=== PATIENT | female | born 1985 | race Caucasian/White ===

== ENCOUNTER 2017-04-20 18:28 | Inpatient (IN) ==
--- OUTSIDE RECORDS SUMMARY | 2017-04-20 19:12 | External Medical Summary | Referral Summary ---
:1985 Author Organization [facility] Address [address] [place] [address] Care Team Providers Name Role Phone Randell Mi Primary Care Physician Encounter [facility] [phone] Date(s): 05/23/16 - 05/25/16 [facility] [address] [place] [address] Discharge Disposition: 01-Home or Self Care Attending Physician: Mariluz Gonzalez MD Admitting Physician: Mariluz Gonzalez MD Vital Signs Most recent to oldest [Reference Range]: 1 Temperature Oral [35.8-37.3 degC] 36.4 degC (05/25/16 12:19 PM) Temperature Temporal Artery [36.3-37.8 degC] 37 degC (05/24/16 4:00 PM) Peripheral Pulse Rate [60-100 bpm] 102 bpm *HI* (05/25/16 12:19 PM) Heart Rate Monitored [60-100 bpm] 111 bpm *HI* (05/24/16 6:00 PM) Respiratory Rate [14-20 br/min] 16 br/min (05/25/16 12:19 PM) Blood Pressure [90-140/60-90 mmHg] 130/98 mmHg (05/25/16 12:19 PM) Mean Arterial Pressure, Cuff 82 mmHg (05/24/16 6:00 PM) SpO2 98 % (05/25/16 12:19 PM) Remote Telemetry Ongoing (05/24/16 4:00 AM) Problem List Condition Effective Dates Status Health Status Informant Acute pain(Confirmed) Active Allergic rhinitis Resolved (disorder)(Confirmed) Alteration in nutrition(Confirmed)1 Active Anemia (disorder)(Confirmed) Resolved Anxiety(Confirmed)2 Active At risk for falls(Confirmed)3 Resolved At risk for infection(Confirmed)4 Active At risk for injury(Confirmed)5, 6 Active At risk for unstable blood glucose Active level(Confirmed)7, 8, 9 At risk of pressure sore(Confirmed) Active At risk of venous 02/05/15 Active thromboembolus(Confirmed)10 Bipolar 1 disorder(Confirmed) Active patient Essential hypertension Resolved (disorder)(Confirmed) Fluid imbalance(Confirmed)11, 12, 13 Active Impaired gas exchange(Confirmed)14 Active Impaired skin integrity(Confirmed)15 Resolved Impaired spontaneous Active ventilation(Confirmed)16 Ineffective airway Active clearance(Confirmed)17 DKA, type 1(Confirmed) Active Knowledge deficit(Confirmed)18, 19 Active Migraine (disorder)(Confirmed) Resolved PTSD (post-traumatic stress Active patient disorder)(Confirmed) Tissue perfusion Active alteration(Confirmed)20, 21 Tobacco user(Confirmed) Active patient 1Problem added automatically by system based on initiation of Alteration in Nutrition Plan of [id number] added automatically by system based on initiation of Anxiety Plan of [id number] problem was added by Discern Expert.4Problem added automatically by system based on initiation of At Risk for Infection in Nutrition Planof [id number] updated automatically by system based on initiation of Risk for Injury Plan of Xyuk7Bcgdfge added automatically by system based on initiation of Risk for Injury Plan of Fscx1Povntal updated automatically by system based on initiation of At Risk for Unstable Blood Glucose Plan of [id number] updated automatically by system based on initiation of At Risk for Unstable Blood Glucose Plan of Ihyj7Nwxldsq added automatically by system based on initiation of At Risk for Unstable Blood Glucose Planof Cujz43Awokfap added by Discern Hjkghr25Rfnmqar updated automatically by system based on initiation of Fluid Volume Imbalance Plan of [id number] updated automatically by system based on initiation of Fluid Volume Imbalance Plan of [id number] added automatically by system based on initiation of Fluid Volume Imbalance Plan of Ormu29Vmgrexm added automatically by system based on initiation of Impaired Gas Exchange Plan of Dtja14Tmndwkk added automatically by system based on initiation of Impaired Skin Integrity Plan of Rzpp65Xquholk added automatically by system based on initiation of Impaired Spontaneous Ventilation Plan of Vedg72Vqmilij added automatically by system based on initiation of Ineffective Airway Clearance Plan of Uuxj89Vepvbtc updated automatically by system based on initiation of Knowledge Deficit Plan of Fvxj89Nuzkxmf added automatically by system based on initiation of Knowledge Deficit Plan of Ieqi63Rqrtxhc updated automatically by system based on initiation of Tissue Perfusion Cerebral Plan of Pwhi19Jgbzcsw added automatically by system based on initiation of Tissue Perfusion Cerebral Plan of Care Allergies, Adverse Reactions, Alerts Substance Reaction Severity Status amoxicillin Unknown Unknown Active Hives Apple Adverse Reaction Active ibuprofen Active Macrobid1 mineral oil/phenylephrine/shark liver Mild Active oil morphine unknown Active penicillin Medium Active simvastatin Adverse Reaction Active sulfa drugs Active sulfamethoxazole-trimethoprim Anaphylaxis Active 1pt states liver problems Medications albuterol 2.5 mg/3 mL (0.083%) inhalation solution 2.5 mg 3 mL, NEB, q4hr, Shortness of Breath/Wheezing, # 540 mL, 0 Refill(s), Pharmacy: [facility] [id number], 3 mL NEB q4hr,PRN:Shortness of Breath/ Wheezing Start Date: 06/25/15 Status: OrderedAmbien 5 mg, Oral, Bedtime (once a day), as needed for sleep, 0 Refill(s) Start Date: 11/07/15 Status: Ordereddiazepam 2 mg, Oral, TID, 0 Refill(s) Start Date: 03/01/16 Status: Ordereddoxycycline hyclate 100 mg oral capsule 100 mg 1 caps, Oral, BID, X 5 days, # 10 caps, 0 Refill(s) Start Date: 05/22/16 Stop Date: 05/27/16 Status: Orderedfolic acid 1 mg oral tablet 1 mg, Oral, Daily, # 30 tabs, 0 Refill(s), Pharmacy: [facility] [id number] , 1 mg Oral Daily Start Date: 06/25/15 Status: OrderedLevemir 100 units/mL subcutaneous solution 30 units, SubCutaneous, Bedtime (once a day), 0 Refill(s) Start Date: 03/10/16 Status: Orderedlisinopril 5 mg oral tablet 5 mg 1 tabs, Oral, Daily, # 30 tabs, 1 Refill(s), Pharmacy: [facility] [id number], 1 tabs Oral Daily Start Date: 06/25/15 Status: OrderedMultiple Vitamins oral capsule 1 caps, Oral, Daily, # 30 caps, 0 Refill(s), Pharmacy: [facility] [id number] Start Date: 06/25/15 Status: OrderedNovoLOG 13 units, SubCutaneous, With Breakfast, 0 Refill(s) Start Date: 03/01/16 Status: OrderedNovoLOG 10 units, SubCutaneous, With Lunch and Dinner, 0 Refill(s) Start Date: 03/01/16 Status: OrderedProAir HFA 90 mcg/inh inhalation aerosol 2 puffs, Inhalation, q4hr, as needed for wheezing, 0 Refill(s) Start Date: 03/01/16 Status: OrderedPromethazine with Codeine 6.25 mg-10 mg/5 mL oral syrup 5 mL, Oral, q6hr, as needed for cough, X 7 days, # 100 mL, 0 Refill(s) Start Date: 05/22/16 Stop Date: 05/29/16 Status: Orderedsertraline 100 mg oral tablet 200 mg 2 tabs, Oral, qAM, 0 Refill(s) Start Date: 03/01/16 Status: OrderedVitamin B Complex oral capsule 1 caps, Oral, Daily, # 30 caps, 0 Refill(s), Pharmacy: [facility] [id number] Start Date: 06/25/15 Status: Ordered Results Blood Gases Most recent to oldest [Reference Range]: 1 pH [7.35-7.45] 7.31 *LOW* (05/23/16 9:09 PM) pCO2 Art [35-45 mmHg] 23 mmHg *LOW* (05/23/16 9:09 PM) Bicarbonate [22-26 mEq/L] 11 mEq/L *LOW* (05/23/16 9:09 PM) Base Excess Art [0-2] -13 *LOW* (05/23/16 9:09 PM) O2 Sat Art [90.0-97.0 %] 97.2 % *HI* (05/23/16 9:09 PM) pO2 Art [80-100 mmHg] 107 mmHg *HI* (05/23/16 9:09 PM) O2 Panel RA (05/23/16 9:09 PM) Spec Site A. radialis r. (05/23/16 9:09 PM) Hematology Most recent to oldest [Reference Range]: 1 WBC [4.8-10.8 10*3/uL] 15.8 10*3/uL *HI* (05/24/16 4:01 AM) RBC [4.00-5.20] 3.65 *LOW* (05/24/16 4:01 AM) Hgb [12.0-16.0 gm/dL] 10.7 gm/dL *LOW* (05/24/16 4:01 AM) Hct [37.0-47.0 %] 31.5 % *LOW* (05/24/16 4:01 AM) MCV [82.0-99.0 fL] 86.3 fL (05/24/16 4:01 AM) MCH [27.0-32.0 pg] 29.3 pg (05/24/16 4:01 AM) MCHC [32.0-36.0 gm/dL] 34.0 gm/dL (05/24/16 4:01 AM) RDW [11.5-14.5 %] 12.1 % (05/24/16 4:01 AM) Platelet [150-400 10*3/uL] 347 10*3/uL (05/24/16 4:01 AM) MPV [9.4-12.4 fL] 9.7 fL (05/24/16 4:01 AM) Immature Granulocytes [0.0-1.0 %] 0.3 % (05/23/16 11:19 PM) Neutrophils [51-75 %] 71 % (05/24/16 4:01 AM) Band Man [0-8 %] 4 % (05/24/16 4:01 AM) Lymphocytes [20-46 %] 15 % *LOW* (05/24/16 4:01 AM) Monocytes [4-11 %] 9 % (05/24/16 4:01 AM) Eosinophils [0-4 %] 1 % (05/24/16 4:01 AM) Basophils [0-2 %] 1 % (05/24/16 4:01 AM) Neutro Absolute [1.90-7.00 10*3] 11.85 10*3 *HI* (05/24/16 4:01 AM) Lymph Absolute [0.80-3.30 10*3] 2.37 10*3 (05/24/16 4:01 AM) Christian Absolute [0.30-1.00 10*3] 1.42 10*3 *HI* (05/24/16 4:01 AM) Eos Absolute [0.00-0.50 10*3] 0.16 10*3 (05/24/16 4:01 AM) Baso Absolute [0.00-0.20 10*3] 0.16 10*3 (05/24/16 4:01 AM) Nucleated RBC Automated [0 /100 WBC] 0.0 /100 WBC (05/24/16 4:01 AM) Differential Reviewed (05/24/16 4:01 AM) Chemistry Most recent to oldest [Reference Range]: 1 Sodium Lvl [136-144 mEq/L] 138 mEq/L (05/25/16 5:24 AM) Potassium Lvl [3.6-5.1 mEq/L] 3.5 mEq/L *LOW* (05/25/16 5:24 AM) Chloride [99-109 mEq/L] 107 mEq/L (05/25/16 5:24 AM) CO2 [22-32 mEq/L] 26 mEq/L (05/25/16 5:24 AM) AGAP [3-20] 5 (05/25/16 5:24 AM) BUN [4-20 mg/dL] 13 mg/dL (05/25/16 5:24 AM) Glucose Lvl [70-100 mg/dL] 67 mg/dL *LOW* (05/25/16 5:24 AM) Creatinine Lvl [0.44-1.03 mg/dL] 0.52 mg/dL (05/25/16 5:24 AM) eGFR [>60] >60 1 (05/25/16 5:24 AM) Calcium Lvl [8.6-10.0 mg/dL] 8.2 mg/dL *LOW* (05/25/16 5:24 AM) Albumin Lvl [3.5-4.8 gm/dL] 2.1 gm/dL *LOW* (05/25/16 5:24 AM) Total Protein [6.1-7.9 gm/dL] 6.9 gm/dL (05/23/16 8:51 PM) Globulin [1.9-4.3 gm/dL] 3.5 gm/dL (05/23/16 8:51 PM) ALT [14-54 U/L] 18 U/L (05/23/16 8:51 PM) AST [15-41 U/L] 18 U/L (05/23/16 8:51 PM) Alk Phos [26-104 U/L] 83 U/L (05/23/16 8:51 PM) Bili Total [0.2-1.2 mg/dL] 1.8 mg/dL 2 *HI* (05/23/16 8:51 PM) Magnesium Lvl [1.8-2.5 mg/dL] 2.0 mg/dL (05/24/16 4:01 AM) Phosphorus [2.4-4.7 mg/dL] 2.6 mg/dL 3 (05/25/16 5:24 AM) Lactic Acid Lvl [0.5-2.2 mEq/L] 0.8 mEq/L (05/24/16 4:01 AM) Prealbumin [18-38 mg/dL] 28 mg/dL (05/23/16 11:19 PM) Sodium Venous [136-144 mEq/L] 118 mEq/L *LOW* (05/23/16 8:48 PM) Potassium Venous [3.6-5.1 mEq/L] 5.6 mEq/L 4 *HI* (05/23/16 8:48 PM) Calcium Ionized Venous [1.19-1.41 mmol/L] 1.13 mmol/L *LOW* (05/23/16 8:48 PM) Total CO2 Venous [25-29 mEq/L] 13 mEq/L *LOW* (05/23/16 8:48 PM) HGB Venous NPT [12.0-16.0 gm/dL] 15.0 gm/dL (05/23/16 8:48 PM) HCT Venous [37.0-47.0 %] 44.0 % (05/23/16 8:48 PM) Glucose Venous [70-100 mg/dL] >700 mg/dL *HHI* (05/23/16 8:48 PM) BUN Venous [4-20] 25 *HI* (05/23/16 8:48 PM) Creatinine Venous [0.4-1.0 mg/dL] 0.6 mg/dL (05/23/16 8:48 PM) Venous CL [99-109 mEq/L] 89 mEq/L *LOW* (05/23/16 8:48 PM) Anion Gap, Heriberto [3-20] 16 (05/23/16 8:48 PM) Blood Glucose, Capillary [70-100 mg/dL] 118 mg/dL *HI* (05/25/16 10:59 AM) TSH with Reflex Free T4 [0.35-5.50] 1.33 (05/23/16 11:19 PM) Kjdv-Skyrdoejgm-Jgmq [<0.4 mmol/L] 9.3 mmol/L 5 *HI* (05/23/16 11:19 PM) 1Result Comment: Multiply eGFR results by 1.21 for race.2Result Comment: Naproxen, specifically the metabolite O-desmethylnaproxen, may cause spurious elevation in Total Bilirubin levels.3Result Comment: High dosages of liposomal Amphotericin B (AmBisome) therapy or other drug preparations that use a liposomal envelope to facilitate drug delivery may cause falsely elevated results for phosphorus.4Result Comment: This test was performed on a whole blood specimen. The presence or absence of hemolysis cannot be assessed. Hemolysis can falsely elevate potassium levels. Normals are for venous specimens only.5Result Comment: Test Performed by : [facility] [place] [address] [employer]: Rico Persaud II, M.D., Ph.D.Toxicology Most recent to oldest [Reference Range]: 1 U Amphetamine Scrn Negative (05/23/16 8:51 PM) U Cocaine Scrn Negative (05/23/16 8:51 PM) U Cannab Scrn Negative (05/23/16 8:51 PM) U Opiate Scrn Negative (05/23/16 8:51 PM) U PCP Scrn Negative (05/23/16 8:51 PM) U Benzodiazepine Scrn Negative (05/23/16 8:51 PM) U Barbiturate Scrn Negative (05/23/16 8:51 PM) Methadone Lvl Negative (05/23/16 8:51 PM) Tricyclics Not Detected 1 (05/23/16 8:51 PM) 1Result Comment: Cut-off concentrations: Amphetamines: 1000 ng/mL Cocaine: 300 ng/mL Cannabinoid: 50 ng/mL Opiate: 300 ng/mL Phencyclidine (PCP): 25 ng/mL Benzodiazepine: 200 ng/mL Barbiturate: 200 ng/mL Methadone: 300 ng/mL Tricyclic: 300 ng/mL The urine drug screen assays are qualitative screens. A more specific GC/MS method must be performed to obtain a confirmed analytical result. Unconfirmed screening results must not be used for non-medical purposes(e.g. employment or legal testing)Urinalysis Most recent to oldest [Reference Range]: 1 UA Color Colorless (05/23/16 8:51 PM) UA Appear Clear (05/23/16 8:51 PM) UA pH [5.0-8.0] 5.0 (05/23/16 8:51 PM) UA Leuk Est [Negative] Negative (05/23/16 8:51 PM) UA Nitrite [Negative] Negative (05/23/16 8:51 PM) UA Protein [Negative] Pos 1+ *ABN* (05/23/16 8:51 PM) UA Glucose [Negative] Pos 3+ *ABN* (05/23/16 8:51 PM) UA Ketones [Negative] Pos 2+ *ABN* (05/23/16 8:51 PM) UA Urobilinogen [<1.0] Negative (05/23/16 8:51 PM) UA Bili [Negative] Negative (05/23/16 8:51 PM) UA Blood [Negative] Pos 1+ *ABN* (05/23/16 8:51 PM) UA Spec Grav [1.003-1.030] 1.020 (05/23/16 8:51 PM) Type Clean Catch (05/23/16 8:51 PM) UA WBC [0-4] 5-10 *ABN* (05/23/16 8:51 PM) UA RBC [0-2] 0-2 (05/23/16 8:51 PM) Epithelial Cells 0-2 (05/23/16 8:51 PM) UA Bacteria Rare (05/23/16 8:51 PM) Microbiology Reports TEST:Respiratory Virus Panel - PCR STATUS:Auth (Verified) BODY SITE: SOURCE:Nasopharyngeal Swab COLLECTED DATE/TIME:05/24/16 2:34 AMRespiratory Virus Panel - PCRNegative for all strains tested. . Specimen tested for the following FDA approved viral targets: Influenza A, Influenza A subtype H1, Influenza A subtype H3, Influenza A 2009 H1N1, Influenza B, Respiratory Syncytial Virus subtype A, Respiratory Syncytial Virus subtype B, Adenovirus B/E, Adenovirus C, Rhinovirus, Parainfluenza virus 1, Parainfluenza virus 2, Parainfluenza virus 3, and Human Metapneumovirus. . The following viral targets were also tested. Although not FDA approved, these targets have been validated by our laboratory for clinical diagnosis: Parainfluenza virus 4, Coronavirus 229E, Coronavirus NL63, Coronavirus HKU1, and Coronavirus OC43. Immunizations Vaccine Date Refusal Reason hepatitis B adult vaccine 12/10/00 hepatitis B adult vaccine 10/13/00 measles/mumps/rubella virus vaccine 08/06/08 pneumococcal 23-polyvalent vaccine 03/29/04 Procedures Procedure Date Related Diagnosis Body Site Insertion of peripherally inserted central venous 05/24/16 catheter (PICC), without subcutaneous port or pump; age 5 years or older.. Arterial puncture, withdrawal of blood for 05/23/16 diagnosis Adenoidectomy Cervical cautery section Sinusotomy Tonsillectomy Tubal ligation Social History Social History Type Response Smoking Status Smoker, current status unknown Assessment and Plan No data available for this section
--- OUTSIDE RECORDS SUMMARY | 2017-04-20 19:12 | External Medical Summary | Referral Summary ---
:1985 Author Organization [facility] (Formerly [facility])[3] Address [address] [place] [address] Care Team Providers Name Role Phone Laura Hall Primary Care Physician Encounter [facility] [id number] Date(s): 12/30/14 - 12/31/14 [facility] ([facility]3] [address] [place] [address] [phone] Final: Diabetes mellitus with ketoacidosis, type I [juvenile type], uncontrolled Final: Systemic inflammatory response syndrome due to noninfectious process without acute organ dysfunction Final: HYPOCALCEMIA Final: AMPHETAMINE OR RELATED ACTING SYMPATHOMIMETIC ABUSE, UNSPECIFIED USE Final: Dehydration Final: DISORDERS OF PHOSPHORUS METABOLISM Final: DISORDERS OF MAGNESIUM METABOLISM Final: GASTROPARESIS Final: TOBACCO USE DISORDER Final: Extrinsic asthma, unspecified Discharge Disposition: 01-Home or Self Care Attending Physician: Horace Barcenas MD Admitting Physician: Horace Barcenas MD Vital Signs Most recent to oldest [Reference Range]: 1 Temperature Temporal Artery [36.3-37.8 degC] 37.2 degC (12/31/14 4:00 AM) Peripheral Pulse Rate [60-100 bpm] 81 bpm (12/30/14 2:20 AM) Heart Rate Monitored [60-100 bpm] 115 bpm *HI* (12/31/14 5:00 PM) Respiratory Rate [14-20 br/min] 22 br/min *HI* (12/31/14 5:00 PM) Blood Pressure [90-140/60-90 mmHg] 139/92 mmHg (12/31/14 3:00 PM) Mean Arterial Pressure, Cuff 106 mmHg (12/31/14 3:00 PM) SpO2 97 % (12/31/14 4:30 PM) Problem List Condition Effective Dates Status Health Status Informant Acute pain(Confirmed) Active Allergic rhinitis Resolved (disorder)(Confirmed) Alteration in nutrition(Confirmed)1 Active Anemia (disorder)(Confirmed) Resolved Anxiety(Confirmed)2 Active At risk for falls(Confirmed)3 Resolved At risk for injury(Confirmed)4, 5 Active At risk for unstable blood glucose Active level(Confirmed)6, 7, 8 At risk of pressure sore(Confirmed) Active At risk of venous 02/05/15 Active thromboembolus(Confirmed)9 Bipolar 1 disorder(Confirmed) Active patient Essential hypertension Resolved (disorder)(Confirmed) Fluid imbalance(Confirmed)10, 11, 12 Active Impaired gas exchange(Confirmed)13 Active Impaired skin integrity(Confirmed)14 Resolved Impaired spontaneous Active ventilation(Confirmed)15 Ineffective airway Active clearance(Confirmed)16 DKA, type 1(Confirmed) Active Knowledge deficit(Confirmed)17, 18 Active Migraine (disorder)(Confirmed) Resolved PTSD (post-traumatic stress Active patient disorder)(Confirmed) Tissue perfusion Active alteration(Confirmed)19, 20 Tobacco user(Confirmed) Active patient 1Problem added automatically by system based on initiation of Alteration in Nutrition Plan of Dkql0Kptcmpk added automatically by system based on initiation of Anxiety Plan of Xxhj3Wihe problem was added by Discern Expert.4Problem updated automatically by system based on initiation of Risk for Injury Plan of Qpxg8Slsahzf added automatically by system based on initiation of Risk for Injury Plan of Tlwv4Jiwsbiz updated automatically by system based on initiation of At Risk for Unstable Blood Glucose Plan of Osns9Tzabcji updated automatically by system based on initiation of At Risk for Unstable Blood Glucose Plan of Preb2Lwvkqrx added automatically by system based on initiation of At Risk for Unstable Blood Glucose Planof Giiz6Osordys added by Discern Vepnaz11Rtwqbqm updated automatically by system based on initiation of Fluid Volume Imbalance Plan of Jzgv11Kkiholr updated automatically by system based on initiation of Fluid Volume Imbalance Plan of Lwxi38Bkfignk added automatically by system based on initiation of Fluid Volume Imbalance Plan of Dkru03Zepjeut added automatically by system based on initiation of Impaired Gas Exchange Plan of Yuiz80Gjkrbak added automatically by system based on initiation of Impaired Skin Integrity Plan of Wjiq94Dfpwkqy added automatically by system based on initiation of Impaired Spontaneous Ventilation Plan of Jzqg61Ukapazu added automatically by system based on initiation of Ineffective Airway Clearance Plan of Ecyx76Bktjrvo updated automatically by system based on initiation of Knowledge Deficit Plan of Dktf33Jaltubu added automatically by system based on initiation of Knowledge Deficit Plan of Xbbg22Dowagiq updated automatically by system based on initiation of Tissue Perfusion Cerebral Plan of Ihym94Becofgt added automatically by system based on initiation of Tissue Perfusion Cerebral Plan of Care Allergies, Adverse Reactions, Alerts Substance Reaction Severity Status amoxicillin Unknown Unknown Active Hives Apple Adverse Reaction Active ibuprofen Active Macrobid1 mineral oil/phenylephrine/shark liver Mild Active oil morphine unknown Active simvastatin Adverse Reaction Active sulfa drugs Active sulfamethoxazole-trimethoprim Anaphylaxis Active 1pt states liver problems Medications albuterol 2.5 mg/3 mL (0.083%) inhalation solution 2.5 mg 3 mL, NEB, q4hr, Shortness of Breath/Wheezing, # 540 mL, 0 Refill(s), Pharmacy: [facility] [id number], 3 mL NEB q4hr,PRN:Shortness of Breath/ Wheezing Start Date: 06/25/15 Status: Orderedalbuterol 5 mg/mL (0.5%) inhalation solution 2.5 mg 0.5 mL, NEB, TID, # 45 mL, 0 Refill(s), Pharmacy: [facility] [id number], 0.5 mL NEB TID Start Date: 06/25/15 Status: Orderedfolic acid 1 mg oral tablet 1 mg, Oral, Daily, # 30 tabs, 0 Refill(s), Pharmacy: [facility] [id number] , 1 mg Oral Daily Start Date: 06/25/15 Status: OrderedLevemir 100 units/mL subcutaneous solution 15 units, SubCutaneous, BID, # 15 mL, 0 Refill(s), Pharmacy: [facility] [id number], 15 units SubCutaneous BID Start Date: 06/25/15 Status: Orderedlisinopril 5 mg oral tablet 5 mg 1 tabs, Oral, Daily, # 30 tabs, 1 Refill(s), Pharmacy: [facility] [id number], 1 tabs Oral Daily Start Date: 06/25/15 Status: Orderedmetoclopramide 10 mg oral tablet 10 mg, Oral, QIDACHS, X 30 days, # 120 tabs, 0 Refill(s), Pharmacy: [facility] [id number], 10 mg Oral QIDACHS,x30 days Start Date: 06/25/15 Stop Date: 07/25/15 Status: OrderedMiraLax oral powder for reconstitution 17 g, Oral, Daily, dissolve in water before taking, # 255 g, 3 Refill(s), Pharmacy: [facility] [id number] Start Date: 06/25/15 Stop Date: 07/14/15 Status: OrderedMultiple Vitamins oral capsule 1 caps, Oral, Daily, # 30 caps, 0 Refill(s), Pharmacy: [facility] [id number] Start Date: 06/25/15 Status: OrderedNovoLOG 100 units/mL subcutaneous solution 10 units, SubCutaneous, TIDAC, # 30 mL, 0 Refill(s), Pharmacy: [facility] [id number], 10 units SubCutaneous TIDAC Start Date: 06/25/15 Status: Orderedsertraline 100 mg oral tablet 100 mg 1 tabs, Oral, Daily, # 30 tabs, 0 Refill(s), Pharmacy: [facility] [id number], 1 tabs Oral Daily Start Date: 06/25/15 Status: OrderedVitamin B Complex oral capsule 1 caps, Oral, Daily, # 30 caps, 0 Refill(s), Pharmacy: [facility] [id number] Start Date: 06/25/15 Status: Ordered Results Blood Gases Most recent to oldest [Reference Range]: 1 2 pH [7.35-7.45] 7.08 *LLOW* (12/30/14 3:38 AM) pCO2 Art [35-45 mmHg] 7 mmHg *LLOW* (12/30/14 3:38 AM) Bicarbonate [22-26 mEq/L] 2 mEq/L *LOW* (12/30/14 3:38 AM) Base Excess Art [0-2] -25 *LOW* (12/30/14 3:38 AM) O2 Sat Art [90.0-97.0 %] 90.8 % (12/30/14 3:38 AM) pO2 Art [80-100 mmHg] 93 mmHg (12/30/14 3:38 AM) O2 Panel Room Air (12/30/14 3:38 AM) Spec Site Brachial-R (12/30/14 3:38 AM) Hematology Most recent to oldest [Reference Range]: 1 2 WBC [4.8-10.8 10*3/uL] 13.4 10*3/uL *HI* (12/31/14 4:47 AM) RBC [4.00-5.20 10*6/uL] 3.48 10*6/uL *LOW* (12/31/14 4:47 AM) Hgb [12.0-16.0 gm/dL] 10.5 gm/dL *LOW* (12/31/14 4:47 AM) Hct [37.0-47.0 %] 30.4 % *LOW* (12/31/14 4:47 AM) MCV [82.0-99.0 fL] 87.4 fL (12/31/14 4:47 AM) MCH [27.0-32.0 pg] 30.2 pg (12/31/14 4:47 AM) MCHC [32.0-36.0 gm/dL] 34.5 gm/dL (12/31/14 4:47 AM) RDW [11.5-14.5 %] 13.8 % (12/31/14 4:47 AM) Platelet [150-400 10*3/uL] 290 10*3/uL (12/31/14 4:47 AM) MPV [9.4-12.4 fL] 9.2 fL *LOW* (12/31/14 4:47 AM) Neutrophils [51-75 %] 78 % *HI* (12/30/14 6:31 AM) Band Man [0-8 %] 11 % *HI* (12/30/14 6:31 AM) Lymphocytes [20-46 %] 5 % *LOW* (12/30/14 6:31 AM) Monocytes [4-11 %] 5 % (12/30/14 6:31 AM) Eosinophils [0-4 %] 1 % (12/30/14 6:31 AM) Basophils [0-2 %] 0 % (12/30/14 6:31 AM) Neutro Absolute [1.90-7.00 10*3] 25.54 10*3 *HI* (12/30/14 6:31 AM) Lymph Absolute [0.80-3.30 10*3] 1.44 10*3 (12/30/14 6:31 AM) Barton Absolute [0.30-1.00 10*3] 1.44 10*3 *HI* (12/30/14 6:31 AM) Eos Absolute [0.00-0.50 10*3] 0.29 10*3 (12/30/14 6:31 AM) Baso Absolute [0.00-0.20 10*3] 0.00 10*3 (12/30/14 6:31 AM) Nucleated RBC Automated [0 /100 WBC] 0.0 /100 WBC (12/30/14 6:31 AM) Differential Manual *ABN* (12/30/14 6:31 AM) Chemistry Most recent to oldest [Reference Range]: 1 2 Sodium Lvl [136-144 mEq/L] 133 mEq/L *LOW* (12/31/14 4:47 AM) Potassium Lvl [3.6-5.1 mEq/L] 4.3 mEq/L (12/31/14 4:47 AM) Chloride [99-109 mEq/L] 111 mEq/L *HI* (12/31/14 4:47 AM) CO2 [22-32 mEq/L] 16 mEq/L *LOW* (12/31/14 4:47 AM) AGAP [3-20] 6 (12/31/14 4:47 AM) BUN [4-20 mg/dL] 17 mg/dL (12/31/14 4:47 AM) Glucose Lvl [70-100 mg/dL] 129 mg/dL *HI* (12/31/14 4:47 AM) Creatinine Lvl [0.44-1.03 mg/dL] 0.58 mg/dL (12/31/14 4:47 AM) eGFR [>60] >60 1 (12/31/14 4:47 AM) Calcium Lvl [8.6-10.0 mg/dL] 7.7 mg/dL *LOW* (12/31/14 4:47 AM) Albumin Lvl [3.5-4.8 gm/dL] 2.6 gm/dL *LOW* (12/31/14 4:47 AM) Total Protein [6.1-7.9 gm/dL] 5.2 gm/dL *LOW* (12/31/14 4:47 AM) Globulin [1.9-4.3 gm/dL] 2.6 gm/dL (12/31/14 4:47 AM) ALT [14-54 U/L] 14 U/L (12/31/14 4:47 AM) AST [15-41 U/L] 10 U/L *LOW* (12/31/14 4:47 AM) Alk Phos [26-104 U/L] 69 U/L (12/31/14 4:47 AM) Bili Total [0.2-1.2 mg/dL] 0.5 mg/dL 2 (12/31/14 4:47 AM) Magnesium Lvl [1.8-2.5 mg/dL] 2.5 mg/dL (12/31/14 4:47 AM) Phosphorus [2.4-4.7 mg/dL] 3.7 mg/dL 3 (12/31/14 4:47 AM) Total CK [38-234 U/L] 138 U/L 4 (12/30/14 3:19 AM) Lipase Lvl [8-48 U/L] 17 U/L (12/30/14 9:23 AM) Amylase Lvl [28-100 U/L] 175 U/L *HI* (12/30/14 9:23 AM) Lactic Acid Lvl [0.5-2.2 mEq/L] 1.6 mEq/L 1.6 mEq/L (12/30/14 3:20 AM) (12/30/14 3:20 AM) Osmolality [275-300 mOsm/kg] 306 mOsm/kg *HI* (12/30/14 4:05 PM) Sodium Venous [136-144 mEq/L] 131 mEq/L *LOW* (12/30/14 3:15 AM) Potassium Venous [3.6-5.1 mEq/L] 6.0 mEq/L 5 *HI* (12/30/14 3:15 AM) Calcium Ionized Venous [1.19-1.41 mmol/L] 1.16 mmol/L *LOW* (12/30/14 3:15 AM) Total CO2 Venous [25-29 mEq/L] <5 mEq/L *LOW* (12/30/14 3:15 AM) HGB Venous NPT [12.0-16.0 gm/dL] 16.0 gm/dL (12/30/14 3:15 AM) HCT Venous [37.0-47.0 %] 47.0 % (12/30/14 3:15 AM) Glucose Venous [70-100 mg/dL] 670 mg/dL *HHI* (12/30/14 3:15 AM) BUN Venous [4-20] 35 *HI* (12/30/14 3:15 AM) Creatinine Venous [0.4-1.0 mg/dL] 0.6 mg/dL (12/30/14 3:15 AM) Venous CL [99-109 mEq/L] 107 mEq/L (12/30/14 3:15 AM) Anion Gap, Heriberto [3-20] 19 (12/30/14 3:15 AM) Blood Glucose, Capillary [74-106 mg/dL] 265 mg/dL 265 mg/dL *HI* *HI* (12/31/14 5:03 PM) (12/31/14 5:03 PM) Blood Glucose, Capillary Out of Range High (12/31/14 12:00 AM) U Beta hCG Ql [Negative] Negative (12/30/14 6:38 AM) 1Result Comment: Multiply eGFR results by 1.21 for race.2Result Comment: Naproxen, specifically the metabolite O-desmethylnaproxen, may cause spurious elevation in Total Bilirubin levels.3Result Comment: High dosages of liposomal Amphotericin B (AmBisome) therapy or other drug preparations that use a liposomal envelope to facilitate drug delivery may cause falsely elevated results for phosphorus.4Result Comment: Specimen is grossly hemolyzed. All results should be interpreted with caution.5Result Comment: This test was performed on a whole blood specimen. The presence or absence of hemolysis cannot be assessed. Hemolysis can falsely elevate potassium levels. Normals are for venous specimens only.Toxicology Most recent to oldest [Reference Range]: 1 2 U Amphetamine Scrn Positive *ABN* (12/30/14 6:38 AM) U Cocaine Scrn Negative (12/30/14 6:38 AM) U Cannab Scrn Negative (12/30/14 6:38 AM) U Opiate Scrn Negative (12/30/14 6:38 AM) U PCP Scrn Negative (12/30/14 6:38 AM) U Benzodiazepine Scrn Negative (12/30/14 6:38 AM) U Barbiturate Scrn Negative (12/30/14 6:38 AM) Methadone Lvl Negative (12/30/14 6:38 AM) Tricyclics Not Detected 1 (12/30/14 6:38 AM) 1Result Comment: Cut-off concentrations: Amphetamines: 1000 ng/mL [...] Most recent to oldest [Reference Range]: 1 2 UA Color Lt Yellow (12/30/14 6:38 AM) UA Appear Clear (12/30/14 6:38 AM) UA pH [5.0-8.0] 5.0 (12/30/14 6:38 AM) UA Leuk Est [Negative] Negative (12/30/14 6:38 AM) UA Nitrite [Negative] Negative (12/30/14 6:38 AM) UA Protein [Negative] Trace *ABN* (12/30/14 6:38 AM) UA Glucose [Negative] Pos 3+ *ABN* (12/30/14 6:38 AM) UA Ketones [Negative] Pos 3+ *ABN* (12/30/14 6:38 AM) UA Urobilinogen [<1.0] Negative (12/30/14 6:38 AM) UA Bili [Negative] Negative (12/30/14 6:38 AM) UA Blood [Negative] Trace *ABN* (12/30/14 6:38 AM) UA Spec Grav [1.003-1.030] 1.023 (12/30/14 6:38 AM) Type Clean Catch (12/30/14 6:38 AM) UA WBC [0-4] 0-2 (12/30/14 6:38 AM) UA RBC [0-2] 0-2 (12/30/14 6:38 AM) Epithelial Cells 0-2 (12/30/14 6:38 AM) UA Bacteria Occasional *ABN* (12/30/14 6:38 AM) UA Yeast Present *ABN* (12/30/14 6:38 AM) UA Mucous Present (12/30/14 6:38 AM) Microbiology Reports TEST:Blood Culture STATUS:Auth (Verified) BODY SITE: SOURCE:Blood COLLECTED DATE/TIME:12/30/14 6:31 AMBlood CultureNo growth after 5 days of incubation.TEST:Blood Culture STATUS:Auth (Verified) BODY SITE: SOURCE:Blood COLLECTED DATE/TIME:12/30/14 3:59 AMBlood CultureNo growth after 5 days of incubation. Immunizations Vaccine Date Refusal Reason hepatitis B adult vaccine 12/10/00 hepatitis B adult vaccine 10/13/00 measles/mumps/rubella virus vaccine 08/06/08 pneumococcal 23-polyvalent vaccine 03/29/04 Procedures Procedure Date Related Diagnosis Body Site Repair of tunneled or non-tunneled central venous 12/31/14 access catheter, without subcutaneous port or pump, central or peripheral insertion site Replacement, complete, of a peripherally inserted 12/31/14 central venous catheter (PICC), without subcutaneous port or pump, through same venous access Arterial puncture, withdrawal of blood for 12/30/14 diagnosis Adenoidectomy Cervical cautery section Sinusotomy Tonsillectomy Tubal ligation Social History Social History Type Response Smoking Status Current every day smoker; Type: Cigarettes; Tobacco use per day : Pack; Number of years: 14 Assessment and Plan No data available for this section
--- OUTSIDE RECORDS SUMMARY | 2017-04-20 19:12 | External Medical Summary ---
:1985 Author Organization [facility] [address] Address [address] [place] [address] Care Team Providers Name Role Phone Randell Mi Unavailable Unavailable PROBLEMS Type Condition ICD9-CM Code [id number] Code Onset Condition SNOMED Code Dates Status Problem Anxiety associated F41.8 Active 255994299 with depression Problem Gastritis K29.70 Active 9662813 Problem Asthma J45.909 Active 933634015 Problem 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 3723727 to secondary diabetes Problem Tobacco use Z72.0 Active 238959655 Problem Bipolar 1 disorder F31.9 Active 664920172 Problem Diabetes type 1, E10.65 Active 540254660 uncontrolled Problem Cataract H26.9 Active 144423414 Problem Seasonal allergies J30.2 Active 042279179 Problem Mitral valve I34.1 Active 023792230 prolapse Problem Normocytic anemia D64.9 Active 447915018 Problem Tinea versicolor B36.0 Inactive 17572259 Problem Pubic ramus S32.509A Active 46668205 fracture ALLERGIES Unknown Allergies SOCIAL HISTORY No smoking Hx information available PLAN OF CARE VITAL SIGNS MEDICATIONS Unknown Medications RESULTS No Results PROCEDURES No Known procedures IMMUNIZATIONS No Known Immunizations
--- OUTSIDE RECORDS SUMMARY | 2017-04-20 19:12 | External Medical Summary | Referral Summary ---
:1985 Author Organization [facility] Address [address] [place] [address] Care Team Providers Name Role Phone Randell Mi Primary Care Physician Encounter VC Date(s): 03/01/16 - 03/04/16 [facility] [address] [place] [address] [phone] Discharge Diagnosis: Substance abuse Discharge Disposition: 01-Home or Self Care Attending Physician: Carmina Matos MD Admitting Physician: Carmina Matos MD Vital Signs Most recent to oldest [Reference Range]: 1 Temperature Oral [35.8-37.3 degC] 37.3 degC (03/04/16 11:07 AM) Peripheral Pulse Rate [60-100 bpm] 95 bpm (03/04/16 11:07 AM) Heart Rate Monitored [60-100 bpm] 102 bpm *HI* (03/04/16 4:06 AM) Respiratory Rate [14-20 br/min] 16 br/min (03/04/16 11:07 AM) Blood Pressure [90-140/60-90 mmHg] 134/90 mmHg (03/04/16 11:07 AM) Mean Arterial Pressure, Cuff 98 mmHg (03/01/16 12:10 PM) SpO2 95 % (03/04/16 12:14 PM) Remote Telemetry Ongoing (03/01/16 8:00 AM) Problem List Condition Effective Dates Status [...] initiation of Alteration in Nutrition Plan of Iokf0Kvnzpyf added automatically by system based on initiation of Anxiety Plan of Cujh4Hubo problem was added by Discern Expert.4Problem updated automatically by system based on initiation of Risk for Injury Plan of Tncy9Vlboymv added automatically by system based on initiation of Risk for Injury Plan of Trkj5Ziwxuec updated automatically by system based on initiation of At Risk for Unstable Blood Glucose Plan of Gevr3Tkpnqot updated automatically by system based on initiation of At Risk for Unstable Blood Glucose Plan of Guif8Qgxtbar added automatically by system based on initiation of At Risk for Unstable Blood Glucose Planof Iuew6Vmxdixg added by Discern Drrwbs37Ddpouhs updated automatically by system based on initiation of Fluid Volume Imbalance Plan of Jnxn98Mwqcjxf updated automatically by system based on initiation of Fluid Volume Imbalance Plan of Tefp43Xegfxlk added automatically by system based on initiation of Fluid Volume Imbalance Plan of Reap43Eqxauvv added automatically by system based on initiation of Impaired Gas Exchange Plan of Lyhb49Rfaogkz added automatically by system based on initiation of Impaired Skin Integrity Plan of Uhio44Bcaplct added automatically by system based on initiation of Impaired Spontaneous Ventilation Plan of Fhdn58Iznqkas added automatically by system based on initiation of Ineffective Airway Clearance Plan of Mpqs65Rtttvnv updated automatically by system based on initiation of Knowledge Deficit Plan of Pplm35Mhpzfhr added automatically by system based on initiation of Knowledge Deficit Plan of Xsee88Mtdobjw updated automatically by system based on initiation of Tissue Perfusion Cerebral Plan of Jtfd43Mkvrowo added automatically by system based on initiation [...] Breath/Wheezing, # 540 mL, 0 Refill(s), Pharmacy: [facility] [place] [id number], 3 mL NEB q4hr,PRN:Shortness of Breath/ Wheezing Start Date: 06/25/15 Status: OrderedAmbien 5 mg, Oral, Bedtime (once a day), as needed for sleep, 0 Refill(s) Start Date: 11/07/15 Status: Ordereddiazepam 2 mg, Oral, TID, as needed for anxiety, 0 Refill(s) Start Date: 03/01/16 Status: Orderedfolic acid 1 mg oral tablet 1 mg, Oral, Daily, # 30 tabs, 0 Refill(s), Pharmacy: [facility] [place] [id number] , 1 mg Oral Daily Start Date: 06/25/15 Status: OrderedLevemir 35 units, SubCutaneous, Bedtime (once a day), 0 Refill(s) Start Date: 03/01/16 Status: Orderedlisinopril 5 mg oral tablet 5 mg 1 tabs, Oral, Daily, # 30 tabs, 1 Refill(s), Pharmacy: [facility] [place] [id number], 1 tabs Oral Daily Start Date: 06/25/15 Status: OrderedMultiple Vitamins oral capsule 1 caps, Oral, Daily, # 30 caps, 0 Refill(s), [facility] [id number] Start Date: 06/25/15 Status: OrderedNovoLOG 13 units, SubCutaneous, With Breakfast, 0 Refill(s) Start Date: 03/01/16 Status: OrderedNovoLOG 10 units, SubCutaneous, With Lunch and Dinner, 0 Refill(s) Start Date: 03/01/16 Status: OrderedProAir HFA 90 mcg/inh inhalation aerosol 2 puffs, Inhalation, q4hr, as needed for wheezing, 0 Refill(s) Start Date: 03/01/16 Status: Orderedsertraline 100 mg oral tablet 200 mg 2 tabs, Oral, qAM, 0 Refill(s) Start Date: 03/01/16 Status: OrderedVitamin B Complex oral capsule 1 caps, Oral, Daily, # 30 caps, 0 Refill(s), Pharmacy: [facility] [id number] Start Date: 06/25/15 Status: Ordered Results Hematology Most recent to oldest [Reference Range]: 1 WBC [4.8-10.8 10*3/uL] 6.5 10*3/uL (03/04/16 5:53 AM) RBC [4.00-5.20] 4.06 (03/04/16 5:53 AM) Hgb [12.0-16.0 gm/dL] 12.6 gm/dL (03/04/16 5:53 AM) Hct [37.0-47.0 %] 36.0 % *LOW* (03/04/16 5:53 AM) MCV [82.0-99.0 fL] 88.7 fL (03/04/16 5:53 AM) MCH [27.0-32.0 pg] 31.0 pg (03/04/16 5:53 AM) MCHC [32.0-36.0 gm/dL] 35.0 gm/dL (03/04/16 5:53 AM) RDW [11.5-14.5 %] 11.6 % (03/04/16 5:53 AM) Platelet [150-400 10*3/uL] 259 10*3/uL (03/04/16 5:53 AM) MPV [9.4-12.4 fL] 9.6 fL (03/04/16 5:53 AM) Immature Granulocytes [0.0-1.0 %] 0.3 % (03/02/16 4:03 AM) Neutrophils [51-75 %] 67 % (03/02/16 4:03 AM) Band Man [0-8 %] 7 % (03/01/16 7:42 AM) Lymphocytes [20-46 %] 25 % (03/02/16 4:03 AM) Monocytes [4-11 %] 5 % (03/02/16 4:03 AM) Eosinophils [0-4 %] 3 % (03/02/16 4:03 AM) Basophils [0-2 %] 1 % (03/02/16 4:03 AM) Neutro Absolute [1.90-7.00 10*3] 8.70 10*3 *HI* (03/02/16 4:03 AM) Lymph Absolute [0.80-3.30 10*3] 3.20 10*3 (03/02/16 4:03 AM) Woodruff Absolute [0.30-1.00 10*3] 0.63 10*3 (03/02/16 4:03 AM) Eos Absolute [0.00-0.50 10*3] 0.42 10*3 (03/02/16 4:03 AM) Baso Absolute [0.00-0.20 10*3] 0.06 10*3 (03/02/16 4:03 AM) Nucleated RBC Automated [0 /100 WBC] 0.0 /100 WBC (03/02/16 4:03 AM) Differential Manual *ABN* (03/01/16 7:42 AM) Chemistry Most recent to oldest [Reference Range]: 1 Sodium Lvl [136-144 mEq/L] 136 mEq/L (03/04/16 5:53 AM) Potassium Lvl [3.6-5.1 mEq/L] 3.9 mEq/L (03/04/16 5:53 AM) Chloride [99-109 mEq/L] 106 mEq/L (03/04/16 5:53 AM) CO2 [22-32 mEq/L] 24 mEq/L (03/04/16 5:53 AM) AGAP [3-20] 6 (03/04/16 5:53 AM) BUN [4-20 mg/dL] 14 mg/dL (03/04/16 5:53 AM) Glucose Lvl [70-100 mg/dL] 122 mg/dL *HI* (03/04/16 5:53 AM) Creatinine Lvl [0.44-1.03 mg/dL] 0.40 mg/dL *LOW* (03/04/16 5:53 AM) eGFR [>60] >60 1 (03/04/16 5:53 AM) Calcium Lvl [8.6-10.0 mg/dL] 8.8 mg/dL (03/04/16 5:53 AM) Albumin Lvl [3.5-4.8 gm/dL] 2.2 gm/dL *LOW* (03/04/16 5:53 AM) Magnesium Lvl [1.8-2.5 mg/dL] 1.9 mg/dL (03/02/16 4:03 AM) Phosphorus [2.4-4.7 mg/dL] 2.5 mg/dL 2 (03/04/16 5:53 AM) Total CK [38-234 U/L] 38 U/L (03/01/16 7:42 AM) Troponin [<0.06 ng/mL] <0.05 ng/mL (03/02/16 4:03 AM) Screen, Urine NPT Negative (03/01/16 8:11 AM) Blood Glucose, Capillary [74-106 mg/dL] 138 mg/dL *HI* (03/04/16 11:42 AM) Hgb A1c [4.1-5.6 %] 11.4 % *HI* (03/01/16 7:42 AM) eAvg Glucose 280.5 mg/dL (03/01/16 7:42 AM) 1Result Comment: Multiply eGFR results by 1.21 for race.2Result Comment: High dosages of liposomal Amphotericin B (AmBisome) therapy or other drug preparations that use a liposomal envelope to facilitate drug delivery may cause falsely elevated results for phosphorus.Toxicology Most recent to oldest [Reference Range]: 1 U Amphetamine Scrn Positive *ABN* (03/01/16 8:02 AM) U Cocaine Scrn Negative (03/01/16 8:02 AM) U Cannab Scrn Negative (03/01/16 8:02 AM) U Opiate Scrn Positive *ABN* (03/01/16 8:02 AM) U PCP Scrn Negative (03/01/16 8:02 AM) U Benzodiazepine Scrn Positive *ABN* (03/01/16 8:02 AM) U Barbiturate Scrn Negative (03/01/16 8:02 AM) Methadone Lvl Negative (03/01/16 8:02 AM) Tricyclics Not Detected 1 (03/01/16 8:02 AM) 1Result Comment: Cut-off concentrations: Amphetamines: 1000 [...] to oldest [Reference Range]: 1 UA Color Yellow (03/04/16 11:46 AM) UA Appear Sl Cloudy (03/04/16 11:46 AM) UA pH [5.0-8.0] 5.0 (03/04/16 11:46 AM) UA Leuk Est [Negative] Negative (03/04/16 11:46 AM) UA Nitrite [Negative] Negative (03/04/16 11:46 AM) UA Protein [Negative] Pos 3+ *ABN* (03/04/16 11:46 AM) UA Glucose [Negative] Pos 3+ *ABN* (03/04/16 11:46 AM) UA Ketones [Negative] Pos 1+ *ABN* (03/04/16 11:46 AM) UA Urobilinogen [<1.0] Negative (03/04/16 11:46 AM) UA Bili [Negative] Negative (03/04/16 11:46 AM) UA Blood [Negative] Pos 3+ *ABN* (03/04/16 11:46 AM) UA Spec Grav [1.003-1.030] 1.030 (03/04/16 11:46 AM) Type Clean Catch (03/04/16 11:46 AM) UA WBC [0-4] 5-10 *ABN* (03/04/16 11:46 AM) UA RBC [0-2] 10-20 *ABN* (03/04/16 11:46 AM) Epithelial Cells 2-5 (03/04/16 11:46 AM) UA Bacteria Occasional *ABN* (03/04/16 11:46 AM) UA Hyal Cast [0-3] 1-3 (03/01/16 8:02 AM) UA Mucous Present (03/04/16 11:46 AM) Microbiology Reports TEST:Blood Culture1 STATUS:Order in Progress BODY SITE: SOURCE:Blood COLLECTED DATE/TIME:03/02/16 4:14 AMBlood CultureNo growth after 12 hours incubation. Nursing unit will be called if growth is detected. -TEST:Blood Culture2 STATUS:Order in Progress BODY SITE: SOURCE:Blood COLLECTED DATE/TIME:03/02/16 4:03 AMBlood CultureNo growth after 12 hours incubation. Nursing unit will be called if growth is detected. -TEST:Urine Culture STATUS:Auth (Verified) BODY SITE: SOURCE:Urine COLLECTED DATE/TIME:03/01/16 8:02 AMUrine CultureNormal urogenital/skin kimber[place] presentINTERPRETIVE DATA1Pediatric bottle ONLY [id number] bottle ONLY received Immunizations Vaccine Date Refusal Reason hepatitis B adult vaccine 12/10/00 hepatitis B adult vaccine 10/13/00 measles/mumps/rubella virus vaccine 08/06/08 pneumococcal 23-polyvalent vaccine 03/29/04 Procedures Procedure Date Related Diagnosis Body Site Adenoidectomy Cervical cautery section Sinusotomy Tonsillectomy Tubal ligation Social History Social History Type Response Smoking Status Smoker, current status unknown Assessment and Plan No data available for this section
--- OUTSIDE RECORDS SUMMARY | 2017-04-20 19:12 | External Medical Summary ---
:1985 Author Organization [employer] Care Team Providers Name Role Phone Laura Hall Provider Role Unavailable Allergies No Known Allergies Problems Problem Type Condition ICD-9 Code Onset Dates Condition Status Problem Anxiety and depression 300.4 Active Problem Gastritis 535.50 Active Problem Diabetes type 1, uncontrolled 250.03 Active Problem Asthma 493.90 Active Medications No Known Medications Results No Known Results Summary Purpose [employer] Submission
--- OUTSIDE RECORDS SUMMARY | 2017-04-20 19:12 | External Medical Summary ---
:1985 Author Organization [employer] Care Team Providers Name Role Phone Randell Mi Provider Role Unavailable Allergies, Adverse Reactions, Alerts Substance Reaction Event Type Sulfacet-R Info Not Available Drug Allergy Ibuprofen *analgesics Antiinflammatory* Info Not Available Non Drug Allergy Morphine Sulfate *analgesics Opioid* Info Not Available Non Drug Allergy Amoxicillin *penicillins* Info Not Available Non Drug Allergy Macrobid *urinary Antiinfectives* Info Not Available Non Drug Allergy Problems Problem Type Condition Code Onset Dates Condition Status Problem Diabetes type 1, uncontrolled E10.65 Active Problem Asthma J45.909 Active Problem Anxiety associated with depression F41.8 Active Problem Seasonal allergies J30.2 Active Problem Tinea versicolor B36.0 Inactive Problem Cataract H26.9 Active Problem Normocytic anemia D64.9 Active Problem Gastritis K29.70 Active Problem Pubic ramus fracture S32.509A Active Problem Mitral valve prolapse I34.1 Active Assessment Seasonal allergies J30.2 Active Assessment Gastritis K29.70 Active Assessment Chronic cough R05 Active Assessment Eustachian tube dysfunction H69.80 Active Assessment Tinea versicolor B36.0 Active Problem Gastroparesis due to secondary E13.43 Active diabetes Assessment Diabetes type 1, uncontrolled E10.65 Active Problem Tobacco use Z72.0 Active Assessment Gastroparesis due to secondary E13.43 Active diabetes Problem Bipolar 1 disorder F31.9 Active Medications Medication Code Code Instructions Start End Status Dosage [place] [address]-1 5 MG Orally 1 tablet 266-01 Once a day Multi Vitamin NDC 11173-4 Orally Once a 1 tablet Daily 4301 [place] [address]-8 10 MG Orally 1 203-01 qid Flonase NDC 64707-6 50 MCG/ACT December 27 spray in 453-01 Nasally Once a 2015 [place] [address]-3 40 MG Orally December 27 tablet Sodium 607-01 Once a day 2015 [place] [address]-7 100 MG Orally 1 tablet 580-05 Once a day Zoloft NDC 30569-5 100 MG Orally 1 tablet 910-30 Once a day Valium NDC 74189-4 5 MG Orally 1 tablet as 005-01 Three times needed daily Benzoyl Peroxide NDC 48680-8 10 % Externally Aug 03, application 126-01 Once a day 2015 to affected area at bedtime Fluconazole NDC 20139-7 150 MG Orally December 27 tablet 412-11 once weekly 2015 Levemir Flexpen NDC 0 100 UNIT/ML 28 Subcutaneous bedtime NovoLog Flexpen NDC 50207-3 100 UNIT/ML 28/03/10 339-10 Subcutaneous Three times daily with meals Folic Acid NDC 29678-1 1 MG Orally 1 tablet 507-19 [place] [address]-6 Orally not defined [address] [place] [address]-8 108 (90 Base) 2 puffs as HFA 132-01 MCG/ACT needed Inhalation every 4 hrs Procedures Procedure Coding System Code Date Billed by outside source CPT-4 NOBLL December 28, 2015 Office Visit, Est Pt., Level 4 CPT-4 20712 December 28, 2015 Vital Signs Date/Time: December 28, 2015 Temperature 98.1 F Weight 133 lbs Height 64 in Respiratory Rate 14 /min Cardiac Monitoring Heart Rate 92 /min Blood Pressure Diastolic 88 mm Hg Blood Pressure Systolic 132 mm Hg BMI 22.83 Index Results Name Result Date Reference Range Unit Abnormality Flag Rapid Plasma Reagin (RPR), Qualitative Test 30648 ----RPR Non Reactive [id number] Non Reactive Summary Purpose [employer]ClinicalWorks Submission
--- OUTSIDE RECORDS SUMMARY | 2017-04-20 19:12 | External Medical Summary ---
:1985 Author Organization [employer] Care Team Providers Name Role Phone Bruce Dominguez Provider Role Unavailable Allergies, Adverse Reactions, Alerts [...] Problem Mitral valve prolapse I34.1 Active Assessment Eustachian tube dysfunction, H69.83 Active bilateral Assessment Diabetes type 1, uncontrolled E10.65 Active Problem Gastroparesis due to secondary E13.43 Active diabetes Assessment Gastroparesis due to secondary E13.43 Active diabetes Problem Tobacco use Z72.0 Active Assessment Gastritis K29.70 Active Problem Bipolar 1 disorder F31.9 Active Medications Medication Code Code Instructions Start End Status Dosage System Date Date Valium [facility] 02371-15 5 MG Orally 1 tablet 05-01 Three times as needed daily Folic Acid [facility] 92421-15 1 MG Orally Once 1 tablet 07- a day Albuterol Sulfate [facility] 07028-74 108 (90 Base) 2 puffs as HFA 32-01 MCG/ACT needed Inhalation every 4 hrs Vitamin B Complex [facility] 11538-89 Orally not 540 defined Metoclopramide HCl [facility] 73450-48 10 MG Orally qid 1 - Pantoprazole [facility] 84050-84 40 MG Orally December 27 tablet Sodium - Once a day 2015 Zoloft [facility] 94198-19 100 MG Orally 2 10-30 Once a day NovoLog Flexpen [facility] 49480-79 100 UNIT/ML 28/03/10 39-10 Subcutaneous Three times daily with meals Lisinopril NDC 10362-53 5 MG Orally Once 1 tablet a day Multi Vitamin NDC 46009-41 Orally Once a 1 tablet Daily day Levemir Flexpen NDC 0 100 UNIT/ML 30 Subcutaneous bedtime Flonase NDC 09060-05 50 MCG/ACT December 27 spray in Nasally Once a 2015 each day nostril Procedures Procedure Coding System Code Date [facility] 7 CPT-4 83278 Mar 14, 2016 GLYCATED HEMOGLOBIN TEST CPT-4 47554 Mar 14, 2016 Vital Signs Date/Time: Mar 14, 2016 Temperature 98.3 F Weight 140 lbs Height 64 in Respiratory Rate 14 /min Cardiac Monitoring Heart Rate 80 /min Blood Pressure Diastolic 70 mm Hg Blood Pressure Systolic 110 mm Hg BMI 24.03 Index Results Name Result Date Reference Range Unit Abnormality Flag Hemoglobin A1c (HbA1c) ----Hemoglobin A1c 11.5 [id number] Summary Purpose [employer]ClinicalWorks Submission
--- OUTSIDE RECORDS SUMMARY | 2017-04-20 19:15 | External Medical Summary ---
:1985 Author Organization [employer] Care Team Providers Name Role Phone Laura Hall Provider Role Unavailable Allergies No Known Allergies Problems Problem Type Condition Code Onset Dates Condition Status Problem Bipolar 1 disorder F31.9 Active Problem Anxiety associated with depression F41.8 Active Problem Diabetes type 1, uncontrolled E10.65 Active Problem Mitral valve prolapse I34.1 Active Problem Tachycardia R00.0 Active Problem Pubic ramus fracture S32.509A Active Problem Gastritis K29.70 Active Problem Asthma J45.909 Active Problem Normocytic anemia D64.9 Active Problem Right hip pain M25.551 Active Problem Dyspnea R06.00 Active Problem Musculoskeletal pain of right M79.604 Active lower extremity Problem Smokes cigarettes F17.210 Active Medications No Known Medications Results No Known Results Summary Purpose eClinicalWorks Submission
--- OUTSIDE RECORDS SUMMARY | 2017-04-20 19:15 | External Medical Summary ---
:1985 Author Organization [facility] Address [address] [place] [address] Care Team Providers Name Role Phone Randell Mi Unavailable Unavailable PROBLEMS Type Condition ICD9-CM Code [id number] Code Onset Condition SNOMED Code Dates Status Problem Anxiety associated F41.8 Active 359542560 with depression Problem Gastritis K29.70 Active 6200592 Problem Asthma J45.909 Active 887966497 Problem 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 2368511 to secondary diabetes Problem Tobacco use Z72.0 Active 166125326 Problem Bipolar 1 disorder F31.9 Active 561704650 Problem Diabetes type 1, E10.65 Active 612361684 uncontrolled Problem Cataract H26.9 Active 621930456 Problem Seasonal allergies J30.2 Active 955146067 Problem Mitral valve I34.1 Active 736987727 prolapse Problem Normocytic anemia D64.9 Active 303679424 Problem Tinea versicolor B36.0 Inactive 33951146 Problem Pubic ramus S32.509A Active 57008645 fracture ALLERGIES Unknown Allergies SOCIAL HISTORY No smoking Hx information available PLAN OF CARE VITAL SIGNS MEDICATIONS Unknown Medications RESULTS No Results PROCEDURES No Known procedures IMMUNIZATIONS No Known Immunizations
--- OUTSIDE RECORDS SUMMARY | 2017-04-20 19:15 | External Medical Summary ---
:1985 Author Organization [employer] Care Team Providers Name Role Phone Laura Hall Provider Role Unavailable Allergies, Adverse Reactions, Alerts Substance Reaction Event Type Sulfacet-R Info Not Available Drug Allergy Ibuprofen *analgesics Antiinflammatory* Info Not Available Non Drug Allergy Morphine Sulfate *analgesics Opioid* Info Not Available Non Drug Allergy Macrobid *urinary Antiinfectives* Info Not Available Non Drug Allergy Amoxicillin *penicillins* Info Not Available Non Drug Allergy Problems Problem Type Condition Code Onset Dates Condition Status Problem Smokes cigarettes F17.210 Active Problem Diabetes type 1, uncontrolled E10.65 Active Problem Bipolar 1 disorder F31.9 Active Problem Tachycardia R00.0 Active Problem Normocytic anemia D64.9 Active Problem Mitral valve prolapse I34.1 Active Problem Asthma J45.909 Active Problem Anxiety associated with depression F41.8 Active Problem Right hip pain M25.551 Active Problem Gastritis K29.70 Active Assessment Allergic rhinitis J30.9 Active Assessment Normocytic anemia D64.9 Active Assessment Tachycardia R00.0 Active Assessment Diabetes type 1, uncontrolled E10.65 Active Problem Dyspnea R06.00 Active Assessment Right hip pain M25.551 Active Problem Musculoskeletal pain of right lower M79.604 Active extremity Medications Medication Code Code Instructions Start End Status Dosage System Date Metoclopramide HCl [facility] 28986-86 10 MG Orally qid 1 08-14 Lisinopril [facility] 69025-10 5 MG Orally Once 1 tablet 66-01 a day Fluticasone [facility] 88330-74 50 MCG/ACT Jun 29, 1 spray in Propionate 70-99 Nasally Once a 2015 each day nostril MiraLax [facility] 14781-67 Orally Once a 1 packet - day mixed with 8 [place] [address]-32 1 MG Orally Once 1 tablet 07-19 a day Multi Vitamin [facility] 28770-59 Orally Once a 1 tablet Daily day Sertraline HCl [facility] 29554-00 100 MG Orally 1 tablet 80-05 Once a day Vitamin B Complex [facility] 67843-00 Orally not 540 [place] [address]-70 100 UNIT/ML 10 units 39-10 Subcutaneous Three times daily with meals Levemir Flexpen NDC 0 100 UNIT/ML 15 units Subcutaneous BID Ferrous Sulfate [facility] 73317-39 325 (65 Fe) MG 1 tablet 28-01 [place] [address]-03 5 MG Orally not 26-60 defined Albuterol Sulfate [facility] 21211-91 108 (90 Base) 2 puffs as HFA 32-01 MCG/ACT needed Inhalation every 4 hrs Procedures Procedure Coding System Code Date Office Visit, Est Pt., Level 4 CPT-4 55416 Jun 29, 2015 GLUCOSE BLOOD TEST IH CPT-4 59176 Jun 29, 2015 Vital Signs Date/Time: Jun 29, 2015 Temperature 97.2 F Weight 103.4 lbs Height 64 in Respiratory Rate 12 /min Cardiac Monitoring Heart Rate 112 /min Blood Pressure Diastolic 62 mm Hg Blood Pressure Systolic 110 mm Hg BMI 17.75 Index Results No Known Results Summary Purpose eClinicalWorks Submission
--- OUTSIDE RECORDS SUMMARY | 2017-04-20 19:15 | External Medical Summary ---
:1985 Author Organization [employer] Care Team Providers Name Role Phone Laura Hall Provider Role Unavailable Allergies No Known Allergies Problems Problem Type Condition ICD-9 Code Onset Dates Condition Status Problem Anxiety and depression 300.00 Active Problem Gastritis 535.50 Active Problem Diabetes type 1, uncontrolled 250.03 Active Problem Asthma 493.90 Active Medications No Known Medications Results No Known Results Summary Purpose [employer]ClinicalWorks Submission
--- OUTSIDE RECORDS SUMMARY | 2017-04-20 19:15 | External Medical Summary ---
:1985 [facility] Team Providers Name Role Phone Marcy Ruiz Provider Role Unavailable Allergies, Adverse Reactions, Alerts Substance Reaction Event Type Sulfacet-R Info Not Available Drug Allergy Ibuprofen *analgesics Antiinflammatory* Info Not Available Non Drug Allergy Morphine Sulfate *analgesics Opioid* Info Not Available Non Drug Allergy Amoxicillin *penicillins* Info Not Available Non Drug Allergy Macrobid *urinary Antiinfectives* Info Not Available Non Drug Allergy Problems Problem Type Condition Code Onset Dates Condition Status Assessment Musculoskeletal pain of right lower M79.604 Active extremity Problem Dyspnea R06.00 Active Assessment Diabetes type 1, uncontrolled E10.65 Active Assessment Dyspnea R06.00 Active Problem Asthma J45.909 Active Problem Anxiety associated with depression F41.8 Active Problem Gastritis K29.70 Active Problem Smokes cigarettes F17.210 Active Problem Musculoskeletal pain of right lower M79.604 Active extremity Problem Diabetes type 1, uncontrolled E10.65 Active Problem Bipolar 1 disorder F31.9 Active Medications Medication Code Code Instructions Start End Status Dosage System Date Date Albuterol Sulfate [facility] 75702-59 108 (90 Base) 2 puffs as HFA 32-01 MCG/ACT needed Inhalation every 4 hrs Zoloft [facility] 36223-49 100 MG Orally 1 tablet 10-30 Once a day Sertraline HCl [facility] 27109-19 100 MG Orally 1 tablet 80-05 Once a day Vitamin B Complex [facility] 45910-81 Orally not 540 defined NovoLog Flexpen [facility] 10768-65 100 UNIT/ML 10 units 39-10 Subcutaneous Three [place] [address]-52 Orally Once a 1 packet 34-01 day mixed with 8 [place] of [place] [address]-18 100-50 MCG/DOSE 1 puff 95-00 Inhalation [place] [address]-65 Orally Once a 1 tablet Daily 301 day Lisinopril [facility] 97004-96 5 MG Orally Once 1 tablet 66-01 a day Levemir Flexpen [facility] 38730-36 100 UNIT/ML 30 uints 39-10 Subcutaneous at bedtime Diflucan [facility] 59691-79 100 MG Orally 1 tablet 20-30 every Diazepam [facility] 63950-48 5 MG Orally not 26-60 defined Metoclopramide HCl [facility] 75786-75 10 MG Orally qid 1 - Valium [facility] 75323-81 5 MG Orally 1 tablet - Three times as needed daily Folic Acid [facility] 82758-45 1 MG Orally Once 1 tablet 07-19 a day Procedures Procedure Coding System Code Date [facility] 7 CPT-4 17861 Jun 26, 2015 MEASURE BLOOD OXYGEN LEVEL CPT-4 80962 Jun 26, 2015 Vital Signs Date/Time: Jun 26, 2015 Temperature 98.7 F Weight 114.9 lbs Height 64 in Respiratory Rate 12 /min Cardiac Monitoring Heart Rate 120 /min Blood Pressure Diastolic 60 mm Hg Blood Pressure Systolic 100 mm Hg BMI 19.72 Index Results Name Result Date Reference Range Unit Abnormality Flag Pulse oximetry for oxygen saturation; multiple determinations noninvasive ear Summary Purpose eClinicalWorks Submission
--- OUTSIDE RECORDS SUMMARY | 2017-04-20 19:18 | External Medical Summary | Referral Summary ---
:1985 Author Organization [facility] Address [address] [place] [address] Care Team Providers Name Role Phone Laura Hall Primary Care Physician Encounter [facility] [id number] Date(s): 04/13/15 - 04/14/15 [facility] [address] [place] [address] Discharge Diagnosis: Hypophosphatemia Discharge Diagnosis: Hyperglycemia Discharge Diagnosis: Hypomagnesemia Discharge Diagnosis: Dehydration Discharge Diagnosis: Hypokalemia Discharge Diagnosis: Medical non-compliance Discharge Diagnosis: Finger lesion Discharge Disposition: 01-Home or Self Care Attending Physician: Horace Barcenas MD Admitting Physician: Horace Barcenas MD Vital Signs Most recent to oldest [Reference Range]: 1 Temperature Oral [35.8-37.3 degC] 36.8 degC (04/13/15 10:56 PM) Temperature Tympanic [36.6-38.1 degC] 36.9 degC (04/14/15 1:15 AM) Temperature Temporal Artery [36.3-37.8 degC] 37 degC (04/14/15 12:00 PM) Peripheral Pulse Rate [60-100 bpm] 93 bpm (04/14/15 1:15 AM) Heart Rate Monitored [60-100 bpm] 102 bpm *HI* (04/14/15 2:02 PM) Respiratory Rate [14-20 br/min] 31 br/min *HI* (04/14/15 2:02 PM) Blood Pressure [90-140/60-90 mmHg] 140/107 mmHg (04/14/15 2:02 PM) Mean Arterial Pressure, Cuff 117 mmHg (04/14/15 2:02 PM) SpO2 100 % (04/14/15 2:02 PM) Problem List Condition Effective Dates Status Health Status Informant Acute pain(Confirmed) Resolved Allergic rhinitis Resolved (disorder)(Confirmed) Anemia (disorder)(Confirmed) Resolved At risk for falls(Confirmed)1 Resolved At risk for injury(Confirmed)2 Resolved At risk for unstable blood glucose Active level(Confirmed)3, 4, 5 At risk of pressure sore(Confirmed) Resolved At risk of venous 02/05/15 Active thromboembolus(Confirmed)6 Bipolar 1 disorder(Confirmed) Active patient Essential hypertension Resolved (disorder)(Confirmed) Fluid imbalance(Confirmed)7, 8 Resolved Impaired skin integrity(Confirmed)9 Resolved DKA, type 1(Confirmed) Active Knowledge deficit(Confirmed)10, 11 Active Migraine (disorder)(Confirmed) Resolved PTSD (post-traumatic stress Active patient disorder)(Confirmed) Tissue perfusion Active alteration(Confirmed)12, 13 Tobacco user(Confirmed) Active patient 1This problem was added by Discern Expert.2Problem added automatically by system based on initiation of Risk for Injury Plan of Bwxl3Makywpo updated automatically by system based on initiation of At Risk for Unstable Blood Glucose Plan of [id number] updated automatically by system based on initiation of At Risk for Unstable Blood Glucose Plan of Nhqs0Ivavacd added automatically by system based on initiation of At Risk for Unstable Blood Glucose Planof Ebrd5Sdqwmzh added by Discern [id number] updated automatically by system based on initiation of Fluid Volume Imbalance Plan of Nafb5Jvbeucq added automatically by system based on initiation of Fluid Volume Imbalance Plan of Qznw0Fryzzge added automatically by system based on initiation of Impaired Skin Integrity Plan of Xyyt37Gbrhldx updated automatically by system based on initiation of Knowledge Deficit Plan of Idag34Smpjrtj added automatically by system based on initiation of Knowledge Deficit Plan of Ogzk63Dvogapk updated automatically by system based on initiation of Tissue Perfusion Cerebral Plan of Ozkw25Kdspazw added automatically by system based on initiation [...] 3 mL, NEB, q4hr, Shortness of Breath/Wheezing, 0 Refill(s) Start Date: 01/28/15 Status: Orderedalbuterol CFC free 90 mcg/inh inhalation aerosol 2 puffs, Inhalation, q4hr, Shortness of Breath/Wheezing, 0 Refill(s) Start Date: 01/03/15 Status: Orderedfolic acid 1 mg, Oral, Daily, 0 Refill(s) Start Date: 12/31/14 Status: OrderedKeflex 500 mg oral capsule 500 mg 1 caps, Oral, BID, X 7 days, # 14 caps, 0 Refill(s), Pharmacy: [id number], 1 caps Oral BID,x7 days Start Date: 04/14/15 Stop Date: 04/21/15 Status: OrderedLevemir 20 units, SubCutaneous, Bedtime (once a day), 0 Refill(s) Start Date: 04/14/15 Status: Orderedlisinopril 5 mg oral tablet 5 mg 1 tabs, Oral, Daily, # 30 tabs, 1 Refill(s) Start Date: 02/08/15 Status: Orderedmetoclopramide 10 mg, Oral, QIDACHS, 0 Refill(s) Start Date: 01/28/15 Status: OrderedMultiple Vitamins oral tablet 1 tabs, Oral, Daily, 0 Refill(s) Start Date: 12/31/14 Status: OrderedNovoLOG 5 units, SubCutaneous, TIDAC, 0 Refill(s) Start Date: 04/14/15 Status: Orderedsertraline 100 mg oral tablet 100 mg 1 tabs, Oral, Daily, 0 Refill(s) Start Date: 04/14/15 Status: OrderedVitamin B Complex oral tablet 1 tabs, Oral, Daily, 0 Refill(s) Start Date: 01/03/15 Status: Orderedzolpidem 5 mg oral tablet 5 mg 1 tabs, Oral, Bedtime (once a day), 0 Refill(s) Start Date: 04/14/15 Status: Ordered Results Hematology Most recent to oldest [Reference Range]: 1 WBC [4.8-10.8 10*3/uL] 6.9 10*3/uL (04/13/15 11:24 PM) RBC [4.00-5.20] 3.85 *LOW* (04/13/1524 PM) Hgb [12.0-16.0 gm/dL] 12.3 gm/dL (04/13/15:24 PM) Hct [37.0-47.0 %] 40.5 % (04/13/15:24 PM) MCV [82.0-99.0 fL] 105.2 fL *HI* (04/13/15:24 PM) MCH [27.0-32.0 pg] 31.9 pg (04/13/1524 PM) MCHC [32.0-36.0 gm/dL] 30.4 gm/dL *LOW* (04/13/1524 PM) RDW [11.5-14.5 %] 12.4 % (04/13/15:24 PM) Platelet [150-400 10*3/uL] 329 10*3/uL (04/13/15 11:24 PM) MPV [9.4-12.4 fL] 10.7 fL (04/13/15:24 PM) Immature Granulocytes [0.0-1.0 %] 0.3 % (04/13/15 11:24 PM) Neutrophils [51-75 %] 72 % (04/13/15:24 PM) Lymphocytes [20-46 %] 22 % (04/13/15:24 PM) Monocytes [4-11 %] 5 % (04/13/15:24 PM) Eosinophils [0-4 %] 2 % (04/13/15:24 PM) Basophils [0-2 %] 0 % (04/13/15:24 PM) Neutro Absolute [1.90-7.00 10*3] 4.94 10*3 (04/13/15 11:24 PM) Lymph Absolute [0.80-3.30 10*3] 1.49 10*3 (04/13/15 11:24 PM) [place] Absolute [0.30-1.00 10*3] 0.32 10*3 (04/13/15 11:24 PM) Eos Absolute [0.00-0.50 10*3] 0.11 10*3 (04/13/15 11:24 PM) Baso Absolute [0.00-0.20 10*3] 0.03 10*3 (04/13/15 11:24 PM) Nucleated RBC Automated [0 /100 WBC] 0.0 /100 WBC (04/13/15 11:24 PM) Chemistry Most recent to oldest [Reference Range]: 1 Sodium Lvl [136-144 mEq/L] 136 mEq/L (04/14/15 6:52 AM) Potassium Lvl [3.6-5.1 mEq/L] 3.2 mEq/L *LOW* (04/14/15 6:52 AM) Chloride [99-109 mEq/L] 101 mEq/L (04/14/15 6:52 AM) CO2 [22-32 mEq/L] 27 mEq/L (04/14/15 6:52 AM) AGAP [3-20] 8 (04/14/15 6:52 AM) BUN [4-20 mg/dL] 6 mg/dL (04/14/15 6:52 AM) Glucose Lvl [70-100 mg/dL] 87 mg/dL (04/14/15 6:52 AM) Creatinine Lvl [0.44-1.03 mg/dL] 0.29 mg/dL *LOW* (04/14/15 6:52 AM) eGFR [>60] >60 1 (04/14/15 6:52 AM) Calcium Lvl [8.6-10.0 mg/dL] 8.2 mg/dL *LOW* (04/14/15 6:52 AM) Albumin Lvl [3.5-4.8 gm/dL] 2.4 gm/dL *LOW* (04/14/15 6:52 AM) Total Protein [6.1-7.9 gm/dL] 5.8 gm/dL *LOW* (04/13/15 11:24 PM) Globulin [1.9-4.3 gm/dL] 2.8 gm/dL (04/13/15 11:24 PM) ALT [14-54 U/L] 39 U/L (04/13/15 11:24 PM) AST [15-41 U/L] 100 U/L *HI* (04/13/15 11:24 PM) Alk Phos [26-104 U/L] 140 U/L *HI* (04/13/15 11:24 PM) Bili Total [0.2-1.2 mg/dL] 1.1 mg/dL 2 (04/13/15 11:24 PM) Magnesium Lvl [1.8-2.5 mg/dL] 1.7 mg/dL *LOW* (04/14/15 2:30 AM) Phosphorus [2.4-4.7 mg/dL] 1.6 mg/dL 3 *LOW* (04/14/15 6:52 AM) Sodium Venous [136-144 mEq/L] 119 mEq/L *LOW* (04/13/15 11:24 PM) Potassium Venous [3.6-5.1 mEq/L] 5.4 mEq/L 4 *HI* (04/13/15 11:24 PM) Calcium Ionized Venous [1.19-1.41 mmol/L] 1.12 mmol/L *LOW* (04/13/15 11:24 PM) Total CO2 Venous [25-29 mEq/L] 19 mEq/L *LOW* (04/13/15 11:24 PM) HGB Venous NPT [12.0-16.0 gm/dL] 12.9 gm/dL (04/13/15 11:24 PM) HCT Venous [37.0-47.0 %] 38.0 % (04/13/15 11:24 PM) Glucose Venous [70-100 mg/dL] >700 mg/dL *HHI* (04/13/15 11:24 PM) BUN Venous [4-20] 17 (04/13/15 11:24 PM) Creatinine Venous [0.4-1.0 mg/dL] 0.4 mg/dL (04/13/15 11:24 PM) Venous CL [99-109 mEq/L] 90 mEq/L *LOW* (04/13/15 11:24 PM) Anion Gap, Heriberto [3-20] 10 (04/13/15 11:24 PM) Blood Glucose, Capillary [70-100 mg/dL] 156 mg/dL *HI* (04/14/15 2:08 PM) Blood Glucose, Capillary Out of Range High (04/14/15 11:00 AM) Hgb A1c [4.1-5.6 %] 13.3 % *HI* (04/14/15 1:29 AM) eAvg Glucose 335.0 mg/dL (04/14/15 1:29 AM) 1Result Comment: Multiply eGFR results by [...] potassium levels. Normals are for venous specimens only.Urinalysis Most recent to oldest [Reference Range]: 1 UA Color Lt Yellow (04/13/15 11:24 PM) UA Appear Clear (04/13/15 11:24 PM) UA pH [5.0-8.0] 5.0 (04/13/15 11:24 PM) UA Leuk Est [Negative] Negative (04/13/15 11:24 PM) UA Nitrite [Negative] Negative (04/13/15 11:24 PM) UA Protein [Negative] Negative (04/13/15 11:24 PM) UA Glucose [Negative] Pos 3+ *ABN* (04/13/15 11:24 PM) UA Ketones [Negative] Pos 1+ *ABN* (04/13/15 11:24 PM) UA Urobilinogen [<1.0] Negative (04/13/15 11:24 PM) UA Bili [Negative] Negative (04/13/15 11:24 PM) UA Blood [Negative] Negative (04/13/15 11:24 PM) UA Spec Grav [1.003-1.030] 1.026 (04/13/15 11:24 PM) Type Clean Catch (04/13/15 11:24 PM) Immunizations Vaccine Date Refusal Reason hepatitis B adult vaccine 12/10/00 hepatitis B adult vaccine 10/13/00 measles/mumps/rubella virus vaccine 08/06/08 pneumococcal 23-polyvalent vaccine 03/29/04 Procedures Procedure Date Related Diagnosis Body Site Adenoidectomy Cervical cautery section Sinusotomy Tonsillectomy Tubal ligation Social History Social History Type Response Smoking Status Current every day smoker; Tobacco use per day: Pack Assessment and Plan No data available for this section
--- OUTSIDE RECORDS SUMMARY | 2017-04-20 19:18 | External Medical Summary ---
:1985 Author Organization eClinicalWorks Care Team Providers Name Role Phone Laura Hall Provider Role Unavailable Allergies No Known Allergies Problems Problem Type Condition Code Onset Dates Condition Status Problem Smokes cigarettes F17.210 Active Problem Diabetes type 1, uncontrolled E10.65 Active Problem Bipolar 1 disorder F31.9 Active Problem Dyspnea R06.00 Active Problem Musculoskeletal pain of right lower M79.604 Active extremity Problem Tachycardia R00.0 Active Problem Normocytic anemia D64.9 Active Problem Mitral valve prolapse I34.1 Active Problem Asthma J45.909 Active Problem Anxiety associated with depression F41.8 Active Problem Right hip pain M25.551 Active Problem Gastritis K29.70 Active Medications No Known Medications Results No Known Results Summary Purpose eClinicalWorks Submission
--- OUTSIDE RECORDS SUMMARY | 2017-04-20 19:20 | External Medical Summary ---
:1985 Author Organization [facility] Address [address] [place] [address] Care Team Providers Name Role Phone Randell Mi Unavailable Unavailable PROBLEMS Type Condition ICD9-CM [id number] Onset Condition SNOMED Code Code Code Dates Status Problem Anxiety F41.8 Active 041172873 associated with depression Problem Gastritis K29.70 Active 6098678 Problem Asthma J45.909 Active 264654803 Problem Cataract H26.9 Active 133407428 Problem Seasonal J30.2 Active 164042652 allergies Problem Mitral valve I34.1 Active 909647135 prolapse Problem Normocytic anemia D64.9 Active 590900535 Problem Tinea versicolor B36.0 Inactive 38192597 Problem Pubic ramus S32.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 Active 42528076 fracture Problem 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 Problem Tobacco use Z72.0 Active 311785464 Assessment High risk for Z91.89 Jun, Active 517400324 readmission 2017 Problem Bipolar 1 F31.9 Active 517855496 disorder Assessment Diabetes type 1, E10.65 Jun, Active 999564396 uncontrolled 2017 Problem Diabetes type 1, E10.65 Active 662686543 uncontrolled ALLERGIES Substance Reaction Event Type Date Status Sulfacet-R Unknown Drug Allergy Jun, Active Ibuprofen *analgesics Unknown Non Drug Allergy Jun, Active Antiinflammatory* Morphine Sulfate *analgesics Opioid* Unknown Non Drug Allergy Jun, Active Amoxicillin *penicillins* Unknown Non Drug Allergy Jun, Active Macrobid *urinary Antiinfectives* Unknown Non Drug Allergy Jun, Active SOCIAL HISTORY No smoking Hx information available PLAN OF CARE VITAL SIGNS Height 64 in 2016-06-20 Weight 125 lbs 2016-06-20 Temperature 98.1 degrees Fahrenheit 2016-06-20 Heart Rate 90 /min 2016-06-20 Respiratory Rate 14 /min 2016-06-20 BMI 21.45 kg/m2 2016-06-20 Blood pressure systolic 100 mm Hg 2016-06-20 Blood pressure diastolic 80 mm Hg 2016-06-20 MEDICATIONS Medication Instructions Dosage Frequency Start End Duration Status Date Date NovoLog Flexpen Subcutaneous 28/03/10 Active 100 UNIT/ML Three times daily with meals Metoclopramide HCl Orally qid 1 6h 30 days Active 10 MG Lisinopril 5 MG Orally Once a 1 tablet 24h Active day Multi Vitamin Orally Once a 1 tablet 24h Active Daily day Folic Acid 1 MG Orally Once a 1 tablet 24h Active day Promethazine HCl Orally every 12 1 tablet as 12h Jun, days Active 25 MG hrs needed 2016 Lancets - Subcutaneous 1 lancet Jun, 30 days Active Three times 2016 daily ( A1c 11.5 on 03/11/16) DX e11.65 Valium 5 MG Orally Three 1 tablet as Active times daily needed Albuterol Sulfate Inhalation 2 puffs as 4h 30 days Active HFA 108 (90 Base) every 4 hrs needed MCG/ACT Levemir Flexpen Subcutaneous 30 Active 100 UNIT/ML bedtime Zoloft 100 MG Orally Once a 2 24h Active day True Metrix Blood In Vitro three 1 strip Jun, days Active Glucose Test - times a day ( 2016 A1c 11.5 on 03/11/16) DX e11.65 Vitamin B Complex Active Flonase 50 MCG/ACT Nasally Once a 1 spray in 24h Dec, days Active day each 2015 nostril True Metrix Meter Subcutaneous as directed Jun, 30 days Active w/Device Three times 2016 daily ( A1c 11.5 on 03/11/16) DX e11.65 Pantoprazole Orally Once a 1 tablet 24h Dec, 60 days Active Sodium 40 MG 2015 Diflucan 100 MG Orally Once 3 tablet Jun, 14 days Active weekly 2016 RESULTS No Results PROCEDURES Procedure Date Ordered Related Diagnosis Body Site Office Visit, Est Pt., Level 4 Jun 20, 2016 IMMUNIZATIONS No Known Immunizations
--- OUTSIDE RECORDS SUMMARY | 2017-04-20 19:26 | External Medical Summary | Referral Summary ---
:1985 Author Organization [facility] Address [address] [place] [address] Care Team Providers Name Role Phone Laura Hall Primary Care Physician Encounter VC Date(s): 06/23/15 - 06/25/15 [facility] [address] [place] [address] Discharge Disposition: 01-Home or Self Care Attending Physician: Mariluz Gonzalez MD Admitting Physician: Mariluz Gonzalez MD Vital Signs Most recent to oldest [Reference Range]: 1 Temperature Oral [35.8-37.3 degC] 37.3 degC (06/25/15 11:56 AM) Temperature Temporal Artery [36.3-37.8 degC] 36.7 degC (06/24/15 12:00 PM) Apical Heart Rate [60-100 bpm] 111 bpm *HI* (06/23/15 10:17 PM) Peripheral Pulse Rate [60-100 bpm] 120 bpm 1 *HI* (06/25/15 11:56 AM) Heart Rate Monitored [60-100 bpm] 114 bpm *HI* (06/25/15 10:40 AM) Respiratory Rate [14-20 br/min] 16 br/min (06/25/15 11:56 AM) Blood Pressure [90-140/60-90 mmHg] 132/91 mmHg 2 (06/25/15 11:56 AM) Mean Arterial Pressure, Cuff 106 mmHg (06/24/15 2:30 PM) SpO2 93 % (06/25/15 11:56 AM) 1Result Comment: notified JACOBO Del Valle2Result Comment: left arm, sitting Problem List Condition Effective Dates Status Health [...] initiation of Alteration in Nutrition Plan of [id number] added automatically by system based on initiation of Anxiety Plan of Oqjq4Ozcw problem was added by Discern Expert.4Problem updated automatically by system based on initiation of Risk for Injury Plan of Bwlo3Kcloqaj added automatically by system based on initiation of Risk for Injury Plan of Plzd5Ahcjevz updated automatically by system based on initiation of At Risk for Unstable Blood Glucose Plan of Xbvf5Nynwxax updated automatically by system based on initiation of At Risk for Unstable Blood Glucose Plan of Gzga7Sgwikxq added automatically by system based on initiation of At Risk for Unstable Blood Glucose Planof Kesw1Gtkvoej added by Discern Hmlnws31Qwiywti updated automatically by system based on initiation of Fluid Volume Imbalance Plan of Lmjw38Weuoreq updated automatically by system based on initiation of Fluid Volume Imbalance Plan of Fdht67Ifmwkej added automatically by system based on initiation of Fluid Volume Imbalance Plan of Navv93Rvoiacd added automatically by system based on initiation of Impaired Gas Exchange Plan of Hcwa11Xvhumvc added automatically by system based on initiation of Impaired Skin Integrity Plan of Idvu50Gryltae added automatically by system based on initiation of Impaired Spontaneous Ventilation Plan of Jgxz01Gcvstqi added automatically by system based on initiation of Ineffective Airway Clearance Plan of Jaen97Zkpmcpr updated automatically by system based on initiation of Knowledge Deficit Plan of Hoiz19Syhztdc added automatically by system based on initiation of Knowledge Deficit Plan of Myop39Muktses updated automatically by system based on initiation of Tissue Perfusion Cerebral Plan of Gtxb98Rpuzmpn added automatically by system based on initiation [...] Breath/Wheezing, # 540 mL, 0 Refill(s), [facility]acy: [id number], 3 mL NEB q4hr,PRN:Shortness of Breath/ Wheezing Start Date: 06/25/15 Status: Orderedalbuterol 5 mg/mL (0.5%) inhalation solution 2.5 mg 0.5 mL, NEB, TID, # 45 mL, 0 Refill(s), Pharmacy: [id number], 0.5 mL NEB TID Start Date: 06/25/15 Status: Ordereddiazepam 5 mg oral tablet 5 mg, Oral, BID, # 30 tabs, 0 Refill(s), other reason (Rx) Start Date: 06/25/15 Stop Date: 07/12/15 Status: Orderedfolic acid 1 mg oral tablet 1 mg, Oral, Daily, # 30 tabs, 0 Refill(s), Pharmacy: [id number] , 1 mg Oral Daily Start Date: 06/25/15 Status: OrderedLevemir 100 units/mL subcutaneous solution 15 units, SubCutaneous, BID, # 15 mL, 0 Refill(s), [facility]acy: [id number], 15 units SubCutaneous BID Start Date: 06/25/15 Status: Orderedlisinopril 5 mg oral tablet 5 mg 1 tabs, Oral, Daily, # 30 tabs, 1 Refill(s), [facility]acy: [id number], 1 tabs Oral Daily Start Date: 06/25/15 Status: Orderedmetoclopramide 10 mg oral tablet 10 mg, Oral, QIDACHS, X 30 days, # 120 tabs, 0 Refill(s), Pharmacy: [id number], 10 mg Oral QIDACHS,x30 days Start Date: 06/25/15 Stop Date: 07/25/15 Status: OrderedMiraLax oral powder for reconstitution 17 g, Oral, Daily, dissolve in water before taking, # 255 g, 3 Refill(s), [id number] Start Date: 06/25/15 Stop Date: 07/14/15 Status: OrderedMultiple Vitamins oral capsule 1 caps, Oral, Daily, # 30 caps, 0 Refill(s), [id number] Start Date: 06/25/15 Status: OrderedNovoLOG 100 units/mL subcutaneous solution 10 units, SubCutaneous, TIDAC, # 30 mL, 0 Refill(s), [id number], 10 units SubCutaneous TIDAC Start Date: 06/25/15 Status: Orderedsertraline 100 mg oral tablet 100 mg 1 tabs, Oral, Daily, # 30 tabs, 0 Refill(s), [facility]acy: [id number], 1 tabs Oral Daily Start Date: 06/25/15 Status: OrderedVitamin B Complex oral capsule 1 caps, Oral, Daily, # 30 caps, 0 Refill(s), [id number] Start Date: 06/25/15 Status: Ordered Results Hematology Most recent to oldest [Reference Range]: 1 WBC [4.8-10.8 10*3/uL] 8.6 10*3/uL (06/24/15 3:52 AM) RBC [4.00-5.20] 3.33 *LOW* (06/24/15 3:52 AM) Hgb [12.0-16.0 gm/dL] 10.0 gm/dL *LOW* (06/24/15 3:52 AM) Hct [37.0-47.0 %] 30.4 % *LOW* (06/24/15 3:52 AM) MCV [82.0-99.0 fL] 91.3 fL (06/24/15 3:52 AM) MCH [27.0-32.0 pg] 30.0 pg (1/9/16 3:52 AM) MCHC [32.0-36.0 gm/dL] 32.9 gm/dL (06/24/15 3:52 AM) RDW [11.5-14.5 %] 13.2 % (06/24/15 3:52 AM) Platelet [150-400 10*3/uL] 548 10*3/uL *HI* (06/24/15 3:52 AM) MPV [9.4-12.4 fL] 9.0 fL *LOW* (06/24/15 3:52 AM) Immature Granulocytes [0.0-1.0 %] 0.3 % (06/24/15 3:52 AM) Neutrophils [51-75 %] 81 % *HI* (06/24/15 3:52 AM) Lymphocytes [20-46 %] 16 % *LOW* (06/24/15 3:52 AM) Monocytes [4-11 %] 2 % *LOW* (06/24/15 3:52 AM) Eosinophils [0-4 %] 1 % (06/24/15 3:52 AM) Basophils [0-2 %] 0 % (06/24/15 3:52 AM) Neutro Absolute [1.90-7.00 10*3] 6.98 10*3 (06/24/15 3:52 AM) Lymph Absolute [0.80-3.30 10*3] 1.39 10*3 (06/24/15 3:52 AM) Coal Absolute [0.30-1.00 10*3] 0.17 10*3 *LOW* (06/24/15 3:52 AM) Eos Absolute [0.00-0.50 10*3] 0.05 10*3 (06/24/15 3:52 AM) Baso Absolute [0.00-0.20 10*3] 0.02 10*3 (06/24/15 3:52 AM) Nucleated RBC Automated [0 /100 WBC] 0.0 /100 WBC (06/24/15 3:52 AM) Sed Rate [0-23] 79 *HI* (06/24/15 6:53 AM) Chemistry Most recent to oldest [Reference Range]: 1 Sodium Lvl [136-144 mEq/L] 131 mEq/L *LOW* (06/25/15 1:44 AM) Potassium Lvl [3.6-5.1 mEq/L] 4.1 mEq/L (06/25/15 1:44 AM) Chloride [99-109 mEq/L] 98 mEq/L *LOW* (06/25/15 1:44 AM) CO2 [22-32 mEq/L] 23 mEq/L (06/25/15 1:44 AM) AGAP [3-20] 10 (06/25/15 1:44 AM) BUN [4-20 mg/dL] 28 mg/dL *HI* (06/25/15 1:44 AM) Glucose Lvl [70-100 mg/dL] 244 mg/dL *HI* (06/25/15 1:44 AM) Creatinine Lvl [0.44-1.03 mg/dL] 0.51 mg/dL (06/25/15 1:44 AM) eGFR [>60] >60 1 (06/25/15 1:44 AM) Calcium Lvl [8.6-10.0 mg/dL] 8.8 mg/dL (06/25/15 1:44 AM) Albumin Lvl [3.5-4.8 gm/dL] 2.1 gm/dL *LOW* (06/25/15 1:44 AM) Total Protein [6.1-7.9 gm/dL] 5.6 gm/dL *LOW* (06/24/15 3:52 AM) Globulin [1.9-4.3 gm/dL] 3.4 gm/dL (06/24/15 3:52 AM) ALT [14-54 U/L] 36 U/L (06/24/15 3:52 AM) AST [15-41 U/L] 37 U/L (06/24/15 3:52 AM) Alk Phos [26-104 U/L] 112 U/L *HI* (06/24/15 3:52 AM) Bili Total [0.2-1.2 mg/dL] 0.5 mg/dL 2 (06/24/15 3:52 AM) Magnesium Lvl [1.8-2.5 mg/dL] 1.8 mg/dL (06/24/15 3:52 AM) Phosphorus [2.4-4.7 mg/dL] 4.4 mg/dL 3 (06/25/15 1:44 AM) Lactic Acid Lvl [0.5-2.2 mEq/L] 1.7 mEq/L (06/24/15 6:54 AM) Prealbumin [18-38 mg/dL] 28 mg/dL (06/24/15 3:52 AM) Blood Glucose, Capillary [74-106 mg/dL] 95 mg/dL (06/25/15 11:43 AM) 1Result Comment: Multiply eGFR results by 1.21 for race.2Result Comment: Naproxen, specifically the metabolite O-desmethylnaproxen, may cause spurious elevation in Total Bilirubin levels.3Result Comment: High dosages of liposomal Amphotericin B (AmBisome) therapy or other drug preparations that use a liposomal envelope to facilitate drug delivery may cause falsely elevated results for phosphorus. Immunizations Vaccine Date Refusal Reason hepatitis B [...]
--- OUTSIDE RECORDS SUMMARY | 2017-04-20 19:26 | External Medical Summary | Referral Summary ---
:1985 Author Organization [facility] Address [address] [place] [address] Care Team Providers Name Role Phone Randell Mi Primary Care Physician Encounter [facility] [id number] Date(s): 07/26/16 - 07/28/16 [facility] [address] [place] [address] Discharge Diagnosis: Hyperglycemia Discharge Disposition: 01-Home or Self Care Attending Physician: Dario Knight MD Admitting Physician: Dario Knight MD Vital Signs Most recent to oldest [Reference Range]: 1 Temperature Oral [35.8-37.3 degC] 36.8 degC (07/28/16 4:00 PM) Temperature Temporal Artery [36.3-37.8 degC] 36.5 degC (07/27/16 12:00 PM) Peripheral Pulse Rate [60-100 bpm] 106 bpm *HI* (07/28/16 4:00 PM) Heart Rate Monitored [60-100 bpm] 107 bpm *HI* (07/27/16 3:41 PM) Respiratory Rate [14-20 br/min] 18 br/min (07/28/16 4:00 PM) Blood Pressure [90-140/60-90 mmHg] 167/105 mmHg *HI* (07/28/16 4:00 PM) Mean Arterial Pressure, Cuff 115 mmHg (07/27/16 12:00 PM) SpO2 99 % (07/28/16 4:00 PM) Problem List Condition Effective Dates Status [...] Resolved PTSD (post-traumatic stress Active patient disorder)(Confirmed) Self -care deficit(Confirmed)20 Active Tissue perfusion Active alteration(Confirmed)21, 22 Tobacco user(Confirmed) Active patient 1Problem added automatically by system based on initiation of Alteration in Nutrition Plan of Vzuy4Ivweafc added automatically by system based on initiation of Anxiety Plan of Wjbv1Twlf problem was added by Discern Expert.4Problem added automatically by system based on initiation of At Risk for Infection in Nutrition Planof Ursz0Lyakbwf updated automatically by system based on initiation of Risk for Injury Plan of Amyw2Rowidmk added automatically by system based on initiation of Risk for Injury Plan of Cljw4Wohmfyr updated automatically by system based on initiation of At Risk for Unstable Blood Glucose Plan of Qpfb1Yxjnutn updated automatically by system based on initiation of At Risk for Unstable Blood Glucose Plan of Lkta1Kjjaioo added automatically by system based on initiation of At Risk for Unstable Blood Glucose Planof Sbjo99Hubfhmy added by Discern Dqwdhc13Nkjmska updated automatically by system based on initiation of Fluid Volume Imbalance Plan of Koes65Ctccqqj updated automatically by system based on initiation of Fluid Volume Imbalance Plan of Rpky25Jvfosgn added automatically by system based on initiation of Fluid Volume Imbalance Plan of Qpff51Shguwtq added automatically by system based on initiation of Impaired Gas Exchange Plan of Xpel57Zzndxby added automatically by system based on initiation of Impaired Skin Integrity Plan of Ioec62Ntqtfxx added automatically by system based on initiation of Impaired Spontaneous Ventilation Plan of Ndhm23Xfrrtew added automatically by system based on initiation of Ineffective Airway Clearance Plan of Gbbf11Ykxdisj updated automatically by system based on initiation of Knowledge Deficit Plan of Wwrg31Buitmle added automatically by system based on initiation of Knowledge Deficit Plan of Lhac22Mfzccrv added automatically by system based on initiation of Self Care Deficit Plan of Myle37Imjpyuw updated automatically by system based on initiation of Tissue Perfusion Cerebral Plan of Ytvl12Zwjmmhu added automatically by system based on initiation of Tissue Perfusion Cerebral Plan of Care Allergies, Adverse Reactions, Alerts Substance Reaction Severity Status amoxicillin Unknown Unknown Active Hives Trouble breathing Apple Adverse Reaction Active ibuprofen Decreased kidney function Active Macrobid1 mineral oil/phenylephrine/shark liver oil Mild Active Elevated liver enzymes morphine unknown Active Nausea & vomiting Trouble breathing Throat edema Hives penicillin Hives Medium Active Trouble breathing simvastatin Adverse Reaction Active Elevated liver enzymes sulfa drugs Facial swelling Active Anaphylactic reaction sulfamethoxazole-trimethoprim Anaphylaxis Active 1pt states liver problems Medications albuterol 2.5 mg/3 mL (0.083%) inhalation solution 2.5 mg 3 mL, NEB, q4hr, Shortness of Breath/Wheezing, # 540 mL, 0 Refill(s), Pharmacy: [facility] [id number], 3 mL NEB q4hr,PRN:Shortness of Breath/ Wheezing Start Date: 06/25/15 Status: OrderedAmbien 5 mg, Oral, Bedtime (once a day), as needed for sleep, 0 Refill(s) Start Date: 11/07/15 Status: Ordereddiazepam 2 mg, Oral, TID, 0 Refill(s) Start Date: 03/01/16 Status: Orderedfluconazole 100 mg oral tablet 100 mg 1 tabs, Oral, Friday, 0 Refill(s) Start Date: 07/27/16 Status: Orderedfolic acid 1 mg oral tablet 1 mg, Oral, Daily, # 30 tabs, 0 Refill(s), Pharmacy: [facility] [id number] , 1 mg Oral Daily Start Date: 06/25/15 Status: OrderedLevemir 100 units/mL subcutaneous solution 30 units, SubCutaneous, Bedtime (once a day), 0 Refill(s) Start Date: 03/10/16 Status: Orderedlisinopril 5 mg oral tablet 5 mg 1 tabs, Oral, Daily, # 30 tabs, 1 Refill(s), Pharmacy: [facility] [id number], 1 tabs Oral Daily Start Date: 06/25/15 Status: OrderedMultiple Vitamins oral capsule 1 caps, Oral, Daily, # 30 caps, 0 Refill(s), Pharmacy: [id number] Start Date: 06/25/15 Status: OrderedNovoLOG 13 units, SubCutaneous, With Breakfast, 0 Refill(s) Start Date: 03/01/16 Status: OrderedNovoLOG 10 units, SubCutaneous, With Lunch and Dinner, 0 Refill(s) Start Date: 03/01/16 Status: OrderedPhenergan 25 mg, Oral, BID, 0 Refill(s) Start Date: 07/27/16 Status: OrderedProAir HFA 90 mcg/inh inhalation aerosol 2 puffs, Inhalation, q4hr, as needed for wheezing, 0 Refill(s) Start Date: 03/01/16 Status: Orderedsertraline 100 mg oral tablet 200 mg 2 tabs, Oral, qAM, 0 Refill(s) Start Date: 03/01/16 Status: OrderedVitamin B Complex oral capsule 1 caps, Oral, Daily, # 30 caps, 0 Refill(s), Pharmacy: [facility] [id number] Start Date: 06/25/15 Status: Ordered Results Blood Gases Most recent to oldest [Reference Range]: 1 pH [7.35-7.45] 7.38 (07/27/16 1:56 AM) pCO2 Art [35-45 mmHg] 33 mmHg *LOW* (07/27/16 1:56 AM) Bicarbonate [22-26 mEq/L] 19 mEq/L *LOW* (07/27/16 1:56 AM) Base Excess Art [0-2] -5 *LOW* (07/27/16 1:56 AM) O2 Sat Art [90.0-97.0 %] 96.0 % (07/27/16 1:56 AM) pO2 Art [80-100 mmHg] 86 mmHg (07/27/16 1:56 AM) O2 Panel ra (07/27/16 1:56 AM) Spec Site SEE BELOW 1 (07/27/16 1:56 AM) 1Result Comment: A. brachialis r.Hematology Most recent to oldest [Reference Range]: 1 WBC [4.8-10.8 10*3/uL] 7.2 10*3/uL (07/28/16 6:50 AM) RBC [4.00-5.20] 3.42 *LOW* (07/28/16 6:50 AM) Hgb [12.0-16.0 gm/dL] 10.3 gm/dL *LOW* (07/28/16 6:50 AM) Hct [37.0-47.0 %] 31.7 % *LOW* (07/28/16 6:50 AM) MCV [82.0-99.0 fL] 92.7 fL (07/28/16 6:50 AM) MCH [27.0-32.0 pg] 30.1 pg (07/28/16 6:50 AM) MCHC [32.0-36.0 gm/dL] 32.5 gm/dL (07/28/16 6:50 AM) RDW [11.5-14.5 %] 13.9 % (07/28/16 6:50 AM) Platelet [150-400 10*3/uL] 278 10*3/uL (07/28/16 6:50 AM) MPV [9.4-12.4 fL] 9.4 fL (07/28/16 6:50 AM) Immature Granulocytes [0.0-1.0 %] 0.3 % (07/27/16 12:24 AM) Neutrophils [51-75 %] 55 % (07/28/16 6:50 AM) Band Man [0-8 %] 1 % (07/28/16 6:50 AM) Lymphocytes [20-46 %] 28 % (07/28/16 6:50 AM) Monocytes [4-11 %] 4 % (07/28/16 6:50 AM) Eosinophils [0-4 %] 12 % *HI* (07/28/16 6:50 AM) Basophils [0-2 %] 1 % (07/28/16 6:50 AM) Neutro Absolute [1.90-7.00] 4.03 (07/28/16 6:50 AM) Lymph Absolute [0.80-3.30] 2.02 (07/28/16 6:50 AM) [place] Absolute [0.30-1.00] 0.29 *LOW* (07/28/16 6:50 AM) Eos Absolute [0.00-0.50] 0.86 *HI* (07/28/16 6:50 AM) Baso Absolute [0.00-0.20] 0.04 (07/28/16 6:50 AM) Nucleated RBC Automated [0 /100 WBC] 0.0 /100 WBC (07/28/16 6:50 AM) Differential Reviewed (07/28/16 6:50 AM) Chemistry Most recent to oldest [Reference Range]: 1 Sodium Lvl [136-144 mEq/L] 138 mEq/L (07/28/16 6:50 AM) Potassium Lvl [3.6-5.1 mEq/L] 4.1 mEq/L (07/28/16 6:50 AM) Chloride [99-109 mEq/L] 110 mEq/L *HI* (07/28/16 6:50 AM) CO2 [22-32 mEq/L] 24 mEq/L (07/28/16 6:50 AM) AGAP [3-20] 4 (07/28/16 6:50 AM) BUN [4-20 mg/dL] 14 mg/dL (07/28/16 6:50 AM) Glucose Lvl [70-100 mg/dL] 86 mg/dL (07/28/16 6:50 AM) Creatinine Lvl [0.44-1.03 mg/dL] 0.38 mg/dL *LOW* (07/28/16 6:50 AM) eGFR [>60] >60 1 (07/28/16 6:50 AM) Calcium Lvl [8.6-10.0 mg/dL] 8.2 mg/dL *LOW* (07/28/16 6:50 AM) Albumin Lvl [3.5-4.8 gm/dL] 2.0 gm/dL *LOW* (07/28/16 6:50 AM) Total Protein [6.1-7.9 gm/dL] 6.0 gm/dL *LOW* (07/27/16 12:24 AM) Globulin [1.9-4.3 gm/dL] 3.2 gm/dL (07/27/16 12:24 AM) ALT [14-54 U/L] 21 U/L (07/27/16 12:24 AM) AST [15-41 U/L] 20 U/L (07/27/16 12:24 AM) Alk Phos [26-104 U/L] 97 U/L (07/27/16 12:24 AM) Bili Total [0.2-1.2 mg/dL] 0.8 mg/dL 2 (07/27/16 12:24 AM) Magnesium Lvl [1.8-2.5 mg/dL] 2.0 mg/dL (07/27/16 12:24 AM) Phosphorus [2.4-4.7 mg/dL] 3.3 mg/dL 3 (07/28/16 6:50 AM) Blood Glucose, Capillary [70-100 mg/dL] 150 mg/dL *HI* (07/28/16 3:51 PM) Hep Bs Ag Negative (07/28/16 10:05 AM) Hep C Ab Negative (07/28/16 10:05 AM) HIV 1 and 2 Abs Negative (07/27/16 10:17 AM) HIV 1/2 Abs [Nonreactive] Nonreactive (07/28/16 10:05 AM) HIV 1 Ag [Nonreactive] Nonreactive (07/28/16 10:05 AM) Hgb A1c [4.1-5.6 %] 12.9 % *HI* (07/27/16 5:35 AM) eAvg Glucose 323.5 mg/dL (07/27/16 5:35 AM) 1Result Comment: Multiply eGFR results by [...] [Reference Range]: 1 U Amphetamine Scrn Negative (07/27/16 12:24 AM) U Cocaine Scrn Negative (07/27/16 12:24 AM) U Cannab Scrn Negative (07/27/16 12:24 AM) U Opiate Scrn Negative (07/27/16 12:24 AM) U PCP Scrn Negative (07/27/16 12:24 AM) U Benzodiazepine Scrn Negative (07/27/16 12:24 AM) U Barbiturate Scrn Negative (07/27/16 12:24 AM) Methadone Lvl Negative (07/27/16 12:24 AM) Tricyclics Not Detected 1 (07/27/16 12:24 AM) 1Result Comment: Cut-off concentrations: Amphetamines: 1000 [...] oldest [Reference Range]: 1 UA Color Colorless (07/27/16 12:24 AM) UA Appear Clear (07/27/16 12:24 AM) UA pH [5.0-8.0] 5.0 (07/27/16 12:24 AM) UA Leuk Est [Negative] Negative (07/27/16 12:24 AM) UA Nitrite [Negative] Negative (07/27/16 12:24 AM) UA Protein [Negative] Pos 2+ *ABN* (07/27/16 12:24 AM) UA Glucose [Negative] Pos 3+ *ABN* (07/27/16 12:24 AM) UA Ketones [Negative] Pos 2+ *ABN* (07/27/16 12:24 AM) UA Urobilinogen [<1.0] Negative (07/27/16 12:24 AM) UA Bili [Negative] Negative (07/27/16 12:24 AM) UA Blood [Negative] Pos 2+ *ABN* (07/27/16 12:24 AM) UA Spec Grav [1.003-1.030] 1.020 (07/27/16 12:24 AM) Type Clean Catch (07/27/16 12:24 AM) UA WBC [0-4] None Seen (07/27/16 12:24 AM) UA RBC [0-2] 0-2 (07/27/16 12:24 AM) Epithelial Cells None Seen (07/27/16 12:24 AM) UA Bacteria None Seen (07/27/16 12:24 AM) U Eos [-1-0 %] 0 % (07/27/16 5:35 AM) Microbiology Reports TEST:Blood Culture STATUS:Order in Progress BODY SITE: SOURCE:Blood COLLECTED DATE/TIME:07/27/16 4:32 AMBlood CultureNo growth after 12 hours incubation. Nursing unit will be called if growth is detected. -TEST:Blood Culture1 STATUS:Order in Progress BODY SITE: SOURCE:Blood COLLECTED DATE/TIME:07/27/16 4:25 AMBlood CultureNo growth after 12 hours incubation. Nursing unit will be called if growth is detected. -INTERPRETIVE DATA1Aerobic bottle ONLY received Immunizations Given and Recorded Vaccine Date Status Refusal Reason hepatitis B adult vaccine 12/10/00 Given hepatitis B adult vaccine 10/13/00 Given measles/mumps/rubella virus vaccine 08/06/08 Given pneumococcal 23-polyvalent vaccine 03/29/04 Given Procedures Procedure Date Related Diagnosis Body Site Arterial puncture, withdrawal of blood for 07/27/16 diagnosis Adenoidectomy Cervical cautery section Sinusotomy Tonsillectomy Tubal ligation Social History Social History Type Response Smoking Status Current every day smoker; Type: Cigarettes; Tobacco use per day : Less than 1/4 pack1 1pt relates smokes approx 1 cigarette daily Assessment and Plan No data available for this section
--- OUTSIDE RECORDS SUMMARY | 2017-04-20 19:26 | External Medical Summary | Referral Summary ---
:1985 Author Organization Via [facility] Address [address] [place] [address] Care Team Providers Name Role Phone Laura Hall Primary Care Physician Encounter VC Date(s): 06/09/15 - 06/20/15 [facility] [address] [place] [address] Discharge Diagnosis: Viral pneumonia Discharge Diagnosis: Acute respiratory failure Discharge Diagnosis: Pneumonia, viral Discharge Disposition: -Home or Self Care Attending Physician: Keshawn Hurtado MD Admitting Physician: Mariluz Mckinney MD Referring Physician: Self Referred, X Vital Signs Most recent to oldest [Reference Range]: 1 2 Temperature Oral [35.8-37.3 degC] 37 degC (06/20/15 4:13 PM) Temperature Temporal Artery [36.3-37.8 degC] 36.9 degC (06/19/15 7:55 PM) Apical Heart Rate [60-100 bpm] 115 bpm *HI* (06/09/15 5:15 AM) Peripheral Pulse Rate [60-100 bpm] 118 bpm 118 bpm *HI* *HI* (06/09/15 4:50 AM) (06/09/15 4:50 AM) Heart Rate Monitored [60-100 bpm] 114 bpm *HI* (06/20/15 4:13 PM) Respiratory Rate [14-20 br/min] 16 br/min (06/20/15 4:13 PM) Blood Pressure [90-140/60-90 mmHg] 129/91 mmHg (06/20/15 4:13 PM) Mean Arterial Pressure, Cuff 109 mmHg (06/19/15 5:00 PM) SpO2 95 % (06/20/15 4:13 PM) Problem List Condition Effective Dates Status Health Status Informant Acute pain(Confirmed) Active Allergic rhinitis Resolved (disorder)(Confirmed) Alteration in nutrition(Confirmed)1 Active Anemia (disorder)(Confirmed) Resolved At risk for falls(Confirmed)2 Resolved At risk for injury(Confirmed)3, 4 Active At risk for unstable blood glucose Active level(Confirmed)5, 6, 7 At risk of pressure sore(Confirmed) Active At risk of venous 02/05/15 Active thromboembolus(Confirmed)8 Bipolar 1 disorder(Confirmed) Active patient Essential hypertension Resolved (disorder)(Confirmed) Fluid imbalance(Confirmed)9, 10 Resolved Impaired gas exchange(Confirmed)11 Active Impaired skin integrity(Confirmed)12 Resolved Impaired spontaneous Active ventilation(Confirmed)13 DKA, type 1(Confirmed) Active Knowledge deficit(Confirmed)14, 15 Active Migraine (disorder)(Confirmed) Resolved PTSD (post-traumatic stress Active patient disorder)(Confirmed) Tissue perfusion Active alteration(Confirmed)16, 17 Tobacco user(Confirmed) Active patient 1Problem added automatically by system based on initiation of Alteration in Nutrition Plan of [id number] problem was added by Discern Expert.3Problem updated automatically by system based on initiation of Risk for Injury Plan of Ekux3Mjpuhbd added automatically by system based on initiation of Risk for Injury Plan of Toyn7Elrkita updated automatically by system based on initiation of At Risk for Unstable Blood Glucose Plan of [id number] updated automatically by system based on initiation of At Risk for Unstable Blood Glucose Plan of Nisu7Qibbjlt added automatically by system based on initiation of At Risk for Unstable Blood Glucose Planof Figu8Vwbsjiv added by Discern Ksfuyf0Gwveews updated automatically by system based on initiation of Fluid Volume Imbalance Plan of Avje09Xcyxook added automatically by system based on initiation of Fluid Volume Imbalance Plan of [id number] added automatically by system based on initiation of Impaired Gas Exchange Plan of Wcye00Dkrmrdw added automatically by system based on initiation of Impaired Skin Integrity Plan of Fpgm23Pddkneo added automatically by system based on initiation of Impaired Spontaneous Ventilation Plan of Kdhu94Zzsewur updated automatically by system based on initiation of Knowledge Deficit Plan of Xveh46Kopgxfg added automatically by system based on initiation of Knowledge Deficit Plan of [id number] updated automatically by system based on initiation of Tissue Perfusion Cerebral Plan of Veja18Eqparst added automatically by system based on initiation [...] Breath/Wheezing, 0 Refill(s) Start Date: 01/03/15 Status: Orderedbudesonide 0.5 mg/2 mL inhalation suspension 0.5 mg 2 mL, NEB, BID, # 120 mL, 0 Refill(s) Start Date: 06/20/15 Status: Ordereddiazepam 5 mg, Oral, BID, 0 Refill(s) Start Date: 06/09/15 Status: Orderedferrous sulfate 325 mg (65 mg elemental iron) oral delayed release tablet 325 mg 1 tabs, Oral, Daily, # 30 tabs, 0 Refill(s) Start Date: 06/20/15 Status: Orderedfolic acid 1 mg, Oral, Daily, 0 Refill(s) Start Date: 12/31/14 Status: Orderedipratropium 500 mcg/2.5 mL inhalation solution 0.5 mg 2.5 mL, NEB, q4hr, # 450 mL, 0 Refill(s) Start Date: 06/20/15 Status: OrderedLevemir 15 units, SubCutaneous, BID, 0 Refill(s) Start Date: 04/14/15 Status: Orderedlisinopril 5 mg oral tablet 5 mg 1 tabs, Oral, Daily, # 30 tabs, 1 Refill(s) Start Date: 02/08/15 Status: Orderedmetoclopramide 10 mg, Oral, QIDACHS, 0 Refill(s) Start Date: 01/28/15 Status: OrderedMultiple Vitamins oral tablet 1 tabs, Oral, Daily, 0 Refill(s) Start Date: 12/31/14 Status: OrderedNovoLOG 10 units, SubCutaneous, TIDAC, 0 Refill(s) Start Date: 04/14/15 Status: Orderedsertraline 100 mg oral tablet 100 mg 1 tabs, Oral, Daily, 0 Refill(s) Start Date: 04/14/15 Status: OrderedVitamin B Complex oral tablet 1 tabs, Oral, Daily, 0 Refill(s) Start Date: 01/03/15 Status: Orderedzolpidem 5 mg oral tablet 5 mg 1 tabs, Oral, Bedtime (once a day), 0 Refill(s) Start Date: 04/14/15 Status: Ordered Results Blood Gases Most recent to oldest [Reference Range]: 1 2 pH [7.35-7.45] 7.38 (06/15/15 4:30 AM) pCO2 Art [35-45 mmHg] 54 mmHg *HI* (06/15/15 4:30 AM) Bicarbonate [22-26 mEq/L] 31 mEq/L *HI* (06/15/15 4:30 AM) Base Excess Art [0-2] 6 *HI* (06/15/15 4:30 AM) O2 Sat Art [90.0-97.0 %] 96.3 % (06/15/15 4:30 AM) pO2 Art [80-100 mmHg] 85 mmHg (06/15/15 4:30 AM) LPM Art 13.0 L/min (06/10/15 8:43 AM) O2 Panel Pressure Vent (06/15/15 4:30 AM) Vent Mode AC (06/15/15 4:30 AM) Total PIP 20 (06/15/15 4:30 AM) Insp. Pressure 14 (06/15/15 4:30 AM) Set Rate 12 br/min (06/15/15 4:30 AM) FiO2 Art [0-100] 30 (06/15/15 4:30 AM) PEEP 6.0 (06/15/15 4:30 AM) EPAP 5 (06/12/15 8:30 AM) Inspiratory Time Art 0.90 seconds (06/15/15 4:30 AM) Total Rate 12 br/min (06/15/15 4:30 AM) Spec Site Radial-R (06/15/15 4:30 AM) Hematology Most recent to oldest 1 2 [Reference Range]: WBC [4.8-10.8 10*3/uL] 7.6 10*3/uL (06/18/15 5:15 AM) RBC [4.00-5.20] 3.00 *LOW* (06/18/15 5:15 AM) Hgb [12.0-16.0 gm/dL] 9.1 gm/dL *LOW* (06/18/15 5:15 AM) Hct [37.0-47.0 %] 28.6 % *LOW* (06/18/15 5:15 AM) MCV [82.0-99.0 fL] 95.3 fL (06/18/15 5:15 AM) MCH [27.0-32.0 pg] 30.3 pg (06/18/15 5:15 AM) MCHC [32.0-36.0 gm/dL] 31.8 gm/dL *LOW* (06/18/15 5:15 AM) RDW [11.5-14.5 %] 13.2 % (06/18/15 5:15 AM) Platelet [150-400 10*3/uL] 650 10*3/uL *HI* (06/18/15 5:15 AM) MPV [9.4-12.4 fL] 8.9 fL *LOW* (06/18/15 5:15 AM) Immature Granulocytes [0.0-1.0 0.9 % %] (06/17/15 3:53 AM) Neutrophils [51-75 %] 54 % (06/17/15 3:53 AM) Lymphocytes [20-46 %] 29 % (06/17/15 3:53 AM) Monocytes [4-11 %] 13 % *HI* (06/17/15 3:53 AM) Eosinophils [0-4 %] 3 % (06/17/15 3:53 AM) Basophils [0-2 %] 0 % (06/17/15 3:53 AM) Neutro Absolute [1.90-7.00 3.76 10*3 10*3] (06/17/15 3:53 AM) Lymph Absolute [0.80-3.30 10*3] 2.05 10*3 (06/17/15 3:53 AM) Gregory Absolute [0.30-1.00 10*3] 0.90 10*3 (06/17/15 3:53 AM) Eos Absolute [0.00-0.50 10*3] 0.24 10*3 (06/17/15 3:53 AM) Baso Absolute [0.00-0.20 10*3] 0.01 10*3 (06/17/15 3:53 AM) Nucleated RBC Automated [0 /100 0.0 /100 WBC WBC] (06/17/15 3:53 AM) Reticulocyte [0.6-2.5 %] 2.2 % (06/14/15 3:51 AM) Smear Review By Pathologist See pathology Jaspal Escalante DO, Medical (06/14/15 3:51 AM) Director [facility] [address] [facility], [address] CLIA #[id number] [address] [facility], [address] CLIA #[id number] [facility] [address] [facility], [address] CLIA #[id number] Number [id number] Customer Service [phone] Final Clinical Pathology Consultation MAX MARIE MD Diagnosis: Peripheral smear: - Marked normochromic, normocytic anemia. - Slight leukopenia due to lymphocytopenia. - (See comment.) Diagnostic Comment: A manual differential is performed and shows 68% neutrophils, 18% lymphocytes, 8.5% monocytes, and 5.5% eosinophils. No circulating blasts or dysplastic cells are seen. Significant numbers of schistocytes and/or microspherocytes are not seen. Polychromasia is not increased, indicating a production deficiency. Clinical correlation is suggested. JWA/sb 06/14/2015 10:59 AM job [id number] <Sign Out Dr. Martin> JASPAL ESCALANTE DO ph: 06/14/2015 Printed: 06/14/2015 11:11 AM DOROTHEA PERIPHERAL BLOOD SMEARS CPT: 05912 x 1 Procedure Date 06/14/2015 DARYL PAZ Received Date 06/14/2015 Reported Date 06/14/2015 MR # [id number] Case # [id number] Location [facility] (F4MI) Sex F 1985 Age 30 Y Unit F4MI MI06 01 Physician MARILUZ MCKINNEY MD (06/14/15 3:51 AM) Chemistry Most recent to oldest [Reference Range]: 1 2 Sodium Lvl [136-144 mEq/L] 132 mEq/L *LOW* (06/19/15 4:17 AM) Potassium Lvl [3.6-5.1 mEq/L] 4.1 mEq/L (06/19/15 4:17 AM) Chloride [99-109 mEq/L] 91 mEq/L *LOW* (06/19/15 4:17 AM) CO2 [22-32 mEq/L] 32 mEq/L (06/19/15 4:17 AM) AGAP [3-20] 9 (06/19/15 4:17 AM) BUN [4-20 mg/dL] 34 mg/dL *HI* (06/19/15 4:17 AM) Glucose Lvl [70-100 mg/dL] 147 mg/dL *HI* (06/19/15 4:17 AM) Creatinine Lvl [0.44-1.03 mg/dL] 0.48 mg/dL (06/19/15 4:17 AM) eGFR [>60] >60 1 (06/19/15 4:17 AM) Calcium Lvl [8.6-10.0 mg/dL] 8.9 mg/dL (06/19/15 4:17 AM) Albumin Lvl [3.5-4.8 gm/dL] 1.8 gm/dL *LOW* (06/17/15 3:53 AM) Total Protein [6.1-7.9 gm/dL] 6.1 gm/dL (06/17/15 3:53 AM) Globulin [1.9-4.3 gm/dL] 4.3 gm/dL (06/17/15 3:53 AM) ALT [14-54 U/L] 27 U/L (06/17/15 3:53 AM) AST [15-41 U/L] 17 U/L (06/17/15 3:53 AM) Alk Phos [26-104 U/L] 180 U/L *HI* (06/17/15 3:53 AM) Bili Total [0.2-1.2 mg/dL] 0.3 mg/dL 2 (06/17/15 3:53 AM) Iron [50-170 mcg/dL] 7 mcg/dL *LOW* (06/11/15 4:28 AM) TIBC [286-569 mcg/dL] 219 mcg/dL *LOW* (06/11/15 4:28 AM) Iron Sat [11-46 %] 3 % *LOW* (06/11/15 4:28 AM) Transferrin [192-382 mg/dL] 147 mg/dL *LOW* (06/11/15 4:28 AM) Ferritin Lvl [11-307 ng/mL] 58 ng/mL (06/11/15 4:28 AM) LDH [98-192 U/L] 347 U/L *HI* (06/14/15 3:51 AM) Magnesium Lvl [1.8-2.5 mg/dL] 2.2 mg/dL (06/17/15 3:53 AM) Phosphorus [2.4-4.7 mg/dL] 3.7 mg/dL 3 (06/17/15 3:53 AM) BNP [0-99 pg/mL] 209 pg/mL *HI* (06/12/15 11:53 AM) Troponin [<0.06 ng/mL] <0.05 ng/mL (06/10/15 7:58 AM) Lactic Acid Lvl [0.5-2.2 mEq/L] 1.3 mEq/L (06/11/15 4:28 AM) Sodium Venous [136-144 mEq/L] 123 mEq/L *LOW* (06/09/15 2:07 AM) Potassium Venous [3.6-5.1 mEq/L] 5.4 mEq/L 4 *HI* (06/09/15 2:07 AM) Calcium Ionized Venous [1.19-1.41 mmol/L] 1.25 mmol/L (06/09/15 2:07 AM) Total CO2 Venous [25-29 mEq/L] 10 mEq/L *LOW* (06/09/15 2:07 AM) HGB Venous NPT [12.0-16.0 gm/dL] 14.3 gm/dL (06/09/15 2:07 AM) HCT Venous [37.0-47.0 %] 42.0 % (06/09/15 2:07 AM) Glucose Venous [70-100 mg/dL] >700 mg/dL *HHI* (06/09/15 2:07 AM) BUN Venous [4-20] 20 (06/09/15 2:07 AM) Creatinine Venous [0.4-1.0 mg/dL] 0.4 mg/dL (06/09/15 2:07 AM) Venous CL [99-109 mEq/L] 97 mEq/L *LOW* (06/09/15 2:07 AM) Anion Gap, Heriberto [3-20] 16 (06/09/15 2:07 AM) Screen, Urine NPT Negative (06/09/15 2:27 AM) Blood Glucose, Capillary [74-106 mg/dL] 212 mg/dL *HI* (06/20/15 12:02 PM) U Beta hCG Ql Negative (06/09/15 4:38 PM) Haptoglobin [36-195 mg/dL] 366 mg/dL *HI* (06/14/15 6:52 AM) Procalcitonin [0.00-0.09 ng/mL] 0.42 ng/mL 5 *HI* (06/12/15 11:53 AM) 1Result Comment: Multiply eGFR results by [...] Normals are for venous specimens only.5Result Comment: Normal: <0.1 ng/mL (infants >72 hrs - adults) Suspected Lower Respiratory Tract Infection 0.10-0.25 ng/mL=Low likelihood for bacterial infection; Antibiotics discouraged. >0.25 ng/mL=Increased likelihood for bacterial infection; Antibiotics encouraged. Suspected Sepsis: Strongly consider initiating antibiotics in all unstable patients. 0.10-0.50 ng/mL=Low likelihood for sepsis; Antibiotics discouraged. >0.50 ng/mL=Increased likelihood for sepsis; Antibiotics encouraged. Decisions on antibiotic use should not be based solely on procalcitonin levels. If antibiotics are administered, repeat procalcitonin testing should be obtained every 2-3 days to consider early antibiotic cessation. PCT is a dynamic biomarker and most useful when trends are analyzed over time in accompaniment with other clinical data. Interpretation should be based upon clinical context and algorithms.Toxicology Most recent to oldest [Reference Range]: 1 2 Ethanol Lvl Not Detected (06/09/15 5:33 AM) Urinalysis Most recent to oldest [Reference Range]: 1 2 UA Color Colorless (06/09/15 2:22 AM) UA Appear Clear (06/09/15 2:22 AM) UA pH [5.0-8.0] 5.0 (06/09/15 2:22 AM) UA Leuk Est [Negative] Negative (06/09/15 2:22 AM) UA Nitrite [Negative] Negative (06/09/15 2:22 AM) UA Protein [Negative] Negative (06/09/15 2:22 AM) UA Glucose [Negative] Pos 3+ *ABN* (06/09/15 2:22 AM) UA Ketones [Negative] Pos 2+ *ABN* (06/09/15 2:22 AM) UA Urobilinogen [<1.0] Negative (06/09/15 2:22 AM) UA Bili [Negative] Negative (06/09/15 2:22 AM) UA Blood [Negative] Pos 1+ *ABN* (06/09/15 2:22 AM) UA Spec Grav [1.003-1.030] 1.020 (06/09/15 2:22 AM) Type Clean Catch (06/09/15 2:22 AM) UA WBC [0-4] 0-2 (06/09/15 2:22 AM) UA RBC [0-2] 0-2 (06/09/15 2:22 AM) Epithelial Cells 0-2 (06/09/15 2:22 AM) UA Mucous Present (06/09/15 2:22 AM) Blood Bank Results Most recent to oldest [Reference Range]: 1 2 ABO/Rh A POS (06/13/15 9:20 AM) Antibody Screen Tube NEG (06/13/15 9:20 AM) Microbiology Reports TEST:Sputum Culture and Smear STATUS:Auth (Verified) BODY SITE: SOURCE:Sputum COLLECTED DATE/TIME:06/13/15 8:36 AMGram SmearMany (10-20/OIF) white blood cells Rare (0-1/OIF) squamous epithelial cells Many (10-20/OIF) red blood cells No microorganisms observedTEST:Sputum Culture and Smear STATUS:Auth (Verified) BODY SITE: SOURCE:Sputum COLLECTED DATE/TIME:06/12/15 4:18 AMGram SmearMany (10-20/OIF) white blood cells Rare (0-1/OIF) squamous epithelial cells No microorganisms observedTEST:Respiratory Virus Panel - PCR STATUS:Auth (Verified) BODY SITE: SOURCE:Nasopharyngeal Swab COLLECTED DATE/TIME:06/11/15 1:04 PMRespiratory Virus Panel - PCR Rhinovirus Positive by PCR . Specimen tested for the following FDA [...] Coronavirus NL63, Coronavirus HKU1, and Coronavirus OC43. ORGANISM:RhinovirusTEST:Blood Culture STATUS:Auth (Verified) BODY SITE: SOURCE:Blood COLLECTED DATE/TIME:06/10/15 9:47 AMBlood CultureNo growth after 5 days of incubation.TEST:Blood Culture1 STATUS:Auth (Verified) BODY SITE: SOURCE:Blood COLLECTED DATE/TIME:06/10/15 7:57 AMBlood CultureNo growth after 5 days of incubation.INTERPRETIVE DATA1Aerobic bottle ONLY received Immunizations Vaccine Date Refusal Reason hepatitis B adult vaccine 12/10/00 hepatitis B adult vaccine 10/13/00 measles/mumps/rubella virus vaccine 08/06/08 pneumococcal 23-polyvalent vaccine 03/29/04 Procedures Procedure Date Related Diagnosis Body Site Arterial puncture, withdrawal of blood for 06/15/15 diagnosis Arterial puncture, withdrawal of blood for 06/14/15 diagnosis Arterial puncture, withdrawal of blood for 06/13/15 diagnosis Arterial puncture, withdrawal of blood for 06/12/15 diagnosis Arterial puncture, withdrawal of blood for 06/11/15 diagnosis Arterial puncture, withdrawal of blood for 06/11/15 diagnosis Arterial puncture, withdrawal of blood for 06/11/15 diagnosis Arterial puncture, withdrawal of blood for 06/10/15 diagnosis Arterial puncture, withdrawal of blood for 06/09/15 diagnosis Adenoidectomy Cervical cautery section Sinusotomy Tonsillectomy Tubal ligation Social History Social History Type Response Smoking Status Current every day smoker; Tobacco use per day: Pack Assessment and Plan No data available for this section
--- OUTSIDE RECORDS SUMMARY | 2017-04-20 19:27 | External Medical Summary | Referral Summary ---
:1985 Author Organization Via [facility] Address [address] [place] [address] Care Team Providers Name Role Phone Randell Mi Primary Care Physician Encounter VC Date(s): 03/07/16 - 03/10/16 [facility] [address] [place] [address] Discharge Diagnosis: DKA (diabetic ketoacidosis) Discharge Diagnosis: Gastroparesis Discharge Diagnosis: Polysubstance abuse Discharge Disposition: 01-Home or Self Care Attending Physician: Carmina Matos MD Admitting Physician: Carmina Matos MD Vital Signs Most recent to oldest [Reference Range]: 1 Temperature Oral [35.8-37.3 degC] 36.8 degC (03/10/16 12:11 PM) Temperature Temporal Artery [36.3-37.8 degC] 37.1 degC (03/10/16 1:00 AM) Apical Heart Rate [60-100 bpm] 129 bpm *HI* (03/07/16 8:15 PM) Peripheral Pulse Rate [60-100 bpm] 101 bpm *HI* (03/10/16 12:11 PM) Heart Rate Monitored [60-100 bpm] 99 bpm (03/10/16 1:00 AM) Respiratory Rate [14-20 br/min] 18 br/min (03/10/16 12:11 PM) Blood Pressure [90-140/60-90 mmHg] 152/107 mmHg *HI* (03/10/16 12:11 PM) Mean Arterial Pressure, Cuff 123 mmHg (03/10/16 12:00 AM) SpO2 97 % (03/10/16 12:11 PM) Remote Telemetry Discontinued (03/10/16 8:00 AM) Problem List Condition Effective Dates [...] initiation of Alteration in Nutrition Plan of Ydwi1Kgcuygp added automatically by system based on initiation of Anxiety Plan of Mypv9Momk problem was added by Lore Expert.4Problem updated automatically by system based on initiation of Risk for Injury Plan of Vlxd1Hgqakqq added automatically by system based on initiation of Risk for Injury Plan of Pwpw8Ddpgriv updated automatically by system based on initiation of At Risk for Unstable Blood Glucose Plan of Ucdt4Ynwqirb updated automatically by system based on initiation of At Risk for Unstable Blood Glucose Plan of Ovqf7Rnexdel added automatically by system based on initiation of At Risk for Unstable Blood Glucose Planof Aleu6Spkbcam added by Discern Czrzdi45Eeiywpq updated automatically by system based on initiation of Fluid Volume Imbalance Plan of Pzsk57Gxeiwhi updated automatically by system based on initiation of Fluid Volume Imbalance Plan of Etwp13Qacqetz added automatically by system based on initiation of Fluid Volume Imbalance Plan of Zppj82Olburgq added automatically by system based on initiation of Impaired Gas Exchange Plan of Uvfw70Nlsisco added automatically by system based on initiation of Impaired Skin Integrity Plan of Agxo87Ixnhlwh added automatically by system based on initiation of Impaired Spontaneous Ventilation Plan of Mxbi64Paprnaf added automatically by system based on initiation of Ineffective Airway Clearance Plan of Wncq55Pecpqxn updated automatically by system based on initiation of Knowledge Deficit Plan of Eowl61Wyeaedd added automatically by system based on initiation of Knowledge Deficit Plan of Wztf57Dajohcc updated automatically by system based on initiation of Tissue Perfusion Cerebral Plan of Jzvo31Vxlrabw added automatically by system based on initiation [...] Breath/Wheezing, # 540 mL, 0 Refill(s), Pharmacy: [id number], 3 mL NEB q4hr,PRN:Shortness of Breath/ Wheezing Start Date: 06/25/15 Status: OrderedAmbien 5 mg, Oral, Bedtime (once a day), as needed for sleep, 0 Refill(s) Start Date: 11/07/15 Status: Ordereddiazepam 2 mg, Oral, TID, 0 Refill(s) Start Date: 03/01/16 Status: Ordereddiazepam 2 mg oral tablet 2 mg 1 tabs, Oral, TID, 0 Refill(s) Start Date: 03/10/16 Status: Orderedfolic acid 1 mg oral tablet 1 mg, Oral, Daily, # 30 tabs, 0 Refill(s), Pharmacy: [facility] [id number] , 1 mg Oral Daily Start Date: 06/25/15 Status: OrderedLevemir 100 units/mL subcutaneous solution 18 units, SubCutaneous, Bedtime (once a day), 0 Refill(s) Start Date: 03/10/16 Status: Orderedlisinopril 5 mg oral tablet 5 mg 1 tabs, Oral, Daily, # 30 tabs, 1 Refill(s), Pharmacy: [facility] [id number], 1 tabs Oral Daily Start Date: 06/25/15 Status: OrderedmetroNIDAZOLE 500 mg oral tablet 500 mg 1 tabs, Oral, BID, X 5 days, # 10 tabs, 0 Refill(s), Pharmacy: [facility], 1 tabs Oral BID,x5 days Start Date: 03/10/16 Stop Date: 03/15/16 Status: OrderedMultiple Vitamins oral capsule 1 caps, Oral, Daily, # 30 caps, 0 Refill(s), Pharmacy: [id number] Start Date: 06/25/15 Status: OrderedNovoLOG 13 units, SubCutaneous, With Breakfast, 0 Refill(s) Start Date: 03/01/16 Status: OrderedNovoLOG 10 units, SubCutaneous, With Lunch and Dinner, 0 Refill(s) Start Date: 03/01/16 Status: Orderedpotassium chloride 20 mEq oral tablet, extended release 20 mEq 1 tabs, Oral, BID, # 6 tabs, 0 Refill(s), Pharmacy: [facility], 1 tabs Oral BID,x3 days Start Date: 03/10/16 Stop Date: 03/13/16 Status: OrderedProAir HFA 90 mcg/inh inhalation aerosol 2 puffs, Inhalation, q4hr, as needed for wheezing, 0 Refill(s) Start Date: 03/01/16 Status: Orderedsertraline 100 mg oral tablet 200 mg 2 tabs, Oral, qAM, 0 Refill(s) Start Date: 03/01/16 Status: OrderedVitamin B Complex oral capsule 1 caps, Oral, Daily, # 30 caps, 0 Refill(s), Pharmacy: [facility] [id number] Start Date: 06/25/15 Status: Ordered Results Blood Gases Most recent to oldest [Reference Range]: 1 pH [7.35-7.45] 7.29 *LOW* (03/07/16 1:40 PM) pCO2 Art [35-45 mmHg] 17 mmHg *LLOW* (03/07/16 1:40 PM) Bicarbonate [22-26 mEq/L] 8 mEq/L *LOW* (03/07/16 1:40 PM) Base Excess Art [0-2] -16 *LOW* (03/07/16 1:40 PM) O2 Sat Art [90.0-97.0 %] 97.2 % *HI* (03/07/16 1:40 PM) pO2 Art [80-100 mmHg] 110 mmHg *HI* (03/07/16 1:40 PM) O2 Panel Room Air (03/07/16 1:40 PM) Spec Site Brachial-L (03/07/16 1:40 PM) Hematology Most recent to oldest [Reference Range]: 1 WBC [4.8-10.8 10*3/uL] 8.2 10*3/uL (03/09/16 3:52 AM) RBC [4.00-5.20] 3.52 *LOW* (03/09/16 3:52 AM) Hgb [12.0-16.0 gm/dL] 10.6 gm/dL *LOW* (03/09/16 3:52 AM) Hct [37.0-47.0 %] 31.2 % *LOW* (03/09/16 3:52 AM) MCV [82.0-99.0 fL] 88.6 fL (03/09/16 3:52 AM) MCH [27.0-32.0 pg] 30.1 pg (03/09/16 3:52 AM) MCHC [32.0-36.0 gm/dL] 34.0 gm/dL (03/09/16 3:52 AM) RDW [11.5-14.5 %] 11.8 % (03/09/16 3:52 AM) Platelet [150-400 10*3/uL] 259 10*3/uL (03/09/16 3:52 AM) MPV [9.4-12.4 fL] 8.8 fL *LOW* (03/09/16 3:52 AM) Immature Granulocytes [0.0-1.0 %] 0.6 % (03/08/16 3:05 AM) Neutrophils [51-75 %] 65 % (03/08/16 3:05 AM) Band Man [0-8 %] 3 % (03/07/16 10:29 AM) Lymphocytes [20-46 %] 20 % (03/08/16 3:05 AM) Monocytes [4-11 %] 10 % (03/08/16 3:05 AM) Eosinophils [0-4 %] 4 % (03/08/16 3:05 AM) Basophils [0-2 %] 0 % (03/08/16 3:05 AM) Neutro Absolute [1.90-7.00 10*3] 8.79 10*3 *HI* (03/08/16 3:05 AM) Lymph Absolute [0.80-3.30 10*3] 2.76 10*3 (03/08/16 3:05 AM) [place] Absolute [0.30-1.00 10*3] 1.33 10*3 *HI* (03/08/16 3:05 AM) Eos Absolute [0.00-0.50 10*3] 0.51 10*3 *HI* (03/08/16 3:05 AM) Baso Absolute [0.00-0.20 10*3] 0.05 10*3 (03/08/16 3:05 AM) Nucleated RBC Automated [0 /100 WBC] 0.0 /100 WBC (03/08/16 3:05 AM) Differential Manual *ABN* (03/07/16 10:29 AM) Chemistry Most recent to oldest [Reference Range]: 1 Sodium Lvl [136-144 mEq/L] 136 mEq/L (03/10/16 5:52 AM) Potassium Lvl [3.6-5.1 mEq/L] 3.5 mEq/L *LOW* (03/10/16 5:52 AM) Chloride [99-109 mEq/L] 107 mEq/L (03/10/16 5:52 AM) CO2 [22-32 mEq/L] 24 mEq/L (03/10/16 5:52 AM) AGAP [3-20] 5 (03/10/16 5:52 AM) BUN [4-20 mg/dL] 9 mg/dL (03/10/16 5:52 AM) Glucose Lvl [70-100 mg/dL] 191 mg/dL *HI* (03/10/16 5:52 AM) Creatinine Lvl [0.44-1.03 mg/dL] 0.48 mg/dL (03/10/16 5:52 AM) eGFR [>60] >60 1 (03/10/16 5:52 AM) Calcium Lvl [8.6-10.0 mg/dL] 8.1 mg/dL *LOW* (03/10/16 5:52 AM) Albumin Lvl [3.5-4.8 gm/dL] 1.7 gm/dL *LOW* (03/10/16 5:52 AM) Total Protein [6.1-7.9 gm/dL] 5.1 gm/dL *LOW* (03/08/16 3:05 AM) Globulin [1.9-4.3 gm/dL] 2.9 gm/dL (03/08/16 3:05 AM) ALT [14-54 U/L] 17 U/L (03/08/16 3:05 AM) AST [15-41 U/L] 13 U/L *LOW* (03/08/16 3:05 AM) Alk Phos [26-104 U/L] 65 U/L (03/08/16 3:05 AM) Bili Total [0.2-1.2 mg/dL] 0.7 mg/dL 2 (03/08/16 3:05 AM) Bili Direct [0.0-0.2 mg/dL] 0.1 mg/dL (03/08/16 3:05 AM) Bili Indirect [0.0-1.0 mg/dL] 0.6 mg/dL (03/08/16 3:05 AM) Magnesium Lvl [1.8-2.5 mg/dL] 1.8 mg/dL (03/10/16 5:52 AM) Phosphorus [2.4-4.7 mg/dL] 2.7 mg/dL 3 (03/10/16 5:52 AM) Troponin [<0.06 ng/mL] <0.05 ng/mL (03/07/16 10:29 AM) Lipase Lvl [8-48 U/L] 11 U/L (03/07/16 10:29 AM) Lactic Acid Lvl [0.5-2.2 mEq/L] 1.0 mEq/L (03/07/16 6:10 PM) Sodium Venous [136-144 mEq/L] 135 mEq/L *LOW* (03/07/16 1:17 PM) Potassium Venous [3.6-5.1 mEq/L] 4.2 mEq/L 4 (03/07/16 1:17 PM) Calcium Ionized Venous [1.19-1.41 mmol/L] 1.17 mmol/L *LOW* (03/07/16 1:17 PM) Total CO2 Venous [25-29 mEq/L] 11 mEq/L *LOW* (03/07/16 1:17 PM) HGB Venous NPT [12.0-16.0 gm/dL] 14.3 gm/dL (03/07/16 1:17 PM) HCT Venous [37.0-47.0 %] 42.0 % (03/07/16 1:17 PM) Glucose Venous [70-100 mg/dL] 433 mg/dL *HI* (03/07/16 1:17 PM) BUN Venous [4-20] 33 *HI* (03/07/16 1:17 PM) Creatinine Venous [0.4-1.0 mg/dL] 0.8 mg/dL (03/07/16 1:17 PM) Venous CL [99-109 mEq/L] 103 mEq/L (03/07/16 1:17 PM) Anion Gap, Heriberto [3-20] 21 *HI* (03/07/16 1:17 PM) Blood Glucose, Capillary [74-106 mg/dL] 127 mg/dL *HI* (03/10/16 12:47 PM) 1Result Comment: Multiply eGFR results by [...] Range]: 1 U Amphetamine Scrn Positive *ABN* (03/07/16 4:58 PM) U Cocaine Scrn Negative (03/07/16 4:58 PM) U Cannab Scrn Negative (03/07/16 4:58 PM) U Opiate Scrn Negative (03/07/16 4:58 PM) U PCP Scrn Negative (03/07/16 4:58 PM) U Benzodiazepine Scrn Positive *ABN* (03/07/16 4:58 PM) U Barbiturate Scrn Negative (03/07/16 4:58 PM) Methadone Lvl Negative (03/07/16 4:58 PM) Tricyclics Not Detected 1 (03/07/16 4:58 PM) 1Result Comment: Cut-off concentrations: Amphetamines: 1000 [...] oldest [Reference Range]: 1 UA Color Yellow (03/08/16 9:51 PM) UA Appear Clear (03/08/16 9:51 PM) UA pH [5.0-8.0] 6.0 (03/08/16 9:51 PM) UA Leuk Est [Negative] Negative (03/08/16 9:51 PM) UA Nitrite [Negative] Negative (03/08/16 9:51 PM) UA Protein [Negative] Pos 2+ *ABN* (03/08/16 9:51 PM) UA Glucose [Negative] Pos 3+ *ABN* (03/08/16 9:51 PM) UA Ketones [Negative] Pos 1+ *ABN* (03/08/16 9:51 PM) UA Urobilinogen [<1.0] Negative (03/08/16 9:51 PM) UA Bili [Negative] Negative (03/08/16 9:51 PM) UA Blood [Negative] Pos 1+ *ABN* (03/08/16 9:51 PM) UA Spec Grav [1.003-1.030] 1.025 (03/08/16 9:51 PM) Type Clean Catch (03/08/16 9:51 PM) UA WBC [0-4] 2-5 (03/08/16 9:51 PM) UA RBC [0-2] 2-5 (03/08/16 9:51 PM) Epithelial Cells 2-5 (03/08/16 9:51 PM) UA Bacteria Rare (03/08/16 9:51 PM) UA Hyal Cast [0-3] 1-3 (03/07/16 4:25 PM) UA Gran Cast 1-3 *ABN* (03/07/16 4:25 PM) UA Trichomonas Present 1 *ABN* (03/07/16 4:25 PM) UA Yeast Present *ABN* (03/07/16 4:25 PM) UA Mucous Present (03/08/16 9:51 PM) 1Result Comment: TRICHOMONAS PRESENTMicrobiology Reports TEST:Blood Culture1 STATUS:Order in Progress BODY SITE: SOURCE:Blood COLLECTED DATE/TIME:03/07/16 6:11 PMBlood CultureNo growth after 12 hours incubation. Nursing unit will be called if growth is detected. -TEST:Blood Culture2 STATUS:Order in Progress BODY SITE: SOURCE:Blood COLLECTED DATE/TIME:03/07/16 6:11 PMBlood CultureNo growth after 12 hours incubation. Nursing unit will be called if growth is detected. -INTERPRETIVE DATA1Aerobic bottle ONLY utrcvlny5Nnplsugpc bottle ONLY received Immunizations Vaccine Date Refusal Reason hepatitis B adult vaccine 12/10/00 hepatitis B adult vaccine 10/13/00 measles/mumps/rubella virus vaccine 08/06/08 pneumococcal 23-polyvalent vaccine 03/29/04 Procedures Procedure Date Related Diagnosis Body Site Arterial puncture, withdrawal of blood for 03/07/16 diagnosis Insertion of peripherally inserted central venous 03/07/16 catheter (PICC), without subcutaneous port or pump; age 5 years or older.. Adenoidectomy Cervical cautery section Sinusotomy Tonsillectomy Tubal ligation Social History Social History Type Response Smoking Status Smoker, current status unknown Assessment and Plan No data available for this section
--- OUTSIDE RECORDS SUMMARY | 2017-04-20 19:27 | External Medical Summary | Referral Summary ---
:1985 Author Organization [facility], [facility] Address [address] [place] [address] [place] [address] Care Team Providers Name Role Phone MindayogiLaura Primary Care Physician Encounter VC Date(s): 11/07/15 - 11/07/15 [facility], [address] [place] [phone] [phone] Discharge Disposition: 01-Home or Self Care Attending Physician: Khris Sen PA-C Admitting Physician: Khris Sen PA-C Vital Signs Most recent to oldest [Reference Range]: 1 Temperature Tympanic [36.6-38.1 degC] 36.4 degC *LOW* (11/07/15 6:27 PM) Peripheral Pulse Rate [60-100 bpm] 111 bpm *HI* (11/07/15 6:27 PM) Blood Pressure [90-140/60-90 mmHg] 140/98 mmHg (11/07/15 6:27 PM) Mean Arterial Pressure, Cuff 112 mmHg (11/07/15 6:27 PM) SpO2 98 % (11/07/15 6:27 PM) Problem List Condition Effective Dates Status [...] initiation of Alteration in Nutrition Plan of Qrao8Fdxsrdj added automatically by system based on initiation of Anxiety Plan of Kncl6Dfmp problem was added by Discern Expert.4Problem updated automatically by system based on initiation of Risk for Injury Plan of Ptcf1Recpnob added automatically by system based on initiation of Risk for Injury Plan of Ysji9Gmnbwzj updated automatically by system based on initiation of At Risk for Unstable Blood Glucose Plan of Eabz9Jwtlabd updated automatically by system based on initiation of At Risk for Unstable Blood Glucose Plan of Fwrt7Ixismft added automatically by system based on initiation of At Risk for Unstable Blood Glucose Planof Bxfv2Qlqnyza added by Discern Culiea02Skycpsv updated automatically by system based on initiation of Fluid Volume Imbalance Plan of Ucot07Jhrprag updated automatically by system based on initiation of Fluid Volume Imbalance Plan of Frfm58Ccoxvup added automatically by system based on initiation of Fluid Volume Imbalance Plan of Jmnz81Yevicxb added automatically by system based on initiation of Impaired Gas Exchange Plan of Vxks35Zlibqmz added automatically by system based on initiation of Impaired Skin Integrity Plan of Mlvq75Xkrwjwu added automatically by system based on initiation of Impaired Spontaneous Ventilation Plan of Fcdm08Driwbbd added automatically by system based on initiation of Ineffective Airway Clearance Plan of Yqvf76Gafvolc updated automatically by system based on initiation of Knowledge Deficit Plan of Ccro57Brdnxwf added automatically by system based on initiation of Knowledge Deficit Plan of Nvcw05Emhmnsg updated automatically by system based on initiation of Tissue Perfusion Cerebral Plan of Rxsp91Euchieh added automatically by system based on initiation [...] Breath/Wheezing, # 540 mL, 0 Refill(s), Pharmacy: [facility] [address], 3 mL NEB q4hr,PRN:Shortness of Breath/ Wheezing Start Date: 06/25/15 Status: Orderedalbuterol 5 mg/mL (0.5%) inhalation solution 2.5 mg 0.5 mL, NEB, TID, # 45 mL, 0 Refill(s), [id number], 0.5 mL NEB TID Start Date: 06/25/15 Status: OrderedAmbien 5 mg, Oral, Bedtime (once a day), 0 Refill(s) Start Date: 11/07/15 Status: Orderedfolic acid 1 mg oral tablet 1 mg, Oral, Daily, # 30 tabs, 0 Refill(s), [facility] [id number] , 1 mg Oral Daily Start Date: 06/25/15 Status: OrderedLevemir 100 units/mL subcutaneous solution 15 units, SubCutaneous, BID, # 15 mL, 0 Refill(s), [facility] [id number], 15 units SubCutaneous BID Start Date: 06/25/15 Status: Orderedlisinopril 5 mg oral tablet 5 mg 1 tabs, Oral, Daily, # 30 tabs, 1 Refill(s), Pharmacy: [facility] [address], 1 tabs Oral Daily Start Date: 06/25/15 Status: OrderedMultiple Vitamins oral capsule 1 caps, Oral, Daily, # 30 caps, 0 Refill(s), [facility] Start Date: 06/25/15 Status: OrderedNovoLOG 100 units/mL subcutaneous solution 10 units, SubCutaneous, TIDAC, # 30 mL, 0 Refill(s), [facility] [address], 10 units SubCutaneous TIDAC Start Date: 06/25/15 Status: Orderedsertraline 100 mg oral tablet 100 mg 1 tabs, Oral, Daily, # 30 tabs, 0 Refill(s), [facility], 1 tabs Oral Daily Start Date: 06/25/15 Status: OrderedValium 5 mg oral tablet 5 mg 1 tabs, Oral, BID, 0 Refill(s) Start Date: 11/07/15 Status: OrderedVitamin B Complex oral capsule 1 caps, Oral, Daily, # 30 caps, 0 Refill(s), Pharmacy: [facility] [address] Start Date: 06/25/15 Status: Ordered Results No data available for this section Immunizations Vaccine Date Refusal Reason hepatitis B [...]
--- OUTSIDE RECORDS SUMMARY | 2017-04-20 19:27 | External Medical Summary | Referral Summary ---
:1985 Author Organization Via [facility] Address [address] [place] [address] Care Team Providers Name Role Phone Randell Mi Primary Care Physician Encounter [facility] [id number] Date(s): 05/22/16 - 05/22/16 [facility] [address] [place] [address] [phone] Discharge Diagnosis: Cough Discharge Diagnosis: Tobacco use Discharge Disposition: 01-Home or Self Care Attending Physician: Abbe Li MD Admitting Physician: Abbe Li MD Vital Signs Most recent to oldest [Reference Range]: 1 Temperature Oral [35.8-37.3 degC] 36.6 degC (05/22/16 2:47 PM) Peripheral Pulse Rate [60-100 bpm] 105 bpm *HI* (05/22/16 2:47 PM) Respiratory Rate [14-20 br/min] 18 br/min (05/22/16 2:47 PM) Blood Pressure [90-140/60-90 mmHg] 151/110 mmHg *HI* (05/22/16 2:47 PM) SpO2 99 % (05/22/16 2:47 PM) Problem List Condition Effective Dates Status [...] initiation of Alteration in Nutrition Plan of Cpxg5Vbiqxul added automatically by system based on initiation of Anxiety Plan of Bhxr9Wpxe problem was added by Discern Expert.4Problem updated automatically by system based on initiation of Risk for Injury Plan of Xngg7Gdbtumq added automatically by system based on initiation of Risk for Injury Plan of Ajef2Fcnkxfx updated automatically by system based on initiation of At Risk for Unstable Blood Glucose Plan of Zdkg4Ewbmqov updated automatically by system based on initiation of At Risk for Unstable Blood Glucose Plan of Trlm1Ascxfha added automatically by system based on initiation of At Risk for Unstable Blood Glucose Planof Clki0Sallnvs added by Discern Khammk82Cxjsyzi updated automatically by system based on initiation of Fluid Volume Imbalance Plan of Rsfc84Fygubch updated automatically by system based on initiation of Fluid Volume Imbalance Plan of Afrs27Lxsivyy added automatically by system based on initiation of Fluid Volume Imbalance Plan of Jmsg53Zhbokwe added automatically by system based on initiation of Impaired Gas Exchange Plan of Xciv09Gcssgss added automatically by system based on initiation of Impaired Skin Integrity Plan of Otan83Fiqxljw added automatically by system based on initiation of Impaired Spontaneous Ventilation Plan of Jpne67Wfbgkfd added automatically by system based on initiation of Ineffective Airway Clearance Plan of Rzmh23Mbvhiaz updated automatically by system based on initiation of Knowledge Deficit Plan of Epxg60Tsdofov added automatically by system based on initiation of Knowledge Deficit Plan of Fywu25Jokukkw updated automatically by system based on initiation of Tissue Perfusion Cerebral Plan of Uzhk81Fgnctad added automatically by system based on initiation [...] Breath/Wheezing, # 540 mL, 0 Refill(s), Pharmacy: [facility] [id number], 3 mL NEB q4hr,PRN:Shortness of Breath/ Wheezing Start Date: 06/25/15 Status: OrderedAmbien 5 mg, Oral, Bedtime (once a day), as needed for sleep, 0 Refill(s) Start Date: 11/07/15 Status: Ordereddiazepam 2 mg, Oral, TID, 0 Refill(s) Start Date: 03/01/16 Status: Ordereddiazepam 2 mg oral tablet 2 mg 1 tabs, Oral, TID, 0 Refill(s) Start Date: 03/10/16 Status: Ordereddoxycycline hyclate 100 mg oral capsule 100 mg 1 caps, Oral, BID, X 10 days, # 20 caps, 0 Refill(s) Start Date: 05/22/16 Stop Date: 06/01/16 Status: Orderedfolic acid 1 mg oral tablet 1 mg, Oral, Daily, # 30 tabs, 0 Refill(s), Pharmacy: [facility] [id number] , 1 mg Oral Daily Start Date: 06/25/15 Status: OrderedLevemir 100 units/mL subcutaneous solution 18 units, SubCutaneous, Bedtime (once a day), 0 Refill(s) Start Date: 03/10/16 Status: Orderedlisinopril 5 mg oral tablet 5 mg 1 tabs, Oral, Daily, # 30 tabs, 1 Refill(s), Pharmacy: [facility] [id number], 1 tabs Oral Daily Start Date: 06/25/15 Status: OrderedMultiple Vitamins oral capsule 1 caps, Oral, Daily, # 30 caps, 0 Refill(s), Pharmacy: [facility] [id number] Start Date: 06/25/15 Status: OrderedNovoLOG 13 units, SubCutaneous, With Breakfast, 0 Refill(s) Start Date: 03/01/16 Status: OrderedNovoLOG 10 units, SubCutaneous, With Lunch and Dinner, 0 Refill(s) Start Date: 03/01/16 Status: Orderedpotassium chloride 20 mEq oral tablet, extended release 20 mEq 1 tabs, Oral, BID, # 6 tabs, 0 Refill(s), Pharmacy: [facility], 1 tabs Oral BID,x3 days Start [...] Daily, # 30 caps, 0 Refill(s), Pharmacy: [facility] Start Date: 06/25/15 Status: Ordered Results No [...]
--- OUTSIDE RECORDS SUMMARY | 2017-04-20 19:31 | External Medical Summary | Referral Summary ---
:1985 Author Organization [facility] Address [address] [place] [address] Care Team Providers Name Role Phone Laura Hall Primary Care Physician Encounter [facility] [id number] Date(s): 01/28/15 - 01/30/15 [facility] [address] [place] [address] Final: Diabetes mellitus with ketoacidosis, type I [juvenile type], not stated as uncontrolled Final: Acute Kidney Failure, Unspecified Final: SYSTEMIC INFLAMMATORY RESPONSE SYNDROME, UNSPECIFIED Final: HYPERPOTASSEMIA Final: LUMBAGO Final: TACHYCARDIA, UNSPECIFIED Final: NONSPECIFIC ELEVATION OF LEVELS OF TRANSAMINASE OR LACTIC ACID DEHYDROGENASE [LDH] Final: TOBACCO USE DISORDER Final: PERSONAL HISTORY OF NONCOMPLIANCE WITH MEDICAL TREATMENT, PRESENTING HAZARDS TO HEALTH Discharge Disposition: 01-Home or Self Care Attending Physician: Horace Barcenas MD Admitting Physician: Horace Barcenas MD Vital Signs Most recent to oldest [Reference Range]: 1 Temperature Oral [35.8-37.3 degC] 36.8 degC (01/30/15 11:10 AM) Temperature Temporal Artery [36.3-37.8 degC] 36.6 degC (01/29/15 11:47 AM) Peripheral Pulse Rate [60-100 bpm] 107 bpm *HI* (01/30/15 11:10 AM) Heart Rate Monitored [60-100 bpm] 102 bpm *HI* (01/29/15 1:00 PM) Respiratory Rate [14-20 br/min] 18 br/min (01/30/15 11:10 AM) Blood Pressure [90-140/60-90 mmHg] 123/86 mmHg (01/30/15 11:10 AM) Mean Arterial Pressure, Cuff 92 mmHg (01/29/15 3:24 PM) SpO2 99 % (01/30/15 11:10 AM) Problem List Condition Effective Dates Status [...] initiation of Alteration in Nutrition Plan of Bfrw3Urqyszz added automatically by system based on initiation of Anxiety Plan of Msgf9Rvyq problem was added by Discern Expert.4Problem updated automatically by system based on initiation of Risk for Injury Plan of Lbmn2Cthzerz added automatically by system based on initiation of Risk for Injury Plan of Hwgl8Kdhnxoj updated automatically by system based on initiation of At Risk for Unstable Blood Glucose Plan of Czdq2Edunjen updated automatically by system based on initiation of At Risk for Unstable Blood Glucose Plan of Djhk5Mhtcqym added automatically by system based on initiation of At Risk for Unstable Blood Glucose Planof Amfv3Gxbhigy added by Discern Ccfutq29Azxaama updated automatically by system based on initiation of Fluid Volume Imbalance Plan of Ukil05Gfgbeoj updated automatically by system based on initiation of Fluid Volume Imbalance Plan of Lhvv47Realsvx added automatically by system based on initiation of Fluid Volume Imbalance Plan of Gdnj89Xxkrdcg added automatically by system based on initiation of Impaired Gas Exchange Plan of Ewuq97Uyacicf added automatically by system based on initiation of Impaired Skin Integrity Plan of Sven85Ccfnqzq added automatically by system based on initiation of Impaired Spontaneous Ventilation Plan of Innh93Nrerdij added automatically by system based on initiation of Ineffective Airway Clearance Plan of Ezrn90Fxxqrak updated automatically by system based on initiation of Knowledge Deficit Plan of Cvwi01Gtwmggl added automatically by system based on initiation of Knowledge Deficit Plan of Obon77Inxchbs updated automatically by system based on initiation of Tissue Perfusion Cerebral Plan of Uhbm91Hnrarww added automatically by system based on initiation [...] Breath/Wheezing, # 540 mL, 0 Refill(s), Pharmacy: [id number], 3 mL NEB q4hr,PRN:Shortness of Breath/ Wheezing Start Date: 06/25/15 Status: Orderedalbuterol 5 mg/mL (0.5%) inhalation solution 2.5 mg 0.5 mL, NEB, TID, # 45 mL, 0 Refill(s), Pharmacy: [facility] [id number], 0.5 mL NEB TID Start Date: 06/25/15 Status: Orderedfolic acid 1 mg oral tablet 1 mg, Oral, Daily, # 30 tabs, 0 Refill(s), Pharmacy: [facility] [address] , 1 mg Oral Daily Start Date: 06/25/15 Status: OrderedLevemir 100 units/mL subcutaneous solution 15 units, SubCutaneous, BID, # 15 mL, 0 Refill(s), Pharmacy: [facility] [address], 15 units SubCutaneous BID Start Date: 06/25/15 Status: Orderedlisinopril 5 mg oral tablet 5 mg 1 tabs, Oral, Daily, # 30 tabs, 1 Refill(s), Pharmacy: [facility] [address], 1 tabs Oral Daily Start Date: 06/25/15 Status: OrderedMultiple Vitamins oral capsule 1 caps, Oral, Daily, # 30 caps, 0 Refill(s), Pharmacy: [facility] [id number] Start Date: 06/25/15 Status: OrderedNovoLOG 100 units/mL subcutaneous solution 10 units, SubCutaneous, TIDAC, # 30 mL, 0 Refill(s), [facility] [address], 10 units SubCutaneous TIDAC Start Date: 06/25/15 Status: Orderedsertraline 100 mg oral tablet 100 mg 1 tabs, Oral, Daily, # 30 tabs, 0 Refill(s), Pharmacy: [facility] [address], 1 tabs Oral Daily Start Date: 06/25/15 Status: OrderedVitamin B Complex oral capsule 1 caps, Oral, Daily, # 30 caps, 0 Refill(s), Pharmacy: [facility] [id number] Start Date: 06/25/15 Status: Ordered Results Blood Gases Most recent to oldest [Reference Range]: 1 2 pH [7.35-7.45] 7.17 *LLOW* (01/28/15 2:20 PM) pCO2 Art [35-45 mmHg] 7 mmHg *LLOW* (01/28/15 2:20 PM) Bicarbonate [22-26 mEq/L] 2 mEq/L *LOW* (01/28/15 2:20 PM) Base Excess Art [0-2] -23 *LOW* (01/28/15 2:20 PM) O2 Sat Art [90.0-97.0 %] 97.5 % *HI* (01/28/15 2:20 PM) pO2 Art [80-100 mmHg] 135 mmHg *HI* (01/28/15 2:20 PM) O2 Panel Room Air (01/28/15 2:20 PM) Spec Site Brachial-R (01/28/15 2:20 PM) Hematology Most recent to oldest [Reference Range]: 1 2 WBC [4.8-10.8 10*3/uL] 8.5 10*3/uL (01/29/15 2:25 AM) RBC [4.00-5.20 10*6/uL] 3.64 10*6/uL *LOW* (01/29/15 2:25 AM) Hgb [12.0-16.0 gm/dL] 11.0 gm/dL *LOW* (01/29/15 2:25 AM) Hct [37.0-47.0 %] 32.3 % *LOW* (01/29/15 2:25 AM) MCV [82.0-99.0 fL] 88.7 fL (01/29/15 2:25 AM) MCH [27.0-32.0 pg] 30.2 pg (01/29/15 2:25 AM) MCHC [32.0-36.0 gm/dL] 34.1 gm/dL (01/29/15 2:25 AM) RDW [11.5-14.5 %] 13.4 % (01/29/15 2:25 AM) Platelet [150-400 10*3/uL] 351 10*3/uL (01/29/15 2:25 AM) MPV [9.4-12.4 fL] 9.4 fL (01/29/15 2:25 AM) Immature Granulocytes [0.0-1.0 %] 0.1 % (01/29/15 2:25 AM) Neutrophils [51-75 %] 57 % (01/29/15 2:25 AM) Lymphocytes [20-46 %] 34 % (01/29/15 2:25 AM) Monocytes [4-11 %] 8 % (01/29/15 2:25 AM) Eosinophils [0-4 %] 1 % (01/29/15 2:25 AM) Basophils [0-2 %] 0 % (01/29/15 2:25 AM) Neutro Absolute [1.90-7.00 10*3] 4.82 10*3 (01/29/15 2:25 AM) Lymph Absolute [0.80-3.30 10*3] 2.87 10*3 (01/29/15 2:25 AM) [place] Absolute [0.30-1.00 10*3] 0.64 10*3 (01/29/15 2:25 AM) Eos Absolute [0.00-0.50 10*3] 0.12 10*3 (01/29/15 2:25 AM) Baso Absolute [0.00-0.20 10*3] 0.01 10*3 (01/29/15 2:25 AM) Nucleated RBC Automated [0 /100 WBC] 0.0 /100 WBC (01/29/15 2:25 AM) Sed Rate [0-23 mm/hr] 58 mm/hr *HI* (01/28/15 2:49 PM) Chemistry Most recent to oldest [Reference Range]: 1 2 Sodium Lvl [136-144 mEq/L] 137 mEq/L (01/30/15 5:50 AM) Potassium Lvl [3.6-5.1 mEq/L] 3.9 mEq/L (01/30/15 5:50 AM) Chloride [99-109 mEq/L] 105 mEq/L (01/30/15 5:50 AM) CO2 [22-32 mEq/L] 26 mEq/L (01/30/15 5:50 AM) AGAP [3-20] 6 (01/30/15 5:50 AM) BUN [4-20 mg/dL] 20 mg/dL (01/30/15 5:50 AM) Glucose Lvl [70-100 mg/dL] 43 mg/dL *LOW* (01/30/15 5:50 AM) Creatinine Lvl [0.44-1.03 mg/dL] 0.36 mg/dL *LOW* (01/30/15 5:50 AM) eGFR [>60] >60 1 (01/30/15 5:50 AM) Calcium Lvl [8.6-10.0 mg/dL] 8.5 mg/dL *LOW* (01/30/15 5:50 AM) Albumin Lvl [3.5-4.8 gm/dL] 2.5 gm/dL *LOW* (01/30/15 5:50 AM) Total Protein [6.1-7.9 gm/dL] 5.8 gm/dL *LOW* (01/29/15 2:25 AM) Globulin [1.9-4.3 gm/dL] 3.1 gm/dL (01/29/15 2:25 AM) ALT [14-54 U/L] 38 U/L (01/29/15 2:25 AM) AST [15-41 U/L] 22 U/L (01/29/15 2:25 AM) Alk Phos [26-104 U/L] 114 U/L *HI* (01/29/15 2:25 AM) Bili Total [0.2-1.2 mg/dL] 0.8 mg/dL 2 (01/29/15 2:25 AM) Magnesium Lvl [1.8-2.5 mg/dL] 1.9 mg/dL (01/29/15 2:25 AM) Uric Acid [2.6-8.0 mg/dL] 8.1 mg/dL *HI* (01/28/15 4:36 PM) Phosphorus [2.4-4.7 mg/dL] 3.4 mg/dL 3 (01/30/15 5:50 AM) Calcium Ionized [1.19-1.41 mmol/L] 1.32 mmol/L (01/29/15 2:25 AM) Troponin [<0.06 ng/mL] <0.05 ng/mL (01/28/15 4:36 PM) Lipase Lvl [8-48 U/L] 29 U/L (01/28/15 4:36 PM) Lactic Acid Lvl [0.5-2.2 mEq/L] 1.3 mEq/L (01/28/15 2:49 PM) Osmolality [275-300 mOsm/kg] 296 mOsm/kg (01/29/15 2:25 AM) Acetone [Negative] Pos 2+ *ABN* (01/28/15 12:25 PM) Screen, Urine NPT Negative (01/28/15 12:30 PM) Blood Glucose, Capillary [74-106 mg/dL] 281 mg/dL 281 mg/dL *HI* *HI* (01/30/15 4:52 PM) (01/30/15 4:52 PM) Hep A IgM Negative (01/29/15 2:25 AM) Hep Bs Ag Negative (01/29/15 2:25 AM) Hep C Ab Negative (01/29/15 2:25 AM) Hep B Core IgM Negative (01/29/15 2:25 AM) Hgb A1c [4.1-5.6 %] 10.8 % *HI* (01/28/15 4:36 PM) eAvg Glucose 263.3 mg/dL (01/28/15 4:36 PM) Procalcitonin [0.00-0.09 ng/mL] 0.20 ng/mL 4 *HI* (01/28/15 6:22 PM) 1Result Comment: Multiply eGFR results by 1.21 for race.2Result Comment: Naproxen, specifically the metabolite O-desmethylnaproxen, may cause spurious elevation in Total Bilirubin levels.3Result Comment: High dosages of liposomal Amphotericin B (AmBisome) therapy or other drug preparations that use a liposomal envelope to facilitate drug delivery may cause falsely elevated results for phosphorus.4Result Comment: Normal: <0.1 ng/mL (infants >72 hrs [...] [Reference Range]: 1 2 U Amphetamine Scrn Negative (01/28/15 12:25 PM) U Cocaine Scrn Negative (01/28/15 12:25 PM) U Cannab Scrn Negative (01/28/15 12:25 PM) U Opiate Scrn Negative (01/28/15 12:25 PM) U PCP Scrn Negative (01/28/15 12:25 PM) U Benzodiazepine Scrn Negative (01/28/15 12:25 PM) U Barbiturate Scrn Negative (01/28/15 12:25 PM) Methadone Lvl Negative (01/28/15 12:25 PM) Tricyclics Not Detected 1 (01/28/15 12:25 PM) 1Result Comment: Cut-off concentrations: Amphetamines: 1000 [...] Range]: 1 2 UA Color Lt Yellow (01/28/15 12:25 PM) UA Appear Clear (01/28/15 12:25 PM) UA pH [5.0-8.0] 5.0 (01/28/15 12:25 PM) UA Leuk Est [Negative] Negative (01/28/15 12:25 PM) UA Nitrite [Negative] Negative (01/28/15 12:25 PM) UA Protein [Negative] Negative (01/28/15 12:25 PM) UA Glucose [Negative] Pos 3+ *ABN* (01/28/15 12:25 PM) UA Ketones [Negative] Pos 3+ *ABN* (01/28/15 12:25 PM) UA Urobilinogen [<1.0] Negative (01/28/15 12:25 PM) UA Bili [Negative] Negative (01/28/15 12:25 PM) UA Blood [Negative] Negative (01/28/15 12:25 PM) UA Spec Grav [1.003-1.030] 1.022 (01/28/15 12:25 PM) Type Clean Catch (01/28/15 12:25 PM) Microbiology Reports TEST:Blood Culture STATUS:Auth (Verified) BODY SITE: SOURCE:Blood COLLECTED DATE/TIME:01/28/15 2:49 PMBlood CultureNo growth after 5 days of incubation.TEST:Blood Culture1 STATUS:Auth (Verified) BODY SITE: SOURCE:Blood COLLECTED DATE/TIME:01/28/15 2:49 PMBlood CultureNo growth after 5 days of incubation.INTERPRETIVE DATA1Pediatric bottle ONLY received Immunizations Vaccine Date Refusal Reason hepatitis B adult vaccine 12/10/00 hepatitis B adult vaccine 10/13/00 measles/mumps/rubella virus vaccine 08/06/08 pneumococcal 23-polyvalent vaccine 03/29/04 Procedures Procedure Date Related Diagnosis Body Site Arterial puncture, withdrawal of blood for 01/28/15 diagnosis Adenoidectomy Cervical cautery section Sinusotomy Tonsillectomy Tubal ligation Social History Social History Type Response Smoking Status Current every day smoker; Type: Cigarettes; Tobacco use per day : Pack; Number of years: 14 Assessment and Plan No data available for this section
--- OUTSIDE RECORDS SUMMARY | 2017-04-20 19:31 | External Medical Summary ---
:1985 Author Organization [employer] Care Team Providers Name Role Phone Laura Hall Provider Role Unavailable Allergies No Known Allergies Problems Problem Type Condition Code Onset Dates Condition Status Problem Anxiety and depression 300.00 Active Problem Gastritis 535.50 Active Problem Diabetes type 1, uncontrolled 250.03 Active Problem Asthma 493.90 Active Medications No Known Medications Results No Known Results Summary Purpose [employer] Submission
--- OUTSIDE RECORDS SUMMARY | 2017-04-20 19:31 | External Medical Summary | Referral Summary ---
:1985 Author Organization [facility] Address [address] [place] [address] Care Team Providers Name Role Phone Laura Hall Primary Care Physician Encounter [facility] [id number] Date(s): 12/17/14 - 12/19/14 [facility] [address] [place] [address] Discharge Diagnosis: Medical non-compliance Discharge Diagnosis: Dehydration Final: Diabetes mellitus with ketoacidosis, type I [juvenile type], uncontrolled Final: ACIDOSIS Final: Acute Kidney Failure, Unspecified Final: SYSTEMIC INFLAMMATORY RESPONSE SYNDROME, UNSPECIFIED Final: UNSPECIFIED ESSENTIAL HYPERTENSION Final: Migraine, unspecified, without mention of intractable migraine, without mention of status migrainosus Final: ALLERGIC RHINITIS, CAUSE UNSPECIFIED Final: Asthma, unspecified Final: GASTROPARESIS Final: TOBACCO USE DISORDER Discharge Disposition: 01-Home or Self Care Attending Physician: Horace Barcenas MD Admitting Physician: Zain Mcknight DO Vital Signs Most recent to oldest [Reference Range]: 1 Temperature Oral [35.8-37.3 degC] 37.0 degC (12/17/14 3:31 PM) Temperature Temporal Artery [36.3-37.8 degC] 36.4 degC (12/19/14 12:00 PM) Peripheral Pulse Rate [60-100 bpm] 130 bpm *HI* (12/18/14 2:33 AM) Heart Rate Monitored [60-100 bpm] 109 bpm *HI* (12/19/14 8:00 AM) Respiratory Rate [14-20 br/min] 17 br/min (12/18/14 10:00 PM) Blood Pressure [90-140/60-90 mmHg] 102/83 mmHg (12/19/14 8:00 AM) Mean Arterial Pressure, Cuff 90 mmHg (12/19/14 8:00 AM) Systolic Blood Pressure Invasive 2 [90-140 mmHg] 136 mmHg (12/18/14 1:00 AM) Diastolic Blood Pressure Invasive 2 [60-90 mmHg] 88 mmHg (12/18/14 1:00 AM) SpO2 98 % (12/19/14 1:05 PM) Problem List Condition Effective Dates Status [...] initiation of Alteration in Nutrition Plan of Yrcm9Fkehrrd added automatically by system based on initiation of Anxiety Plan of Ekfw0Diip problem was added by Lore Expert.4Problem updated automatically by system based on initiation of Risk for Injury Plan of Pkqe6Xojotnx added automatically by system based on initiation of Risk for Injury Plan of Znvf7Ajefacl updated automatically by system based on initiation of At Risk for Unstable Blood Glucose Plan of Kqxo3Zcisgfp updated automatically by system based on initiation of At Risk for Unstable Blood Glucose Plan of Pbny6Slwgnnk added automatically by system based on initiation of At Risk for Unstable Blood Glucose Planof Soid5Ofgavtc added by Discern Hpvufp64Enhwjzp updated automatically by system based on initiation of Fluid Volume Imbalance Plan of Llpm63Jptwmvv updated automatically by system based on initiation of Fluid Volume Imbalance Plan of Vxez42Dsqlrdq added automatically by system based on initiation of Fluid Volume Imbalance Plan of Azsv85Mgdtqpt added automatically by system based on initiation of Impaired Gas Exchange Plan of Zvsa31Nuasota added automatically by system based on initiation of Impaired Skin Integrity Plan of Smdd68Igtodrf added automatically by system based on initiation of Impaired Spontaneous Ventilation Plan of Tnor39Wqsftez added automatically by system based on initiation of Ineffective Airway Clearance Plan of Xctt52Wmkedou updated automatically by system based on initiation of Knowledge Deficit Plan of Klmx28Svejzzi added automatically by system based on initiation of Knowledge Deficit Plan of Iusw39Bsucqrs updated automatically by system based on initiation of Tissue Perfusion Cerebral Plan of Icjn39Lxesdtx added automatically by system based on initiation [...] Breath/Wheezing, # 540 mL, 0 Refill(s), Pharmacy: [email or web address] [address], 3 mL NEB q4hr,PRN:Shortness of Breath/ Wheezing Start Date: 06/25/15 Status: Orderedalbuterol 5 mg/mL (0.5%) inhalation solution 2.5 mg 0.5 mL, NEB, TID, # 45 mL, 0 Refill(s), Pharmacy: [email or web address] [address], 0.5 mL NEB TID Start Date: 06/25/15 Status: Ordereddiazepam 5 mg oral tablet 5 mg, Oral, BID, # 30 tabs, 0 Refill(s), other reason (Rx) Start Date: 06/25/15 Stop Date: 07/12/15 Status: Orderedfolic acid 1 mg oral tablet 1 mg, Oral, Daily, # 30 tabs, 0 Refill(s), Pharmacy: [email or web address] [id number] , 1 mg Oral Daily Start Date: 06/25/15 Status: OrderedLevemir 100 units/mL subcutaneous solution 15 units, SubCutaneous, BID, # 15 mL, 0 Refill(s), Pharmacy: [facility] [address], 15 units SubCutaneous BID Start Date: 06/25/15 Status: Orderedlisinopril 5 mg oral tablet 5 mg 1 tabs, Oral, Daily, # 30 tabs, 1 Refill(s), Pharmacy: [facility] [address], 1 tabs Oral Daily Start Date: 06/25/15 Status: Orderedmetoclopramide 10 mg oral tablet 10 mg, Oral, QIDACHS, X 30 days, # 120 tabs, 0 Refill(s), Pharmacy: [facility] [address], 10 mg Oral QIDACHS,x30 days Start Date: 06/25/15 Stop Date: 07/25/15 Status: OrderedMiraLax oral powder for reconstitution 17 g, Oral, Daily, dissolve in water before taking, # 255 g, 3 Refill(s), Pharmacy: [facility] [address] Start Date: 06/25/15 Stop Date: 07/14/15 Status: OrderedMultiple Vitamins oral capsule 1 caps, Oral, Daily, # 30 caps, 0 Refill(s), Pharmacy: [facility] [address] Start Date: 06/25/15 Status: OrderedNovoLOG 100 units/mL subcutaneous solution 10 units, SubCutaneous, TIDAC, # 30 mL, 0 Refill(s), Pharmacy: [facility] [address], 10 units SubCutaneous TIDAC Start Date: 06/25/15 Status: Orderedsertraline 100 mg oral tablet 100 mg 1 tabs, Oral, Daily, # 30 tabs, 0 Refill(s), Pharmacy: [facility] [address], 1 tabs Oral Daily Start Date: 06/25/15 Status: OrderedVitamin B Complex oral capsule 1 caps, Oral, Daily, # 30 caps, 0 Refill(s), Pharmacy: [facility] [address] Start Date: 06/25/15 Status: Ordered Results Hematology Most recent to oldest [Reference Range]: 1 WBC [4.8-10.8 10*3/uL] 7.0 10*3/uL (12/19/14 4:01 AM) RBC [4.00-5.20 10*6/uL] 3.86 10*6/uL *LOW* (12/19/14 4:01 AM) Hgb [12.0-16.0 gm/dL] 11.6 gm/dL *LOW* (12/19/14 4:01 AM) Hct [37.0-47.0 %] 33.1 % *LOW* (12/19/14 4:01 AM) MCV [82.0-99.0 fL] 85.8 fL (12/19/14 4:01 AM) MCH [27.0-32.0 pg] 30.1 pg (12/19/14 4:01 AM) MCHC [32.0-36.0 gm/dL] 35.0 gm/dL (12/19/14 4:01 AM) RDW [11.5-14.5 %] 13.4 % (12/19/14 4:01 AM) Platelet [150-400 10*3/uL] 251 10*3/uL (12/19/14 4:01 AM) MPV [9.4-12.4 fL] 9.3 fL *LOW* (12/19/14 4:01 AM) Neutrophils [51-75 %] 74 % (12/18/14 4:07 AM) Band Man [0-8 %] 5 % (12/17/14 4:51 PM) Lymphocytes [20-46 %] 19 % *LOW* (12/18/14 4:07 AM) Abn Lymph Man 1 % (12/18/14 4:07 AM) Monocytes [4-11 %] 5 % (12/18/14 4:07 AM) Eosinophils [0-4 %] 0 % (12/18/14 4:07 AM) Basophils [0-2 %] 1 % (12/18/14 4:07 AM) Neutro Absolute [1.90-7.00 10*3] 11.54 10*3 *HI* (12/18/14 4:07 AM) Lymph Absolute [0.80-3.30 10*3] 3.12 10*3 (12/18/14 4:07 AM) [place] Absolute [0.30-1.00 10*3] 0.78 10*3 (12/18/14 4:07 AM) Eos Absolute [0.00-0.50 10*3] 0.00 10*3 (12/18/14 4:07 AM) Baso Absolute [0.00-0.20 10*3] 0.16 10*3 (12/18/14 4:07 AM) Nucleated RBC Automated [0 /100 WBC] 0.0 /100 WBC (12/18/14 4:07 AM) Differential Manual *ABN* (12/18/14 4:07 AM) Chemistry Most recent to oldest [Reference Range]: 1 Sodium Lvl [136-144 mEq/L] 133 mEq/L *LOW* (12/19/14 8:35 AM) Potassium Lvl [3.6-5.1 mEq/L] 4.2 mEq/L (12/19/14 8:35 AM) Chloride [99-109 mEq/L] 104 mEq/L (12/19/14 8:35 AM) CO2 [22-32 mEq/L] 24 mEq/L (12/19/14 8:35 AM) AGAP [3-20] 5 (12/19/14 8:35 AM) BUN [4-20 mg/dL] 7 mg/dL (12/19/14 8:35 AM) Glucose Lvl [70-100 mg/dL] 317 mg/dL *HI* (12/19/14 8:35 AM) Creatinine Lvl [0.44-1.03 mg/dL] 0.49 mg/dL (12/19/14 8:35 AM) eGFR [>60] >60 1 (12/19/14 8:35 AM) Calcium Lvl [8.6-10.0 mg/dL] 8.9 mg/dL (12/19/14 8:35 AM) Albumin Lvl [3.5-4.8 gm/dL] 2.5 gm/dL *LOW* (12/19/14 4:00 AM) Total Protein [6.1-7.9 gm/dL] 6.3 gm/dL (12/18/14 12:46 AM) Globulin [1.9-4.3 gm/dL] 3.0 gm/dL (12/18/14 12:46 AM) ALT [14-54 U/L] 16 U/L (12/18/14 12:46 AM) AST [15-41 U/L] 9 U/L *LOW* (12/18/14 12:46 AM) Alk Phos [26-104 U/L] 85 U/L (12/18/14 12:46 AM) Bili Total [0.2-1.2 mg/dL] 1.3 mg/dL 2 *HI* (12/18/14 12:46 AM) Magnesium Lvl [1.8-2.5 mg/dL] 1.8 mg/dL (12/18/14 4:07 AM) Phosphorus [2.4-4.7 mg/dL] 2.8 mg/dL 3 (12/19/14 4:00 AM) Troponin [<0.06 ng/mL] <0.05 ng/mL (12/17/14 4:17 PM) Lipase Lvl [8-48 U/L] 17 U/L (12/17/14 4:17 PM) Lactic Acid Lvl [0.5-2.2 mEq/L] 0.9 mEq/L (12/18/14 12:46 AM) Osmolality [275-300 mOsm/kg] 302 mOsm/kg *HI* (12/18/14 12:46 AM) Sodium Venous [136-144 mEq/L] 133 mEq/L *LOW* (12/17/14:23 PM) Potassium Venous [3.6-5.1 mEq/L] 4.9 mEq/L 4 (12/17/14 4:23 PM) Calcium Ionized Venous [1.19-1.41 mmol/L] 1.24 mmol/L (12/17/14 4:23 PM) Total CO2 Venous [25-29 mEq/L] 5 mEq/L *LOW* (12/17/14 4:23 PM) HGB Venous NPT [12.0-16.0 gm/dL] 16.7 gm/dL *HI* (12/17/14 4:23 PM) HCT Venous [37.0-47.0 %] 49.0 % *HI* (12/17/14 4:23 PM) Glucose Venous [70-100 mg/dL] 430 mg/dL *HI* (12/17/14 4:23 PM) BUN Venous [4-20] 16 (12/17/14 4:23 PM) Creatinine Venous [0.4-1.0 mg/dL] 0.5 mg/dL (12/17/14 4:23 PM) Venous CL [99-109 mEq/L] 111 mEq/L *HI* (12/17/14 4:23 PM) Anion Gap, Heriberto [3-20] 17 (12/17/14 4:23 PM) Screen, Urine NPT Negative (12/17/14 6:51 PM) Blood Glucose, Capillary [74-106 mg/dL] 125 mg/dL *HI* (12/20/14 4:24 PM) Blood Glucose, Capillary Out of Range Low (12/19/14 5:23 AM) Hgb A1c [4.1-5.6 %] 12.4 % *HI* (12/18/14 12:46 AM) eAvg Glucose 309.2 mg/dL (12/18/14 12:46 AM) 1Result Comment: Multiply eGFR results by [...] potassium levels. Normals are for venous specimens only.Therapeutic Drug Monitoring Most recent to oldest [Reference Range]: 1 Acetaminophen Lvl [10-30 mcg/mL] <10 mcg/mL (12/18/14 12:46 AM) Salicylate Lvl [0-30 mg/dL] <4 mg/dL (12/18/14 12:46 AM) Toxicology Most recent to oldest [Reference Range]: 1 Ethanol Lvl Not Detected (12/18/14 12:46 AM) Urinalysis Most recent to oldest [Reference Range]: 1 UA Color Lt Yellow (12/17/14 6:48 PM) UA Appear Clear (12/17/14 6:48 PM) UA pH [5.0-8.0] 5.0 (12/17/14 6:48 PM) UA Leuk Est [Negative] Negative (12/17/14 6:48 PM) UA Nitrite [Negative] Negative (12/17/14 6:48 PM) UA Protein [Negative] Trace *ABN* (12/17/14 6:48 PM) UA Glucose [Negative] Pos 3+ *ABN* (12/17/14 6:48 PM) UA Ketones [Negative] Pos 3+ *ABN* (12/17/14 6:48 PM) UA Urobilinogen [<1.0] Negative (12/17/14 6:48 PM) UA Bili [Negative] Negative (12/17/14 6:48 PM) UA Blood [Negative] Trace *ABN* (12/17/14 6:48 PM) UA Spec Grav [1.003-1.030] 1.023 (12/17/14 6:48 PM) Type Voided (12/17/14 6:48 PM) UA WBC [0-4] 2-5 (12/17/14 6:48 PM) UA RBC [0-2] 0-2 (12/17/14 6:48 PM) Epithelial Cells 2-5 (12/17/14 6:48 PM) UA Bacteria Occasional *ABN* (12/17/14 6:48 PM) UA Hyal Cast [0-3 [LPF]] >12 [LPF] *ABN* (12/17/14 6:48 PM) UA Yeast Present *ABN* (12/17/14 6:48 PM) UA Mucous Present (12/17/14 6:48 PM) Immunizations Vaccine Date Refusal Reason hepatitis [...]
--- OUTSIDE RECORDS SUMMARY | 2017-04-20 19:31 | External Medical Summary | Referral Summary ---
:1985 Author Organization [facility] (Former[facility]) Address [address] [place] [address] Care Team Providers Name Role Phone Randell Mi Primary Care Physician Encounter [facility] [id number] Date(s): 06/26/16 - 06/26/16 [facility] ([facility] [address] [place] [address] [phone] Discharge Disposition: 07-Left Without Being Seen Vital Signs Most recent to oldest [Reference Range]: 1 Temperature Oral [35.8-37.3 degC] 36.7 degC (06/26/16 4:20 PM) Peripheral Pulse Rate [60-100 bpm] 107 bpm *HI* (06/26/16 4:20 PM) Respiratory Rate [14-20 br/min] 16 br/min (06/26/16 4:20 PM) Blood Pressure [90-140/60-90 mmHg] 126/87 mmHg (06/26/16 4:20 PM) SpO2 98 % (06/26/16 4:20 PM) Problem List Condition Effective Dates Status [...] initiation of Alteration in Nutrition Plan of Tmoh8Thtaact added automatically by system based on initiation of Anxiety Plan of Wnux5Unep problem was added by Discern Expert.4Problem added automatically by system based on initiation of At Risk for Infection in Nutrition Planof Ljdm5Wjkfvdw updated automatically by system based on initiation of Risk for Injury Plan of Wuid6Zlodmic added automatically by system based on initiation of Risk for Injury Plan of Vsmy7Jcbdlvo updated automatically by system based on initiation of At Risk for Unstable Blood Glucose Plan of Wkaf4Mgofeyq updated automatically by system based on initiation of At Risk for Unstable Blood Glucose Plan of Sufu9Kxnaisg added automatically by system based on initiation of At Risk for Unstable Blood Glucose Planof Igfy60Rcfxqaw added by Discern Fnrpdw60Iarafza updated automatically by system based on initiation of Fluid Volume Imbalance Plan of Idog85Gnxulud updated automatically by system based on initiation of Fluid Volume Imbalance Plan of Wsap74Ngrfcuy added automatically by system based on initiation of Fluid Volume Imbalance Plan of Bdls38Mvkumpv added automatically by system based on initiation of Impaired Gas Exchange Plan of Mxvg89Darukbk added automatically by system based on initiation of Impaired Skin Integrity Plan of Pumo73Qjlnmha added automatically by system based on initiation of Impaired Spontaneous Ventilation Plan of Ezlm88Ufytsqa added automatically by system based on initiation of Ineffective Airway Clearance Plan of Spmg26Rbbztpo updated automatically by system based on initiation of Knowledge Deficit Plan of Zhif14Nxsvtvn added automatically by system based on initiation of Knowledge Deficit Plan of Qxni85Potkcgf updated automatically by system based on initiation of Tissue Perfusion Cerebral Plan of Pbxw05Womsdlv added automatically by system based on initiation [...] Breath/Wheezing, # 540 mL, 0 Refill(s), Pharmacy: [facility] [id number], 3 mL NEB q4hr,PRN:Shortness of Breath/ Wheezing Start Date: 06/25/15 Status: OrderedAmbien 5 mg, Oral, Bedtime (once a day), as needed for sleep, 0 Refill(s) Start Date: 11/07/15 Status: OrderedCommunication Patient discharge re-admit 05-25-16 discharge med list entered, 0 Refill(s) Start Date: 05/27/16 Status: Ordereddiazepam 2 mg, Oral, TID, 0 Refill(s) Start Date: 03/01/16 Status: Orderedfolic acid 1 mg oral tablet 1 mg, Oral, Daily, # 30 tabs, 0 Refill(s), Pharmacy: [facility] [id number] , 1 mg Oral Daily Start Date: 06/25/15 Status: OrderedLevemir 100 units/mL subcutaneous solution 30 units, SubCutaneous, Bedtime (once a day), 0 Refill(s) Start Date: 03/10/16 Status: Orderedlisinopril 5 mg oral tablet 5 mg 1 tabs, Oral, Daily, # 30 tabs, 1 Refill(s), Pharmacy: [facility] [id number], 1 tabs Oral Daily Start Date: 06/25/15 Status: OrderedMultiple Vitamins oral capsule 1 caps, Oral, Daily, # 30 caps, 0 Refill(s), Pharmacy: [facility] [id number] Start Date: 06/25/15 Status: OrderedNovoLOG 13 units, [...] Daily, # 30 caps, 0 Refill(s), Pharmacy: [facility] [id number] Start Date: 06/25/15 Status: Ordered Results Chemistry Most recent to oldest [Reference Range]: 1 Blood Glucose, Capillary [70-100 mg/dL] 388 mg/dL *HI* (06/26/16 4:22 PM) Immunizations Given and Recorded Vaccine Date Status [...]
--- OUTSIDE RECORDS SUMMARY | 2017-04-20 19:31 | External Medical Summary | Referral Summary ---
:1985 Author Organization [facility] Address [address] [place] [address] Care Team Providers Name Role Phone Laura Hall Primary Care Physician Encounter [facility] [id number] Date(s): 01/03/15 - 01/04/15 [facility] [address] [place] [address] [phone] Discharge Diagnosis: DKA, type 1 Final: Diabetes mellitus with ketoacidosis, type I [juvenile type], uncontrolled Final: SYSTEMIC INFLAMMATORY RESPONSE SYNDROME, UNSPECIFIED Final: OTHER AND UNSPECIFIED NONINFECTIOUS GASTROENTERITIS AND COLITIS Final: TACHYCARDIA, UNSPECIFIED Final: Diabetes mellitus with neurological manifestations, type I [juvenile type ], uncontrolled Final: GASTROPARESIS Final: PERSONAL HISTORY OF NONCOMPLIANCE WITH MEDICAL TREATMENT, PRESENTING HAZARDS TO HEALTH Final: UNSPECIFIED ESSENTIAL HYPERTENSION Final: MITRAL VALVE DISORDERS Final: EPILEPSY, UNSPECIFIED, WITHOUT MENTION OF INTRACTABLE EPILEPSY Final: Asthma, unspecified Final: Posttraumatic stress disorder Final: Bipolar I disorder, most recent episode (or current) unspecified Final: TOBACCO USE DISORDER Discharge Disposition: 01-Home or Self Care Attending Physician: Dario Knight MD Admitting Physician: Mariluz Gonzalez MD Vital Signs Most recent to oldest [Reference Range]: 1 Temperature Tympanic [36.6-38.1 degC] 36.3 degC *LOW* (01/03/15 6:29 PM) Temperature Temporal Artery [36.3-37.8 degC] 37.1 degC (01/04/15 4:00 PM) Peripheral Pulse Rate [60-100 bpm] 95 bpm (01/03/15 6:29 PM) Heart Rate Monitored [60-100 bpm] 103 bpm *HI* (01/04/15 4:00 PM) Respiratory Rate [14-20 br/min] 29 br/min *HI* (01/04/15 4:00 PM) Blood Pressure [90-140/60-90 mmHg] 130/101 mmHg (01/04/15 4:00 PM) Mean Arterial Pressure, Cuff 108 mmHg (01/04/15 4:00 PM) SpO2 100 % (01/04/15 4:00 PM) Problem List Condition Effective Dates [...] initiation of Alteration in Nutrition Plan of Yrla0Vqenqsb added automatically by system based on initiation of Anxiety Plan of Fquj1Bcsf problem was added by Lore Expert.4Problem updated automatically by system based on initiation of Risk for Injury Plan of Ccmo9Isyvsni added automatically by system based on initiation of Risk for Injury Plan of Pwfx5Hizembi updated automatically by system based on initiation of At Risk for Unstable Blood Glucose Plan of Ntph0Qrgtrvk updated automatically by system based on initiation of At Risk for Unstable Blood Glucose Plan of Ksbb4Ugrwvbh added automatically by system based on initiation of At Risk for Unstable Blood Glucose Planof Zfbc7Vmygkix added by Discern Cbldwu85Koajknp updated automatically by system based on initiation of Fluid Volume Imbalance Plan of Yjbo16Gixybzk updated automatically by system based on initiation of Fluid Volume Imbalance Plan of Chde66Azpqpcd added automatically by system based on initiation of Fluid Volume Imbalance Plan of Fcgn73Tmyxkbj added automatically by system based on initiation of Impaired Gas Exchange Plan of Vejc30Ikrdvkg added automatically by system based on initiation of Impaired Skin Integrity Plan of Cacx21Ahntwej added automatically by system based on initiation of Impaired Spontaneous Ventilation Plan of Yyrb96Ioswtyi added automatically by system based on initiation of Ineffective Airway Clearance Plan of Wuxt64Cpgrgwm updated automatically by system based on initiation of Knowledge Deficit Plan of Mvqk62Qrdycqk added automatically by system based on initiation of Knowledge Deficit Plan of Pike58Tkgaigs updated automatically by system based on initiation of Tissue Perfusion Cerebral Plan of Oabg71Idaqpcj added automatically by system based on initiation [...] Breath/Wheezing, # 540 mL, 0 Refill(s), Pharmacy: [facility] [id number], 3 mL NEB q4hr,PRN:Shortness of Breath/ Wheezing Start Date: 06/25/15 Status: Orderedalbuterol 5 mg/mL (0.5%) inhalation solution 2.5 mg 0.5 mL, NEB, TID, # 45 mL, 0 Refill(s), Pharmacy: [facility] [id number], 0.5 mL NEB TID Start Date: 06/25/15 Status: Orderedfolic acid 1 mg oral tablet 1 mg, Oral, Daily, # 30 tabs, 0 Refill(s), Pharmacy: [facility] [id number] , 1 mg Oral Daily Start Date: 06/25/15 Status: OrderedLevemir 100 units/mL subcutaneous solution 15 units, SubCutaneous, BID, # 15 mL, 0 Refill(s), Pharmacy: [facility] [id number], 15 units SubCutaneous BID Start Date: 06/25/15 Status: Orderedlisinopril 5 mg oral tablet 5 mg 1 tabs, Oral, Daily, # 30 tabs, 1 Refill(s), Pharmacy: [facility] [id number], 1 tabs Oral Daily Start Date: 06/25/15 Status: Orderedmetoclopramide 10 mg oral tablet 10 mg, Oral, QIDACHS, X 30 days, # 120 tabs, 0 Refill(s), Pharmacy: [facility] [id number], 10 mg Oral QIDACHS,x30 days Start Date: 06/25/15 Stop Date: 07/25/15 Status: OrderedMultiple Vitamins oral capsule 1 caps, Oral, Daily, # 30 caps, 0 Refill(s), [id number] Start Date: 06/25/15 Status: OrderedNovoLOG 100 units/mL subcutaneous solution 10 units, SubCutaneous, TIDAC, # 30 mL, 0 Refill(s), Pharmacy: [facility] [address], 10 units SubCutaneous TIDAC Start Date: 06/25/15 Status: Orderedsertraline 100 mg oral tablet 100 mg 1 tabs, Oral, Daily, # 30 tabs, 0 Refill(s), [id number], 1 tabs Oral Daily Start Date: 06/25/15 Status: OrderedVitamin B Complex oral capsule 1 caps, Oral, Daily, # 30 caps, 0 Refill(s), Pharmacy: [facility] [id number] Start Date: 06/25/15 Status: Ordered Results Hematology Most recent to oldest [Reference Range]: 1 WBC [4.8-10.8 10*3/uL] 5.5 10*3/uL (01/03/15 7:47 PM) RBC [4.00-5.20 10*6/uL] 3.90 10*6/uL *LOW* (01/03/15 7:47 PM) Hgb [12.0-16.0 gm/dL] 11.6 gm/dL *LOW* (01/03/15 7:47 PM) Hct [37.0-47.0 %] 36.9 % *LOW* (01/03/15 7:47 PM) MCV [82.0-99.0 fL] 94.6 fL (01/03/15 7:47 PM) MCH [27.0-32.0 pg] 29.7 pg (01/03/15 7:47 PM) MCHC [32.0-36.0 gm/dL] 31.4 gm/dL *LOW* (01/03/15 7:47 PM) RDW [11.5-14.5 %] 13.3 % (01/03/15 7:47 PM) Platelet [150-400 10*3/uL] 312 10*3/uL (01/03/15 7:47 PM) MPV [9.4-12.4 fL] 10.0 fL (01/03/15 7:47 PM) Immature Granulocytes [0.0-1.0 %] 0.2 % (01/03/15 7:47 PM) Neutrophils [51-75 %] 78 % *HI* (01/03/15 7:47 PM) Lymphocytes [20-46 %] 17 % *LOW* (01/03/15 7:47 PM) Monocytes [4-11 %] 5 % (01/03/15 7:47 PM) Eosinophils [0-4 %] 0 % (01/03/15 7:47 PM) Basophils [0-2 %] 0 % (01/03/15 7:47 PM) Neutro Absolute [1.90-7.00 10*3] 4.30 10*3 (01/03/15 7:47 PM) Lymph Absolute [0.80-3.30 10*3] 0.91 10*3 (01/03/15 7:47 PM) Obion Absolute [0.30-1.00 10*3] 0.26 10*3 *LOW* (01/03/15 7:47 PM) Eos Absolute [0.00-0.50 10*3] 0.02 10*3 (01/03/15 7:47 PM) Baso Absolute [0.00-0.20 10*3] 0.01 10*3 (01/03/15 7:47 PM) Nucleated RBC Automated [0 /100 WBC] 0.0 /100 WBC (01/03/15 7:47 PM) Chemistry Most recent to oldest [Reference Range]: 1 Sodium Lvl [136-144 mEq/L] 132 mEq/L *LOW* (01/04/15 2:07 AM) Potassium Lvl [3.6-5.1 mEq/L] 3.3 mEq/L *LOW* (01/04/15 2:07 AM) Chloride [99-109 mEq/L] 101 mEq/L (01/04/15 2:07 AM) CO2 [22-32 mEq/L] 22 mEq/L (01/04/15 2:07 AM) AGAP [3-20] 9 (01/04/15 2:07 AM) BUN [4-20 mg/dL] 14 mg/dL (01/04/15 2:07 AM) Glucose Lvl [70-100 mg/dL] 236 mg/dL *HI* (01/04/15 2:07 AM) Creatinine Lvl [0.44-1.03 mg/dL] 0.59 mg/dL (01/04/15 2:07 AM) eGFR [>60] >60 1 (01/04/15 2:07 AM) Calcium Lvl [8.6-10.0 mg/dL] 8.0 mg/dL *LOW* (01/04/15 2:07 AM) Albumin Lvl [3.5-4.8 gm/dL] 2.7 gm/dL *LOW* (01/03/15 7:47 PM) Total Protein [6.1-7.9 gm/dL] 5.7 gm/dL *LOW* (01/03/15 7:47 PM) Globulin [1.9-4.3 gm/dL] 3.0 gm/dL (01/03/15 7:47 PM) ALT [14-54 U/L] 17 U/L (01/03/15 7:47 PM) AST [15-41 U/L] 16 U/L (01/03/15 7:47 PM) Alk Phos [26-104 U/L] 86 U/L (01/03/15 7:47 PM) Bili Total [0.2-1.2 mg/dL] 1.6 mg/dL 2 *HI* (01/03/15 7:47 PM) Magnesium Lvl [1.8-2.5 mg/dL] 2.0 mg/dL (01/03/15 7:47 PM) Lipase Lvl [8-48 U/L] 19 U/L (01/03/15 7:47 PM) Sodium Venous [136-144 mEq/L] 125 mEq/L *LOW* (01/03/15 7:10 PM) Potassium Venous [3.6-5.1 mEq/L] 4.2 mEq/L 3 (01/03/15 7:10 PM) Calcium Ionized Venous [1.19-1.41 mmol/L] 1.16 mmol/L *LOW* (01/03/15 7:10 PM) Total CO2 Venous [25-29 mEq/L] 18 mEq/L *LOW* (01/03/15 7:10 PM) HGB Venous NPT [12.0-16.0 gm/dL] 11.9 gm/dL *LOW* (01/03/15 7:10 PM) HCT Venous [37.0-47.0 %] 35.0 % *LOW* (01/03/15 7:10 PM) Glucose Venous [70-100 mg/dL] >700 mg/dL *HHI* (01/03/15 7:10 PM) BUN Venous [4-20] 19 (01/03/15 7:10 PM) Creatinine Venous [0.4-1.0 mg/dL] 0.4 mg/dL (01/03/15 7:10 PM) Venous CL [99-109 mEq/L] 91 mEq/L *LOW* (01/03/15 7:10 PM) Anion Gap, Heriberto [3-20] 16 (01/03/15 7:10 PM) Blood Glucose, Capillary [74-106 mg/dL] 203 mg/dL *HI* (01/04/15 4:23 PM) 1Result Comment: Multiply eGFR results by 1.21 for race.2Result Comment: Naproxen, specifically the metabolite O-desmethylnaproxen, may cause spurious elevation in Total Bilirubin levels.3Result Comment: This test was performed on a whole blood specimen. The presence or absence of hemolysis cannot be assessed. Hemolysis can falsely elevate potassium levels. Normals are for venous specimens only.Toxicology Most recent to oldest [Reference Range]: 1 Ethanol Lvl Not Detected (01/03/15 7:47 PM) U Amphetamine Scrn Negative (01/03/15 7:47 PM) U Cocaine Scrn Negative (01/03/15 7:47 PM) U Cannab Scrn Negative (01/03/15 7:47 PM) U Opiate Scrn Negative (01/03/15 7:47 PM) U PCP Scrn Negative (01/03/15 7:47 PM) U Benzodiazepine Scrn Negative (01/03/15 7:47 PM) U Barbiturate Scrn Negative (01/03/15 7:47 PM) Methadone Lvl Negative (01/03/15 7:47 PM) Tricyclics Not Detected 1 (01/03/15 7:47 PM) 1Result Comment: Cut-off concentrations: Amphetamines: 1000 [...] [Reference Range]: 1 UA Color Lt Yellow (01/03/15 7:47 PM) UA Appear Clear (01/03/15 7:47 PM) UA pH [5.0-8.0] 5.0 (01/03/15 7:47 PM) UA Leuk Est [Negative] Negative (01/03/15 7:47 PM) UA Nitrite [Negative] Negative (01/03/15 7:47 PM) UA Protein [Negative] Negative (01/03/15 7:47 PM) UA Glucose [Negative] Pos 3+ *ABN* (01/03/15 7:47 PM) UA Ketones [Negative] Pos 2+ *ABN* (01/03/15 7:47 PM) UA Urobilinogen [<1.0] Negative (01/03/15 7:47 PM) UA Bili [Negative] Negative (01/03/15 7:47 PM) UA Blood [Negative] Negative (01/03/15 7:47 PM) UA Spec Grav [1.003-1.030] 1.027 (01/03/15 7:47 PM) Type Clean Catch (01/03/15 7:47 PM) Immunizations Vaccine Date Refusal Reason hepatitis [...]
[2017-04-20] MEDS ORDERED: INSULIN REGULAR, HUMAN 100 UNIT/ML INJECTION IVP ONE (19:32)
[2017-04-20] MEDS ORDERED: INSULIN REGULAR, HUMAN 100 UNIT in NS 100 ML IV PRN ×2 (19:32→21:32)
--- OUTSIDE RECORDS SUMMARY | 2017-04-20 19:33 | External Medical Summary | Referral Summary ---
:1985 Author Organization [facility] Address [address] [place] [address] Care Team Providers Name Role Phone Laura Hall Primary Care Physician Encounter [facility] [id number] Date(s): 02/05/15 - 02/08/15 [facility] [address] [place] [address] Discharge Diagnosis: Type 1 diabetes Final: Diabetes mellitus with ketoacidosis, type I [juvenile type], uncontrolled Final: HYPOSMOLALITY AND/OR HYPONATREMIA Final: Acute Kidney Failure, Unspecified Final: RASH AND OTHER NONSPECIFIC SKIN ERUPTION Final: ANXIETY STATE, UNSPECIFIED Final: HYPOPOTASSEMIA Final: HYPERPOTASSEMIA Final: TACHYCARDIA, UNSPECIFIED Final: Leukocytosis, unspecified Final: LUMBAGO Final: UNSPECIFIED ESSENTIAL HYPERTENSION Final: TOBACCO USE DISORDER Final: PERSONAL HISTORY OF NONCOMPLIANCE WITH MEDICAL TREATMENT, PRESENTING HAZARDS TO HEALTH Discharge Disposition: 01-Home or Self Care Attending Physician: Horace Barcenas MD Admitting Physician: Mariluz Gonzalez MD Vital Signs Most recent to oldest [Reference Range]: 1 Temperature Oral [35.8-37.3 degC] 36.8 degC (02/08/15 3:00 PM) Temperature Temporal Artery [36.3-37.8 degC] 37.1 degC (02/07/15 5:00 PM) Apical Heart Rate [60-100 bpm] 120 bpm *HI* (02/05/15 11:29 AM) Peripheral Pulse Rate [60-100 bpm] 102 bpm *HI* (02/08/15 3:00 PM) Heart Rate Monitored [60-100 bpm] 99 bpm (02/08/15 1:00 PM) Respiratory Rate [14-20 br/min] 18 br/min (02/08/15 3:00 PM) Blood Pressure [90-140/60-90 mmHg] 161/113 mmHg *HI* (02/08/15 3:00 PM) Mean Arterial Pressure, Cuff 127 mmHg (02/07/15 7:00 PM) SpO2 96 % (02/08/15 3:00 PM) Problem List Condition Effective Dates Status [...] initiation of Alteration in Nutrition Plan of Yjnq2Yvkwllj added automatically by system based on initiation of Anxiety Plan of Zqje6Ygxf problem was added by Lore Expert.4Problem updated automatically by system based on initiation of Risk for Injury Plan of Vefx1Pnyagin added automatically by system based on initiation of Risk for Injury Plan of Eeez3Fzimryn updated automatically by system based on initiation of At Risk for Unstable Blood Glucose Plan of Yljs0Jjkqzzf updated automatically by system based on initiation of At Risk for Unstable Blood Glucose Plan of Hvgj4Wwulagi added automatically by system based on initiation of At Risk for Unstable Blood Glucose Planof Axlw8Noqpihs added by Discern Okwair38Vscjlke updated automatically by system based on initiation of Fluid Volume Imbalance Plan of Amfx45Eagifpt updated automatically by system based on initiation of Fluid Volume Imbalance Plan of Ikma57Jorwzhv added automatically by system based on initiation of Fluid Volume Imbalance Plan of Sneu04Tgrstfs added automatically by system based on initiation of Impaired Gas Exchange Plan of Bzaw11Dnztlsh added automatically by system based on initiation of Impaired Skin Integrity Plan of Nrtm18Pzohuej added automatically by system based on initiation of Impaired Spontaneous Ventilation Plan of Onfw96Bggpnwi added automatically by system based on initiation of Ineffective Airway Clearance Plan of Sgtu48Hqvpptn updated automatically by system based on initiation of Knowledge Deficit Plan of Bopj50Lteaplq added automatically by system based on initiation of Knowledge Deficit Plan of Kacj03Ksyrluc updated automatically by system based on initiation of Tissue Perfusion Cerebral Plan of Rosp85Mqmixza added automatically by system based on initiation [...] Breath/Wheezing, # 540 mL, 0 Refill(s), Pharmacy: [id number], 3 mL NEB q4hr,PRN:Shortness of Breath/ Wheezing Start Date: 06/25/15 Status: Orderedalbuterol 5 mg/mL (0.5%) inhalation solution 2.5 mg 0.5 mL, NEB, TID, # 45 mL, 0 Refill(s), Pharmacy: [facility] [address], 0.5 mL NEB TID Start Date: 06/25/15 Status: Orderedfolic acid 1 mg oral tablet 1 mg, Oral, Daily, # 30 tabs, 0 Refill(s), Pharmacy: [facility] [id number] , 1 mg Oral Daily Start Date: 06/25/15 Status: OrderedLevemir 100 units/mL subcutaneous solution 15 units, SubCutaneous, BID, # 15 mL, 0 Refill(s), Pharmacy: [facility] [address], 15 units SubCutaneous BID Start Date: 06/25/15 Status: Orderedlisinopril 5 mg oral tablet 5 mg 1 tabs, Oral, Daily, # 30 tabs, 1 Refill(s), [facility], 1 tabs Oral Daily Start Date: 06/25/15 Status: OrderedMultiple Vitamins oral capsule 1 caps, Oral, Daily, # 30 caps, 0 Refill(s), [facility] Start Date: 06/25/15 Status: OrderedNovoLOG 100 units/mL subcutaneous solution 10 units, SubCutaneous, TIDAC, # 30 mL, 0 Refill(s), [facility], 10 units SubCutaneous TIDAC Start Date: 06/25/15 Status: Orderedsertraline 100 mg oral tablet 100 mg 1 tabs, Oral, Daily, # 30 tabs, 0 Refill(s), [facility], 1 tabs Oral Daily Start Date: 06/25/15 Status: OrderedVitamin B Complex oral capsule 1 caps, Oral, Daily, # 30 caps, 0 Refill(s), [facility] [id number] Start Date: 06/25/15 Status: Ordered Results Blood Gases Most recent to oldest [Reference Range]: 1 2 pH [7.35-7.45] 7.09 *LLOW* (02/05/15 10:10 AM) pCO2 Art [35-45 mmHg] 7 mmHg *LLOW* (02/05/15 10:10 AM) Bicarbonate [22-26 mEq/L] 2 mEq/L *LOW* (02/05/15 10:10 AM) Base Excess Art [0-2] -25 *LOW* (02/05/15 10:10 AM) O2 Sat Art [90.0-97.0 %] 98.3 % *HI* (02/05/15 10:10 AM) pO2 Art [80-100 mmHg] 170 mmHg *HI* (02/05/15 10:10 AM) LPM Art 4.0 L/min (02/05/15 10:10 AM) O2 Panel Nasal Cannula (02/05/15 10:10 AM) Spec Site Brachial-R (02/05/15 10:10 AM) Hematology Most recent to oldest [Reference Range]: 1 2 WBC [4.8-10.8 10*3/uL] 4.9 10*3/uL (02/08/15 6:15 AM) RBC [4.00-5.20] 3.37 *LOW* (02/08/15 6:15 AM) Hgb [12.0-16.0 gm/dL] 10.2 gm/dL *LOW* (02/08/15 6:15 AM) Hct [37.0-47.0 %] 31.1 % *LOW* (02/08/15 6:15 AM) MCV [82.0-99.0 fL] 92.3 fL (02/08/15 6:15 AM) MCH [27.0-32.0 pg] 30.3 pg (02/08/15 6:15 AM) MCHC [32.0-36.0 gm/dL] 32.8 gm/dL (02/08/15 6:15 AM) RDW [11.5-14.5 %] 13.8 % (02/08/15 6:15 AM) Platelet [150-400 10*3/uL] 255 10*3/uL (02/08/15 6:15 AM) MPV [9.4-12.4 fL] 9.6 fL (02/08/15 6:15 AM) Immature Granulocytes [0.0-1.0 %] 0.3 % (02/06/15 3:50 AM) Neutrophils [51-75 %] 70 % (02/06/15 3:50 AM) Lymphocytes [20-46 %] 21 % (02/06/15 3:50 AM) Monocytes [4-11 %] 7 % (02/06/15 3:50 AM) Eosinophils [0-4 %] 1 % (02/06/15 3:50 AM) Basophils [0-2 %] 0 % (02/06/15 3:50 AM) Neutro Absolute [1.90-7.00 10*3] 7.10 10*3 *HI* (02/06/15 3:50 AM) Lymph Absolute [0.80-3.30 10*3] 2.13 10*3 (02/06/15 3:50 AM) [place] Absolute [0.30-1.00 10*3] 0.74 10*3 (02/06/15 3:50 AM) Eos Absolute [0.00-0.50 10*3] 0.08 10*3 (02/06/15 3:50 AM) Baso Absolute [0.00-0.20 10*3] 0.01 10*3 (02/06/15 3:50 AM) Nucleated RBC Automated [0 /100 WBC] 0.0 /100 WBC (02/06/15 3:50 AM) Differential Scanned Slide (02/05/15 9:50 AM) Chemistry Most recent to oldest [Reference Range]: 1 2 Sodium Lvl [136-144 mEq/L] 138 mEq/L (02/08/15 6:15 AM) Potassium Lvl [3.6-5.1 mEq/L] 4.6 mEq/L (02/08/15 6:15 AM) Chloride [99-109 mEq/L] 105 mEq/L (02/08/15 6:15 AM) CO2 [22-32 mEq/L] 29 mEq/L (02/08/15 6:15 AM) AGAP [3-20] 4 (02/08/15 6:15 AM) BUN [4-20 mg/dL] 18 mg/dL (02/08/15 6:15 AM) Glucose Lvl [70-100 mg/dL] 105 mg/dL *HI* (02/08/15 6:15 AM) Creatinine Lvl [0.44-1.03 mg/dL] 0.39 mg/dL *LOW* (02/08/15 6:15 AM) eGFR [>60] >60 1 (02/08/15 6:15 AM) Calcium Lvl [8.6-10.0 mg/dL] 9.1 mg/dL (02/08/15 6:15 AM) Albumin Lvl [3.5-4.8 gm/dL] 2.5 gm/dL *LOW* (02/08/15 6:15 AM) Total Protein [6.1-7.9 gm/dL] 5.3 gm/dL *LOW* (02/08/15 6:15 AM) Globulin [1.9-4.3 gm/dL] 2.8 gm/dL (02/08/15 6:15 AM) ALT [14-54 U/L] 32 U/L (02/08/15 6:15 AM) AST [15-41 U/L] 33 U/L (8/26/15 6:15 AM) Alk Phos [26-104 U/L] 91 U/L (02/08/15 6:15 AM) Bili Total [0.2-1.2 mg/dL] 0.4 mg/dL 2 (02/08/15 6:15 AM) Magnesium Lvl [1.8-2.5 mg/dL] 1.9 mg/dL (02/08/15 6:15 AM) Phosphorus [2.4-4.7 mg/dL] 3.9 mg/dL 3 (02/08/15 6:15 AM) Troponin [<0.06 ng/mL] <0.05 ng/mL (02/05/15 9:50 AM) Lipase Lvl [8-48 U/L] 25 U/L (02/05/15 12:30 PM) Lactic Acid Lvl [0.5-2.2 mEq/L] 0.9 mEq/L (02/05/15 8:12 PM) Osmolality [275-300 mOsm/kg] 331 mOsm/kg *HI* (02/05/15 12:30 PM) Sodium Venous [136-144 mEq/L] 120 mEq/L *LOW* (02/05/15 9:40 AM) Potassium Venous [3.6-5.1 mEq/L] 6.0 mEq/L 4 *HI* (02/05/15 9:40 AM) Calcium Ionized Venous [1.19-1.41 mmol/L] 1.12 mmol/L *LOW* (02/05/15 9:40 AM) Total CO2 Venous [25-29 mEq/L] <5 mEq/L *LOW* (02/05/15 9:40 AM) HGB Venous NPT [12.0-16.0 gm/dL] 17.7 gm/dL *HI* (02/05/15 9:40 AM) HCT Venous [37.0-47.0 %] 52.0 % *HI* (02/05/15 9:40 AM) Glucose Venous [70-100 mg/dL] >700 mg/dL *HHI* (02/05/15 9:40 AM) BUN Venous [4-20] 29 *HI* (02/05/15 9:40 AM) Creatinine Venous [0.4-1.0 mg/dL] 0.5 mg/dL (02/05/15 9:40 AM) Venous CL [99-109 mEq/L] 97 mEq/L *LOW* (02/05/15 9:40 AM) Anion Gap, Heriberto [3-20] 18 (02/05/15 9:40 AM) Blood Glucose, Capillary [74-106 mg/dL] 278 mg/dL 278 mg/dL *HI* *HI* (02/08/15 5:29 PM) (02/08/15 5:29 PM) U Beta hCG Ql [Negative] Negative (02/05/15 9:50 AM) 1Result Comment: Multiply eGFR results by [...] Range]: 1 2 U Amphetamine Scrn Negative (02/05/15 9:50 AM) U Cocaine Scrn Negative (02/05/15 9:50 AM) U Cannab Scrn Negative (02/05/15 9:50 AM) U Opiate Scrn Negative (02/05/15 9:50 AM) U PCP Scrn Negative (02/05/15 9:50 AM) U Benzodiazepine Scrn Negative (02/05/15 9:50 AM) U Barbiturate Scrn Negative (02/05/15 9:50 AM) Methadone Lvl Negative (02/05/15 9:50 AM) Tricyclics Not Detected 1 (02/05/15 9:50 AM) 1Result Comment: Cut-off concentrations: Amphetamines: 1000 [...] Range]: 1 2 UA Color Lt Yellow (02/05/15 9:50 AM) UA Appear Clear (02/05/15 9:50 AM) UA pH [5.0-8.0] 5.0 (02/05/15 9:50 AM) UA Leuk Est [Negative] Negative (02/05/15 9:50 AM) UA Nitrite [Negative] Negative (02/05/15 9:50 AM) UA Protein [Negative] Negative (02/05/15 9:50 AM) UA Glucose [Negative] Pos 3+ *ABN* (02/05/15 9:50 AM) UA Ketones [Negative] Pos 3+ *ABN* (02/05/15 9:50 AM) UA Urobilinogen [<1.0] Negative (02/05/15 9:50 AM) UA Bili [Negative] Negative (02/05/15 9:50 AM) UA Blood [Negative] Negative (02/05/15 9:50 AM) UA Spec Grav [1.003-1.030] 1.024 (02/05/15 9:50 AM) Type Clean Catch (02/05/15 9:50 AM) Immunizations Vaccine Date Refusal Reason hepatitis B adult vaccine 12/10/00 hepatitis B adult vaccine 10/13/00 measles/mumps/rubella virus vaccine 08/06/08 pneumococcal 23-polyvalent vaccine 03/29/04 Procedures Procedure Date Related Diagnosis Body Site Arterial puncture, withdrawal of blood for 02/05/15 diagnosis Insertion of non-indwelling bladder catheter (eg, 02/05/15 straight catheterization for residual urine) Adenoidectomy Cervical cautery section Sinusotomy Tonsillectomy Tubal ligation Social History Social History Type Response Smoking Status Current every day smoker; Type: Cigarettes; Tobacco use per day : Pack; Number of years: 14 Assessment and Plan No data available for this section
--- OUTSIDE RECORDS SUMMARY | 2017-04-20 19:38 | External Medical Summary ---
:1985 Author Organization [facility] Address [address] [place] [address] Care Team Providers Name Role Phone Randell Mi Unavailable Unavailable PROBLEMS Type Condition ICD9-CM [id number] Onset Condition SNOMED Code Code Code Dates Status Problem Anxiety F41.8 Active 794246264 associated with depression Problem Gastritis K29.70 Active 0899361 Problem Asthma J45.909 Active 253905885 Problem Cataract H26.9 Active 904733139 Problem Seasonal J30.2 Active 835639757 allergies Problem Mitral valve I34.1 Active 835473451 prolapse Problem Normocytic anemia D64.9 Active 495972079 Problem Tinea versicolor B36.0 Inactive 77151734 Problem Pubic ramus S32.509A Active 23827174 fracture Problem 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 8885338 to secondary diabetes Problem Tobacco use Z72.0 Active 035922006 Problem Bipolar 1 F31.9 Active 658839840 disorder Assessment Diabetes type 1, E10.65 Jun, Active 953720150 uncontrolled 2017 Problem Diabetes type 1, E10.65 Active 435576691 uncontrolled ALLERGIES Unknown Allergies SOCIAL HISTORY No smoking Hx information available PLAN OF CARE VITAL SIGNS MEDICATIONS Medication Instructions Dosage Frequency Start End Duration Status Date Date Pantoprazole Orally Once a 1 tablet 24h Dec, 60 days Active Sodium 40 MG day 2015 Albuterol Sulfate Inhalation 2 puffs as 4h 30 days Active HFA 108 (90 Base) every 4 hrs needed MCG/ACT Lisinopril 5 MG Orally Once a 1 tablet 24h Active day Folic Acid 1 MG Orally Once a 1 tablet 24h Active day Valium 5 MG Orally Three 1 tablet as Active times daily needed True Metrix Meter Subcutaneous as directed Jun, 30 days Active w/Device Three times 2016 daily ( A1c 11.5 on 03/11/16) DX e11.65.Length of need : Lifetime True Metrix Blood In Vitro three 1 strip Jun, days Active Glucose Test - times a day ( 2017 A1c 11.5 on 03/11/16) DX e11.65. Length of need : Lifetime Vitamin B Complex Active Metoclopramide HCl Orally qid 1 6h 30 days Active 10 MG Levemir Flexpen Subcutaneous 30 Active 100 UNIT/ML bedtime Zoloft 100 MG Orally Once a 2 24h Active day Promethazine HCl Orally every 12 1 tablet as 12h Jun, 90 days Active 25 MG hrs needed 2016 Multi Vitamin Orally Once a 1 tablet 24h Active Daily day Flonase 50 MCG/ACT Nasally Once a 1 spray in 24h Dec, 90 days Active day each 2016 nostril Diflucan 100 MG Orally Once 3 tablet Jun, 14 days Active weekly 2017 NovoLog Flexpen Subcutaneous 28/03/10 Active 100 UNIT/ML Three times daily with meals Lancets - Subcutaneous 1 lancet Jun, 30 days Active Three times 2017 daily ( A1c 11.5 on 03/11/16) DX e11.65..Length of need : Lifetime RESULTS No Results PROCEDURES No Known procedures IMMUNIZATIONS No Known Immunizations
--- OUTSIDE RECORDS SUMMARY | 2017-04-20 19:38 | External Medical Summary | Referral Summary ---
:1985 Author Organization [facility] Address [address] [place] [address] Care Team Providers Name Role Phone Laura Hall Primary Care Physician Encounter [facility] [id number] Date(s): 02/22/15 - 02/22/15 [facility] [address] [place] [address] [phone] Discharge Diagnosis: UTI (urinary tract infection) Final: Diabetes mellitus without mention of complication, type I [juvenile type] , uncontrolled Final: URINARY TRACT INFECTION, SITE NOT SPECIFIED Discharge Diagnosis: Hyperglycemia Discharge Disposition: 01-Home or Self Care Attending Physician: Zain Mcknight DO Admitting Physician: Zain Mcknight DO Vital Signs Most recent to oldest [Reference Range]: 1 Temperature Oral [35.8-37.3 degC] 36.7 degC (02/22/15 7:50 PM) Peripheral Pulse Rate [60-100 bpm] 110 bpm *HI* (02/22/15 7:50 PM) Heart Rate Monitored [60-100 bpm] 100 bpm (02/22/15 7:42 PM) Respiratory Rate [14-20 br/min] 19 br/min (02/22/15 7:42 PM) Blood Pressure [90-140/60-90 mmHg] 130/95 mmHg (02/22/15 7:50 PM) Mean Arterial Pressure, Cuff 107 mmHg (02/22/15 7:42 PM) SpO2 99 % (02/22/15 7:50 PM) Problem List Condition Effective Dates Status [...] initiation of Alteration in Nutrition Plan of Avyz2Echbkgm added automatically by system based on initiation of Anxiety Plan of Rzyw5Ggcr problem was added by Lore Expert.4Problem updated automatically by system based on initiation of Risk for Injury Plan of Xrzs1Gtxfpcc added automatically by system based on initiation of Risk for Injury Plan of Ymmn8Lsxajcy updated automatically by system based on initiation of At Risk for Unstable Blood Glucose Plan of Jjqe5Xyxjgtp updated automatically by system based on initiation of At Risk for Unstable Blood Glucose Plan of Anhv3Eyhxdiq added automatically by system based on initiation of At Risk for Unstable Blood Glucose Planof Xdlv5Mpxwnof added by Discern Ptsjls24Odvqylb updated automatically by system based on initiation of Fluid Volume Imbalance Plan of Iepp95Qfdmpgq updated automatically by system based on initiation of Fluid Volume Imbalance Plan of Rnsj38Zjbdlwz added automatically by system based on initiation of Fluid Volume Imbalance Plan of Njto65Qiwsjlo added automatically by system based on initiation of Impaired Gas Exchange Plan of Nrrx33Iisjqoe added automatically by system based on initiation of Impaired Skin Integrity Plan of Pvki41Eozbtpz added automatically by system based on initiation of Impaired Spontaneous Ventilation Plan of Lcpd77Tarpbgu added automatically by system based on initiation of Ineffective Airway Clearance Plan of Qfdq74Bvwvqhw updated automatically by system based on initiation of Knowledge Deficit Plan of Ykhu15Gsfkpns added automatically by system based on initiation of Knowledge Deficit Plan of Rwmz88Pxifhpo updated automatically by system based on initiation of Tissue Perfusion Cerebral Plan of Lurc40Mrrqcrc added automatically by system based on initiation [...] Breath/Wheezing, # 540 mL, 0 Refill(s), [facility], 3 mL NEB q4hr,PRN:Shortness of Breath/ Wheezing Start Date: 06/25/15 Status: Orderedalbuterol 5 mg/mL (0.5%) inhalation solution 2.5 mg 0.5 mL, NEB, TID, # 45 mL, 0 Refill(s), Pharmacy: [email or web address] [address], 0.5 mL NEB TID Start Date: 06/25/15 Status: Orderedfolic acid 1 mg oral tablet 1 mg, Oral, Daily, # 30 tabs, 0 Refill(s), Pharmacy: [email or web address] [address] , 1 mg Oral Daily Start Date: 06/25/15 Status: OrderedLevemir 100 units/mL subcutaneous solution 15 units, SubCutaneous, BID, # 15 mL, 0 Refill(s), [facility] [address], 15 units SubCutaneous BID Start Date: 06/25/15 Status: Orderedlisinopril 5 mg oral tablet 5 mg 1 tabs, Oral, Daily, # 30 tabs, 1 Refill(s), [facility] [address], 1 tabs Oral Daily Start Date: 06/25/15 Status: OrderedMultiple Vitamins oral capsule 1 caps, Oral, Daily, # 30 caps, 0 Refill(s), Pharmacy: [email or web address] [address] Start Date: 06/25/15 Status: OrderedNovoLOG 100 units/mL subcutaneous solution 10 units, SubCutaneous, TIDAC, # 30 mL, 0 Refill(s), Pharmacy: [email or web address] [address], 10 units SubCutaneous TIDAC Start Date: 06/25/15 Status: Orderedsertraline 100 mg oral tablet 100 mg 1 tabs, Oral, Daily, # 30 tabs, 0 Refill(s), Pharmacy: [facility] [address], 1 tabs Oral Daily Start Date: 06/25/15 Status: OrderedVitamin B Complex oral capsule 1 caps, Oral, Daily, # 30 caps, 0 Refill(s), Pharmacy: [email or web address] [address] Start Date: 06/25/15 Status: Ordered Results Hematology Most recent to oldest [Reference Range]: 1 WBC [4.8-10.8 10*3/uL] 8.1 10*3/uL (02/22/15 4:46 PM) RBC [4.00-5.20] 3.88 *LOW* (02/22/15 4:46 PM) Hgb [12.0-16.0 gm/dL] 12.1 gm/dL (02/22/15 4:46 PM) Hct [37.0-47.0 %] 35.5 % *LOW* (02/22/15 4:46 PM) MCV [82.0-99.0 fL] 91.5 fL (02/22/15 4:46 PM) MCH [27.0-32.0 pg] 31.2 pg (02/22/15 4:46 PM) MCHC [32.0-36.0 gm/dL] 34.1 gm/dL (02/22/15 4:46 PM) RDW [11.5-14.5 %] 13.4 % (02/22/15 4:46 PM) Platelet [150-400 10*3/uL] 317 10*3/uL (02/22/15 4:46 PM) MPV [9.4-12.4 fL] 9.6 fL (02/22/15 4:46 PM) Immature Granulocytes [0.0-1.0 %] 0.2 % (02/22/15 4:46 PM) Neutrophils [51-75 %] 68 % (02/22/15 4:46 PM) Lymphocytes [20-46 %] 24 % (02/22/15 4:46 PM) Monocytes [4-11 %] 5 % (02/22/15 4:46 PM) Eosinophils [0-4 %] 2 % (02/22/15 4:46 PM) Basophils [0-2 %] 0 % (02/22/15 4:46 PM) Neutro Absolute [1.90-7.00 10*3] 5.49 10*3 (02/22/15 4:46 PM) Lymph Absolute [0.80-3.30 10*3] 1.96 10*3 (02/22/15 4:46 PM) [place] Absolute [0.30-1.00 10*3] 0.43 10*3 (02/22/15 4:46 PM) Eos Absolute [0.00-0.50 10*3] 0.14 10*3 (02/22/15 4:46 PM) Baso Absolute [0.00-0.20 10*3] 0.03 10*3 (02/22/15 4:46 PM) Nucleated RBC Automated [0 /100 WBC] 0.0 /100 WBC (02/22/15 4:46 PM) Chemistry Most recent to oldest [Reference Range]: 1 Sodium Lvl [136-144 mEq/L] 125 mEq/L *LOW* (02/22/15 4:46 PM) Potassium Lvl [3.6-5.1 mEq/L] 4.8 mEq/L (02/22/15 4:46 PM) Chloride [99-109 mEq/L] 86 mEq/L *LOW* (02/22/15 4:46 PM) CO2 [22-32 mEq/L] 24 mEq/L (02/22/15 4:46 PM) AGAP [3-20] 15 (02/22/15 4:46 PM) BUN [4-20 mg/dL] 23 mg/dL *HI* (02/22/15 4:46 PM) Glucose Lvl [70-100 mg/dL] 533 mg/dL *HI* (02/22/15 4:46 PM) Creatinine Lvl [0.44-1.03 mg/dL] 0.74 mg/dL (02/22/15 4:46 PM) eGFR [>60] >60 1 (02/22/15 4:46 PM) Calcium Lvl [8.6-10.0 mg/dL] 9.1 mg/dL (02/22/15 4:46 PM) Albumin Lvl [3.5-4.8 gm/dL] 3.4 gm/dL *LOW* (02/22/15 4:46 PM) Total Protein [6.1-7.9 gm/dL] 6.5 gm/dL (02/22/15 4:46 PM) Globulin [1.9-4.3 gm/dL] 3.1 gm/dL (02/22/15 4:46 PM) ALT [14-54 U/L] 59 U/L *HI* (02/22/15 4:46 PM) AST [15-41 U/L] 36 U/L (02/22/15 4:46 PM) Alk Phos [26-104 U/L] 130 U/L *HI* (02/22/15 4:46 PM) Bili Total [0.2-1.2 mg/dL] 0.6 mg/dL 2 (02/22/15 4:46 PM) Blood Glucose, Capillary [74-106 mg/dL] 307 mg/dL *HI* (02/22/15 7:21 PM) U Beta hCG Ql [Negative] Negative (02/22/15 4:46 PM) 1Result Comment: Multiply eGFR results by 1.21 for race.2Result Comment: Naproxen, specifically the metabolite O-desmethylnaproxen, may cause spurious elevation in Total Bilirubin levels.Urinalysis Most recent to oldest [Reference Range]: 1 UA Color Lt Yellow (02/22/15 4:46 PM) UA Appear Clear (02/22/15 4:46 PM) UA pH [5.0-8.0] 5.0 (02/22/15 4:46 PM) UA Leuk Est [Negative] Trace *ABN* (02/22/15 4:46 PM) UA Nitrite [Negative] Negative (02/22/15 4:46 PM) UA Protein [Negative] Pos 1+ *ABN* (02/22/15 4:46 PM) UA Glucose [Negative] Pos 3+ *ABN* (02/22/15 4:46 PM) UA Ketones [Negative] Negative (02/22/15 4:46 PM) UA Urobilinogen [<1.0] Negative (02/22/15 4:46 PM) UA Bili [Negative] Negative (02/22/15 4:46 PM) UA Blood [Negative] Trace *ABN* (02/22/15 4:46 PM) UA Spec Grav [1.003-1.030] 1.022 (02/22/15 4:46 PM) Type Clean Catch (02/22/15 4:46 PM) UA WBC [0-4] 20-50 *ABN* (02/22/15 4:46 PM) UA RBC [0-2] 5-10 *ABN* (02/22/15 4:46 PM) Epithelial Cells 5-10 (02/22/15 4:46 PM) UA Bacteria Moderate *ABN* (02/22/15 4:46 PM) UA Hyal Cast [0-3] 1-3 (02/22/15 4:46 PM) UA Gran Cast 1-3 *ABN* (02/22/15 4:46 PM) Microbiology Reports TEST:Urine Culture STATUS:Auth (Verified) BODY SITE: SOURCE:Urine COLLECTED DATE/TIME:02/22/15 4:46 PMUrine Culture- - - - - - - Positive urine culture (even if >100,000 cfu/ml) without presence of symptoms does not require antibiotic treatment unless the patient is or undergoing urinary surgery. Please document as bacteriuria. Escherichia coli 50-100,000 cfu/ml ORGANISM:Escherichia coli Immunizations Vaccine Date Refusal Reason hepatitis B [...]
--- OUTSIDE RECORDS SUMMARY | 2017-04-20 19:39 | External Medical Summary ---
:1985 Author Organization [employer] Care Team Providers Name Role Phone Randell Mi Provider Role Unavailable Allergies No Known Allergies [...] Problem Mitral valve prolapse I34.1 Active Problem Gastroparesis due to secondary E13.43 Active diabetes Problem Tobacco use Z72.0 Active Problem Bipolar 1 disorder F31.9 Active Medications No Known Medications Results No Known Results Summary Purpose [employer] Submission
--- OUTSIDE RECORDS SUMMARY | 2017-04-20 19:39 | External Medical Summary | Referral Summary ---
:1985 Author Care Team Providers Name Role Phone Laura Hall Primary Care Physician Encounter [facility] Date(s): 09/27/14 - 09/27/[address] [facility] [address] [place] [id number] Discharge Diagnosis: Hyperglycemia Discharge Diagnosis: Vulvovaginitis Discharge Disposition: Home or Self Care Attending Physician: Acosta Rasmussen DO Admitting Physician: Acosta Rasmussen DO Vital Signs Most recent to oldest [Reference Range]: 1 Temperature Oral [35.8-37.3 degC] 37 degC (09/27/14 4:19 PM) Peripheral Pulse Rate [60-100 bpm] 108 bpm *HI* (09/27/14 7:14 PM) Respiratory Rate [14-20 br/min] 20 br/min (09/27/14 7:14 PM) Blood Pressure [90-140/60-90 mmHg] 124/68 mmHg (09/27/14 7:14 PM) Most recent to oldest [Reference Range]: 1 SpO2 99 % (09/27/14 4:19 PM) Problem List Condition Effective Dates Status Health Status Informant Acute pain(Confirmed) Resolved Allergic rhinitis Resolved (disorder)(Confirmed) Anemia (disorder)(Confirmed) Resolved At risk for falls(Confirmed)1 Resolved At risk for injury(Confirmed)2 Resolved At risk for unstable blood glucose Resolved level(Confirmed)3 At risk of pressure sore(Confirmed) Resolved Essential hypertension Resolved (disorder)(Confirmed) Fluid imbalance(Confirmed)4 Resolved Impaired skin integrity(Confirmed)5 Resolved Knowledge deficit(Confirmed)6 Resolved Migraine (disorder)(Confirmed) Resolved Tissue perfusion Resolved alteration(Confirmed)7 1This problem was added by Discern Expert.2Problem added automatically by system based on initiation of Risk for Injury Plan of Swkr0Yhdftnp added automatically by system based on initiation of At Risk for Unstable Blood Glucose Planof Plue3Nilslrd added automatically by system based on initiation of Fluid Volume Imbalance Plan of Fvoc6Cygqhcl added automatically by system based on initiation of Impaired Skin Integrity Plan of Lvny3Sjqepdy added automatically by system based on initiation of Knowledge Deficit Plan of Tkae1Neszpkg added automatically by system based on initiation of Tissue Perfusion Cerebral Plan of Care Allergies, Adverse Reactions, Alerts Substance Reaction Severity Status amoxicillin Unknown Active Apple Adverse Reaction Active ibuprofen Active Macrobid1 mineral oil/phenylephrine/shark liver Mild Active oil morphine unknown Active simvastatin Adverse Reaction Active sulfa drugs Active sulfamethoxazole-trimethoprim Anaphylaxis Active 1pt states liver problems Medications albuterol 2.5 mg/3 mL (0.083%) inhalation solution 3 mL, Inhalation, q4hr (scheduled), # 540 mL, 2 Refill(s), Pharmacy: [id number], 3 mL Inhalation q4hr (scheduled) Start Date: 05/02/14 Status: OrderedAmbien 5 mg, Oral, Bedtime (once a day), 0 Refill(s) Start Date: 04/17/14 Status: OrderedDiflucan 100 mg, Oral, Friday, 0 Refill(s) Start Date: 04/30/14 Status: Orderedfolic acid 1 mg, Oral, Daily, 0 Refill(s) Start Date: 04/30/14 Status: Orderedgabapentin 300 mg, Oral, BID, 0 Refill(s) Start Date: 04/17/14 Status: OrderedLevemir 100 units/mL subcutaneous solution 30 unit, SubCutaneous, Bedtime (once a day), 0 Refill(s) Start Date: 08/13/14 Status: OrderedMonistat 7 vaginal suppository 1 supp, Vaginal, Bedtime (once a day), # 7 supp, 0 Refill(s) Start Date: 09/27/14 Stop Date: 10/05/14 Status: Orderedmultivitamin 1 tabs, Oral, Daily, 0 Refill(s) Start Date: 04/30/14 Status: OrderedNovoLOG 14 units, SubCutaneous, TIDWM, 0 Refill(s) Start Date: 09/03/14 Status: Orderedprazosin 1 mg, Oral, Bedtime (once a day), 0 Refill(s) Start Date: 04/17/14 Status: OrderedPriLOSEC 20 mg oral delayed release capsule 2 caps, Oral, BID, # 120 caps, 2 Refill(s), Pharmacy: [facility] [id number] , 2 caps Oral BID,x30 days Start Date: 05/11/14 Stop Date: 08/09/14 Status: OrderedSuper B Complex 1 tabs, Oral, Daily, 0 Refill(s) Start Date: 04/30/14 Status: OrderedUltram 50 mg oral tablet 1 tabs, Oral, q12hr, as needed for pain, # 24 tabs, 0 Refill(s) Start Date: 09/27/14 Stop Date: 10/05/14 Status: OrderedValium 5 mg, Oral, TID, 0 Refill(s) Start Date: 05/10/14 Status: OrderedZoloft 100 mg, Oral, Daily, 0 Refill(s) Start Date: 04/17/14 Status: Ordered Results Hematology Most recent to oldest [Reference Range]: 1 WBC [4.8-10.8 K/uL] 8.0 K/uL (09/27/14 5:29 PM) RBC [4.00-5.20 M/uL] 4.06 M/uL (09/27/14 5:29 PM) Hgb [12.0-16.0 gm/dL] 12.5 gm/dL (09/27/14 5:29 PM) Hct [37.0-47.0 %] 36.6 % *LOW* (09/27/14 5:29 PM) MCV [82.0-99.0 fL] 90.1 fL (09/27/14 5:29 PM) MCH [27.0-32.0 pg] 30.8 pg (09/27/14 5:29 PM) MCHC [32.0-36.0 gm/dL] 34.2 gm/dL (09/27/14 5:29 PM) RDW [11.5-14.5 %] 12.9 % (09/27/14 5:29 PM) Platelet [150-400 K/uL] 281 K/uL (09/27/14 5:29 PM) MPV [9.4-12.4 fL] 10.4 fL (09/27/14 5:29 PM) Immature Granulocytes [0.0-1.0 %] 0.2 % (09/27/14 5:29 PM) Neutrophils [51-75 %] 70 % (09/27/14:29 PM) Lymphocytes [20-46 %] 16 % *LOW* (09/27/14:29 PM) Monocytes [4-11 %] 10 % (09/27/14:29 PM) Eosinophils [0-4 %] 3 % (09/27/1429 PM) Basophils [0-2 %] 1 % (09/27/14:29 PM) Neutro Absolute [1.90-7.00 THOUS] 5.63 THOUS (09/27/14:29 PM) Lymph Absolute [0.80-3.30 THOUS] 1.29 THOUS (09/27/14:29 PM) [place] Absolute [0.30-1.00 THOUS] 0.81 THOUS (09/27/14:29 PM) Eos Absolute [0.00-0.50 THOUS] 0.25 THOUS (09/27/14:29 PM) Baso Absolute [0.00-0.20 THOUS] 0.04 THOUS (09/27/14:29 PM) Nucleated RBC Automated [0 /100 WBC] 0.0 /100 WBC (09/27/14 PM) Chemistry Most recent to oldest [Reference Range]: 1 Sodium Lvl [136-144 mEq/L] 127 mEq/L *LOW* (09/27/14:29 PM) Potassium Lvl [3.6-5.1 mEq/L] 4.1 mEq/L (09/27/14:29 PM) Chloride [99-109 mEq/L] 97 mEq/L *LOW* (09/27/1429 PM) CO2 [22-32 mEq/L] 22 mEq/L (09/27/14:29 PM) AGAP [3-20] 8 (09/27/14:29 PM) BUN [4-20 mg/dL] 10 mg/dL (09/27/14 5:29 PM) Glucose Lvl [70-100 mg/dL] 674 mg/dL 1 *HHI* (09/27/1429 PM) Creatinine Lvl [0.44-1.03 mg/dL] 0.51 mg/dL (09/27/14 5:29 PM) eGFR [>60] >60 3 (09/27/14 5:29 PM) Calcium Lvl [8.6-10.0 mg/dL] 8.8 mg/dL (09/27/14 5:29 PM) Albumin Lvl [3.5-4.8 gm/dL] 3.4 gm/dL *LOW* (09/27/14 5:29 PM) Total Protein [6.1-7.9 gm/dL] 6.2 gm/dL (09/27/14 5:29 PM) Globulin [1.9-4.3 gm/dL] 2.8 gm/dL (09/27/14 5:29 PM) ALT [14-54 unit/L] 26 unit/L (09/27/14 5:29 PM) AST [15-41 unit/L] 18 unit/L (09/27/14 5:29 PM) Alk Phos [26-104 unit/L] 85 unit/L (09/27/14 5:29 PM) Bili Total [0.2-1.2 mg/dL] 0.5 mg/dL 2 (09/27/14 5:29 PM) Screen, Urine NPT Negative (09/27/14 4:53 PM) Blood Glucose, Capillary [70-100 mg/dL] 293 mg/dL *HI* (09/27/14 6:44 PM) 1Result Comment: Critical value called, and read-back verified. Called to Wanda BONILLA) at 18:05 09/27/2014.2Result Comment: Naproxen, specifically the metabolite O-desmethylnaproxen, may cause spurious elevation in Total Bilirubin levels.3Result Comment: Multiply eGFR results by 1.21 for race.Urinalysis Most recent to oldest [Reference Range]: 1 UA Color Lt Yellow (09/27/14 5:29 PM) UA Appear Clear (09/27/14 5:29 PM) UA pH [5.0-8.0] 7.0 (09/27/14 5:29 PM) UA Leuk Est [Negative] Negative (09/27/14 5:29 PM) UA Nitrite [Negative] Negative (09/27/14 5:29 PM) UA Protein [Negative] Negative (09/27/14 5:29 PM) UA Glucose [Negative] Pos 3+ *ABN* (09/27/14 5:29 PM) UA Ketones [Negative] Negative (09/27/14 5:29 PM) UA Urobilinogen [<1.0] Negative (09/27/14 5:29 PM) UA Bili [Negative] Negative (09/27/14 5:29 PM) UA Blood [Negative] Trace *ABN* (09/27/14 5:29 PM) UA Spec Grav [1.003-1.030] 1.035 *ABN* (09/27/14 5:29 PM) Type Clean Catch (09/27/14 5:29 PM) UA WBC [0-4] 0-2 (09/27/14 5:29 PM) UA RBC [0-2] 0-2 (09/27/14 5:29 PM) Epithelial Cells 0-2 (09/27/14 5:29 PM) Microbiology Reports PROCEDURE:Affirm Vaginitis Panel STATUS:Auth (Verified) BODY SITE: SOURCE:Cervix/Vaginal COLLECTED DATE/TIME:09/27/14 5:29 PM Immunizations Vaccine Date Refusal Reason hepatitis B adult vaccine 12/10/00 hepatitis B adult vaccine 10/13/00 measles/mumps/rubella virus vaccine 08/06/08 pneumococcal 23-polyvalent vaccine 03/29/04 Procedures Procedure Date Related Diagnosis Body Site Adenoidectomy Cervical cautery section Sinusotomy Tonsillectomy Tubal ligation Social History Social History Type Response Smoking Status Current every day smoker; Type: Cigarettes; Tobacco use per day : Pack Assessment and Plan No data available for this section
--- OUTSIDE RECORDS SUMMARY | 2017-04-20 19:39 | External Medical Summary ---
[...] Medications Results No Known Results Summary Purpose [employer] Submission
--- OUTSIDE RECORDS SUMMARY | 2017-04-20 19:39 | External Medical Summary | Referral Summary ---
:1985 Author Organization Via [facility] Address [address] [place] [address] Care Team Providers Name Role Phone Randell Mi Primary Care Physician Encounter [facility] [id number] Date(s): 06/27/16 - 06/27/16 [facility] [address] [place] [address] [phone] Discharge Diagnosis: Vomiting Discharge Disposition: 01-Home or Self Care Attending Physician: Abbe Li MD Admitting Physician: Abbe Li MD Vital Signs Most recent to oldest [Reference Range]: 1 Temperature Oral [35.8-37.3 degC] 36.0 degC (06/27/16 3:07 AM) Peripheral Pulse Rate [60-100 bpm] 126 bpm *HI* (06/27/16 3:07 AM) Heart Rate Monitored [60-100 bpm] 114 bpm *HI* (06/27/16 4:32 AM) Respiratory Rate [14-20 br/min] 16 br/min (06/27/16 4:32 AM) Blood Pressure [90-140/60-90 mmHg] 154/100 mmHg *HI* (06/27/16 4:32 AM) Mean Arterial Pressure, Cuff 114 mmHg (06/27/16 4:32 AM) SpO2 99 % (06/27/16 4:32 AM) Problem List Condition Effective Dates Status [...] initiation of Alteration in Nutrition Plan of Yfdp2Osaejif added automatically by system based on initiation of Anxiety Plan of Pkde3Dqku problem was added by Discern Expert.4Problem added automatically by system based on initiation of At Risk for Infection in Nutrition Planof Jvbl6Peflelc updated automatically by system based on initiation of Risk for Injury Plan of Ogtg2Zdhlzgb added automatically by system based on initiation of Risk for Injury Plan of Ceyc2Vswbkgs updated automatically by system based on initiation of At Risk for Unstable Blood Glucose Plan of Btrh0Wmdpenb updated automatically by system based on initiation of At Risk for Unstable Blood Glucose Plan of Bodl1Ysjvimj added automatically by system based on initiation of At Risk for Unstable Blood Glucose Planof Tjwh53Ltqagoi added by Discern Tmgelt36Ksklvza updated automatically by system based on initiation of Fluid Volume Imbalance Plan of Lgzt50Mcisjcs updated automatically by system based on initiation of Fluid Volume Imbalance Plan of Qelo97Qflqabr added automatically by system based on initiation of Fluid Volume Imbalance Plan of Sgvx24Jotfoib added automatically by system based on initiation of Impaired Gas Exchange Plan of Olei54Jwpccai added automatically by system based on initiation of Impaired Skin Integrity Plan of Nsfi78Wkorinm added automatically by system based on initiation of Impaired Spontaneous Ventilation Plan of Aelm19Jrvcyiw added automatically by system based on initiation of Ineffective Airway Clearance Plan of Pjwm42Ynrfefj updated automatically by system based on initiation of Knowledge Deficit Plan of Kikj72Gxqpstd added automatically by system based on initiation of Knowledge Deficit Plan of Bnil29Nfkaoah updated automatically by system based on initiation of Tissue Perfusion Cerebral Plan of Pqki42Dnjhhxa added automatically by system based on initiation [...] Breath/Wheezing, # 540 mL, 0 Refill(s), Pharmacy: [email or web address] [id number], 3 mL NEB q4hr,PRN:Shortness of Breath/ Wheezing [...] Daily, # 30 tabs, 0 Refill(s), Pharmacy: [email or web address] [id number] , 1 mg Oral Daily Start Date: 06/25/15 Status: OrderedLevemir 100 units/mL subcutaneous solution 30 units, SubCutaneous, Bedtime (once a day), 0 Refill(s) Start Date: 03/10/16 Status: Orderedlisinopril 5 mg oral tablet 5 mg 1 tabs, Oral, Daily, # 30 tabs, 1 Refill(s), Pharmacy: [email or web address] [id number], 1 tabs Oral Daily Start Date: 06/25/15 Status: OrderedMultiple Vitamins oral capsule 1 caps, Oral, Daily, # 30 caps, 0 Refill(s), Pharmacy: [email or web address] [id number] Start Date: 06/25/15 Status: OrderedNovoLOG 13 units, [...] Daily, # 30 caps, 0 Refill(s), Pharmacy: [facility] [id number] Start Date: 06/25/15 Status: OrderedZofran 4 mg oral tablet 4 mg 1 tabs, Oral, q4hr, Nausea or Vomiting | as needed for nausea/vomiting, # 10 tabs, 0 Refill(s) Start Date: 06/27/16 Stop Date: 06/27/17 Status: Ordered Results Hematology Most recent to oldest [Reference Range]: 1 WBC [4.8-10.8 10*3/uL] 8.8 10*3/uL (06/27/16 3:31 AM) RBC [4.00-5.20] 4.17 (06/27/16 3:31 AM) Hgb [12.0-16.0 gm/dL] 12.6 gm/dL (06/27/16 3:31 AM) Hct [37.0-47.0 %] 36.6 % *LOW* (06/27/16 3:31 AM) MCV [82.0-99.0 fL] 87.8 fL (06/27/16 3:31 AM) MCH [27.0-32.0 pg] 30.2 pg (06/27/16 3:31 AM) MCHC [32.0-36.0 gm/dL] 34.4 gm/dL (06/27/16 3:31 AM) RDW [11.5-14.5 %] 12.4 % (06/27/16 3:31 AM) Platelet [150-400 10*3/uL] 352 10*3/uL (06/27/16 3:31 AM) MPV [9.4-12.4 fL] 9.6 fL (06/27/16 3:31 AM) Immature Granulocytes [0.0-1.0 %] 0.2 % (06/27/16 3:31 AM) Neutrophils [51-75 %] 45 % *LOW* (06/27/16 3:31 AM) Lymphocytes [20-46 %] 39 % (06/27/16 3:31 AM) Monocytes [4-11 %] 4 % (06/27/16 3:31 AM) Eosinophils [0-4 %] 11 % *HI* (06/27/16 3:31 AM) Basophils [0-2 %] 1 % (06/27/16 3:31 AM) Neutro Absolute [1.90-7.00] 3.99 (06/27/16 3:31 AM) Lymph Absolute [0.80-3.30] 3.40 *HI* (06/27/16 3:31 AM) [place] Absolute [0.30-1.00] 0.35 (06/27/16 3:31 AM) Eos Absolute [0.00-0.50] 0.98 *HI* (06/27/16 3:31 AM) Baso Absolute [0.00-0.20] 0.09 (06/27/16 3:31 AM) Nucleated RBC Automated [0 /100 WBC] 0.0 /100 WBC (06/27/16 3:31 AM) Chemistry Most recent to oldest [Reference Range]: 1 Sodium Lvl [136-144 mEq/L] 129 mEq/L *LOW* (06/27/16 3:31 AM) Potassium Lvl [3.6-5.1 mEq/L] 3.7 mEq/L 1 (06/27/16 3:31 AM) Chloride [99-109 mEq/L] 98 mEq/L *LOW* (06/27/16 3:31 AM) CO2 [22-32 mEq/L] 20 mEq/L *LOW* (06/27/16 3:31 AM) AGAP [3-20] 11 (06/27/16 3:31 AM) BUN [4-20 mg/dL] 22 mg/dL *HI* (06/27/16 3:31 AM) Glucose Lvl [70-100 mg/dL] 118 mg/dL *HI* (06/27/16 3:31 AM) Creatinine Lvl [0.44-1.03 mg/dL] 0.62 mg/dL (06/27/16 3:31 AM) eGFR [>60] >60 2 (06/27/16 3:31 AM) Calcium Lvl [8.6-10.0 mg/dL] 9.6 mg/dL (06/27/16 3:31 AM) Albumin Lvl [3.5-4.8 gm/dL] 2.9 gm/dL *LOW* (06/27/16 3:31 AM) Total Protein [6.1-7.9 gm/dL] 6.5 gm/dL (06/27/16 3:31 AM) Globulin [1.9-4.3 gm/dL] 3.6 gm/dL (06/27/16 3:31 AM) ALT [14-54 U/L] 28 U/L (06/27/16 3:31 AM) AST [15-41 U/L] 42 U/L *HI* (06/27/16 3:31 AM) Alk Phos [26-104 U/L] 86 U/L (06/27/16 3:31 AM) Bili Total [0.2-1.2 mg/dL] 0.8 mg/dL 3 (06/27/16 3:31 AM) Lipase Lvl [8-48 U/L] 20 U/L (06/27/16 3:31 AM) Blood Glucose, Capillary [70-100 mg/dL] 115 mg/dL *HI* (06/27/16 5:40 AM) U Beta hCG Ql Negative (06/27/16 5:12 AM) 1Result Comment: Hemolyzed specimen. The following tests may be affected: ALT, AST, Ammonia, Iron, Potassium, LDH, Amylase, CPK, and Total Bilirubin.2Result Comment : Multiply eGFR results by 1.21 for race.3Result Comment: Naproxen, specifically the metabolite O-desmethylnaproxen, may cause spurious elevation in Total Bilirubin levels.Toxicology Most recent to oldest [Reference Range]: 1 U Amphetamine Scrn Negative (06/27/16 5:12 AM) U Cocaine Scrn Negative (06/27/16 5:12 AM) U Cannab Scrn Negative (06/27/16 5:12 AM) U Opiate Scrn Negative (06/27/16 5:12 AM) U PCP Scrn Negative (06/27/16 5:12 AM) U Benzodiazepine Scrn Negative (06/27/16 5:12 AM) U Barbiturate Scrn Negative (06/27/16 5:12 AM) Methadone Lvl Negative (06/27/16 5:12 AM) Tricyclics Not Detected 1 (06/27/16 5:12 AM) 1Result Comment: Cut-off concentrations: Amphetamines: 1000 [...] to oldest [Reference Range]: 1 UA Color Straw (06/27/16 5:12 AM) UA Appear Clear (06/27/16 5:12 AM) UA pH [5.0-8.0] 5.0 (06/27/16 5:12 AM) UA Leuk Est [Negative] Negative (06/27/16 5:12 AM) UA Nitrite [Negative] Negative (06/27/16 5:12 AM) UA Protein [Negative] Pos 2+ *ABN* (06/27/16 5:12 AM) UA Glucose [Negative] Pos 3+ *ABN* (06/27/16 5:12 AM) UA Ketones [Negative] Pos 1+ *ABN* (06/27/16 5:12 AM) UA Urobilinogen [<1.0] Negative (06/27/16 5:12 AM) UA Bili [Negative] Negative (06/27/16 5:12 AM) UA Blood [Negative] Pos 1+ *ABN* (06/27/16 5:12 AM) UA Spec Grav [1.003-1.030] 1.020 (06/27/16 5:12 AM) Type Clean Catch (06/27/16 5:12 AM) UA WBC [0-4] 2-5 (06/27/16 5:12 AM) UA RBC [0-2] 0-2 (06/27/16 5:12 AM) Epithelial Cells 0-2 (06/27/16 5:12 AM) UA Bacteria Occasional *ABN* (06/27/16 5:12 AM) UA Mucous Present (06/27/16 5:12 AM) Immunizations Given and Recorded Vaccine Date Status [...] and Plan No data available for this section"
--- OUTSIDE RECORDS SUMMARY | 2017-04-20 19:39 | External Medical Summary ---
[...] Medications Results No Known Results Summary Purpose [employer] Submission
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
--- OUTSIDE RECORDS SUMMARY | 2017-04-20 19:39 | External Medical Summary | Referral Summary ---
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, type I [juvenile type] , uncontrolled Final: Dehydration Final: ABDOMINAL PAIN, UNSPECIFIED SITE Discharge Diagnosis: Uncontrolled diabetes mellitus Discharge Disposition: 01-Home or Self Care Attending Physician: Iain Ahumada MD Admitting Physician: Iain Ahumada MD Referring Physician: Self Referred, X Vital Signs Most recent to oldest [Reference Range]: 1 Temperature Oral [35.8-37.3 degC] 36.3 degC (10/18/14 8:38 AM) Peripheral Pulse Rate [60-100 bpm] 110 bpm *HI* (10/18/14 1:22 PM) Heart Rate Monitored [60-100 bpm] 103 bpm *HI* (10/18/14 1:01 PM) Respiratory Rate [14-20 br/min] 16 br/min (10/18/14 1:22 PM) Blood Pressure [90-140/60-90 mmHg] 126/96 mmHg (10/18/14 1:22 PM) SpO2 98 % (10/18/14 1:22 PM) Problem List Condition Effective Dates Status [...] initiation of Risk for Injury Plan of [id number] updated automatically by system based on initiation of At Risk for Unstable Blood Glucose Plan of [id number] updated automatically by system based on initiation of At Risk for Unstable Blood Glucose Plan of Tkew9Oksgvzi added automatically by system based on initiation of At Risk for Unstable Blood Glucose Planof [id number] added by Discern [id number] updated automatically by system based on initiation of Fluid Volume Imbalance Plan of [id number] added automatically by system based on initiation of Fluid Volume Imbalance Plan of [id number] added automatically by system based on initiation of Impaired Skin Integrity Plan of [id number] updated automatically by system based on initiation of Knowledge Deficit Plan of [id number] added automatically by system based on initiation of Knowledge Deficit Plan of [id number] updated automatically by system based on initiation of Tissue Perfusion Cerebral Plan of Fwzx95Erzgiug added automatically by system based on initiation [...] Daily, 0 Refill(s) Start Date: 12/31/14 Status: OrderedLevemir 20 units, SubCutaneous, Bedtime (once [...] oldest [Reference Range]: 1 WBC [4.8-10.8 10*3/uL] 7.3 10*3/uL (10/18/14 10:29 AM) RBC [4.00-5.20 10*6/uL] 4.71 10*6/uL (10/18/14 10:29 AM) Hgb [12.0-16.0 gm/dL] 14.2 gm/dL (10/18/14 10:29 AM) Hct [37.0-47.0 %] 41.8 % (10/18/14 10:29 AM) MCV [82.0-99.0 fL] 88.7 fL (10/18/14 10:29 AM) MCH [27.0-32.0 pg] 30.1 pg (10/18/14 10:29 AM) MCHC [32.0-36.0 gm/dL] 34.0 gm/dL (10/18/14 10:29 AM) RDW [11.5-14.5 %] 12.3 % (10/18/14 10: AM) Platelet [150-400 10*3/uL] 246 10*3/uL (10/18/14 10:29 AM) MPV [9.4-12.4 fL] 11.0 fL (10/18/14: AM) Immature Granulocytes [0.0-1.0 %] 0.1 % (10/18/14: AM) Neutrophils [51-75 %] 68 % (10/18/14: AM) Lymphocytes [20-46 %] 24 % (10/18/14: AM) Monocytes [4-11 %] 4 % (10/18/14: AM) Eosinophils [0-4 %] 4 % (10/18/14: AM) Basophils [0-2 %] 1 % (10/18/14: AM) Neutro Absolute [1.90-7.00 THOUS] 4.97 THOUS (10/18/14 10:29 AM) Lymph Absolute [0.80-3.30 THOUS] 1.72 THOUS (10/18/14 10:29 AM) [place] Absolute [0.30-1.00 THOUS] 0.31 THOUS (10/18/14 10:29 AM) Eos Absolute [0.00-0.50 THOUS] 0.28 THOUS (10/18/14 10:29 AM) Baso Absolute [0.00-0.20 THOUS] 0.04 THOUS (10/18/14:29 AM) Nucleated RBC Automated [0 /100 WBC] 0.0 /100 WBC (10/18/14:29 AM) Chemistry Most recent to oldest [Reference Range]: 1 Sodium Lvl [136-144 mEq/L] 127 mEq/L *LOW* (10/18/14 10:29 AM) Potassium Lvl [3.6-5.1 mEq/L] 4.6 mEq/L (10/18/14 10:29 AM) Chloride [99-109 mEq/L] 94 mEq/L *LOW* (10/18/14: AM) CO2 [22-32 mEq/L] 23 mEq/L (10/18/14 10:29 AM) AGAP [3-20] 10 (10/18/14 10:29 AM) BUN [4-20 mg/dL] 15 mg/dL (10/18/14 10:29 AM) Glucose Lvl [70-100 mg/dL] 733 mg/dL 1 *HHI* (10/18/14 10:29 AM) Creatinine Lvl [0.44-1.03 mg/dL] 0.55 mg/dL (10/18/14 10:29 AM) eGFR [>60] >60 2 (10/18/14 10:29 AM) Calcium Lvl [8.6-10.0 mg/dL] 9.6 mg/dL (10/18/14 10:29 AM) Albumin Lvl [3.5-4.8 gm/dL] 3.7 gm/dL (10/18/14 10:29 AM) Total Protein [6.1-7.9 gm/dL] 6.8 gm/dL (10/18/14 10:29 AM) Globulin [1.9-4.3 gm/dL] 3.1 gm/dL (10/18/14 10:29 AM) ALT [14-54 U/L] 52 U/L (10/18/14 10:29 AM) AST [15-41 U/L] 32 U/L (10/18/14 10:29 AM) Alk Phos [26-104 U/L] 71 U/L (10/18/14 10:29 AM) Bili Total [0.2-1.2 mg/dL] 0.3 mg/dL 3 (10/18/14 10:29 AM) Blood Glucose, Capillary [74-106 mg/dL] 397 mg/dL *HI* (10/18/14 11:45 AM) 1Result Comment: Critical value called, and read-back verified. Called to Salomón oTrres RN ER 10/18/2014 11:262Result Comment: Multiply eGFR results by 1.21 for race.3Result Comment: Naproxen, specifically the metabolite O- desmethylnaproxen, may cause spurious elevation in Total Bilirubin levels.Urinalysis Most recent to oldest [Reference Range]: 1 UA Color Lt Yellow (10/18/14 10:29 AM) UA Appear Clear (10/18/14 10:29 AM) UA pH [5.0-8.0] 5.0 (10/18/14 10:29 AM) UA Leuk Est [Negative] Negative (10/18/14 10:29 AM) UA Nitrite [Negative] Negative (10/18/14 10:29 AM) UA Protein [Negative] Negative (10/18/14 10:29 AM) UA Glucose [Negative] Pos 3+ *ABN* (10/18/14 10:29 AM) UA Ketones [Negative] Negative (10/18/14 10:29 AM) UA Urobilinogen [<1.0] Negative (10/18/14 10:29 AM) UA Bili [Negative] Negative (10/18/14 10:29 AM) UA Blood [Negative] Negative (10/18/14 10:29 AM) UA Spec Grav [1.003-1.030] 1.034 *HI* (10/18/14 10:29 AM) Type Clean Catch (10/18/14 10:29 AM) Immunizations Vaccine Date Refusal Reason hepatitis [...]
--- OUTSIDE RECORDS SUMMARY | 2017-04-20 19:39 | External Medical Summary ---
[...] M25.551 Active Problem Gastritis K29.70 Active Medications Medication Code System Code Instructions Start End Date Status Dosage Date Albuterol [facility] 00862-125 108 (90 Base) 2 puffs as Sulfate HFA 2-01 MCG/ACT needed Inhalation every 4 hrs Results No Known Results Summary Purpose eClinicalWorks Submission
--- OUTSIDE RECORDS SUMMARY | 2017-04-20 19:47 | External Medical Summary ---
:1985 [facility] Care Team Providers Name Role Phone Laura [...] Active Problem Right hip pain M25.551 Active Assessment Pubic ramus fracture S32.509A Active Problem Dyspnea R06.00 Active Problem Musculoskeletal pain of right M79.604 Active lower extremity Problem Smokes cigarettes F17.210 Active Medications Medication Code Code Instructions Start End Status Dosage System Date Date Hydrocodone-Acetam [facility] 34009-41 5-300 MG Orally Jul 03, 1 tablet inophen 50-01 every 6 hrs 2015 [place] [address]-31 5 MG Orally Once 1 tablet 66-01 [place] [address]-58 Orally not 540 [place] [address]-86 10 MG [place]ally qid 1 [place] [address]-12 Orally Once a 1 packet - day mixed with 8 [place] of [place] [address]-18 50 MCG/ACT Jun 29, 1 spray in Propionate 70-99 Nasally Once a 2016 [place] [address]-60 1 MG Orally Once 1 tablet 07-19 [place] [address]-10 325 (65 Fe) MG 1 tablet 28-01 Orally Once a day Levemir Flexpen NDC 0 100 UNIT/ML 15 units [place] [address]-94 100 UNIT/ML 10 units 39-10 Subcutaneous Three times daily [place] [address]-02 108 (90 Base) 2 puffs as HFA 32-01 MCG/ACT needed Inhalation every 4 hrs Multi Vitamin NDC 60084-16 Orally Once a 1 tablet Daily 301 [place] [address]-65 5 MG Orally not 26-60 [place] [address]-46 100 MG Orally 1 tablet 80-05 Once a day Results No Known Results Summary Purpose eClinicalWorks Submission
--- OUTSIDE RECORDS SUMMARY | 2017-04-20 19:48 | External Medical Summary | Continuity of Care Document ---
:1985 Author Organization Via [facility] in [place] Allergies Active Description Code Type Severity Reaction Onset Reported/ Identified Relationship Clinical to Patient Status Yes Amoxicillin Drug Unknown 10/20/2011 Aller gy Yes Amoxicillin Drug N/A Unknown 10/20/2011 Aller gy Yes Macrobid Drug unknown 10/20/2011 Aller gy Yes Macrobid Drug N/A unknown 10/20/2011 Aller gy Yes morphine Drug unknown 10/20/2011 Aller gy Yes morphine Drug N/A unknown 10/20/2011 Aller gy Yes Motrin Drug Adverse 03/09/2012 Aller Reaction gy Yes Motrin Drug N/A Adverse 03/09/2012 Aller Reaction gy Yes Apple Misce N/A Adverse 03/22/2013 llane Reaction ous /Adverse Aller Reaction gy Yes simvastatin Drug N/A Adverse 03/22/2013 Aller Reaction gy Yes No Allergy Drug N/A N/A 06/03/2013 Information Aller gy Yes Bactrim Drug Severe Anaphylax 06/16/2013 Aller is gy Yes Amoxicillin Amoxi Drug Unknown HIVES 12/25/2013 cilli Aller n gy Yes ibuprofen ibupr Drug Unknown DOCTOR 12/25/2013 ofen Aller TOLD NOT gy TO TAKE Yes morphine morph Drug Unknown RASH 12/25/2013 ine Aller gy Yes nitrofuranto nitro Drug Unknown UNK 12/25/2013 in furan Aller toin gy Yes Nitrofuranto Nitro Drug Unknown UNK 12/25/2013 in furan Aller Macrocrystal toin gy Macro cryst al Yes Penicillins Penic Drug Unknown . 12/25/2013 illin Aller s gy Yes Sulfa Sulfa Drug Unknown UNKNOWN 12/25/2013 (Sulfonamide (Sulf Aller Antibiotics) onami gy de Antib iotic s) Yes ibuprofen ibupr Drug Unknown DOCTOR 12/25/2013 ofen Aller TOLD NOT gy TO TAKE Yes morphine morph Drug Unknown RASH 12/25/2013 ine Aller gy Yes Penicillins Penic Drug Unknown . 12/25/2013 illin Aller s gy Yes simvastatin simva Drug Severe INCREASED 03/21/2014 stati Aller LFTs n gy Yes simvastatin simva Drug Severe INCREASED 03/21/2014 stati Aller LFTs n gy Yes Nitrofuranto Nitro Drug Severe LIVER 05/09/2014 in furan Aller FAILURE Macrocrystal toin gy Macro cryst al Yes Sulfa Sulfa Drug Severe ANAPHALAC 05/09/2014 (Sulfonamide (Sulf Aller TIC Antibiotics) onami gy de Antib iotic s) Yes amoxicillin amoxi Drug Moderate HIVES 05/09/2014 cilli Aller n gy Medications Problems Date Dx Attending Type Code Diagnosis Diagnosed By Coded 03/09/2012 Heidi FLOOD, Final 250.00 DM2/NOS UNCOMP NSU Elmer 03/09/2012 Heidi FLOOD, Final 305.1 TOBACCO USE DISORDER Elmer 03/09/2012 Heidi FLOOD, 724.2 LUMBAGO [facility] 03/09/2012 Heidi FLOOD, Final 922.31 CONTUSION OF BACK [facility] 03/09/2012 Heidi FLOOD, Admitting 959.19 TRUNK INJURY [facility] 03/09/2012 Heidi FLOOD, External E000.8 EXT CAUSE STATUS NEC [facility] 03/09/2012 Heidi FLOOD, External E029.9 ACTIVITY NEC [facility] 03/09/2012 Heidi FLOOD, External E849.0 HOME ACCIDENTS Elmer 03/09/2012 Heidi FLOOD, External E885.9 FALL FROM TRIPPING [facility] 05/22/2012 Wilbert Ferguson MD Final 250.13 DM1 W KETOACIDOSIS N [facility] 05/22/2012 Wilbert Ferguson MD Final 276.51 DEHYDRATION N 05/22/2012 Wilbert Ferguson MD Final 276.8 HYPOPOTASSEMIA N 05/22/2012 Wilbert Ferguson MD Final 296.20 MDD ONE EPIS-NOS N 05/22/2012 Wilbert Ferguson MD Final 305.00 ALCOHOL ABUSE-UNSPEC N 05/22/2012 Wilbert Ferguson MD Final 309.81 POSTTRAUMATIC STRESS N DIS 05/22/2012 Wilbert Ferguson MD Final 345.90 EPILEPSY NOS W/O N INTRACT 05/22/2012 Wilbert Ferguson MD Final 348.30 ENCEPHALOPATHY NOS N 05/22/2012 Wilbert Ferguson MD Final 424.0 MITRAL VALVE N DISORDER 05/22/2012 Wilbert Ferguson MD Final 584.9 ACUTE KIDNEY FAILURE N NOS 05/22/2012 Wilbert Ferguson MD Admitting 787.01 NAUSEA W VOMITING N 07/04/2012 Nam FLOOD, F 250.01 DIAB FANNY WO COMPL, Renu R TYPE I [JUVENILE TYPE], NOT UN 07/04/2012 Nam FLOOD, F 272.4 HYPERLIPIDEMIA Renu R NEC/NOS 07/04/2012 Nam FLOOD, F 276.1 HYPOSMOLALITY Renu R 07/04/2012 Nam FLOOD, F 276.7 HYPERPOTASSEMIA Renu R 07/04/2012 Nam FLOOD, F 296.80 BIPOLAR DISORDER, Renu R UNSPECIFIED 07/04/2012 Nam FLOOD, F 305.1 TOBACCO USE DISORDER Renu R 07/04/2012 Nam FLOOD, F 309.81 POSTTRAUMATIC STRESS Renu R DISORDER 07/04/2012 Nam FLOOD, F 493.90 ASTHMA, UNSPECIFIED Renu R 07/04/2012 Nam FLOOD, F 530.81 ESOPHAGEAL REFLUX Renu R 07/04/2012 Nam FLOOD, F 553.3 DIAPHRAGMATIC HERNIA Renu R 07/04/2012 Nam FLOOD, F V14.0 HX-PENICILLIN Renu R ALLERGY 07/04/2012 Nam FLOOD, F V14.5 HX-NARCOTIC ALLERGY Renu R 07/04/2012 Nam FLOOD, F V14.6 HX-ANALGESIC ALLERGY Renu R 07/04/2012 Nam FLOOD, F V58.67 LONG-TERM (CURRENT) Renu R USE OF INSULIN 08/12/2012 Dannie Gillette MD F 250.13 DIAB W KETOACIDOSIS, D TYPE I [JUVENILE TYPE], UNCON 08/12/2012 Dannie Gillette MD F 250.63 DIAB W NEURO D MANIFEST, TYPE I [JUVENILE TYPE], [facility] 08/12/2012 Dannie Gillette MD F 272.4 HYPERLIPIDEMIA D NEC/NOS 08/12/2012 Dannie Gillette MD F 276.1 HYPOSMOLALITY D 08/12/2012 Dannie Gillette MD F 280.9 IRON DEFIC ANEMIA D NOS 08/12/2012 Dannie Gillette MD F 296.80 BIPOLAR DISORDER, D UNSPECIFIED 08/12/2012 Dannie Gillette MD F 305.1 TOBACCO USE DISORDER D 08/12/2012 Nain MD, Dannie F 309.81 POSTTRAUMATIC STRESS D DISORDER 08/12/2012 Nain FLOOD, Dannie F 382.9 OTITIS MEDIA NOS D 08/12/2012 Nain FLOOD, Dannie F 424.0 MITRAL VALVE D DISORDER 08/12/2012 Nain FLOOD, Dannie F 493.90 ASTHMA, UNSPECIFIED D 08/12/2012 Nain FLOOD, Dannie F 530.81 ESOPHAGEAL REFLUX D 08/12/2012 Nain FLOOD, Dannie F 536.3 GASTROPARESIS D 08/22/2012 Jonny FLOOD, Final 250.13 DM1 W KETOACIDOSIS Johanna L [facility] 08/22/2012 Jonny FLOOD, Final 276.51 DEHYDRATION Johanna L 08/22/2012 Jonny FLOOD, Final 276.8 HYPOPOTASSEMIA Johanna L 08/22/2012 Jonny FLOOD, Final 296.20 MDD ONE EPIS-NOS Johanna L 08/22/2012 Jonny FLOOD, Final 309.81 POSTTRAUMATIC STRESS Johanna L DIS 08/22/2012 Jonny FLOOD, Final 345.90 EPILEPSY NOS W/O Johanna L INTRACT 08/22/2012 Jonny FLOOD, Final 349.82 TOXIC ENCEPHALOPATHY Johanna L 08/22/2012 Jonny FLOOD, Final 424.0 MITRAL VALVE Johanna L DISORDER 08/22/2012 Jonny FLOOD, Final V15.81 HX NONCOMPLIANCE MED Johanna L [place] 11/01/2012 Jonny FLOOD, Admitting 250.13 DM1 W KETOACIDOSIS Johanna L [facility] 11/01/2012 Jonny FLOOD, Final 250.63 DM1 W NEURO MANIFEST Johanna L [facility] 11/01/2012 Jonny FLOOD, Final 250.83 DM1 W MANIFEST NEC Johanna L [facility] 11/01/2012 Jonny FLOOD, Final 276.1 HYPOSMOLALITY Johanna L 11/01/2012 Jonyn FLOOD, Final 522.5 PERIAPICAL ABSCESS Johanna L 11/01/2012 Jonny FLOOD, Final 536.3 GASTROPARESIS Johanna L 11/20/2012 Marlyn Rahman MD Admitting 250.03 DM1 UNCOMP [facility] [place] 11/20/2012 Josiah FLOOD, Marlyn Final 250.63 DM1 W NEURO MANIFEST [place]ell [facility] 11/20/2012 Josiah FLOOD, Marlyn Final 296.20 MDD ONE EPIS-NOS [place] 11/20/2012 Marlyn Rahman MD Final 380.10 INF OTITIS EXTERNA [place] NOS 11/20/2012 Marlyn Rahman MD Final 536.3 GASTROPARESIS [place] 11/20/2012 Marlyn Rahman MD Final V15.81 HX NONCOMPLIANCE MED [place] 01/06/2013 Cornelio Patricio DO Final 250.92 DM2/NOS W COMP NOS E [facility] 01/06/2013 Cornelio Patricio DO Final 305.1 TOBACCO USE DISORDER E 01/06/2013 Cornelio Patricio DO Final 311 DEPRESSIVE DISORDER E NEC 01/06/2013 Cornelio Patricio DO Final 493.90 ASTHMA NOS E 01/06/2013 Cornelio Patricio DO Final 522.5 PERIAPICAL ABSCESS E 01/06/2013 Cornelio Patricio DO Admitting 790.29 ABNORMAL GLUCOSE NEC E 03/15/2013 Brandyn FLOOD, Final 250.00 DM2/NOS UNCOMP NSU Iain S 03/15/2013 Brandyn FLOOD, Final 305.1 TOBACCO USE DISORDER Iain S 03/15/2013 Brandyn FLOOD, Final 682.0 FACE CELLULITIS Iain S 03/15/2013 Brandyn FLOOD, Final 784.2 SWELLING IN HEAD Iain S NECK 03/22/2013 Nancy FLOOD, Final 041.00 STREP INFECTION NOS Zuri L 03/22/2013 Nancy FLOOD, Final 112.2 CANDIDIASIS NEC Zuri L 03/22/2013 Nancy FLOOD, Final 250.23 DM1 HYPEROSMOLARITY Zuri L [facility] 03/22/2013 Nancy FLOOD, Final 250.63 DM1 W NEURO MANIFEST Zuri L [facility] 03/22/2013 Nancy FLOOD, Final 250.83 DM1 W MANIFEST NEC Zuri L [facility] 03/22/2013 Nancy FLOOD, Final 276.1 HYPOSMOLALITY Zuri L 03/22/2013 Nancy FLOOD, Final 276.8 HYPOPOTASSEMIA Zuri L 03/22/2013 Nancy FLOOD, Final 305.90 DRUG ABUSE Zuri L NEC-UNSPEC 03/22/2013 Nancy FLOOD, Final 309.81 POSTTRAUMATIC STRESS Zuri L DIS 03/22/2013 Nancy FLOOD, Final 424.0 MITRAL VALVE Zuri L DISORDER 03/22/2013 Nancy FLOOD, Final 493.90 ASTHMA NOS Zuri L 03/22/2013 Nancy FLOOD, Final 521.00 DENTAL CARIES NOS Zuri L 03/22/2013 Nancy FLOOD, Final 522.5 PERIAPICAL ABSCESS Zuri L 03/22/2013 Nancy FLOOD, Final 536.3 GASTROPARESIS Zuri L 03/22/2013 Nancy FLOOD, Final 682.0 FACE CELLULITIS Zuri L 03/22/2013 Nancy FLOOD, Final 780.39 OTHER CONVULSIONS Zuri L 06/03/2013 Cornelio Patricio DO Final 250.00 DM2/NOS UNCOMP NSU E 06/03/2013 Cornelio Patricio DO Final 276.51 DEHYDRATION E 06/03/2013 Cornelio Patricio DO Final 296.80 BIPOLAR DISORDER NOS E 06/03/2013 Cornelio Patricio DO Final 305.1 TOBACCO USE DISORDER E 06/03/2013 Cornelio Ptaricio DO Final 465.9 ACUTE URI NOS E 06/03/2013 Cornelio Patricio DO 478.19 NASAL SINUS DIS E NEC 06/03/2013 Cornelio Patricio DO Final 493.90 ASTHMA NOS E 06/03/2013 Cornelio Patricio DO Admitting 786.2 COUGH E 06/11/2013 Lane FLOOD, Final 250.01 DM1 UNCOMP NSU Hernandez 06/11/2013 Lane FLOOD, Final 682.6 LEG CELLULITIS Hernandez 06/11/2013 Lane FLOOD, Admitting 709.9 SKIN DISORDER NOS Hernandez 06/16/2013 Carlos FLOOD, Final 041.09 STREP INFECTION NEC Alma M 06/16/2013 Carlos FLOOD, Final 250.63 DM1 W NEURO MANIFEST Alma M [facility] 06/16/2013 Carlos FLOOD, Final 275.2 DISORD MAGNESIUM Alma M METABOL 06/16/2013 Carlos FLOOD, Final 276.8 HYPOPOTASSEMIA Alma M 06/16/2013 Carlos FLOOD, Final 296.80 BIPOLAR DISORDER NOS Alma M 06/16/2013 Carlos FLOOD, Final 305.1 TOBACCO USE DISORDER Alma M 06/16/2013 Carlos FLOOD, Final 309.81 POSTTRAUMATIC STRESS Alma M DIS 06/16/2013 Carlos FLOOD, Final 345.90 EPILEPSY NOS W/O Alma M INTRACT 06/16/2013 Carlos FLOOD, Final 493.90 ASTHMA NOS Alma M 06/16/2013 Carlos FLOOD, Final 518.81 AC RESPIRATORY Alma M FAILURE 06/16/2013 Carlos FLOOD, Final 536.3 GASTROPARESIS Alma M 06/16/2013 Carlos FLOOD, Final 682.2 TRUNK CELLULITIS Alma M 06/16/2013 Carlos FLOOD, Final 995.0 OTH ANAPHYLACTIC RXN Alma M 06/16/2013 Carlos FLOOD, External E931.0 ADV EFF SULFONAMIDES Alma M 08/28/2013 Josiah FLOOD, Sarva Final 041.49 E. COLI INFECT NEC [place] NOS 08/28/2013 Josiah FLOOD, Sarva Admitting 250.03 DM1 UNCOMP [facility] [place] 08/28/2013 Josiah FLOOD, Sarva Final 250.21 DM1 HYPEROSMOLARITY [place] NSU 08/28/2013 Josiah FLOOD, Sarva Final 250.61 DM1 W NEURO MANIFEST [place] NSU 08/28/2013 Josiah FLOOD, Sarva Final 276.1 HYPOSMOLALITY [place] 08/28/2013 Josiah FLOOD, Sarva Final 276.7 HYPERPOTASSEMIA [place] 08/28/2013 Josiah FLOOD, Sarva Final 296.20 MDD ONE EPIS-NOS [place] 08/28/2013 Josiah FLOOD, Sarva Final 296.80 BIPOLAR DISORDER NOS [place] 08/28/2013 Josiah FLOOD, Sarva Final 305.1 TOBACCO USE DISORDER [place] 08/28/2013 Josiah FLOOD, Sarva Final 345.90 EPILEPSY NOS W/O [place] INTRACT 08/28/2013 Josiah FLOOD, Sarva Final 424.0 MITRAL VALVE [place] DISORDER 08/28/2013 Josiah FLOOD, Sarva Final 493.90 ASTHMA NOS [place] 08/28/2013 Josiah FLOOD, Sarva Final 536.3 GASTROPARESIS [place] 08/28/2013 Josiah FLOOD, Sarva Final 599.0 URINARY TRACT INF [place] NOS 08/28/2013 Josiah FLOOD, Sarva Final V15.81 HX NONCOMPLIANCE MED [place] 08/28/2013 Josiah FLOOD, Sarva Final V45.85 INSULIN PUMP STATUS [place] 10/07/2013 Guillermo FLOOD, Final 250.00 DM2/NOS UNCOMP NSU Abbe Y 10/07/2013 Guillermo FLOOD, Final 345.90 EPILEPSY NOS W/O Abbe Y INTRACT 10/07/2013 Guillermo FLOOD, Final 493.90 ASTHMA NOS Abbe Y 10/07/2013 Guillermo FLOOD, Final 590.80 PYELONEPHRITIS NOS Abbe Y 10/07/2013 Guillermo FLOOD, Admitting 788.41 URINARY FREQUENCY Abbe Y 10/07/2013 Guillermo FLOOD, Final 791.5 GLYCOSURIA Abbe Y 10/07/2013 Guillermo FLOOD, Final V58.67 LONG-TERM INSULIN Abbe Y USE 10/15/2013 Roya FLOOD, Final 079.99 VIRAL INFECTION NOS Ken S 10/15/2013 Roya FLOOD, Final 250.00 DM2/NOS UNCOMP NSU Ken S 10/15/2013 Roya FLOOD, Final 296.80 BIPOLAR DISORDER NOS Ken S 10/15/2013 Roya FLOOD, Final 305.1 TOBACCO USE DISORDER Ken S 10/15/2013 Roya FLOOD, Final 424.0 MITRAL VALVE Ken S DISORDER 10/15/2013 Roya FLOOD, Final 462 ACUTE PHARYNGITIS Ken S 10/15/2013 Roya FLOOD, Admitting 787.02 NAUSEA ALONE Ken S 11/06/2013 Carlos FLOOD, Final 250.23 DM1 HYPEROSMOLARITY Alma M [facility] 11/06/2013 Carlos FLOOD, Final 276.1 HYPOSMOLALITY Alma M 11/06/2013 Carlos FLOOD, Final 276.8 HYPOPOTASSEMIA Alma M 11/06/2013 Carlos FLOOD, Final 424.0 MITRAL VALVE Alma M DISORDER 11/06/2013 Carlos FLOOD, Final 493.90 ASTHMA NOS Alma M 11/06/2013 Carlos FLOOD, Final 787.01 NAUSEA W VOMITING Alma M 11/06/2013 Carlos FLOOD, Final 789.00 ABDOMINAL PAIN-SITE Alma M NOS 11/06/2013 Carlos FLOOD, Final V15.81 HX NONCOMPLIANCE MED Alma M [place] 11/15/2013 Jesus FLOOD, Princess F 250.13 DIAB W KETOACIDOSIS, M TYPE I [JUVENILE TYPE], UNCON 11/15/2013 Princess Lee MD F 276.1 HYPOSMOLALITY M 11/15/2013 Princess Lee MD F 276.7 HYPERPOTASSEMIA M 11/15/2013 Princess Lee MD F 280.9 IRON DEFIC ANEMIA M NOS 11/15/2013 Princess Lee MD F 296.80 BIPOLAR DISORDER, M UNSPECIFIED 11/15/2013 Princess Lee MD F 305.1 TOBACCO USE DISORDER M 11/15/2013 Jesus FLOOD, Princess F 305.70 AMPHETAMINE M ABUSE-UNSPEC 11/15/2013 Jesus FLOOD, Princess F 309.81 POSTTRAUMATIC STRESS M DISORDER 11/15/2013 Jesus FLOOD, Princess F 345.90 EPILEPSY UNSPEC W/O M MENTION INTRACTABLE EPILEPSY 11/15/2013 Jesus FLOOD, Princess F 346.90 MIGRAINE UNSPECIFIED M W/O INTRACT MGRN W/O STATUS M 11/15/2013 Jesus FLOOD, Princess F 424.0 MITRAL VALVE M DISORDER 11/15/2013 Jesus FLOOD, Princess F 493.90 ASTHMA, UNSPECIFIED M 11/15/2013 Jesus FLOOD, Princess F 530.81 ESOPHAGEAL REFLUX M 11/15/2013 Princess Lee MD F 787.01 NAUSEA WITH VOMITING M 11/15/2013 Jesus FLOOD, Princess F 789.09 ABDOMINAL PAIN, M OTHER SPECIFIED SITE 11/15/2013 Jesus FLOOD, Princess F V14.0 HX-PENICILLIN M ALLERGY 11/15/2013 Princess Lee MD V14.2 HX-SULFONAMIDES M ALLERGY 11/15/2013 Princess Lee MD F V14.6 HX-ANALGESIC ALLERGY M 11/15/2013 Jesus FLOOD, Princess F V58.67 LONG-TERM (CURRENT) M USE OF INSULIN 12/03/2013 Husam FLOOD, F 250.13 DIAB W KETOACIDOSIS, John D TYPE I [JUVENILE TYPE], UNCON 12/03/2013 Husam FLOOD, F 276.1 HYPOSMOLALITY John D 12/03/2013 Husam FLOOD, F 276.8 HYPOPOTASSEMIA John D 12/03/2013 Husam FLOOD, F 285.9 ANEMIA NOS John D 12/03/2013 Husam FLOOD, F 296.80 BIPOLAR DISORDER, John D UNSPECIFIED 12/03/2013 Husam FLOOD, F 305.1 TOBACCO USE DISORDER John D 12/03/2013 Husam FLOOD, F 345.90 EPILEPSY UNSPEC W/O John D MENTION INTRACTABLE EPILEPSY 12/03/2013 Husam FLOOD, F 346.90 MIGRAINE UNSPECIFIED John D W/O INTRACT MGRN W/O STATUS M 12/03/2013 Husam FLOOD, F 493.90 ASTHMA, UNSPECIFIED John D 12/03/2013 Husam FLOOD, F 530.81 ESOPHAGEAL REFLUX John D 12/03/2013 Husam FLOOD, A 787.01 NAUSEA WITH VOMITING John D 12/03/2013 Husam FLOOD, F V14.0 HX-PENICILLIN John D ALLERGY 12/03/2013 Husam FLOOD, F V14.1 HX-ANTIBIOT ALLERGY John D NEC 12/03/2013 Husam FLOOD, F V14.2 HX-SULFONAMIDES John D ALLERGY 12/03/2013 Husam FLOOD, F V14.5 HX-NARCOTIC ALLERGY John D 12/03/2013 Husam FLOOD, F V14.8 HX-DRUG ALLERGY NEC John D 12/03/2013 Husam FLOOD, F V58.67 LONG-TERM (CURRENT) John D USE OF INSULIN 03/20/2014 Apryl FLOOD, Lynn F 250.21 DIAB W T HYPEROSMOLARITY, TYPE I [JUVENILE TYPE], NO 03/20/2014 Apryl FLOOD, Lynn F 272.4 HYPERLIPIDEMIA T NEC/NOS 03/20/2014 Apryl FLOOD, Lynn F 275.2 DIS MAGNESIUM T METABOLISM 03/20/2014 Apryl FLOOD, Lynn F 276.1 HYPOSMOLALITY T 03/20/2014 Apryl FLOOD, Lynn F 276.8 HYPOPOTASSEMIA T 03/20/2014 Apryl FLOOD, Lynn F 296.80 BIPOLAR DISORDER, T UNSPECIFIED 03/20/2014 Apryl FLOOD, Lynn F 305.00 ALCOHOL ABUSE-UNSPEC T 03/20/2014 Apryl FLOOD, Lynn F 305.1 TOBACCO USE DISORDER T 03/20/2014 Apryl FLOOD, Lynn F 309.81 POSTTRAUMATIC STRESS T DISORDER 03/20/2014 Apryl FLOOD, Lynn F 424.0 MITRAL VALVE T DISORDER 03/20/2014 Apryl FLOOD, Lynn F 493.90 ASTHMA, UNSPECIFIED T 03/20/2014 Apryl FLOOD, Lynn F 530.81 ESOPHAGEAL REFLUX T 03/20/2014 Apryl FLOOD, Lynn F 536.3 GASTROPARESIS T 03/20/2014 Apryl FLOOD, Lynn F 780.39 OTHER CONVULSIONS T Procedures Code Description Performed By Performed On SURG Nataliya MENENDEZ, Cole 03/21/2013 23.19 TOOTH EXTRACT NEC Tommy Nataliya MENENDEZ, J 03/21/2013 24.5 ALVEOLOPLASTY Tommy DRAIN Nataliya DDS, J 03/21/2013 27.0 FACE MOUTH FLOOR Tommy Encounters ACCT No. Visit Discharge Status Pt. Type Provider Facility Loc./Unit Complaint Date/Time [id number] 11/06/2013 11/07/2013 DIS Inpatient Chandab Via F4SE 0 02:43:00 17:54:00 , [facility] [id number] 10/15/2013 10/15/2013 DIS Emergency [place] Via [facility] 7 14:25:00 16:12:00 , [facility] [id number] 10/07/2013 10/07/2013 DIS Emergency Guillermo FLOOD, Via FERM 6 16:44:00 17:36:00 [facility] [id number] 08/26/2013 08/28/2013 DIS Inpatient Josiah FLOOD, Via F5SE 8 19:28:00 17:42:00 [facility] [id number] 06/16/2013 06/17/2013 DIS Inpatient Chandab Via F4CI 4 11:30:00 14:20:00 , [facility] [id number] 06/11/2013 06/11/[address] FLOOD, Via JERM 4 12:15:00 13:15:00 [facility] [id number] 06/03/2013 06/03/2013 DIS Emergency Sheng CHACKO, Via JERM 8 09:35:00 14:21:00 [facility] [id number] 03/21/2013 03/27/2013 DIS Inpatient Nancy Via F6SE 0 22:37:00 14:59:00 MD [facility] [id number] 03/15/2013 03/15/2013 DIS Emergency Brandyn FLOOD, Via JERM 4 15:49:00 21:23:00 [facility] [id number] 01/06/2013 01/07/2013 DIS Emergency Sheng CHACKO, Via FERM 5 20:11:00 00:19:00 [facility] [id number] 11/20/2012 11/22/2012 DIS Inpatient Josiah FLOOD, Via F8SW 3 02:15:00 14:56:00 [facility] [id number] 10/31/2012 11/02/2012 DIS Inpatient Jonny FLOOD, Via F4CT 0 19:22:00 18:43:00 [facility] [id number] 08/22/2012 08/25/2012 DIS Inpatient Jonny FLOOD, Via F8SW 8 03:54:00 17:59:00 [facility] [id number] 05/22/2012 05/24/2012 DIS Inpatient Marty FLOOD, Via F8SW 2 15:26:00 19:55:00 [facility] [id number] 03/09/2012 03/09/2012 DIS Emergency Heidi FLOOD, Via JERM 5 11:08:00 14:45:00 [facility] [id number] 01/20/2013 ACT Inpatient Asa FLOOD, Via J5IM 8 20:35:00 [facility] [id number] 03/20/2014 03/23/2014 DIS Inpatient Apryl FLOOD, Dannie Mejía10TN 90 07:10:00 11:08:00 [facility] [id number] 12/25/2013 12/25/2013 DIS Emergency Alonzo MejíaEDS 76 15:26:00 21:44:00 [facility] [id number] 12/03/2013 12/05/2013 DIS Inpatient Husam Mejía7TS 58 17:39:00 12:35:00 John FLOOD [facility] [id number] 11/15/2013 11/17/2013 DIS Inpatient Dannie Lee MD7TN 03 15:38:00 15:48:00 [facility] [id number] 08/12/2012 08/14/2012 DIS Inpatient Dannie Gillette MD10TN 20 20:40:00 12:25:00 [facility] [id number] 07/04/2012 07/05/2012 DIS Inpatient Nam MejíaIMU 75 19:30:00 21:00:[address] , [facility] [id number] 04/07/2017 Document 97 23:10:00 Registrat ion [id number] 04/06/2017 Document 59 21:35:00 Registrat ion [id number] 03/17/2017 Document 74 19:22:00 Registrat ion [id number] 03/03/2011 Inpatient 91 18:29:00 [id number] 04/08/2016 04/08/2016 DIS Leela Ball MD, Dannie PetersENDO 28 07:58:00 10:30:00 [facility] [id number] 04/07/2017 Document 81 19:49:00 Registrat ion
[2017-04-20] MEDS: NS 1,000 ML IV SCH ×2 (19:56→23:03)
--- NOTE | 2017-04-20 21:01 | Emergency Department Report ---
Abdominal Pain HPI - General Chief Complaint: Abdominal Pain Stated Complaint: Stomach/kidney pain Source: patient Mode of arrival: ambulatory Limitations: no limitations - History of Present Illness HPI narrative: 32yo woman presents to the ER for evaluation of N/V/Abd pain. Pt is well-known to this facility; in the past, she has presented in DKA with elevated BG - concern for intentional nonadherence vs inability to manage her own insulin. Some concern for drug-seeking behavior in the past. Has not been to this facility/ER in several months. MD complaint: abdominal pain Onset (ago): hour(s) Consistency: constant Location: diffuse Severity: moderate Severity scale (1-10): 7 Quality: cramping, aching Radiation: none Migration to: no migration Relieving factors: nothing Exacerbating factors: movement Context: history of similar episodes Associated symptoms: nausea, vomiting - Related Data Home Medications Medication Instructions Recorded Confirmed Folic Acid 1 mg PO DAILY #0 06/25/15 04/20/17 Sertraline HCl 200 mg PO DAILY #0 06/25/15 04/20/17 Albuterol Sulfate [Ventolin Hfa] 2 puff ORAL INH BID PRN #0 inhaler 12/04/1510/30 Insulin Aspart [Novolog] 10 unit SQ TIDWM #0 vial 12/04/15 04/20/17 Multivitamin [Multi-Day Vitamins] 1 tab PO DAILY #0 12/04/15 04/20/17 Vitamin B Complex [B Complex] 1 tab PO DAILY #0 12/04/15 04/20/17 Zolpidem Tartrate [Ambien] 5 mg PO HS #0 12/04/15 04/20/17 Insulin Detemir [Levemir] 20 unit SQ HS #0 12/31/15 04/20/17 Lisinopril 10 mg PO DAILY #0 02/16/16 04/20/17 Metoclopramide HCl 10 mg PO BID #0 02/16/16 04/20/17 Diazepam [Valium] 5 mg PO BID 04/20/17 04/20/17 Allergies Allergy/AdvReac Type Severity Reaction Status Date / Time Sulfa (Sulfonamide Allergy Severe HYPOTENSION Verified 04/20/17 19:08 Antibiotics) nitrofurantoin Allergy Intermediate "MY Verified 04/20/17 19:08 KIDNEYS SHUT DOWN" ibuprofen Allergy Mild Verified 04/20/17 19:08 morphine Allergy Mild ITCHING Verified 04/20/17 19:08 adhesive tape Allergy Unknown RASH Verified 04/20/17 19:08 amoxicillin Allergy Unknown HIVES Verified 04/20/17 19:08 Penicillins Allergy Unknown Verified 04/20/17 19:08 simvastatin Allergy Unknown Verified 04/20/17 19:08 sulfamethoxazole Allergy Unknown Verified 04/20/17 19:08 trimethoprim Allergy Unknown Verified 04/20/17 19:08 Apple Juice Allergy Unknown HIVES Uncoded 04/20/17 19:08 Review of Systems All systems: reviewed and negative except as stated Gastrointestinal: Reports: as per HPI, abdominal pain, nausea, vomiting. Denies : diarrhea, constipation, hematemesis, melena, hematochezia Endocrine: Reports: as per HPI, other (BG too high to measure). Denies: fatigue , heat or cold intolerance, polydipsia, polyuria PFSH Patient Stated Medical History Migraine Yes Seizures Yes: epilepsey, last seizure- a few years ago Hearing Loss Yes: left ear Hypertension Yes Asthma Yes Chronic Obstructive Pulmonary Yes Disease (COPD) Diabetes Mellitus Type 1 Yes Other GI Yes: gastroparesis Other Yes: hx of acute kidney failure Anemia Yes Bipolar Disorder Yes Depression Yes Post Traumatic Stress Disorder Yes - Social History Smoking status: Current every day smoker Physical Exam - Limitations Limitations: no limitations - General General appearance: alert, in no apparent distress - Normal Exams: Head:: Normocephalic without trauma Eyes:: Pupils are PERRLA w/ EOMI, No scleral icterus, irritation, or foreign bodies noted ENMT:: No facial trauma, nasal exudates, pharyngeal erythema, or exudates are noted Neck:: Full range of motion, without adenopathy Lymphatic:: No lymphadenopathy Musculoskeletal:: No tenderness, or deformity noted Integumentary:: No rashes, hives, or bruising noted Neurological:: Patient is alert, and oriented Psychiatric:: Patient exhibits, appropriate attention Course Vital Signs Pulse Rate 120 H 04/20/17 19:12 Respiratory Rate 18 04/20/17 19:12 Blood Pressure 159/91 H 04/20/17 19:12 Pulse Oximetry 96 04/20/17 19:12 Pulse Rate 115 H 04/20/17 20:30 Respiratory Rate 24 04/20/17 20:30 Blood Pressure 165/96 H 04/20/17 20:30 Pulse Oximetry 100 04/20/17 20:30 Abdominal Pain - MDM Narrative Medical decision making narrative: Pt is borderline DKA. Elevated lipase, hyponatremic, and elevated LFTs. BG decreased to 400's with IVF bolus and insulin bolus. Contacted hospitalist for further eval and treatment. - Differential Diagnosis Differential diagnosis: Likely: abdominal pain, constipation, diverticulitis, gastroenteritis, other (DKA), pancreatitis, small bowel obstruction - Medical Records Attestation: I reviewed the patient's medical records. - Lab Data Attestation: I reviewed the patient's lab results. Result diagrams: 04/20/17 19:46 04/20/17 19:46 Lab Results 04/20/17 04/20/17 04/20/17 Range/Units 19:18 19:46 19:46 WBC 7.0 (4.5-11.0) T/MM3 RBC 3.50 L (4.00-5.20) M/MM3 Hgb 10.7 L (12-16) GM/DL Hct 37.4 (36-46) % MCV 106.9 H (80-100) UM3 MCH 30.6 (26-34) UUG MCHC 28.6 L (31-37) GM/DL RDW Std Deviation 49.3 (36.9-50.2) FL Plt Count 337 (130-400) T/MM3 MPV 10.3 (9.4-12.4) UM3 Immature Gran % (Auto) 0.4 (0.0-0.5) % Neut % (Auto) 72.4 H (33-66) % Lymph % (Auto) 14.2 L (23-45) % [place] % (Auto) 6.8 (0-9.0) % Eos % (Auto) 5.5 H (0-4) % Baso % (Auto) 0.7 (0-2) % Neut # (Auto) 5.0 (1.8-7.7) T/MM3 Lymph # (Auto) 1.0 (1-4.8) T/MM3 [place] # (Auto) 0.5 (0-0.8) T/MM3 Eos # (Auto) 0.4 (0-0.5) T/MM3 Baso # (Auto) 0.1 (0-0.2) T/MM3 Abs Immat Gran (auto) 0.03 (0.00-0.03) T/MM3 Turbidity < 20 (0-20) Sodium 112 L* (134-144) MEQ/L Potassium 5.5 H (3.6-5) MEQ/L Chloride 80 L (98-107) MEQ/L Carbon Dioxide 18 L (22-30) MEQ/L Anion Gap 14 (5-15) MEQ/L BUN 32.0 H (7-17) MG/DL Creatinine 0.6 L (0.7-1.2) MG/DL GFR Calculation 116 BUN/Creatinine Ratio 53 H (6-26) RATIO Hemoglobin A1c 12.2 H (6.1-7.9) % Calculated Osmolality 300 H (261-280) MOSM/KG Calcium 8.7 (8.4-10.2) MG/DL Phosphorus 6.3 H (2.5-4.5) MG/DL Magnesium 2.0 (1.6-2.3) MG/DL Total Bilirubin 0.50 (0.20-1.30) MG/DL Icterus Index < 2 (0-7) AST 116 H (14-36) U/L ALT 145 H (9-52) U/L Alkaline Phosphatase 195 H (38-126) U/L Troponin I < 0.012 (0-0.12) ng/ml Total Protein 6.0 L (6.3-8.2) G/DL Albumin 3.3 L (3.5-5.0) G/DL Globulin 2.7 (2.4-3.6) G/DL Albumin/Globulin Ratio 1.2 (1.1-2.2) RATIO Lipase 514 H (23-300) U/L Specimen Hemolysis < 15 (0-25) Ur Collection Type Urine, clean catch Urine Color Yellow (YELLOW) Urine Clarity Clear Urine pH 5.0 (5.0-8.0) Ur Specific [place] <=1.005 L (1.015-1.025) Urine Protein Trace A (NEGATIVE) Urine Glucose (UA) 3+ A (NEGATIVE) Urine Ketones Trace A (NEGATIVE) Urine Occult Blood Trace-intact (NEGATIVE) Urine Nitrate Negative (NEGATIVE) Urine Bilirubin Negative (NEGATIVE) Urine Urobilinogen 0.2 (NORMAL) EU/DL Ur Leukocyte Esterase Negative (NEGATIVE) Urinalysis Comment Microscopic not ind. B-Hydroxybutyrate 2.40 H (0-0.6) MMOL/L - Radiology Data Attestation: I reviewed the patient's radiology results. CXR: No acute CT pathology. Disposition Clinical Impression: Hyponatremia, Elevated LFTs DKA (diabetic ketoacidoses) Qualifiers: Diabetes mellitus type: type 1 Diabetes mellitus complication detail: without coma Qualified Code(s): E10.10 - Type 1 diabetes mellitus with ketoacidosis without coma Nausea and vomiting Qualifiers: Vomiting type: unspecified Vomiting Intractability: non-intractable Qualified Code(s): R11.2 - Nausea with vomiting, unspecified Disposition: 02 To [facility] [place] - Seen By: physician
[2017-04-20] MEDS ORDERED: NS 1,000 ML IV SCH (21:15)
[2017-04-20] MEDS ORDERED: METOCLOPRAMIDE 10mg/2ml INJECTION IVP PRN (21:17)
[2017-04-20] MEDS ORDERED: BISACODYL 10 MG SUPPOSITORY RECTALLY PRN (21:17)
[2017-04-20] MEDS ORDERED: DEXTROSE 50% SYRINGE 50ml (1 AMP) IVP PRN (21:32)
[2017-04-20 21:35] VITALS: BMI 20.8
[2017-04-20] MEDS ORDERED: POTASSIUM CHLORIDE INJ 20 MEQ in NS 1,000 ML IV SCH (22:15)
[2017-04-20] MEDS: SALINE FLUSH 10ml SYRINGE IVF PRN (22:28)
[2017-04-20] MEDS ORDERED: NS with KCL 20 mEq 1,000 ML IV SCH (22:30)
--- NOTE | 2017-04-20 22:32 | History & Physical Report ---
History of Present Illness Date: 04/20/17 Chief complaint: Nausea / vomiting HPI: The pt started having severe nausea and vomiting today. She was just at [facility] 2 weeks ago, spent 5 days there for DKA and came home one week ago. She has not seen a nondestructive tester in 4 months , last A1c was 12.9 per her report. She c/o continued chronic right flank pain which has been documented on past admissions, and also today epigastric pain, sharp, constant, nonradiating today, worse with emesis. no hematemesis . no diarrhea, no fever/ chills, Review of Systems All systems PM: 10-point ROS was reviewed, no additional remarkable complaints except - Constitutional Constitutional: Present: anorexia, chills - Cardiovascular Cardiovascular: Absent: syncope, dyspnea on exertion - Respiratory Respiratory: Absent: cough, hemoptysis - Gastrointestinal Gastrointestinal: Present: abdominal pain, change in bowel habits, nausea, vomiting. Absent: diarrhea, hematemesis, hematochezia [facility] Patient Stated Medical History Migraine Yes Seizures Yes: epilepsey, last seizure- a few years ago Hearing Loss Yes: left ear Other HEENT Yes: Frequent ear infections Hypertension Yes Asthma Yes Chronic Obstructive Pulmonary Yes Disease (COPD) Diabetes Mellitus Type 1 Yes Other GI Yes: gastroparesis Other Yes: hx of acute kidney failure Anemia Yes MRSA Yes Bipolar Disorder Yes Depression Yes Post Traumatic Stress Disorder Yes Clinic Medical History DKA (diabetic ketoacidoses) (Acute Medical) Hyponatremia (Acute Medical) Elevated LFTs (Acute Medical) Nausea and vomiting (Acute Medical) Surgical History: tubal ligation, teeth extraction, - Social History Smoking status: Current every day smoker Substance use type: marijuana, IV drugs, prescription drug Alcohol intake frequency: does not drink Housing: house Household members: spouse, children, other (mother) Medications Home Medications Medication Instructions Recorded Confirmed Type Folic Acid 1 mg PO DAILY #0 06/25/15 04/20/17 History Sertraline HCl 200 mg PO DAILY #0 06/25/15 04/20/17 History Albuterol Sulfate [Ventolin Hfa] 2 puff ORAL INH BID PRN #0 inhaler 12/04/1510/30 History Insulin Aspart [Novolog] 10 unit SQ TIDWM #0 vial 12/04/15 04/20/17 History Multivitamin [Multi-Day Vitamins] 1 tab PO DAILY #0 12/04/15 04/20/17 History Vitamin B Complex [B Complex] 1 tab PO DAILY #0 12/04/15 04/20/17 History Zolpidem Tartrate [Ambien] 5 mg PO HS #0 12/04/15 04/20/17 History Insulin Detemir [Levemir] 20 unit SQ HS #0 12/31/15 04/20/17 History Lisinopril 10 mg PO DAILY #0 02/16/16 04/20/17 History Metoclopramide HCl 10 mg PO BID #0 02/16/16 04/20/17 History Diazepam [Valium] 5 mg PO BID 04/20/17 04/20/17 History Allergies Allergy/AdvReac Type Severity Reaction Status Date / Time Sulfa (Sulfonamide Allergy Severe HYPOTENSION Verified 04/20/17 19:08 Antibiotics) nitrofurantoin Allergy Intermediate "MY Verified 04/20/17 19:08 KIDNEYS SHUT DOWN" ibuprofen Allergy Mild Verified 04/20/17 19:08 morphine Allergy Mild ITCHING Verified 04/20/17 19:08 adhesive tape Allergy Unknown RASH Verified 04/20/17 19:08 amoxicillin Allergy Unknown HIVES Verified 04/20/17 19:08 Penicillins Allergy Unknown Verified 04/20/17 19:08 simvastatin Allergy Unknown Verified 04/20/17 19:08 sulfamethoxazole Allergy Unknown Verified 04/20/17 19:08 trimethoprim Allergy Unknown Verified 04/20/17 19:08 Apple Juice Allergy Unknown HIVES Uncoded 04/20/17 19:08 Exam Vital Signs: Pulse Rate 115 H 04/20/17 20:30 Respiratory Rate 24 04/20/17 20:30 Blood Pressure 165/96 H 04/20/17 20:30 Pulse Oximetry 100 04/20/17 20:30 Telemetry Rhythm: Sinus Rhythm Height/Weight/BMI: Height 1.63 m Weight 55 kg Body Mass Index 20.8 - Constitutional Present: no acute distress - Routine HEENT Exam Head: Present: atraumatic Eye: Present: EOMI - Routine Neck Exam Present: supple - Routine Respiratory Exam Present: CTA bilaterally - Routine Cardiovascular Exam Present: RRR, no murmur - Routine Abdominal Exam Present: soft, non distended, non tender. Absent: tenderness - Routine Extremities Exam Present: no edema Results - Labs CBC & Chem 7: 04/20/17 19:46 04/20/17 21:46 Assessment and Plan (1) DKA (diabetic ketoacidoses) Current visit: Yes Status: Acute (2) Hyponatremia Current visit: Yes Status: Acute (3) Elevated LFTs Current visit: Yes Status: Acute (4) Nausea and vomiting Current visit: Yes Status: Acute (5) Pancreatitis, acute Current visit: Yes Status: Acute Assessment and Plan: Will place on insulin continuous drip, IVFluids with KCl, Q4 BMP checks, repeat LFT's and lipase in am, consider CT scan of abd in am. recommend diabetic education, diet consult. DVT Prophylaxis: SCD's GI Prophylaxis: Protonix Resuscitation Status: Full Code Hospital Course Summary Disclaimer: The visit summary below is not to be considered part of the above Progress Note.
[2017-04-20] MEDS: ONDANSETRON 4 MG/2 ML INJECTION IVP PRN (22:41)
[2017-04-20] MEDS ORDERED: KETOROLAC 30 MG/ML INJECTION IM PRN (22:45)
[2017-04-20] MEDS: HYDROMORPHONE 2 MG/ML INJECTION IVP PRN (22:49)
[2017-04-21] MEDS: POTASSIUM CHLORIDE INJ 20 MEQ in D5NS 1,000 ML IV SCH ×2 (00:58→03:13)
[2017-04-21] MEDS: HYDROMORPHONE 2 MG/ML INJECTION IVP PRN ×7 (02:31→21:50)
[2017-04-21] MEDS: ONDANSETRON 4 MG/2 ML INJECTION IVP PRN ×3 (05:31→18:35)
--- NOTE | 2017-04-21 07:10 | XRay Report ---
EXAM: XR chest 1V LOCATION OF DICTATION: [facility] HISTORY: DKA COMPARISON: December 31, 2015. FINDINGS: The heart size is normal. The mediastinal configuration is within normal limits. Right-sided power port in place with the tip of the catheter overlying the mid SVC. There are no consolidating opacities or pleural effusions. There is no pneumothorax. The osseous structures are within normal limits for the patient's age. IMPRESSION: No acute cardiopulmonary abnormalities demonstrated. .
[2017-04-21] MEDS ORDERED: ZOLPIDEM 5 MG TABLET PO PRN (10:51)
[2017-04-21] MEDS ORDERED: DIAZEPAM 5 MG TABLET PO PRN (10:51)
[2017-04-21] MEDS: INSULIN ASPART 100unit/ml INJECTION SQ SCH ×2 (11:31→16:49)
[2017-04-21] MEDS: NS with KCL 20 mEq 1,000 ML IV SCH (11:47)
[2017-04-21] MEDS ORDERED: SERTRALINE 100 MG TABLET PO SCH (13:15)
[2017-04-21] MEDS ORDERED: LISINOPRIL 10 MG TABLET PO SCH (13:15)
[2017-04-21] MEDS: SERTRALINE 100 MG TABLET PO SCH (14:25)
[2017-04-21] MEDS: LISINOPRIL 10 MG TABLET PO SCH (14:26)
[2017-04-21] MEDS ORDERED: INSULIN ASPART 100unit/ml INJECTION SQ ONE (16:47)
--- NOTE | 2017-04-21 18:32 | Consultation ---
DATE OF CONSULT 04/21/2017 REASON FOR CONSULTATION Diabetic ketoacidosis. HISTORY OF PRESENT ILLNESS This 32-year-old female was in her usual state of health until the evening of admission when she developed severe nausea and vomiting. She recently had been at [facility] two weeks prior to admission and spent five days there for DKA. She has not seen an child development associate teacher in four months and her last A1c was reportedly 12.9. She has had type 1 diabetes mellitus for 17 years. This has been complicated by background retinopathy, nephropathy, peripheral neuropathy and autonomic neuropathy in the form of gastroparesis and a resting tachycardia. She has no history of pancreatitis although it is noted that her lipase upon admission was 514. She was admitted to the CCU in DKA with a sodium of 112, potassium 5.5, anion gap of 14 that did rise to 17 after several hours, consistent with DKA. She was quite dehydrated and had a BUN of 32 with creatinine of 0.6. She has had some chronic right flank pain and has not been eating very well. Otherwise, her review of systems is noncontributory. ALLERGIES Sulfa, nitrofurantoin, ibuprofen, morphine, penicillins, simvastatin and adhesive tape. PAST MEDICAL HISTORY Type 1 diabetes mellitus. Seizure disorder. Migraine headaches. Hypertension. Asthma. COPD. Gastroparesis. Diabetic nephropathy. Anemia. Bipolar disorder. PTSD. FAMILY HISTORY Noncontributory. SOCIAL HISTORY The patient smokes tobacco. She also uses marijuana, prescription drugs and IV drugs. She denies use of alcohol. HOME MEDICATIONS NovoLog 10 units t.i.d. Levemir 20 units at bedtime although it had been up to 30 units with persistent hyperglycemia, then some hypoglycemia after briefly taking it at a dose of 35 units. Following that her dose was reduced to 12 units before it was raised back to 20 units. PHYSICAL EXAMINATION VITAL SIGNS: Afebrile with stable vital signs. Blood pressure 142/96 and pulse 110. GENERAL: Well-developed, thin, disheveled female, alert, oriented and in no acute distress. HEENT: Unremarkable. NECK: Without thyromegaly or lymphadenopathy. LUNGS: Clear. HEART: Regular rate and rhythm without murmur. ABDOMEN: Normal bowel sounds and is soft without organomegaly or tenderness. EXTREMITIES: No edema. LABORATORY Reviewed. ASSESSMENT 1. Diabetic ketoacidosis, resolved overnight. 2. Type 1 diabetes mellitus, uncontrolled. The patient by history requires between 30 and 35 units of basal insulin daily and has only been getting 20 units which may explain why she went back into ketoacidosis so quickly. 2. Peripheral neuropathy. 3. Autonomic neuropathy. 4. Gastroparesis. 5. Pancreatitis, clinically improved. RECOMMENDATIONS Increase basal insulin to 28 units of Levemir tonight and observe to be sure she does not get hypoglycemic. Further titration of her insulin could probably be done as an outpatient. She has asked if she can follow up with me and I told her that would be fine. Thank you very much for asking me to assist in the care of this young lady. I will follow her along with you while she remains in the hospital. CHRIS
[2017-04-21] MEDS ORDERED: INSULIN DETEMIR 100unit/ml INJECTION SQ SCH ×2 (21:00)
[2017-04-21] MEDS: PROMETHAZINE 25 MG TABLET PO PRN (21:07)
[2017-04-21] MEDS: SALINE FLUSH 10ml SYRINGE IVF PRN (21:51)
[2017-04-22] MEDS: SALINE FLUSH 10ml SYRINGE IVF PRN ×5 (00:50→21:07)
[2017-04-22] MEDS: HYDROMORPHONE 2 MG/ML INJECTION IVP PRN ×7 (00:50→21:08)
[2017-04-22] MEDS: NS with KCL 20 mEq 1,000 ML IV SCH (01:43)
[2017-04-22] MEDS: ONDANSETRON 4 MG/2 ML INJECTION IVP PRN ×3 (03:57→20:41)
[2017-04-22] MEDS: INSULIN DETEMIR 100unit/ml INJECTION SQ SCH ×2 (07:21→20:44)
--- NOTE | 2017-04-22 08:03 | Endocrinology Progress Note ---
Subjective Principal diagnosis: Type 1 diabetes mellitus Interval history: Had mild hypoglycemia overnight (64, 51) responding to snacks. Not much appetite this morning. Exam Vital signs: Temperature 98.4 F 04/22/17 04:02 Pulse Rate 100 04/22/17 05:00 Respiratory Rate 10 04/22/17 05:00 Blood Pressure 154/107 H 04/22/17 05:00 Pulse Oximetry 91 04/22/17 05:00 - Constitutional thin, disheveled, cooperative - Routine HEENT Exam Head: Present: normocephalic, atraumatic Eye: Present: EOMI ENT: Present: mucous membranes moist - Routine Neck Exam Absent: thyromegaly - Routine Respiratory Exam Absent: wheezes - Routine Cardiovascular Exam Present: tachycardia Comments: resting - Routine Abdominal Exam Present: normoactive bowel sounds - Routine Extremities Exam Absent: edema - Routine Skin Exam Present: dry, warm - Routine Neurological Exam Present: alert, oriented X3 - Additional findings Additional findings: Laboratory Tests 04/21/17 04/21/17 04/21/17 18:34 20:22 23:29 Glucometer 230 151 114 04/22/17 04/22/17 04/22/17 01:36 02:18 04:03 Glucometer 64 104 79 04/22/17 04/22/17 06:07 06:36 Glucometer 51 119 Assessment and Plan (1) Diabetes mellitus type 1, uncontrolled Current visit: Yes Status: Chronic Basal insulin was advanced a little too much last night. Will drop down to 24 units. (2) Diabetic autonomic neuropathy associated with type 1 diabetes mellitus Current visit: Yes Status: Chronic Has persistent resting tachydarcia, but not symptomatic. (3) Hypoglycemia due to insulin Current visit: Yes Status: Acute Should resolve with lower dose of basal insulin tonight.
[2017-04-22] MEDS: INSULIN ASPART 100unit/ml INJECTION SQ SCH ×3 (08:36→17:56)
[2017-04-22] MEDS ORDERED: SERTRALINE 100 MG TABLET PO SCH (09:00)
[2017-04-22] MEDS ORDERED: LISINOPRIL 10 MG TABLET PO SCH (09:00)
[2017-04-22] MEDS ORDERED: NON-FORMULARY MEDICATION 1 EACH EACH (Vitamin B Complex [B Complex] 1 TAB) PO SCH (09:00)
[2017-04-22] MEDS ORDERED: NON-FORMULARY MEDICATION 1 EACH EACH (Multivitamin [Multi-Day Vitamins] 1 TAB) PO SCH (09:00)
[2017-04-22] MEDS: VITAMIN B COMPLEX + C TABLET PO SCH (09:37)
[2017-04-22] MEDS: LISINOPRIL 10 MG TABLET PO SCH (09:37)
[2017-04-22] MEDS: SERTRALINE 100 MG TABLET PO SCH (09:38)
[2017-04-22] MEDS: MULTI-VITAMIN PLAIN TABLET PO SCH (09:38)
[2017-04-22] MEDS: FOLIC ACID 1 MG TABLET PO SCH (09:38)
[2017-04-22] MEDS ORDERED: ALBUTEROL 2.5mg/3ml (0.083%) NEB AEROSOL PRN (12:56)
[2017-04-22] MEDS ORDERED: OXYCODONE/APAP 7.5 MG/325 MG TABLET PO PRN (14:33)
[2017-04-22] MEDS ORDERED: SUMATRIPTAN 25 MG TABLET PO PRN ×2 (14:34→16:00)
[2017-04-22] MEDS ORDERED: LISINOPRIL 20 MG TABLET PO SCH (14:40)
--- NOTE | 2017-04-22 17:43 | Progress Note ---
- Date 04/22/17 Subjective: Sabine was resting in bed when seen early this afternoon. She complained of back discomfort and a moderate headache indicating that she thought she was getting a migraine. She complains of nausea but no vomiting and was able to eat lunch. She denied dyspnea, fever, or dysuria. She is voiding well. She denied abdominal pain. Insulin drip was discontinued yesterday. Patient reports that she's utilized Imitrex in the past for migraines at that it was discontinued due to conflict with some of her psychiatric meds however she's no longer on the psychiatric medications. Objective Vital signs: Temperature 96.3 F L 04/22/17 15:49 Pulse Rate 105 H 04/22/17 16:00 Respiratory Rate 16 04/22/17 15:49 Blood Pressure 128/93 H 04/22/17 15:49 Pulse Oximetry 94 04/22/17 15:49 I/O 3809/3300 EXAM General-NAD, drowsy, mumbled speech HEENT-conjunctiva clear, conjugate gaze, oropharynx clear, neck supple Lungs-respirations nonlabored, good airflow, breath sounds clear posteriorly Cardiac-regular rhythm, S1-S2, low-grade tachycardia Abd-soft, nontender, diminished bowel sounds Ext-without edema Neuro-MAEW Psych-dull, somewhat withdrawn - Height/Weight/BMI: Height 1.63 m Weight 55.7 kg Body Mass Index 20.8 Results - Labs CBC & Chem 7: 04/22/17 04:03 04/22/17 04:03 Labs: Blood sugars overnight 51-151; today 119-89-73 Phosphorus 4.1, magnesium 2.1, AST 60, ALT 95, alkaline phosphatase 123, albumin 2.7, total protein 5.7 Lipase 111 Assessment and Plan (1) DKA (diabetic ketoacidoses) Current visit: Yes Status: Acute (2) Hyponatremia Current visit: Yes Status: Resolved (3) Elevated LFTs Current visit: Yes Status: Acute (4) Nausea and vomiting Current visit: Yes Status: Acute Assessment and Plan: ASSESSMENT DKA Uncontrolled Type I DM, A1c 12.2 Hyponatremia (POA), resolved Hyperphosphatemia (POA), resolved Elevated lipase Tachycardia Elevated liver enzymes Anemia, normocytic Diabetic gastroparesis HTN COPD/Asthma Tobacco dependency Migraine headaches Plan DKA resolved with blood sugars well controlled. Dr. Helton's assistance appreciated. IV fluids discontinued; continue subcutaneous insulin and diabetic diet. Stable to transfer out of ICU. Lipase has normalized, modestly elevated on admission but not 3 times normal limit; no tenderness in the upper abdomen on palpation. Liver enzymes improving, primarily elevation of transaminases. Bilirubin consistently normal. Will discuss with patient and image by CT unless done recently at [facility]. Complaints of back pain and migraine today-Imitrex ordered and oral pain medications available. Need to titrate off of IV meds as much as possible. Antiemetics available as well for both gastroparesis and migraine. Electrolyte abnormalities have resolved. DVT Prophylaxis: SCD's Resuscitation Status: Full Code Hospital Course Summary Disclaimer: The visit summary below is not to be considered part of the above Progress Note. Hospital Course: 04/20/17-04/21/17 Admitted in DKA-insulin drip and usual protocol initiated. Blood sugar stabilized allowing transition off insulin drip on 04/21. 04/21-Restart mealtime insulin. Advance to diabetic diet. Consult with Dr Helton for help with diabetic control - patient anticipates establishing with him now that she has relocated to [place]. Diabetic education and dietary eduction. 04/22/17 17:54 DKA resolved with blood sugars well controlled. Dr. Helton's assistance appreciated. IV fluids discontinued; continue subcutaneous insulin and diabetic diet. Stable to transfer out of ICU. Lipase has normalized, modestly elevated on admission but not 3 times normal limit; no tenderness in the upper abdomen on palpation. Liver enzymes improving, primarily elevation of transaminases. Bilirubin consistently normal. Will discuss with patient and image by CT unless done recently at [facility]. Complaints of back pain and migraine today-Imitrex ordered and oral pain medications available. Need to titrate off of IV meds as much as possible. Antiemetics available as well for both gastroparesis and migraine. Electrolyte abnormalities have resolved.
[2017-04-23] MEDS: SALINE FLUSH 10ml SYRINGE IVF PRN ×3 (00:13→06:40)
[2017-04-23] MEDS: HYDROMORPHONE 2 MG/ML INJECTION IVP PRN ×3 (00:13→06:40)
[2017-04-23 00:31] VITALS: RESP 16
[2017-04-23] MEDS: ONDANSETRON 4 MG/2 ML INJECTION IVP PRN (03:15)
[2017-04-23] MEDS ORDERED: INSULIN DETEMIR 100unit/ml INJECTION SQ SCH (08:18)
--- NOTE | 2017-04-23 08:21 | Endocrinology Progress Note ---
Subjective Principal diagnosis: Type 1 diabetes mellitus Interval history: Had high sugar after supper, but mild hypoglycemia overnight (52) responding to snacks. Exam Vital signs: Temperature 97.5 F 04/23/17 07:34 Pulse Rate 105 H 04/23/17 07:34 Respiratory Rate 16 04/23/17 07:34 Blood Pressure 143/101 H 04/23/17 07:34 Pulse Oximetry 99 04/23/17 07:34 - Constitutional no acute distress, well developed, thin - Routine HEENT Exam Head: Present: normocephalic, atraumatic Eye: Present: EOMI ENT: Present: mucous membranes moist - Routine Neck Exam Absent: thyromegaly - Routine Respiratory Exam Absent: dyspnea - Routine Cardiovascular Exam Present: tachycardia - Routine Abdominal Exam Present: normoactive bowel sounds - Routine Extremities Exam Absent: edema - Routine Neurological Exam Present: alert, oriented X3 - Additional findings Additional findings: Laboratory Tests 04/22/17 04/22/17 04/22/17 10:12 14:23 19:52 Glucometer 89 73 228 04/23/17 04/23/17 04/23/17 02:14 02:46 04:37 Glucometer 52 97 151 04/23/17 06:37 Glucometer 220 Assessment and Plan (1) Diabetes mellitus type 1, uncontrolled Current visit: Yes Status: Chronic Needs more insulin for supper and still less overnight. Will reduce basal insulin from 24 to 21 units tonight and raise supper bolus to 12 from 10 units. (2) Diabetic autonomic neuropathy associated with type 1 diabetes mellitus Current visit: Yes Status: Chronic Still has resting tachycardia. (3) Hypoglycemia due to insulin Current visit: Yes Status: Acute Almost resolved.
[2017-04-23] MEDS: VITAMIN B COMPLEX + C TABLET PO SCH (08:34)
[2017-04-23] MEDS: FOLIC ACID 1 MG TABLET PO SCH (08:34)
[2017-04-23] MEDS: MULTI-VITAMIN PLAIN TABLET PO SCH (08:35)
[2017-04-23] MEDS: SERTRALINE 100 MG TABLET PO SCH (08:51)
[2017-04-23] MEDS: PROMETHAZINE 25 MG TABLET PO PRN (09:04)
[2017-04-23] MEDS: INSULIN ASPART 100unit/ml INJECTION SQ SCH (09:04)
--- NOTE | 2017-04-23 10:08 | Progress Note ---
- Date 04/23/17 Subjective: F/U: DKA Doing okay this morning. Eating well-still some nausea but keeping food down. Breathing well. No urinary pain or discomfort. Ambulating well. Sugars improving. Objective Vital signs: Temperature 97.5 F 04/23/17 07:34 Pulse Rate 105 H 04/23/17 07:34 Respiratory Rate 16 04/23/17 07:34 Blood Pressure 143/101 H 04/23/17 07:34 Pulse Oximetry 99 04/23/17 07:34 Height/Weight/BMI: Height 1.63 m Weight 55.7 kg Body Mass Index 20.8 - Constitutional Present: no acute distress, well nourished, well developed, thin, cooperative - Routine HEENT Exam Head: Present: normocephalic, atraumatic Eye: Present: EOMI, PERRL ENT: Present: mucous membranes moist, external ear normal, TM's clear bilaterally - Routine Respiratory Exam Present: CTA bilaterally. Absent: respiratory distress, rhonchi, wheezes, crackles - Routine Cardiovascular Exam Present: RRR, no murmur - Routine Abdominal Exam Present: soft, normoactive bowel sounds, non distended, non tender - Routine Extremities Exam Present: no edema, pulses intact. Absent: cyanosis, clubbing - Routine Musculoskeletal Exam Musculoskeletal: Present: no clubbing or cyanosis, normal strength - Routine Skin Exam Present: dry, warm - Routine Neurological Exam Present: alert, oriented X3, CN II-XII intact, moving all extremities, vision grossly intact, hearing grossly intact, normal speech. Absent: motor deficit, altered mental status, facial asymmetry - Routine Psychiatric Exam Present: normal affect, normal thought process, cooperative Results - Labs CBC & Chem 7: 04/23/17 04:15 04/23/17 04:15 Assessment and Plan (1) DKA (diabetic ketoacidoses) Current visit: Yes Status: Acute (2) Hyponatremia Current visit: Yes Status: Resolved (3) Elevated LFTs Current visit: Yes Status: Acute (4) Nausea and vomiting Current visit: Yes Status: Acute Assessment and Plan: ASSESSMENT DKA Uncontrolled Type I DM, A1c 12.2 Hyponatremia (POA), resolved Hyperphosphatemia (POA), resolved Elevated lipase - no evidence of pancreatitis Tachycardia Elevated liver enzymes (POA) Anemia, normocytic Diabetic gastroparesis HTN COPD/Asthma Tobacco dependency Migraine headaches Plan Will discharge to home - medically stable. Continue insulin as outlined by Dr Helton. [facility]. See orders for details. Case discussed with CM. Time spent with patient discharge greater than 30 minutes. DVT Prophylaxis: SCD's Resuscitation Status: Full Code Hospital Course Summary Disclaimer: The visit summary below is not to be considered part of the above Progress Note. Hospital Course: 04/20/17 Inpatient admission to CCU for DKA protocol Admitted in DKA-insulin drip and usual protocol initiated. Blood sugar stabilized allowing transition off insulin drip on 04/21. 04/21/17 Restart mealtime insulin. Advance to diabetic diet. Consult with Dr Helton for help with diabetic control - patient anticipates establishing with him now that she has relocated to [place]. Diabetic education and dietary eduction. 04/22/17 DKA resolved with blood sugars well controlled. Dr. Helton's assistance appreciated. IV fluids discontinued; continue subcutaneous insulin and diabetic diet. Stable to transfer out of ICU. Lipase has normalized, modestly elevated on admission but not 3 times normal limit; no tenderness in the upper abdomen on palpation. Liver enzymes improving, primarily elevation of transaminases. Bilirubin consistently normal. Will discuss with patient and image by CT unless done recently at [place]. Complaints of back pain and migraine today-Imitrex ordered and oral pain medications available. Need to titrate off of IV meds as much as possible. Antiemetics available as well for both gastroparesis and migraine. Electrolyte abnormalities have resolved. Blood pressure has been typically elevated with systolics ranging from 141-164 and diastolic typically about 100 or slightly above today. Lisinopril initiated at 10 mg but dose will be increased to 20 mg starting tomorrow. We'll further clarify question of beta faiza use with patient. 04/23/17 Will discharge to home - medically stable. Continue insulin as outlined by Dr Helton. F/U with [facility] for care. See orders for details.
--- NOTE | 2017-04-23 11:09 | Discharge Summary ---
Discharge Information Date of admission: 04/20/17 21:25 Anticipated date of discharge: 04/23/17 Attending Physician: Dr Pitts Consults: Inpatient Diabetic Consult Dietary Consult Physician Consult: Mekhi Helton Reason For Exam: Uncontrolled Type I Dm - Discharge Diagnosis (1) DKA (diabetic ketoacidoses) Status: Acute (2) Hyponatremia Status: Resolved (3) Elevated LFTs Status: Acute (4) Nausea and vomiting Status: Acute Discharge diagnosis Diabetic Ketoacidosis Associated conditions and complications Uncontrolled Type I DM, A1c 12.2 Hyponatremia (POA), resolved Hyperkalemia (POA) Hyperphosphatemia (POA), resolved Elevated lipase - no evidence of pancreatitis Tachycardia Elevated liver enzymes (POA) Anemia, normocytic Diabetic gastroparesis HTN COPD/Asthma Tobacco dependency Migraine headaches - Laboratory Labs: Admit Lab 04/20/17 19:46 WBC 7.0 Hgb 10.7 L Hct 37.4 MCV 106.9 H Plt Count 337 Neut % (Auto) 72.4 H Lymph % (Auto) 14.2 L [place] % (Auto) 6.8 Eos % (Auto) 5.5 H Admit Lab 04/20/17 19:46 Sodium 112 L* Potassium 5.5 H Chloride 80 L Carbon Dioxide 18 L Anion Gap 14 BUN 32.0 H Creatinine 0.6 L GFR Calculation 116 BUN/Creatinine Ratio 53 H Glucose 1458 H* Hemoglobin A1c 12.2 H Calculated Osmolality 300 H Calcium 8.7 Phosphorus 6.3 H Magnesium 2.0 Total Bilirubin 0.50 AST 116 H ALT 145 H Alkaline Phosphatase 195 H Troponin I < 0.012 Total Protein 6.0 L Albumin 3.3 L Globulin 2.7 Albumin/Globulin Ratio 1.2 Lipase 514 H TSH 04/23/17 04:15 TSH 2.77 Repeat LFTs 04/22/17 04:03 Total Bilirubin < 0.10 L AST 60 H D ALT 95 H Alkaline Phosphatase 123 D 04/23/17 04:15 04/23/17 04:15 History of Present Illness HPI: The pt started having severe nausea and vomiting today. She was just at [facility] 2 weeks ago, spent 5 days there for DKA and came home one week ago. She has not seen a sack sewer in 4 months , last A1c was 12.9 per her report. She c/o continued chronic right flank pain which has been documented on past admissions, and also today epigastric pain, sharp, constant, nonradiating today, worse with emesis. No hematemesis . No diarrhea, no fever/ chills, For complete details of the H&P refer to that document. Objective Vital signs: Temperature 97.5 F 04/23/17 07:34 Pulse Rate 105 H 04/23/17 07:34 Respiratory Rate 16 04/23/17 07:34 Blood Pressure 143/101 H 04/23/17 07:34 Pulse Oximetry 99 04/23/17 07:34 Height/Weight/BMI: Height 1.63 m Weight 55.5 kg Body Mass Index 20.8 Hospital Course This is a general summary of the patient's hospital course. For more details refer to the complete medical record. Hospital course: 04/20/17 Inpatient admission to CCU for DKA protocol Admitted in DKA-insulin drip and usual protocol initiated. IVF initiated. SCD for DVT prevention. 04/21/17 Blood sugar stabilized allowing transition off insulin drip on 04/21. Restart mealtime insulin. Advance to diabetic diet. Consult with Dr Helton for help with diabetic control - patient anticipates establishing with him now that she has relocated to [place]. Diabetic education and dietary eduction. 04/22/17 DKA resolved with blood sugars well controlled. Dr. Helton's assistance appreciated. IV fluids discontinued; continue subcutaneous insulin and diabetic diet. Stable to transfer out of ICU. Lipase has normalized, modestly elevated on admission but not 3 times normal limit; no tenderness in the upper abdomen on palpation. Liver enzymes improving, primarily elevation of transaminases. Bilirubin consistently normal. Will discuss with patient and image by CT unless done recently at [place]. Complaints of back pain and migraine today-Imitrex ordered and oral pain medications available. Need to titrate off of IV meds as much as possible. Antiemetics available as well for both gastroparesis and migraine. Electrolyte abnormalities have resolved. Blood pressure has been typically elevated with systolics ranging from 141-164 and diastolic typically about 100 or slightly above today. Lisinopril initiated at 10 mg but dose will be increased to 20 mg starting tomorrow. We'll further clarify question of beta faiza use with patient. 04/23/17 Will discharge to home - medically stable. Continue insulin as outlined by Dr Helton. F/[facility] with [facility] care. See orders for details. Time spent with patient: discharge greater than 30 minutes DVT Prophylaxis: SCD's Discharge Plan - Discharge Disposition Discharge Date: 04/23/17 Disposition: 01 Discharged Home, Self-Care *Condition: Improved *Reason For Visit: DKA - Discharge Medications *Discharge Medications: New Insulin Detemir [Levemir] 21 unit SQ HS vial Lisinopril [Prinivil] 20 mg PO DAILY #30 tab Promethazine Tab [Phenergan Tab] 25 mg PO Q6H PRN #20 tab PRN Reason: Nausea Insulin Aspart [NovoLOG] 10 unit SQ BIDBL vial Insulin Aspart [NovoLOG] 12 unit SQ WS vial Oxycodone/Apap 7.5/325 [Percocet 7.5/325] 1 tab PO Q4H PRN #20 tab PRN Reason: Severe Pain Continue Folic Acid 1 mg PO DAILY #0 Metoclopramide HCl 10 mg PO BID #0 Sertraline HCl 200 mg PO DAILY #0 Vitamin B Complex [B Complex] 1 tab PO DAILY #0 Multivitamin [Multi-Day Vitamins] 1 tab PO DAILY #0 Albuterol Sulfate [Ventolin Hfa] 2 puff ORAL INH BID PRN #0 inhaler PRN Reason: PRN ORDERS Zolpidem Tartrate [Ambien] 5 mg PO HS #0 Diazepam [Valium] 5 mg PO BID Discontinued Insulin Aspart [Novolog] 10 unit SQ TIDWM #0 vial Lisinopril 10 mg PO DAILY #0 Insulin Detemir [Levemir] 20 unit SQ HS #0 - Discharge Packet/Instructions *Diet: 2000 ADA low sodium *Activity: As tolerated *Pain Management/Treatment: Tylenol for minor pain. Percocet to severe pain. *Wound Care: N/A *Expected Signs/Symptoms: Improvement of blood sugars *Notify Physician if: Temp >100.4. Blood sugars >400 *During Business Hours Contact: [facility] *After Business Hours Contact: Call [facility] and have your care provider paged. *Pending Lab/Results: No Pending Lab - Referrals/Follow Up *Referrals/Follow Up: [facility] [Non-Staff] - 1 Week (Establish care. ) Mekhi Helton MD [Physician] - 2 Weeks (Diabetic care ) - Patient Handouts - Dismissal Complete Discharge Instructions are:: Complete Attestation Narriative - Attestation Attestation Narrative: 04/23/17 11:13 I have interviewed and examined patient prior to discharge. See my progress note from today for details. Medically stable for discharge to home.
[2017-04-23] MEDS ORDERED: INSULIN ASPART 100unit/ml INJECTION SQ SCH ×2 (12:00→17:30)
[2017-04-23 12:54] VITALS: BP 107/80; PULSE 116; TEMP 95.3; O2SAT 98
== END 2017-04-23 13:05 | disposition home or self-care (01) | DRG 637 ==
LOC: ED 18:28 → CCU 21:25 → SUATTDRO 21:25 → MED 04-22 15:48
PROVIDERS: ADMIT Internal Medicine; ATTEND Internal Medicine

== ENCOUNTER 2017-05-02 19:02 | Inpatient (IN) ==
--- NOTE | 2017-05-02 19:15 | Emergency Department Report ---
GI Bleed HPI - General Stated complaint: passing blood in stools,dka,abd pain Time Seen by Provider: 05/02/17 19:14 Source: patient Mode of arrival: ambulatory Limitations: no limitations - History of Present Illness HPI Narrative: Patient has persistent symptoms of ongoing rectal bleeding both dark and bright red, she also has complaints of severe gastroparesis pain with cramping and nausea. Patient has been seen multiple times, even admitted to the hospital earlier this month for DKA. In this times the patient has had a stable hemoglobin of 10.6-10.7, and was seen in the ER 7 days ago for the exact same symptoms. At patient's visit last week, she had a normal CT scan and normal labs , and was released. At that time the patient refused rectal exam, and was somewhat hesitant about rectal exam today, but is willing to try with a swab. - Related Data Home Medications Medication Instructions Recorded Confirmed Folic Acid 1 mg PO DAILY #0 06/25/15 05/02/17 Sertraline HCl 200 mg PO DAILY #0 06/25/15 05/02/17 Albuterol Sulfate [Ventolin Hfa] 2 puff ORAL INH BID PRN #0 inhaler 12/04/15 Multivitamin [Multi-Day Vitamins] 1 tab PO DAILY #0 12/04/15 05/02/17 Vitamin B Complex [B Complex] 1 tab PO DAILY #0 12/04/15 05/02/17 Zolpidem Tartrate [Ambien] 5 mg PO HS #0 12/04/15 05/02/17 Metoclopramide HCl 10 mg PO BID #0 02/16/16 05/02/17 Diazepam [Valium] 5 mg PO BID 04/20/17 05/02/17 Previous Rx's Medication Instructions Recorded Insulin Aspart [NovoLOG] 10 unit SQ BIDBL vial 04/23/17 Insulin Aspart [NovoLOG] 12 unit SQ WS vial 04/23/17 Insulin Detemir [Levemir] 21 unit SQ HS vial 04/23/17 Lisinopril [Prinivil] 20 mg PO DAILY #30 tab 04/23/17 Promethazine Tab [Phenergan Tab] 25 mg PO Q6H PRN #20 tab 04/23/17 Allergies Allergy/AdvReac Type Severity Reaction Status Date / Time Sulfa (Sulfonamide Allergy Severe HYPOTENSION Verified 05/02/17 19:57 Antibiotics) nitrofurantoin Allergy Intermediate "MY Verified 05/02/17 19:57 KIDNEYS SHUT DOWN" ibuprofen Allergy Mild Verified 05/02/17 19:57 morphine Allergy Mild ITCHING Verified 05/02/17 19:57 adhesive tape Allergy Unknown RASH Verified 05/02/17 19:57 amoxicillin Allergy Unknown HIVES Verified 05/02/17 19:57 Penicillins Allergy Unknown Verified 05/02/17 19:57 simvastatin Allergy Unknown Verified 05/02/17 19:57 sulfamethoxazole Allergy Unknown Verified 05/02/17 19:57 trimethoprim Allergy Unknown Verified 05/02/17 19:57 Apple Juice Allergy Unknown HIVES Uncoded 04/20/17 19:08 Review of Systems All systems: reviewed and negative except as stated PFSH Patient Stated Medical History Migraine Yes Seizures Yes: epilepsey, last seizure- a few years ago Hearing Loss Yes: left ear Other HEENT Yes: Frequent ear infections Hypertension Yes Asthma Yes Chronic Obstructive Pulmonary Yes Disease (COPD) Diabetes Mellitus Type 1 Yes Other GI Yes: gastroparesis Other Yes: hx of acute kidney failure Anemia Yes MRSA Yes Bipolar Disorder Yes Depression Yes Post Traumatic Stress Disorder Yes Clinic Medical History DKA (diabetic ketoacidoses) (Acute Medical) Hyponatremia (Resolved Medical) Elevated LFTs (Acute Medical) Nausea and vomiting (Acute Medical) Pancreatitis, acute (Acute Medical) Diabetes mellitus type 1, uncontrolled (Chronic Medical) Diabetic autonomic neuropathy associated with type 1 diabetes mellitus (Chronic Medical) Hypoglycemia due to insulin (Acute Medical) Melena (Inactive Medical) Surgical History: tubal ligation, teeth extraction, - Social History Smoking status: Current every day smoker Current residence: Apartment/Private Home Physical Exam - Limitations Limitations: no limitations - General General appearance: alert, other (patient appears significantly traumatic, and is tearful.) - Normal Exams: Head:: Normocephalic without trauma Eyes:: Pupils are PERRLA w/ EOMI, No scleral icterus, irritation, or foreign bodies noted ENMT:: No facial trauma, nasal exudates, pharyngeal erythema, or exudates are noted Neck:: Full range of motion, without adenopathy, JVD, bruits or thyromegaly Chest/Respirations:: Clear all cain, with good airflow, and symmetry bilaterally Cardiovascular:: Regular rate and rhythm, without murmur or gallop, Pulses 2+ all extremities, capillary refill, <2 seconds all extremities Lymphatic:: No lymphadenopathy, or lymphedema noted Musculoskeletal:: No tenderness, or deformity noted, good range of motion, all extremities Integumentary:: No rashes, hives, or bruising noted, hair and nails, without abnormality Neurological:: Patient is alert, and oriented, cranial nerves, motor/sensory/ cerebellar, exams w/o gross deficits, to observation Psychiatric:: Patient exhibits, appropriate attention, emotion and affect - Abdominal Exam Abdominal exam: Present: soft, distention, tenderness, normal bowel sounds. Absent: guarding, rebound, rigidity, hyperactive bowel sounds, hypoactive bowel sounds, organomegaly, trauma, psoas sign, obturator sign, heel tap sign, Huynh' s sign, Rovsing's sign, tenderness at McBurney's Point, mass, bruit - Rectal Exam Rectal exam: Present: other (on rectal exam patient has exquisite tenderness over mildly inflamed and anterior external hemorrhoid. Heme-negative stool.) Course Vital Signs Temperature 97.7 F 05/02/17 19:07 Pulse Rate 120 H 05/02/17 19:07 Respiratory Rate 34 H 05/02/17 19:07 Blood Pressure 181/112 H 05/02/17 19:07 Pulse Oximetry 99 05/02/17 19:07 Temperature 97.7 F 05/02/17 19:07 Pulse Rate 116 H 05/02/17 19:54 Respiratory Rate 20 05/02/17 19:54 Blood Pressure 139/82 05/02/17 19:54 Pulse Oximetry 100 05/02/17 19:54 GI Bleed - [facility] Narrative Medical decision making narrative: Patient was weeping and crying after swab rectal exam only. She is given 1 L normal saline IV fluid bolus, Compazine 10 mg, and Toradol 30 mg IV CBC - n CMP/L - patient shows significant dehydration with sodium 128, bicarbonate is elevated, and lipase is elevated greater than 1000. UA/P - negative/normal EtOH - negative UDS - negative Patient will be admitted to Dr. Chencho Byrd, hospitalist, for inpatient diabetes care dehydration care and pancreatitis care Second liter normal saline started in the ER, patient also given additional medication for pain, Dilaudid 0.5 mg IV - Lab Data Result diagrams: 05/02/17 19:38 05/02/17 19:38 Lab Results 05/02/17 05/02/17 05/02/17 Range/Units 19:38 19:38 19:38 WBC 8.7 (4.5-11.0) T/MM3 RBC 3.50 L (4.00-5.20) M/MM3 Hgb 10.7 L (12-16) GM/DL Hct 33.7 L (36-46) % MCV 96.3 (80-100) UM3 MCH 30.6 (26-34) UUG MCHC 31.8 (31-37) GM/DL RDW Std Deviation 43.3 (36.9-50.2) FL Plt Count 358 (130-400) T/MM3 MPV 10.1 (9.4-12.4) UM3 Immature Gran % (Auto) 0.1 (0.0-0.5) % Neut % (Auto) 71.1 H (33-66) % Lymph % (Auto) 17.3 L (23-45) % [place] % (Auto) 4.7 (0-9.0) % Eos % (Auto) 5.9 H (0-4) % Baso % (Auto) 0.9 (0-2) % Neut # (Auto) 6.2 (1.8-7.7) T/MM3 Lymph # (Auto) 1.5 (1-4.8) T/MM3 [place] # (Auto) 0.4 (0-0.8) T/MM3 Eos # (Auto) 0.5 (0-0.5) T/MM3 Baso # (Auto) 0.1 (0-0.2) T/MM3 Abs Immat Gran (auto) 0.01 (0.00-0.03) T/MM3 VBG pH 7.330 (7.31-7.41) VBG pCO2 29 L (40-52) MMHG VBG pO2 47 (40-52) MMHG VBG HCO3 15 L (22-26) MEQ/L VBG Total CO2 16.2 MEQ/L VBG O2 Saturation 79.0 % VBG Base Excess -9.3 L (-2.0-2.0) MMOL/L O2 Delivery Method Room air Turbidity < 20 (0-20) Sodium 125 L (134-144) MEQ/L Potassium 4.9 (3.6-5) MEQ/L Chloride 94 L (98-107) MEQ/L Carbon Dioxide 14 L (22-30) MEQ/L Anion Gap 17 H (5-15) MEQ/L BUN 24.0 H (7-17) MG/DL Creatinine 0.9 (0.7-1.2) MG/DL GFR Calculation 73 BUN/Creatinine Ratio 27 H (6-26) RATIO Glucose 675 H* (65-110) MG/DL Calculated Osmolality 278 (261-280) MOSM/KG Calcium 8.3 L (8.4-10.2) MG/DL Total Bilirubin 0.30 (0.20-1.30) MG/DL Conjugated Bilirubin 0.00 (0.00-0.30) MG/DL Unconjugated Bilirubin 0.10 (0.00-1.1) MG/DL Icterus Index < 2 (0-7) AST 75 H (14-36) U/L ALT 80 H (9-52) U/L Alkaline Phosphatase 137 H (38-126) U/L Total Protein 6.2 L (6.3-8.2) G/DL Albumin 3.2 L (3.5-5.0) G/DL Globulin 3.0 (2.4-3.6) G/DL Albumin/Globulin Ratio 1.1 (1.1-2.2) RATIO Lipase 1172 H (23-300) U/L Specimen Hemolysis < 15 (0-25) Ur Collection Type Urine Color (YELLOW) Urine Clarity Urine pH (5.0-8.0) Ur Specific [place] (1.015-1.025) Urine Protein (NEGATIVE) Urine Glucose (UA) (NEGATIVE) Urine Ketones (NEGATIVE) Urine Occult Blood (NEGATIVE) Urine Nitrate (NEGATIVE) Urine Bilirubin (NEGATIVE) Urine Urobilinogen (NORMAL) EU/DL Ur Leukocyte Esterase (NEGATIVE) Urine Test (Negative) Urine Opiates Screen ng/mL Ur Oxycodone Screen ng/mL Urine Methadone Screen ng/mL Ur Propoxyphene Screen ng/mL Ur Barbiturates Screen ng/mL U Tricyclic Antidepress ng/mL Ur Phencyclidine Scrn ng/mL Ur Amphetamines Screen ng/mL U Methamphetamines Scrn ng/mL U Benzodiazepines Scrn ng/mL Urine Cocaine Screen ng/mL U Cannabinoids Screen ng/mL Alcohol, Quantitative <10 (<10) MG/DL 11/17/17 11/17/17 11/17/17 Range/Units 19:41 19:41 19:41 WBC (4.5-11.0) T/MM3 RBC (4.00-5.20) M/MM3 Hgb (12-16) GM/DL Hct (36-46) % MCV (80-100) UM3 MCH (26-34) UUG MCHC (31-37) GM/DL RDW Std Deviation (36.9-50.2) FL Plt Count (130-400) T/MM3 MPV (9.4-12.4) UM3 Immature Gran % (Auto) (0.0-0.5) % Neut % (Auto) (33-66) % Lymph % (Auto) (23-45) % [place] % (Auto) (0-9.0) % Eos % (Auto) (0-4) % Baso % (Auto) (0-2) % Neut # (Auto) (1.8-7.7) T/MM3 Lymph # (Auto) (1-4.8) T/MM3 [place] # (Auto) (0-0.8) T/MM3 Eos # (Auto) (0-0.5) T/MM3 Baso # (Auto) (0-0.2) T/MM3 Abs Immat Gran (auto) (0.00-0.03) T/MM3 VBG pH (7.31-7.41) VBG pCO2 (40-52) MMHG VBG pO2 (40-52) MMHG VBG HCO3 (22-26) MEQ/L VBG Total CO2 MEQ/L VBG O2 Saturation % VBG Base Excess (-2.0-2.0) MMOL/L O2 Delivery Method Turbidity (0-20) Sodium (134-144) MEQ/L Potassium (3.6-5) MEQ/L Chloride (98-107) MEQ/L Carbon Dioxide (22-30) MEQ/L Anion Gap (5-15) MEQ/L BUN (7-17) MG/DL Creatinine (0.7-1.2) MG/DL GFR Calculation BUN/Creatinine Ratio (6-26) RATIO Glucose (65-110) MG/DL Calculated Osmolality (261-280) MOSM/KG Calcium (8.4-10.2) MG/DL Total Bilirubin (0.20-1.30) MG/DL Conjugated Bilirubin (0.00-0.30) MG/DL Unconjugated Bilirubin (0.00-1.1) MG/DL Icterus Index (0-7) AST (14-36) U/L ALT (9-52) U/L Alkaline Phosphatase (38-126) U/L Total Protein (6.3-8.2) G/DL Albumin (3.5-5.0) G/DL Globulin (2.4-3.6) G/DL Albumin/Globulin Ratio (1.1-2.2) RATIO Lipase (23-300) U/L Specimen Hemolysis (0-25) Ur Collection Type Urine, clean catch Urine Color Yellow (YELLOW) Urine Clarity Clear Urine pH 5.5 (5.0-8.0) Ur Specific [place] <=1.005 L (1.015-1.025) Urine Protein 1+ A (NEGATIVE) Urine Glucose (UA) 3+ A (NEGATIVE) Urine Ketones Negative (NEGATIVE) Urine Occult Blood 1+ A (NEGATIVE) Urine Nitrate Negative (NEGATIVE) Urine Bilirubin Negative (NEGATIVE) Urine Urobilinogen 0.2 (NORMAL) EU/DL Ur Leukocyte Esterase Negative (NEGATIVE) Urine Test Negative (Negative) Urine Opiates Screen Negative ng/mL Ur Oxycodone Screen Negative ng/mL Urine Methadone Screen Negative ng/mL Ur Propoxyphene Screen Negative ng/mL Ur Barbiturates Screen Negative ng/mL U Tricyclic Antidepress Negative ng/mL Ur Phencyclidine Scrn Negative ng/mL Ur Amphetamines Screen Negative ng/mL U Methamphetamines Scrn Negative ng/mL U Benzodiazepines Scrn Negative ng/mL Urine Cocaine Screen Negative ng/mL U Cannabinoids Screen Negative ng/mL Alcohol, Quantitative (<10) MG/DL Disposition Clinical Impression: Hyperglycemia due to type 1 diabetes mellitus, Dehydration Pancreatitis Qualifiers: Chronicity: acute Pancreatitis type: unspecified pancreatitis type Acute pancreatitis complication: no infection or necrosis Qualified Code(s): K85.90 - Acute pancreatitis without necrosis or infection, unspecified Disposition: 02 To [facility] Acute Care Condition: Stable Prescriptions: No Action Folic Acid 1 mg PO DAILY #0 Metoclopramide HCl 10 mg PO BID #0 Insulin Detemir [Levemir] 21 unit SQ HS vial Lisinopril [Prinivil] 20 mg PO DAILY #30 tab Promethazine Tab [Phenergan Tab] 25 mg PO Q6H PRN #20 tab PRN Reason: Nausea Sertraline HCl 200 mg PO DAILY #0 Vitamin B Complex [B Complex] 1 tab PO DAILY #0 Multivitamin [Multi-Day Vitamins] 1 tab PO DAILY #0 Albuterol Sulfate [Ventolin Hfa] 2 puff ORAL INH BID PRN #0 inhaler PRN Reason: PRN ORDERS Zolpidem Tartrate [Ambien] 5 mg PO HS #0 Diazepam [Valium] 5 mg PO BID Insulin Aspart [NovoLOG] 10 unit SQ BIDBL vial Insulin Aspart [NovoLOG] 12 unit SQ WS vial - Seen By: physician
[2017-05-02] MEDS ORDERED: NS 1,000 ML IV ONE ×2 (19:18→21:02)
[2017-05-02] MEDS ORDERED: PROCHLORPERAZINE 10 MG/2 ML INJECTION IVP ONE (19:27)
[2017-05-02] MEDS ORDERED: KETOROLAC 30 MG/ML INJECTION IVP ONE (19:27)
[2017-05-02] MEDS: SALINE FLUSH 10ml SYRINGE IVF PRN ×2 (19:51→23:55)
[2017-05-02] MEDS ORDERED: HYDROMORPHONE 2 MG/ML INJECTION IVP ONE (21:03)
[2017-05-02] MEDS: NS 1,000 ML IV SCH (22:33)
[2017-05-02 22:43] VITALS: BMI 21.4
[2017-05-02] MEDS ORDERED: DEXTROSE 50% SYRINGE 50ml (1 AMP) IVP PRN (23:00)
--- NOTE | 2017-05-02 23:07 | History & Physical Report ---
History of Present Illness Date: 05/02/17 Chief complaint: n/v/abd pain HPI: please note that the patient was seen via telemedicine with nursing assistance on 05/02/2017 Ms. Wade is a 22yo woman with DM1 since age 15, tubal, , uterine ablation, now with recurrent acute pancreatitis. No etoh and no h/o gallstones , and no viral symptoms. Has had before with associate poor glucose control, but not DKA. No blood in vomitus, last stool today. Noted 5/10 abd pain eigastric to back as would be expected. ON LICENSE OF [facility] Patient Stated Medical History Migraine Yes Seizures Yes: epilepsey, last seizure- a few years ago Hearing Loss Yes: left ear Other HEENT Yes: Frequent ear infections Hypertension Yes Asthma Yes Chronic Obstructive Pulmonary Yes Disease (COPD) Diabetes Mellitus Type 1 Yes Other GI Yes: gastroparesis Other Yes: hx of acute kidney failure Anemia Yes MRSA Yes Bipolar Disorder Yes Depression Yes Post Traumatic Stress Disorder Yes Clinic Medical History DKA (diabetic ketoacidoses) (Acute Medical) Hyponatremia (Resolved Medical) Elevated LFTs (Acute Medical) Nausea and vomiting (Acute Medical) Pancreatitis, acute (Acute Medical) Diabetes mellitus type 1, uncontrolled (Chronic Medical) Diabetic autonomic neuropathy associated with type 1 diabetes mellitus (Chronic Medical) Hypoglycemia due to insulin (Acute Medical) Pancreatitis (Acute Medical) Hyperglycemia due to type 1 diabetes mellitus (Acute Medical) Dehydration (Acute Medical) Melena (Inactive Medical) Surgical History: tubal ligation, teeth extraction, Family History: DM2 - Social History Smoking status: Current every day smoker Substance use type: does not use Medications Home Medications Medication Instructions Recorded Confirmed Type Folic Acid 1 mg PO DAILY #0 06/25/15 05/02/17 History Sertraline HCl 200 mg PO DAILY #0 06/25/15 05/02/17 History Albuterol Sulfate [Ventolin Hfa] 2 puff ORAL INH BID PRN #0 inhaler 12/04/15 History Multivitamin [Multi-Day Vitamins] 1 tab PO DAILY #0 12/04/15 05/02/17 History Vitamin B Complex [B Complex] 1 tab PO DAILY #0 12/04/15 05/02/17 History Zolpidem Tartrate [Ambien] 5 mg PO HS #0 12/04/15 05/02/17 History Metoclopramide HCl 10 mg PO BID #0 09/02/16 11/17/17 History Diazepam [Valium] 5 mg PO BID 04/20/17 05/02/17 History Allergies Allergy/AdvReac Type Severity Reaction Status Date / Time Sulfa (Sulfonamide Allergy Severe HYPOTENSION Verified 05/02/17 19:57 Antibiotics) nitrofurantoin Allergy Intermediate "MY Verified 05/02/17 19:57 KIDNEYS SHUT DOWN" ibuprofen Allergy Mild Verified 05/02/17 19:57 morphine Allergy Mild ITCHING Verified 05/02/17 19:57 adhesive tape Allergy Unknown RASH Verified 05/02/17 19:57 amoxicillin Allergy Unknown HIVES Verified 05/02/17 19:57 Penicillins Allergy Unknown Verified 05/02/17 19:57 simvastatin Allergy Unknown Verified 05/02/17 19:57 sulfamethoxazole Allergy Unknown Verified 05/02/17 19:57 trimethoprim Allergy Unknown Verified 05/02/17 19:57 Apple Juice Allergy Unknown HIVES Uncoded 04/20/17 19:08 Exam Vital Signs: Temperature 97.7 F 05/02/17 19:07 Pulse Rate 109 H 05/02/17 21:26 Respiratory Rate 20 05/02/17 21:26 Blood Pressure 143/76 H 05/02/17 21:26 Pulse Oximetry 99 05/02/17 21:26 Telemetry Rhythm: Sinus Rhythm Height/Weight/BMI: Height 1.63 m Weight 56.8 kg Body Mass Index 21.4 - Constitutional Present: mild distress - Routine HEENT Exam Head: Present: normocephalic Eye: Present: EOMI - Routine Neck Exam Present: full ROM - Routine Respiratory Exam Present: CTA bilaterally. Absent: accessory muscle use - Routine Cardiovascular Exam Present: S1, S2. Absent: no murmur - Routine Abdominal Exam Present: soft, normoactive bowel sounds, tenderness. Absent: rebound, guarding - Routine Neurological Exam Present: alert, oriented X3 - Routine Psychiatric Exam Present: normal affect Results - Labs CBC & Chem 7: 05/02/17 19:38 05/02/17 19:38 Assessment and Plan (1) Pancreatitis, acute Current visit: No Status: Acute Assessment and Plan: 1. Acute pancreatitis etiology uncertain, but poorly controlled DM likely vs viral with no etoh or stone hx. MRCP a consideration with recurrence. IVF, supportive care with nothing beyond clear liquids. 2. DM1--levemir, agressive IVF, CBGs with SSI and education. A1C check with need for better compliance. Not DKA. 3. Hyponatremia--supp and recheck. DVT prophylaxis. DVT Prophylaxis: SCD's GI Prophylaxis: Protonix Hospital Course Summary Disclaimer: The visit summary below is not to be considered part of the above Progress Note.
[2017-05-02] MEDS: HYDROMORPHONE 2 MG/ML INJECTION IVP PRN (23:49)
[2017-05-02] MEDS: INSULIN DETEMIR 100unit/ml INJECTION SQ SCH (23:50)
[2017-05-03] MEDS: INSULIN ASPART 100unit/ml INJECTION SQ PRN ×3 (00:23→21:06)
[2017-05-03] MEDS: HYDROMORPHONE 2 MG/ML INJECTION IVP PRN ×9 (02:16→22:09)
[2017-05-03] MEDS: ONDANSETRON 4 MG/2 ML INJECTION IVP PRN ×4 (02:17→20:19)
[2017-05-03] MEDS: SALINE FLUSH 10ml SYRINGE IVF PRN ×10 (02:18→21:06)
[2017-05-03] MEDS: NS 1,000 ML IV SCH ×3 (05:20→18:45)
[2017-05-03] MEDS: PANTOPRAZOLE 40 MG INJECTION IVP SCH (08:17)
[2017-05-03] MEDS: Oxycodone/Acetaminophen 5/325 1 TAB PO PRN ×2 (08:27→21:04)
[2017-05-03] MEDS: SERTRALINE 100 MG TABLET PO SCH (09:26)
[2017-05-03] MEDS: METOCLOPRAMIDE 10mg/2ml INJECTION IVP PRN (11:55)
--- NOTE | 2017-05-03 14:55 | Progress Note ---
- Date 05/03/17 Subjective: Ms. Wade is a 32yo woman with DM1 since age 15, tubal, , uterine ablation, now with recurrent acute pancreatitis. No etoh and no h/o gallstones , and no viral symptoms. Has had before with associate poor glucose control, but not DKA. No blood in vomitus, last stool today. Noted 5/10 abd pain epigastric to back as would be expected. Her lipase was elevated to 1172 and Blood glucose over 600. Today, she continues to have abdominal pain both epigastric and bilateral lower quadrants. She is requesting full liquid diet. Her lipase has normalized. Her BS are much better controlled. Her A1C is 11.1 indicating very poor control at home. She denies SOA, Palp, CP, Lightheadedness. +nausea intermittently, No vomiting. No diarrhea. Urinating okay. She is complaining of a sore throat. All other 12 pt ROS neg. BP a little elevated. 92% on RA. Objective Vital signs: Temperature 96.2 F L 05/03/17 07:31 Pulse Rate 108 H 05/03/17 07:31 Respiratory Rate 16 05/03/17 07:31 Blood Pressure 143/91 H 05/03/17 07:31 Pulse Oximetry 92 05/03/17 07:31 Height/Weight/BMI: Height 1.63 m Weight 58.3 kg Body Mass Index 21.4 Comments: Gen: alert and oriented. NAD Skin: warm and dry HEENT: NC/AT PERRL, EOMI, Sclera, lids and conjunctiva wnl, MMM, OP clear Neck: supple. No JVD, Carotids 2+ without bruits. Lungs: clear, No rales, rhonchi, wheezes. CV: regular. No murmur or rub. She does have an S3 Abd: soft. NT/ND, +BS MS: No edema. Good strength and ROM. Neuro: No focal deficit Results - Labs CBC & Chem 7: 05/03/17 04:11 05/03/17 04:11 Labs: Laboratory Results - last 48 hr 05/02/17 05/02/17 05/02/17 19:38 19:38 19:38 WBC 8.7 RBC 3.50 L Hgb 10.7 L Hct 33.7 L MCV 96.3 MCH 30.6 MCHC 31.8 RDW Std Deviation 43.3 Plt Count 358 MPV 10.1 Immature Gran % (Auto) 0.1 Neut % (Auto) 71.1 H Lymph % (Auto) 17.3 L Quay % (Auto) 4.7 Eos % (Auto) 5.9 H Baso % (Auto) 0.9 Neut # (Auto) 6.2 Lymph # (Auto) 1.5 Quay # (Auto) 0.4 Eos # (Auto) 0.5 Baso # (Auto) 0.1 Abs Immat Gran (auto) 0.01 VBG pH 7.330 VBG pCO2 29 L VBG pO2 47 VBG HCO3 15 L VBG Total CO2 16.2 VBG O2 Saturation 79.0 VBG Base Excess -9.3 L O2 Delivery Method Room air Turbidity < 20 Sodium 125 L Potassium 4.9 Chloride 94 L Carbon Dioxide 14 L Anion Gap 17 H BUN 24.0 H Creatinine 0.9 GFR Calculation 73 BUN/Creatinine Ratio 27 H Glucose 675 H* Glucometer Hemoglobin A1c Calculated Osmolality 278 Calcium 8.3 L Total Bilirubin 0.30 Conjugated Bilirubin 0.00 Unconjugated Bilirubin 0.10 Icterus Index < 2 AST 75 H ALT 80 H Alkaline Phosphatase 137 H Total Protein 6.2 L Albumin 3.2 L Globulin 3.0 Albumin/Globulin Ratio 1.1 Lipase 1172 H Specimen Hemolysis < 15 Ur Collection Type Urine Color Urine Clarity Urine pH Ur Specific Keller Urine Protein Urine Glucose (UA) Urine Ketones Urine Occult Blood Urine Nitrate Urine Bilirubin Urine Urobilinogen Ur Leukocyte Esterase Urine Test Urine Opiates Screen Ur Oxycodone Screen Urine Methadone Screen Ur Propoxyphene Screen Ur Barbiturates Screen U Tricyclic Antidepress Ur Phencyclidine Scrn Ur Amphetamines Screen U Methamphetamines Scrn U Benzodiazepines Scrn Urine Cocaine Screen U Cannabinoids Screen Alcohol, Quantitative <10 05/02/17 05/02/17 05/02/17 19:41 19:41 19:41 WBC RBC Hgb Hct MCV MCH MCHC RDW Std Deviation Plt Count MPV Immature Gran % (Auto) Neut % (Auto) Lymph % (Auto) Quay % (Auto) Eos % (Auto) Baso % (Auto) Neut # (Auto) Lymph # (Auto) Quay # (Auto) Eos # (Auto) Baso # (Auto) Abs Immat Gran (auto) VBG pH VBG pCO2 VBG pO2 VBG HCO3 VBG Total CO2 VBG O2 Saturation VBG Base Excess O2 Delivery Method Turbidity Sodium Potassium Chloride Carbon Dioxide Anion Gap BUN Creatinine GFR Calculation BUN/Creatinine Ratio Glucose Glucometer Hemoglobin A1c Calculated Osmolality Calcium Total Bilirubin Conjugated Bilirubin Unconjugated Bilirubin Icterus Index AST ALT Alkaline Phosphatase Total Protein Albumin Globulin Albumin/Globulin Ratio Lipase Specimen Hemolysis Ur Collection Type Urine, clean catch Urine Color Yellow Urine Clarity Clear Urine pH 5.5 Ur Specific Keller <=1.005 L Urine Protein 1+ A Urine Glucose (UA) 3+ A Urine Ketones Negative Urine Occult Blood 1+ A Urine Nitrate Negative Urine Bilirubin Negative Urine Urobilinogen 0.2 Ur Leukocyte Esterase Negative Urine Test Negative Urine Opiates Screen Negative Ur Oxycodone Screen Negative Urine Methadone Screen Negative Ur Propoxyphene Screen Negative Ur Barbiturates Screen Negative U Tricyclic Antidepress Negative Ur Phencyclidine Scrn Negative Ur Amphetamines Screen Negative U Methamphetamines Scrn Negative U Benzodiazepines Scrn Negative Urine Cocaine Screen Negative U Cannabinoids Screen Negative Alcohol, Quantitative 05/03/17 05/03/17 05/03/17 00:15 01:54 03:42 WBC RBC Hgb Hct MCV MCH MCHC RDW Std Deviation Plt Count MPV Immature Gran % (Auto) Neut % (Auto) Lymph % (Auto) Quay % (Auto) Eos % (Auto) Baso % (Auto) Neut # (Auto) Lymph # (Auto) Quay # (Auto) Eos # (Auto) Baso # (Auto) Abs Immat Gran (auto) VBG pH VBG pCO2 VBG pO2 VBG HCO3 VBG Total CO2 VBG O2 Saturation VBG Base Excess O2 Delivery Method Turbidity Sodium Potassium Chloride Carbon Dioxide Anion Gap BUN Creatinine GFR Calculation BUN/Creatinine Ratio Glucose Glucometer 353 150 33 Hemoglobin A1c Calculated Osmolality Calcium Total Bilirubin Conjugated Bilirubin Unconjugated Bilirubin Icterus Index AST ALT Alkaline Phosphatase Total Protein Albumin Globulin Albumin/Globulin Ratio Lipase Specimen Hemolysis Ur Collection Type Urine Color Urine Clarity Urine pH Ur Specific Keller Urine Protein Urine Glucose (UA) Urine Ketones Urine Occult Blood Urine Nitrate Urine Bilirubin Urine Urobilinogen Ur Leukocyte Esterase Urine Test Urine Opiates Screen Ur Oxycodone Screen Urine Methadone Screen Ur Propoxyphene Screen Ur Barbiturates Screen U Tricyclic Antidepress Ur Phencyclidine Scrn Ur Amphetamines Screen U Methamphetamines Scrn U Benzodiazepines Scrn Urine Cocaine Screen U Cannabinoids Screen Alcohol, Quantitative 05/03/17 05/03/17 05/03/17 04:11 04:11 04:11 WBC 8.7 RBC 3.39 L Hgb 10.2 L Hct 32.3 L MCV 95.3 MCH 30.1 MCHC 31.6 RDW Std Deviation 43.2 Plt Count 347 MPV 9.7 Immature Gran % (Auto) 0.1 Neut % (Auto) 49.0 Lymph % (Auto) 31.8 Quay % (Auto) 6.3 Eos % (Auto) 12.0 H Baso % (Auto) 0.8 Neut # (Auto) 4.3 Lymph # (Auto) 2.8 Quay # (Auto) 0.6 Eos # (Auto) 1.0 H Baso # (Auto) 0.1 Abs Immat Gran (auto) 0.01 VBG pH VBG pCO2 VBG pO2 VBG HCO3 VBG Total CO2 VBG O2 Saturation VBG Base Excess O2 Delivery Method Turbidity < 20 Sodium 135 D Potassium 4.0 D Chloride 105 D Carbon Dioxide 22 D Anion Gap 8 BUN 31.0 H Creatinine 0.6 L D GFR Calculation 116 BUN/Creatinine Ratio 52 H Glucose 75 Glucometer 78 Hemoglobin A1c 11.1 H Calculated Osmolality 266 Calcium 8.0 L Total Bilirubin Conjugated Bilirubin Unconjugated Bilirubin Icterus Index < 2 AST ALT Alkaline Phosphatase Total Protein Albumin Globulin Albumin/Globulin Ratio Lipase 280 Specimen Hemolysis < 15 Ur Collection Type Urine Color Urine Clarity Urine pH Ur Specific Keller Urine Protein Urine Glucose (UA) Urine Ketones Urine Occult Blood Urine Nitrate Urine Bilirubin Urine Urobilinogen Ur Leukocyte Esterase Urine Test Urine Opiates Screen Ur Oxycodone Screen Urine Methadone Screen Ur Propoxyphene Screen Ur Barbiturates Screen U Tricyclic Antidepress Ur Phencyclidine Scrn Ur Amphetamines Screen U Methamphetamines Scrn U Benzodiazepines Scrn Urine Cocaine Screen U Cannabinoids Screen Alcohol, Quantitative 05/03/17 05/03/17 05:55 11:57 WBC RBC Hgb Hct MCV MCH MCHC RDW Std Deviation Plt Count MPV Immature Gran % (Auto) Neut % (Auto) Lymph % (Auto) Quay % (Auto) Eos % (Auto) Baso % (Auto) Neut # (Auto) Lymph # (Auto) Quay # (Auto) Eos # (Auto) Baso # (Auto) Abs Immat Gran (auto) VBG pH VBG pCO2 VBG pO2 VBG HCO3 VBG Total CO2 VBG O2 Saturation VBG Base Excess O2 Delivery Method Turbidity Sodium Potassium Chloride Carbon Dioxide Anion Gap BUN Creatinine GFR Calculation BUN/Creatinine Ratio Glucose Glucometer 152 139 Hemoglobin A1c Calculated Osmolality Calcium Total Bilirubin Conjugated Bilirubin Unconjugated Bilirubin Icterus Index AST ALT Alkaline Phosphatase Total Protein Albumin Globulin Albumin/Globulin Ratio Lipase Specimen Hemolysis Ur Collection Type Urine Color Urine Clarity Urine pH Ur Specific Keller Urine Protein Urine Glucose (UA) Urine Ketones Urine Occult Blood Urine Nitrate Urine Bilirubin Urine Urobilinogen Ur Leukocyte Esterase Urine Test Urine Opiates Screen Ur Oxycodone Screen Urine Methadone Screen Ur Propoxyphene Screen Ur Barbiturates Screen U Tricyclic Antidepress Ur Phencyclidine Scrn Ur Amphetamines Screen U Methamphetamines Scrn U Benzodiazepines Scrn Urine Cocaine Screen U Cannabinoids Screen Alcohol, Quantitative Assessment and Plan (1) Pancreatitis, acute Current visit: No Status: Acute Assessment and Plan: 1. Acute pancreatitis etiology uncertain -prior h/o pancreatitis due to poor DM control, likely this time too as her BS was over 600. -Check triglycerides -MRCP a consideration with recurrence. -IVF -Will try full liq diet today, repeat labs in am. 2. DM1 -poorly controlled with A1C of 11.1 -Gastroparesis, autonomic neuropathy -Levemir, NovoLog pastora, SSI 3. hyponatremia on admission normal with correction for glucose levels. 4. Bipolar disorder, depression, PTSD -On valium at home along with zoloft 5. HTN -Prinivil 6. Anemia -fairly stable 7. H/O seizure d/o -none for a few years. 8. Prophylaxis -PPI, lovenox Hospital Course Summary Disclaimer: The visit summary below is not to be considered part of the above Progress Note.
[2017-05-03] MEDS: LISINOPRIL 20 MG TABLET PO SCH (15:33)
[2017-05-03] MEDS: INSULIN DETEMIR 100unit/ml INJECTION SQ SCH (21:05)
[2017-05-04] MEDS: HYDROMORPHONE 2 MG/ML INJECTION IVP PRN ×11 (00:30→23:12)
[2017-05-04] MEDS: METOCLOPRAMIDE 10mg/2ml INJECTION IVP PRN ×3 (00:31→12:59)
[2017-05-04] MEDS: NS 1,000 ML IV SCH ×2 (01:39→08:43)
[2017-05-04] MEDS: ONDANSETRON 4 MG/2 ML INJECTION IVP PRN ×3 (02:27→17:07)
[2017-05-04] MEDS: Oxycodone/Acetaminophen 5/325 1 TAB PO PRN ×2 (03:40→16:38)
[2017-05-04] MEDS: ENOXAPARIN 40 MG/0.4 ML INJECTION SQ SCH (08:57)
[2017-05-04] MEDS: LISINOPRIL 20 MG TABLET PO SCH (08:58)
[2017-05-04] MEDS: PANTOPRAZOLE 40 MG INJECTION IVP SCH (08:59)
[2017-05-04] MEDS: SERTRALINE 100 MG TABLET PO SCH (08:59)
--- NOTE | 2017-05-04 10:15 | Progress Note ---
- Date 05/04/17 Subjective: Ms. Wade is a 32yo woman with DM1 since age 15, tubal, , uterine ablation, now with recurrent acute pancreatitis. No etoh and no h/o gallstones , and no viral symptoms. Has had before with associate poor glucose control, but not DKA. No blood in vomitus, last stool today. Noted 5/10 abd pain epigastric to back as would be expected. Her lipase was elevated to 1172 and Blood glucose over 600. Today, she continues to have abdominal pain. The epigastric pain has improved but she is having more bilateral lower quadrant discomfort. TTP. Her nausea is better and she tolerated the full liquid diet. Her Lipase continued to trend down. Her triglycerides are over 500. Her BS are labile ranging from 69-247. Her A1C is 11.1 indicating very poor control at home. She denies SOA, Palp, CP, Lightheadedness. +nausea intermittently, No vomiting. No diarrhea. Urinating okay. Her throat is better. BP are better. She is still a little tachycardic. She is on RA. Objective Vital signs: Temperature 96.7 F L 05/04/17 07:48 Pulse Rate 109 H 05/04/17 07:48 Respiratory Rate 18 05/04/17 07:48 Blood Pressure 121/84 05/04/17 07:48 Pulse Oximetry 97 05/04/17 07:48 Height/Weight/BMI: Height 1.63 m Weight 61 kg Body Mass Index 21.4 Comments: Gen: alert and oriented. NAD Skin: warm and dry HEENT: NC/AT PERRL, EOMI, Sclera, lids and conjunctiva wnl, MMM, OP clear Neck: supple. No JVD, Carotids 2+ without bruits. Lungs: clear, No rales, rhonchi, wheezes. CV: regular. No murmur or rub. She does have an S3 Abd: soft. Tender to palpation in both the lower abdomen and epigastric area. MS: No edema. Good strength and ROM. Neuro: No focal deficit Results - Labs CBC & Chem 7: 05/04/17 03:44 05/04/17 03:44 Assessment and Plan (1) Pancreatitis, acute Current visit: No Status: Acute Assessment and Plan: 1. Acute pancreatitis etiology uncertain -prior h/o pancreatitis due to poor DM control, likely this time too as her BS was over 600. -Triglycerides over 500. Will start fenofibrate -MRCP a consideration with recurrence. -IVF -Continue full liq diet today, may try to advance tomorrow 2. DM1 -poorly controlled with A1C of 11.1 -Gastroparesis, autonomic neuropathy -Levemir, NovoLog pastora, SSI 3. hyponatremia on admission was normal with correction for glucose levels. 4. Bipolar disorder, depression, PTSD -On valium at home along with zoloft 5. HTN -Prinivil 6. Anemia -fairly stable 7. H/O seizure d/o -none for a few years. 8. Prophylaxis -PPI, lovenox Hospital Course Summary Disclaimer: The visit summary below is not to be considered part of the above Progress Note.
[2017-05-04] MEDS: FENOFIBRATE 145 MG TABLET PO SCH (11:24)
[2017-05-04] MEDS: INSULIN ASPART 100unit/ml INJECTION SQ PRN ×2 (14:48→20:40)
[2017-05-04] MEDS: SALINE FLUSH 10ml SYRINGE IVF PRN ×6 (15:17→23:52)
[2017-05-04] MEDS: INSULIN DETEMIR 100unit/ml INJECTION SQ SCH (20:40)
[2017-05-04] MEDS ORDERED: FUROSEMIDE 20 MG/2 ML INJECTION IVP ONE (23:23)
[2017-05-05] MEDS: HYDROMORPHONE 2 MG/ML INJECTION IVP PRN ×10 (01:41→23:47)
[2017-05-05] MEDS ORDERED: DiphenhydrAMINE 50 MG/ML INJECTION IVP PRN (01:42)
[2017-05-05] MEDS: ONDANSETRON 4 MG/2 ML INJECTION IVP PRN ×2 (03:17→23:47)
[2017-05-05] MEDS: SALINE FLUSH 10ml SYRINGE IVF PRN ×8 (03:18→20:48)
[2017-05-05] MEDS: Oxycodone/Acetaminophen 5/325 1 TAB PO PRN ×2 (06:01→16:13)
[2017-05-05] MEDS: METOCLOPRAMIDE 10mg/2ml INJECTION IVP PRN ×2 (06:02→20:31)
[2017-05-05] MEDS: INSULIN DETEMIR 100unit/ml INJECTION SQ SCH ×2 (08:22→20:31)
[2017-05-05] MEDS: FENOFIBRATE 145 MG TABLET PO SCH (08:23)
[2017-05-05] MEDS: LISINOPRIL 20 MG TABLET PO SCH (08:24)
[2017-05-05] MEDS: SERTRALINE 100 MG TABLET PO SCH (08:24)
[2017-05-05] MEDS: PANTOPRAZOLE 40 MG INJECTION IVP SCH (08:24)
[2017-05-05] MEDS: ENOXAPARIN 40 MG/0.4 ML INJECTION SQ SCH (08:25)
--- NOTE | 2017-05-05 10:00 | Progress Note ---
<Kavitha Zamudio L - Last Filed: 05/05/17 12:00> - Date 05/05/17 Subjective: Pt seen sitting in bed. She requests to have a more substantial diet. She is currently on liquids. Reports she is still having pain, but it is not worsening. Nausea is controlled with meds. No vomiting since admission. She requests to have Dr. Helton see her in the hospital. She feels she is " swollen all over." Reports she feels especially swollen in her abdomen and legs. Objective Vital signs: Temperature 97.3 F 05/05/17 07:44 Pulse Rate 107 H 05/05/17 07:44 Respiratory Rate 20 05/05/17 07:44 Blood Pressure 143/100 H 05/05/17 07:44 Pulse Oximetry 97 05/05/17 07:44 Height/Weight/BMI: Height 1.63 m Weight 60.9 kg Body Mass Index 21.4 - Constitutional Present: no acute distress, well nourished, well developed - Routine HEENT Exam Head: Present: normocephalic, atraumatic - Routine Respiratory Exam Present: CTA bilaterally. Absent: wheezes - Routine Cardiovascular Exam Present: RRR. Absent: murmur - Routine Abdominal Exam Present: soft, normoactive bowel sounds, tenderness (diffuse), non distended - Routine Extremities Exam Present: no edema (to LE's), normal capillary refill - Routine Skin Exam Present: dry, warm - Routine Neurological Exam Present: alert, oriented X3 - Routine Lymphatic Exam Lymphatic: Absent: adenopathy - Routine Psychiatric Exam Present: normal affect, cooperative Results - Labs CBC & Chem 7: 05/05/17 04:36 05/05/17 04:36 Labs: Laboratory Tests 05/04/17 03:44 Triglycerides 565 H Laboratory Tests 05/02/17 05/03/17 05/04/17 19:38 04:11 03:44 Lipase 1172 H 280 77 Assessment and Plan (1) Pancreatitis, acute Current visit: No Status: Acute Assessment and Plan: Assessment Acute pancreatitis Type 1 diabetes-poor control (A1c 11.1) Diabetic gastroparesis, autonomic neuropathy Hypernatremia-POA Hypertriglyceridemia - fenofibrate initiated 05/04/17 Bipolar d/o PTSD Hypertension Anemia History seizure disorder (no seizures for a "few years") Plan OK to advance diet. Continue antiemetics and pain control prn. Start Reglan 5mg po ac hs routinely for her gastroparesis and nausea. IVF's were DC'd last night. Patient taking p.o. well. Patient requests Dr. Helton consult. Question necessity for him to consult her at this time, but can follow her on an OP basis. Hospital Course Summary Disclaimer: The visit summary below is not to be considered part of the above Progress Note. Hospital Course: 05/02/17 Acute pancreatitis etiology uncertain, but poorly controlled DM likely vs viral with no etoh or stone hx. MRCP a consideration with recurrence. IVF, supportive care with nothing beyond clear liquids. Antiemetics and narcs for pain control. DM1--levemir, aggressive IVF, CBGs with SSI and education. A1C check with need for better compliance. Not DKA. Hyponatremia--supp and recheck. DVT prophylaxis. 05/03/17 Start full liquid diet, continue IVF's. Check triglycerides 05/04/17 Continue full liquids, may try to advance tomorrow. Start fenofibrate for elevated trigs 05/05/17 OK to advance diet. Continue antiemetics and pain control prn. Start Reglan 5mg po ac hs routinely for her gastroparesis and nausea. IVF's were DC'd last night. Patient taking clear liquids w/o vomiting. Patient requests Dr. Helton consult. Question necessity for him to consult her at this time, but can follow her on an OP basis. <Mychal Pitts - Last Filed: 05/05/17 17:30> - Date 05/05/17 Objective Vital signs: Temperature 97.9 F 05/05/17 16:00 Pulse Rate 107 H 05/05/17 16:00 Respiratory Rate 18 05/05/17 16:00 Blood Pressure 138/97 H 05/05/17 16:00 Pulse Oximetry 97 05/05/17 16:00 Height/Weight/BMI: Height 1.63 m Weight 60.9 kg Body Mass Index 21.4 Results - Labs CBC & Chem 7: 05/05/17 04:36 05/05/17 04:36 Assessment and Plan (1) Pancreatitis, acute Current visit: No Status: Acute Assessment and Plan: Assessment Acute pancreatitis Type 1 diabetes-poor control (A1c 11.1) Diabetic gastroparesis, autonomic neuropathy Hypernatremia-POA Hypertriglyceridemia - fenofibrate initiated 05/04/17 Bipolar d/o PTSD Hypertension Anemia History seizure disorder (no seizures for a "few years") Have independently interviewed & examined pt. Chart reviewed. Case discussed with CM & my PA. Care plan developed with my supervision; agree with above. Doing okay. Tolerating mashed potatoes and cooked carrots-meats feel to heavy for her to eat. Passing flatus. No stool. Ab feels more full and distended. Working on ambulating more. Breathing well. Lungs: clear CV: tachy, regular Ab: soft nt/nd, BS decreased EXT: +1 edema to BLE Plan: Advance diet to regular. Encourage ambulation. Montior sugars. Possible discharge home tomorrow. Hospital Course Summary Disclaimer: The visit summary below is not to be considered part of the above Progress Note.
[2017-05-05] MEDS: METOCLOPRAMIDE 5mg TABLET PO SCH ×3 (11:47→20:48)
[2017-05-05] MEDS: INSULIN ASPART 100unit/ml INJECTION SQ PRN (20:48)
[2017-05-06] MEDS ORDERED: NS 1,000 ML IV SCH (00:15)
[2017-05-06] MEDS ORDERED: NS 0 ML ONE (00:45)
[2017-05-06] MEDS ORDERED: SALINE FLUSH 10ml SYRINGE ONE (00:45)
[2017-05-06] MEDS ORDERED: IOHEXOL 350mg/ml 75ml INJECTION ONE (00:45)
[2017-05-06] MEDS ORDERED: MEROPENEM 500 MG in NS 50 ML IV ONE (00:53)
[2017-05-06 00:58] VITALS: RESP 18
[2017-05-06] MEDS ORDERED: ALBUTEROL 2.5mg/3ml (0.083%) NEB AEROSOL PRN (00:59)
--- NOTE | 2017-05-06 01:46 | Event Note ---
Rapid response on patient] Contacted this evening when the patient was discovered to be hypoxic. sats 66% on room air. Patient is currently being managed for acute pancreatitis with a history of DM1 and asthma. I responded to the room after ordering series of test and my examination demonstrated alert and able to make conversation with at least 3 word sentences. The patient mouth was dry. neck was supple, lungs with diminished, scattered rhonchi but not loud, abd is flat with mild to moderate tenderness. extremity no edema. Her actual vitals were reported to me with a temp of 101.9, pulse 130's rr 18 to 20 bp 148/87. Labs obtained (see EMR) but demonstrate no sig change from this am. ABG demonstrates pH 7.46 pco2 40 pao2 68 on 15l nrb. CXR was very abnormal with multiple ramos ball appearing findings. in both lung cain. I visited with mom and patient and informed that due to the sudden nature of her change in clinical status that she would need to be tx to ICU/pulmonary care location. They [place] without icu bed Contacted [facility] and discussed with Dr. Edwards who was kind enough to accept the pateint in transfer. Nursing assisted with filling out the transfer documents Transfer dx 1. acute hypoxic RF. most likely secondary to overwhelming ARDS, or infectious process. continue to support on oxygen. no indication for acute intubation but clearly there will be strong consideration if not improve easily. DDX also includes PE but less likely. Concerned to anticoagulate as there is mention of pulmonary hemorrhage by radiologist and any anticoagulation would only worsen this. She is on lovenox DVT ppx. Patient was to get CT PE at our hospital but will tx and let receiving team make further recommendations. 2. Sepsis acute not present on admission: now with fever and tachycardia. Need to further assess. blood cx drawn. fluids started. LA 1.5. Will further assess at receiving faciity But for now alirio and vanco started based on the remarkable changes on CXR 3. acute pancreatitis POA: clinically improving, diet had been advanced 4. DM1 chronic POA: per receiving team but will need correctional plan minimally. patient with previous hx of DKA Patient is critically ill. 1 hour of critical care time was spent in examining patient meeting with patient's family. discussing with nursing including nursing supervisor plastering and arranging transfer. All questions were answered. It is greatly appreciated the assistance of nursing in making this process so smooth.
[2017-05-06 02:38] VITALS: BP 136/77; PULSE 132; TEMP 100.9; O2SAT 96
--- NOTE | 2017-05-06 08:25 | XRay Report ---
Indication: dyspnea PROCEDURE: XR chest 1V: Encounter: Initial Comparison: Chest x-ray dated April 20, [address] angiogram of the aorta dated April 27, 2017 Findings: New diffuse bilateral airspace consolidation with a somewhat nodular appearance. There is some peripheral sparing. No pneumothorax. Small pleural effusions, left greater than right. Heart size and mediastinal contours are stable. Pulmonary vascularity is obscured. Right IJ central venous port catheter. Impression: Severe bilateral infiltrates. Differential considerations include pneumonia including fungal, pulmonary hemorrhage, massive aspiration and edema. Metastatic disease would be unlikely given the recent normal appearance of the lungs on CT. Bronchoscopy with lavage may be helpful. There is a preliminary report by [facility]. .
--- NOTE | 2017-05-06 16:36 | Discharge Summary ---
Discharge Information Date of admission: 05/02/17 21:08 Anticipated date of discharge: 05/06/17 Attending Physician: Mychal Pitts MD - Discharge Diagnosis (1) Pancreatitis, acute Status: Acute Admission diagnosis Acute pancreatitis Discharge diagnosis Acute hypoxic respiratory failure Associated conditions and complications Acute pancreatitis - resolved Type 1 diabetes-poor control (A1c 11.1) Diabetic gastroparesis, autonomic neuropathy Hypernatremia-POA Hypertriglyceridemia - fenofibrate initiated 05/04/17 Bipolar d/o PTSD Hypertension Anemia History seizure disorder (no seizures for a "few years") - Laboratory Labs: Admit Lab 05/02/17 19:38 WBC 8.7 Hgb 10.7 L Hct 33.7 L MCV 96.3 Plt Count 358 Neut % (Auto) 71.1 H Lymph % (Auto) 17.3 L [place] % (Auto) 4.7 Eos % (Auto) 5.9 H Baso % (Auto) 0.9 Admit Lab 05/02/17 19:38 Sodium 125 L Potassium 4.9 Chloride 94 L Carbon Dioxide 14 L Anion Gap 17 H BUN 24.0 H Creatinine 0.9 GFR Calculation 73 BUN/Creatinine Ratio 27 H Glucose 675 H* Calculated Osmolality 278 Calcium 8.3 L Total Bilirubin 0.30 Conjugated Bilirubin 0.00 Unconjugated Bilirubin 0.10 Icterus Index < 2 AST 75 H ALT 80 H Alkaline Phosphatase 137 H Total Protein 6.2 L Albumin 3.2 L Globulin 3.0 Albumin/Globulin Ratio 1.1 Lipase 1172 H Laboratory Tests 05/04/17 03:44 Triglycerides 565 H Laboratory Tests 05/03/17 04:11 Hemoglobin A1c 11.1 H 05/06/17 00:26 05/06/17 00:26 - Microbiology Microbiology 05/06/17 00:26 Peripheral/Iv Start Blood Culture - Preliminary Culture Initiated - Results Pending 05/06/17 00:28 Peripheral/Iv Start Blood Culture - Preliminary Culture Initiated - Results Pending - Radiology Radiology: Date of Exam: 05/06/17 Type of Exam: XR chest 1V Comparison: Chest x-ray dated April 20, [address] angiogram of the aorta dated April 27, 2017 Findings: New diffuse bilateral airspace consolidation with a somewhat nodular appearance. There is some peripheral sparing. No pneumothorax. Small pleural effusions, left greater than right. Heart size and mediastinal contours are stable. Pulmonary vascularity is obscured. Right IJ central venous port catheter. Impression: Severe bilateral infiltrates. Differential considerations include pneumonia including fungal, pulmonary hemorrhage, massive aspiration and edema. Metastatic disease would be unlikely given the recent normal appearance of the lungs on CT. Bronchoscopy with lavage may be helpful. History of Present Illness HPI: Ms. Wade is a 22yo woman with DM1 since age 15, tubal, , uterine ablation, now with recurrent acute pancreatitis. No etoh and no h/o gallstones , and no viral symptoms. Has had before with associate poor glucose control, but not DKA. No blood in vomitus, last stool today. Noted 5/10 abdominal pain epigastric to back as would be expected. For complete details of the H&P refer to that document. Objective Vital signs: Temperature 100.9 F H 05/06/17 01:38 Pulse Rate 132 H 05/06/17 02:08 Respiratory Rate 18 05/06/17 00:55 Blood Pressure 136/77 05/06/17 02:08 Pulse Oximetry 96 05/06/17 02:08 Height/Weight/BMI: Height 1.63 m Weight 60.9 kg Body Mass Index 21.4 Hospital Course This is a general summary of the patient's hospital course. For more details refer to the complete medical record. Hospital course: 05/02/17 Acute pancreatitis etiology uncertain, but poorly controlled DM likely vs viral with no etoh or stone hx. MRCP a consideration with recurrence. IVF, supportive care with nothing beyond clear liquids. Antiemetics and narcs for pain control. DM1--levemir, aggressive IVF, CBGs with SSI and education. A1C check with need for better compliance. Not DKA. Hyponatremia--supp and recheck. DVT prophylaxis. 05/03/17 Start full liquid diet, continue IVF's. Check triglycerides 05/04/17 Continue full liquids, may try to advance tomorrow. Start fenofibrate for elevated trigs 05/05/17 OK to advance diet. Continue antiemetics and pain control prn. Start Reglan 5mg po ac hs routinely for her gastroparesis and nausea. IVF's were DC'd last night. Patient taking clear liquids w/o vomiting. Patient requests Dr. Helton consult. Question necessity for him to consult her at this time, but can follow her on an OP basis. 05/06/17 [Rapid response on patient] Contacted this evening when the patient was discovered to be hypoxic. sats 66% on room air. Patient is currently being managed for acute pancreatitis with a history of DM1 and asthma. I responded to the room after ordering series of test and my examination demonstrated alert and able to make conversation with at least 3 word sentences. The patient mouth was dry. neck was supple, lungs with diminished, scattered rhonchi but not loud, abd is flat with mild to moderate tenderness. extremity no edema. Her actual vitals were reported to me with a temp of 101.9, pulse 130's rr 18 to 20 bp 148/87. Labs obtained (see EMR) but demonstrate no sig change from this am. ABG demonstrates pH 7.46 pco2 40 pao2 68 on 15l nrb. CXR was very abnormal with multiple ramos ball appearing findings. in both lung cain. I visited with mom and patient and informed that due to the sudden nature of her change in clinical status that she would need to be tx to ICU/pulmonary care location. They [place] without icu bed Contacted [facility] and discussed with Dr. Edwards who was kind enough to accept the pateint in transfer. Nursing assisted with filling out the transfer documents Transfer dx 1. acute hypoxic RF. most likely secondary to overwhelming ARDS, or infectious process. continue to support on oxygen. no indication for acute intubation but clearly there will be strong consideration if not improve easily. DDX also includes PE but less likely. Concerned to anticoagulate as there is mention of pulmonary hemorrhage by radiologist and any anticoagulation would only worsen this. She is on Lovenox DVT ppx. Patient was to get CT PE at our hospital but will tx and let receiving team make further recommendations. 2. Sepsis acute not present on admission: now with fever and tachycardia. Need to further assess. blood cx drawn. fluids started. LA 1.5. Will further assess at receiving facility But for now alirio and vanco started based on the remarkable changes on CXR 3. acute pancreatitis POA: clinically improving, diet had been advanced 4. DM1 chronic POA: per receiving team but will need correctional plan minimally. patient with previous hx of DKA Patient is critically ill. 1 hour of critical care time was spent in examining patient meeting with patient's family. discussing with nursing including nursing supervisor network control operators and arranging transfer. All questions were answered. DVT Prophylaxis: Lovenox Discharge Plan - Discharge Disposition Discharge Date: 05/06/17 Disposition: 02 To [facility] *Condition: Stable for Transport Reason For Visit (Visit label in EMR): acute pancreatitis - Discharge Medications *Discharge Medications: No Action Folic Acid 1 mg PO DAILY #0 Metoclopramide HCl 10 mg PO BID #0 Insulin Detemir [Levemir] 21 unit SQ HS vial Lisinopril [Prinivil] 20 mg PO DAILY #30 tab Promethazine Tab [Phenergan Tab] 25 mg PO Q6H PRN #20 tab PRN Reason: Nausea Sertraline HCl 200 mg PO DAILY #0 Vitamin B Complex [B Complex] 1 tab PO DAILY #0 Multivitamin [Multi-Day Vitamins] 1 tab PO DAILY #0 Albuterol Sulfate [Ventolin Hfa] 2 puff ORAL INH BID PRN #0 inhaler PRN Reason: PRN ORDERS Zolpidem Tartrate [Ambien] 5 mg PO HS #0 Diazepam [Valium] 5 mg PO BID Insulin Aspart [NovoLOG] 10 unit SQ BIDBL vial Insulin Aspart [NovoLOG] 12 unit SQ WS vial - Discharge Packet/Instructions *Diet: NA *Activity: NA *Pain Management/Treatment: NA *Wound Care: NA Additional Instructions: NA *Expected Signs/Symptoms: NA *Notify Physician if: NA *During Business Hours Contact: NA *After Business Hours Contact: NA *Pending Lab/Results: Follow up w/Provider - Referrals/Follow Up - Patient Handouts - Dismissal Complete Discharge Instructions are:: Complete
== END 2017-05-06 02:05 | disposition short-term general hospital (02) | DRG 438 ==
LOC: ED 19:02 → MED 21:08 → SUATTDRO 21:08 → MED 22:20
PROVIDERS: ADMIT Hospitalist; ATTEND Hospitalist